=== PATIENT | male | born 1955 | race Caucasian/White ===

== ENCOUNTER 2017-10-09 15:20 | Emergency (ER) | payer BC, SELFPAY ==
[2017-10-09 15:20] VITALS: BP 162/79; PULSE 99; RESP 14; TEMP 37.4; O2SAT 96; BMI 33.0
--- NOTE | 2017-10-09 15:36 | ED.VISSUMM ---
- ER Visit Summary Date of Service: 10/09/17 Chief Complaint: Vomiting/diarrhea History of Present Illness: The patient is a 62 M has had nausea, vomiting, watery diarrhea for the past 7 or 8 hours. He has been having occasional chills and malaise for the past 2 days but the symptoms just started this morning. Denies any abdominal pain, chest pain, shortness of breath, lightheadedness, presyncope. No known sick contacts. He had a history of positive kidney disease and had bilateral nephrectomies along with a kidney transplant, he came in because he is concerned about dehydration as he is at risk for getting dehydrated quite early. He is urinating, he has no pain over his transplanted kidney, which was not recently done. Today he has not been able to keep any of his medications down, hence additional concern. Physical Examination: Intermittently actively vomiting, but otherwise nontoxic and well-appearing. Abdomen soft nontender nondistended with bowel sounds present. His transplanted kidney is in his right lower quadrant, there are well-healed surgical scars, and no tenderness. No signs of cellulitis. Oral mucous membranes are moist. Heart is regular with no significant tachycardia, lungs are clear. No pedal edema. No rashes. Test Results: Mild leukocytosis, BUN and creatinine are similar to prior with creatinine 1.66. Mild hyperglycemia 203. Emergency Department Course and Treatment: He was given a liter of IV fluid as well as Zofran, he felt much better and was tolerating oral fluid with no symptoms. He had no diarrhea here. With his low-grade temp and leukocytosis, my suspicion is that this is viral in etiology, he has had no suspicious foods lately or recent travel, or bloody diarrhea. If he does not have resolution in 3 days or so, I recommend outpatient follow-up or returning, primarily for both reevaluation and for stool studies to be obtained. Zofran does not have any documented interactions with his immunosuppressants or his antianxiety medications, so we will give him a prescription for that. Treatment Plan: Supportive care, hydration, as needed Zofran Disposition: Discharge home Impression: Acute gastroenteritis This note was generated with [employer] dictation software. It may contain incorrect words, spelling, and punctuation that were not noted in review of the chart prior to signing ED Disposition - Plan for ED Patient: Disposition: Home or Assisted Living Chief Complaint: General Illness Instructions: ED Gastroenteritis Viral Prescriptions: Ondansetron [Zofran Odt] 8 mg PO Q8H PRN PRN #21 tab PRN Reason: Nausea/Vomiting Referrals: Arslan Coelho MD [Primary Care Provider] - 3-5 Days if not improving
[2017-10-09] MEDS: Ondansetron 4 MG/2 ML Vial IV (15:51)
[2017-10-09] MEDS: 0.9% Normal Saline 1,000 ML 999 ML IV (15:51)
[2017-10-09 16:03] LABS: Absolute Lymphocyte Count 0.88 X10^3/ul (0.83-4.51); Eosinophil# 0.04 X10^3/uL; Eosinophils% 0.3 % (0-5); Hematocrit 40.6 % (40-54); Hemoglobin 12.8 g/dl (13.0-16.5); Lymphocyte # 0.88 X10^3/ul (4.0); Lymphocyte % 6.7 % (19-41); Mean Corp Hgb Conc 31.5 g/gl (32-36); Mean Corpuscular Hgb 26.3 pg (27.0-32.0); Mean Corpuscular Volume 83.5 fL (80-94); Mean Platelet Vol. 9.5 fl (6.2-12.0); Monocyte# 0.28 X10^3/uL; Monocyte% 2.1 % (0-10); Neutrophil % 90.7 % (47-70); Platelet Count 210 K/mm3 (150-450); RBC Distribution Width CV 13.5 % (11.6-14.6); RBC Distribution Width SD 40.7 fl (35.1-43.9); Red Blood Count 4.86 M/mm3 (4.6-6.2); White Blood Count 13.2 K/mm3 (4.4-11.0)
[2017-10-09 16:04] LABS: POSITIVE COUNT NO; POSITIVE DIFFERENTIAL NO; POSITIVE MORPHOLOGY NO
[2017-10-09 16:18] LABS: ALB/GLOB Ratio 1.1 RATIO (0.9-2.4); AST(SGOT) 14 U/L (15-37); Alanine Aminotransfer ALT/SGPT 26 U/L (16-61); Albumin, Serum 3.8 g/dL (3.2-5.0); Alkaline Phosphatase 74 U/L (45-117); Anion Gap 8 (5-15); BUN 27 mg/dL (7-18); BUN/Creat Ratio 16.3 RATIO (10-20); Calcium,Total 8.7 mg/dL (8.5-10.1); Chloride 108 mmol/L (98-107); Creatinine, Serum 1.66 mg/dL (0.70-1.30); EST Glomerular Filtration Rate 45 mL/min (>60); Est Glom Filt Rate - Afr Amer 54 mL/min (>60); Estimated Creatinine Clearance 50.64 ml/min; Globulin 3.6 g/dL (2.2-4.2); Glucose 203 mg/dL (74-106); Lipase 100 U/L (73-393); Potassium 4.4 mmol/L (3.5-5.1); Protein, Total 7.4 g/dL (6.4-8.2); Sodium Level 138 mmol/L (136-145)
[2017-10-09 17:56] VITALS: BP 169/90; PULSE 95; RESP 16; O2SAT 94
--- NOTE | 2017-10-09 18:00 | ED.RN ---
Verbal and written d/c instructions given. All questions answered.
== END 2017-10-09 18:01 | disposition home or self-care (01) ==
PROVIDERS: Emergency Provider Emergency Medicine; Family Provider Internal Medicine; PCP Internal Medicine
DX: K52.9 Noninfective gastroenteritis and colitis, unspecified (principal); D72.829 Elevated white blood cell count, unspecified; E11.9 Type 2 diabetes mellitus without complications; Z94.0 Kidney transplant status; Z79.4 Long term (current) use of insulin; Z79.899 Other long term (current) drug therapy
CPT/HCPCS: 80053; 83690; 85025; 96374; 99283; J7030; J2405

== ENCOUNTER 2019-01-22 16:39 | Emergency (ER) | payer BC, SELFPAY ==
[2019-01-22 16:40] VITALS: BP 160/94; PULSE 83; RESP 15; TEMP 36.6; O2SAT 97; BMI 32.8
[2019-01-22 17:13] VITALS: BP 188/95; PULSE 74; RESP 17; O2SAT 96
--- NOTE | 2019-01-22 17:29 | EKG12_ITS ---
Test Reason : NEAR SYNCOPE Blood Pressure : / mmHG Vent. Rate : 072 BPM Atrial Rate : 072 BPM P-R Int : 162 ms QRS Dur : 164 ms QT Int : 434 ms P-R-T Axes : 053 087 025 degrees QTc Int : 475 ms Normal sinus rhythm Right bundle branch block Abnormal ECG Confirmed by NETO JJ, ALVARO ([id number]), news videotape editor DANIELE TAVERA ([id number]) on 01/25/2019 1:46:08 PM Referred By: LUZ MARINA
--- NOTE | 2019-01-22 17:29 | ED.VIS.GEN ---
History of Present Illness Chief Complaint: Syncope Detail of Chief Complaint: Near syncope Informant: Patient, Family Onset: Today Current Severity: - - Resolved Maximum Severity: Moderate Narrative: Patient has a history of diabetes and chronic renal failure. He had previously had a right upper extremity fistula for dialysis. He received a kidney transplant several years ago. Fistula had recently been increasing in size and yesterday was ligated. Patient was discharged from the hospital yesterday. Patient states around 130 this afternoon he was sitting at the kitchen table talking with family when he started to feel funny. He got up in walked to his chair in the living room, but states he had a near syncopal episode. He states he felt cold but yet hot and sweaty. states he looked very pale and pasty. She got a cold cloth for his forehead. Symptoms resolved after a short period. Patient talked with staff for his surgeon at [facility] as well as his primary care physician here locally and felt he should be evaluated. Patient does not remember palpitations or chest pain during the episode. He does have a history of mitral valve prolapse. He states there was concern about the shifting of blood from the fistula being ligated to causing some heart problems. - Past Medical History (1) Chronic renal failure Status: Chronic (2) Renal transplant recipient Status: Acute (3) Hypertension Status: Chronic (4) Diabetes Status: Acute Past Medical History - Allergies and Home Meds Allergies/Adverse Reactions: Allergies CALLIE Inhibitors Allergy (Verified 01/22/19 16:47) Other adhesive tape Allergy (Verified 01/22/19 16:47) Rash Penicillins Allergy (Verified 01/22/19 16:43) Unknown cholecalciferol (vitamin D3) Adverse Reaction (Verified 01/22/19 16:47) Other citalopram [From Celexa] Adverse Reaction (Verified 01/22/19 16:47) Other clonidine Adverse Reaction (Verified 01/22/19 16:47) Other ferrous sulfate Adverse Reaction (Verified 01/22/19 16:47) Other isosorbide [From Imdur] Adverse Reaction (Verified 01/22/19 16:47) Other Latex, Natural Rubber Adverse Reaction (Verified 01/22/19 16:47) Other losartan Adverse Reaction (Verified 01/22/19 16:47) Upset Stomach trazodone Adverse Reaction (Verified 01/22/19 16:47) Other Primary Care Physician: Arslan Coelho MD [Primary Care Provider] - 3-5 Days Prior records reviewed: Yes Past Medical History: - - Reviewed Smoking Status: Never smoker Review of Systems General: Denies: Chills, Fever Eyes: Denies: Visual changes - left, Visual changes - right Cardiovascular: Denies: Chest pain, Palpitations Respiratory: Denies: Dyspnea, Cough Gastrointestinal: Denies: Abdominal pain, Nausea, Vomiting Neurological: Denies: Headache Physical Exam Vital Signs/Narrative: Vital Signs Temp Pulse Resp BP Pulse Ox 01/22/19 17:13 74 17 188/95 H 96 01/22/19 16:40 97.8 F 83 15 160/94 H 97 General: Well nourished, Well developed ENT: Moist mucous membranes Cardiovascular: Regular rate, Regular rhythm, No murmurs Respiratory: No distress, CTA bilaterally Abdomen: Soft, Nontender Extremities: - - Prior fistula site to the right upper extremity is examined. Bandages in place. No surrounding tenderness. There is minimal erythema along the volar right forearm with no sign of overt cellulitis. Neurological: Alert, Oriented x3, Normal Strength, Normal Sensation Diagnostic/Tx/Re-eval Impressions Chest X-Ray 01/22/19 17:35 IMPRESSION: ASHD. No acute cardiopulmonary pathology Electronically Signed: Beau Woodson MD at 17:52 EDT , Service support , 01/22/19 17:35 Chest 1 View (Portable) [RAD] Stat Laboratory Results 01/22/19 01/22/19 01/22/19 17:45 17:45 18:21 WBC 11.7 H RBC 5.20 Hgb 14.3 Hct 44.5 MCV 85.6 MCH 27.5 MCHC 32.1 RDW Std Deviation 39.5 RDW Coeff of Leonel 12.8 Plt Count 214 MPV 10.3 Immature Gran % (Auto) 0.400 Neut % (Auto) 82.7 H Lymph % (Auto) 7.1 L [place] % (Auto) 7.9 Eos % (Auto) 1.7 Baso % (Auto) 0.2 Absolute Neuts (auto) 9.7 H Absolute Lymphs (auto) 0.83 Absolute Nucleated RBC 0.00 Nucleated RBC % 0 Sodium Cancelled 138 Potassium Cancelled 4.7 Chloride Cancelled 110 H Carbon Dioxide Cancelled 24.0 Anion Gap Cancelled 4 L BUN Cancelled 20 H Creatinine Cancelled 1.38 H Estim Creat Clear Calc Cancelled 60.14 Est GFR (MDRD) Af Amer Cancelled 67 Est GFR (MDRD) Non-Af Cancelled 55 L BUN/Creatinine Ratio Cancelled 14.5 Glucose Cancelled 209 H Calcium Cancelled 8.7 POC Glucose 01/22/19 19:43 WBC RBC Hgb Hct MCV MCH MCHC RDW Std Deviation RDW Coeff of Leonel Plt Count MPV Immature Gran % (Auto) Neut % (Auto) Lymph % (Auto) [place] % (Auto) Eos % (Auto) Baso % (Auto) Absolute Neuts (auto) Absolute Lymphs (auto) Absolute Nucleated RBC Nucleated RBC % Sodium Potassium Chloride Carbon Dioxide Anion Gap BUN Creatinine Estim Creat Clear Calc Est GFR (MDRD) Af Amer Est GFR (MDRD) Non-Af BUN/Creatinine Ratio Glucose Calcium POC Glucose 214 H - EKG Initial EKG Interpretation: Sinus Rhythm, - - Sinus at 72 with a right bundle branch block. No acute ST change. - Medical Decision Making Test results discussed with patient and at bedside. It sounds like patient likely had a vasovagal episode. I advised him at this time to be safe we should admit him to the hospital overnight for observation. He is planning admission. He was advised that if he has a heart rhythm problem he could pass out or even . He understands. He will return for any worsening symptoms or concerns. ED Disposition - Plan for ED Patient: Disposition: Home or Assisted Living Diagnosis: Near syncope Instructions: NEAR SYNCOPE, Unknown Referrals: Arslan Coelho MD [Primary Care Provider] - 3-5 Days
--- NOTE | 2019-01-22 17:35 | RAD_ITS ---
STUDY: X-RAY CHEST REASON FOR EXAM: Male, 63 years old. Near-syncope TECHNIQUE: AP portable COMPARISON: None. FINDINGS: The lungs are clear and expanded. There is no demonstrated pleural abnormality. Heart is enlarged. Normal mediastinum and milena. Normal visualized pulmonary arteries. Tortuous mildly calcified aortic arch and descending thoracic aorta. Dorsal spine demonstrates spondylosis. Normal visualized ribs, clavicles, and shoulders. There is no demonstrated abnormality of the visualized soft tissue structures of the upper abdomen. RAD/Chest 1 View (Portable) IMPRESSION: ASHD. No acute cardiopulmonary pathology Electronically Signed: Beau Woodson MD at 17:52 EDT , Service support ,
[2019-01-22 18:08] LABS: Absolute Lymphocyte Count 0.83 X10^3/uL (0.83-4.51); Absolute Neutrophil Count 9.7 X10^3/uL (2.0-7.7); Basophil# 0.02 X10^3/uL; Basophil% 0.2 % (0-1); Eosinophils% 1.7 % (0-5); Hematocrit 44.5 % (40-54); Hemoglobin 14.3 g/dL (13.0-16.5); Lymphocyte # 0.83 X10^3/ul (4.0); Lymphocyte % 7.1 % (19-41); Mean Corp Hgb Conc 32.1 g/dL (32-36); Mean Corpuscular Hgb 27.5 pg (27.0-32.0); Mean Corpuscular Volume 85.6 fL (80-94); Mean Platelet Vol. 10.3 fl (6.2-12.0); Monocyte# 0.92 X10^3/uL; Monocyte% 7.9 % (0-10); NRBC Flagged by Analyzer 0 % (0-5); Neutrophil # 9.66 X10^3/uL (2.7-7.7); Neutrophil % 82.7 % (47-70); Platelet Count 214 K/mm3 (150-450); RBC Distribution Width CV 12.8 % (11.6-14.6); RBC Distribution Width SD 39.5 fl (35.1-43.9); White Blood Count 11.7 K/mm3 (4.4-11.0)
[2019-01-22 18:42] LABS: Anion Gap 4 (5-15); BUN 20 mg/dL (7-18); BUN/Creat Ratio 14.5 RATIO (10-20); Calcium,Total 8.7 mg/dL (8.5-10.1); Chloride 110 mmol/L (98-107); Creatinine, Serum 1.38 mg/dL (0.70-1.30); EST Glomerular Filtration Rate 55 mL/min (>60); Est Glom Filt Rate - Afr Amer 67 mL/min (>60); Estimated Creatinine Clearance 60.14 ml/min; Glucose 209 mg/dL (74-106); Potassium 4.7 mmol/L (3.5-5.1); Sodium Level 138 mmol/L (136-145)
[2019-01-22 19:51] LABS: Bedside Glucose 214 mg/dL (70-110)
[2019-01-22 20:11] VITALS: BP 162/94; PULSE 84; RESP 22; O2SAT 97
== END 2019-01-22 20:28 | disposition home or self-care (01) ==
PROVIDERS: Emergency Provider Emergency Medicine; Family Provider Internal Medicine; PCP Internal Medicine
DX: R55 Syncope and collapse (principal); I12.9 Hypertensive chronic kidney disease with stage 1 through stage 4 chronic kidney disease, or unspecified chronic kidney disease; E11.22 Type 2 diabetes mellitus with diabetic chronic kidney disease; N18.9 Chronic kidney disease, unspecified; Z94.0 Kidney transplant status; I34.1 Nonrheumatic mitral (valve) prolapse; Z79.899 Other long term (current) drug therapy
CPT/HCPCS: 71045; 80048; 82962; 85025; 93005; 99284; A4216

== ENCOUNTER 2019-01-26 12:14 | Emergency (ER) | payer BC, SELFPAY ==
[2019-01-26 12:14] VITALS: BP 152/77; PULSE 81; RESP 16; TEMP 36.1; O2SAT 99; BMI 32.9
[2019-01-26 12:17] VITALS: TEMP 36.1
--- NOTE | 2019-01-26 13:14 | ED.DCSUM_ITS ---
History of Present Illness Chief Complaint: Cellulitis Informant: Patient Onset: Days - 3 Context: Gradual Onset Timing: Continuous Current Severity: Moderate Maximum Severity: Moderate Narrative: Patient had recent vascular surgery to reverse a fistula on the right upper arm. He presented with redness, pain and increased swelling in that region. He has no systemic complaints, he denies fever or chills. He has no chest pain or shortness of breath. Pain is mild to moderate achy. This is been ongoing for the past 3 days Past Medical History - Allergies and Home Meds Allergies/Adverse Reactions: Allergies CALLIE Inhibitors Allergy (Verified 01/26/19 12:16) Other adhesive tape Allergy (Verified 01/26/19 12:16) Rash Penicillins Allergy (Verified 01/26/19 12:16) Unknown cholecalciferol (vitamin D3) Adverse Reaction (Verified 01/26/19 12:16) Other citalopram [From Celexa] Adverse Reaction (Verified 01/26/19 12:16) Other clonidine Adverse Reaction (Verified 01/26/19 12:16) Other ferrous sulfate Adverse Reaction (Verified 01/26/19 12:16) Other isosorbide [From Imdur] Adverse Reaction (Verified 01/26/19 12:16) Other Latex, Natural Rubber Adverse Reaction (Verified 01/26/19 12:16) Other losartan Adverse Reaction (Verified 01/26/19 12:16) Upset Stomach trazodone Adverse Reaction (Verified 01/26/19 12:16) Other Primary Care Physician: Arslan Coelho MD [Primary Care Provider] - Past Medical History: - - Chronic renal failure status post renal transplant, on immunosuppressants. Hypertension Surgical History: - - Fistula and recent reversal as in [facility] Lives: Spouse/ Significant Other Smoking Status: Never smoker Review of Systems All systems negative except as indicated General: Denies: Chills, Fever, Sweats Eyes: Denies: Visual changes - bilaterally, Diplopia Cardiovascular: Denies: Chest pain, Palpitations Respiratory: Denies: Dyspnea, Cough, Dyspnea on exertion Gastrointestinal: Denies: Abdominal pain, Nausea, Vomiting, Diarrhea, Melena, Hematochezia Genitourinary: Denies: Dysuria, Hematuria, Frequency Musculoskeletal: Reports: Extremity Pain - As in HPI. Denies: Back pain Skin: Reports: - - Is in HPI Neurological: Denies: Headache, Weakness, Numbness Physical Exam Vital Signs/Narrative: Vital Signs Temp Pulse Resp BP Pulse Ox 01/26/19 12:17 97 F L 01/26/19 12:14 97 F L 81 16 152/77 H 99 Inital Vital Signs reviewed: Yes General: Well nourished, Well developed ENT: Moist mucous membranes Neck: Supple Cardiovascular: Regular rate, Regular rhythm, No murmurs Respiratory: No distress, CTA bilaterally Abdomen: Soft, Nontender Back: Nontender, Normal Inspection Extremities: - - Right upper extremity has erythema with increased calor, the incision is intact but there is some erythema around this as well, there is a 10 x 8 cm indurated lesion. Skin: - - Vitals as above Neurological: Normal Strength, Normal Sensation Diagnostic/Tx/Re-eval - Medical Decision Making Patient has an unremarkable work-up. White count is 13, I had a long discussion with the patient had a long discussion with [facility], , he told me this is somewhat common, that there is supposed to be thrombosis which can cause local inflammation, however I believe there is is also cellulitis, I mentioned this to the physician, he told me is reasonable to start antibiotics and for the patient to be seen early next week outpatient. I discussed with the patient and feels comfortable with this. Otherwise his creatinine is baseline. Patient will be discharged with clindamycin for home. Disposition: Discharge stable condition ED Disposition - Plan for ED Patient: Disposition: Home or Assisted Living Instructions: Cellulitis Prescriptions: Clindamycin [Cleocin] 300 mg PO 4X/DAY #80 cap Prescription Printed Additional Instructions: Follow-up with your [facility] doctor, if you have fever chills or anything worsens return right away.
[2019-01-26 14:16] LABS: Absolute Lymphocyte Count 0.87 X10^3/uL (0.83-4.51); Basophil# 0.02 X10^3/uL; Basophil% 0.2 % (0-1); Eosinophil# 0.14 X10^3/uL; Eosinophils% 1.1 % (0-5); Hematocrit 42.8 % (40-54); Hemoglobin 13.9 g/dL (13.0-16.5); Lymphocyte # 0.87 X10^3/ul (4.0); Lymphocyte % 6.7 % (19-41); Mean Corp Hgb Conc 32.5 g/dL (32-36); Mean Corpuscular Hgb 27.5 pg (27.0-32.0); Mean Corpuscular Volume 84.6 fL (80-94); Mean Platelet Vol. 10.4 fl (6.2-12.0); Monocyte# 1.51 X10^3/uL; Monocyte% 11.6 % (0-10); NRBC Flagged by Analyzer 0 % (0-5); Neutrophil # 10.41 X10^3/uL (2.7-7.7); Neutrophil % 79.9 % (47-70); POSITIVE DIFFERENTIAL YES; Platelet Count 198 K/mm3 (150-450); RBC Distribution Width CV 12.8 % (11.6-14.6); Red Blood Count 5.06 M/mm3 (4.6-6.2)
[2019-01-26 14:33] LABS: ALB/GLOB Ratio 0.9 RATIO (0.9-2.4); AST(SGOT) 18 U/L (15-37); Alanine Aminotransfer ALT/SGPT 38 U/L (16-61); Albumin, Serum 3.5 g/dL (3.2-5.0); Alkaline Phosphatase 96 U/L (45-117); Anion Gap 5 (5-15); BUN 26 mg/dL (7-18); BUN/Creat Ratio 16.6 RATIO (10-20); Calcium,Total 8.9 mg/dL (8.5-10.1); Chloride 106 mmol/L (98-107); Creatinine, Serum 1.57 mg/dL (0.70-1.30); EST Glomerular Filtration Rate 48 mL/min (>60); Est Glom Filt Rate - Afr Amer 58 mL/min (>60); Estimated Creatinine Clearance 52.86 ml/min; Globulin 3.9 g/dL (2.2-4.2); Glucose 163 mg/dL (74-106); Potassium 4.4 mmol/L (3.5-5.1); Protein, Total 7.4 g/dL (6.4-8.2); Sodium Level 136 mmol/L (136-145)
[2019-01-26 14:39] LABS: Differential Indicated SCAN CRITERIA MET
[2019-01-26 15:04] VITALS: BP 154/84; PULSE 73; RESP 14; O2SAT 97
[2019-01-28 12:05] LABS: Pathologist Review Reviewed
== END 2019-01-26 15:05 | disposition home or self-care (01) ==
PROVIDERS: Emergency Provider Emergency Medicine; Family Provider Internal Medicine; PCP Internal Medicine
DX: L03.113 Cellulitis of right upper limb (principal); Z98.890 Other specified postprocedural states; I12.9 Hypertensive chronic kidney disease with stage 1 through stage 4 chronic kidney disease, or unspecified chronic kidney disease; N18.9 Chronic kidney disease, unspecified; Z94.0 Kidney transplant status; Z79.899 Other long term (current) drug therapy
CPT/HCPCS: 80053; 85025; 87040; 96365; 99283; A4216

== ENCOUNTER 2021-04-30 16:44 | Emergency (ER) | payer MEDICARE, BC, SELFPAY ==
[2021-04-30 16:45] VITALS: BP 160/89; PULSE 77; RESP 16; TEMP 36.3; O2SAT 98; BMI 30.5
--- NOTE | 2021-04-30 16:56 | RAD_ITS ---
STUDY: X-RAY - LEFT TIBIA AND FIBULA REASON FOR EXAM: Male, 65 years old. Other, Got out of truck and ankle gave out TECHNIQUE: 3 view(s) of the tibia and fibula were obtained. COMPARISON: Left ankle x-ray on the same day FINDINGS: An acute oblique fractures present through the proximal one third fibular shaft with mild displacement. An acute oblique mildly displaced fracture is also present through the posterior aspect of the distal one third fibula with a small component extending into the periphery of the lateral malleolus. An acute vertical fracture is present through the posterior tibial malleolus is well with mild displacement. Mild to soft tissue swelling is present. At sclerotic calcifications noted. RAD/Tibia & Fibula 2 Views IMPRESSION: 1. Acute fractures of the proximal and distal one third aspects of the fibula 2. Acute posterior tibial malleolar fracture. Electronically Signed: Miguel Angel Simpson MD at 18:08 EDT , Service support ,
--- NOTE | 2021-04-30 16:59 | ED.VIS.LOWEX ---
HPI History of Present Illness Chief Complaint: Lower Extremity Injury Informant: patient Narrative Narrative: Patient drove to [place] and back today. He was sitting in the truck seat that he has not been in. He states his feet just felt a little tingly. He is diabetic on insulin with some neuropathy. He is also a kidney transplant on antirejection meds. This was not unilateral symptoms. There is no weakness. He got up to walk around in the rest area. He ended up rolling his ankle and it gave out from under him. He has pain in that left ankle. He did not hurt anything else. He was able to get back up in the truck and drive all the way back. He also has a history of osteoporosis. Rest makes the symptoms better and weightbearing makes them worse. [facility] Medical History (Updated 04/30/21 @ 20:[address] Trav Garcia MD) Diabetes Hypertension Home Medications bupropion HCl 100 mg PO DAILY 09/16/16 [History Last Taken Unknown] calcitriol 0.5 mcg PO DAILY 09/16/16 [History Last Taken Unknown] hydroxyzine pamoate 50 mg PO QHS PRN PRN 09/16/16 [History Last Taken Unknown] insulin lispro [Humalog KwikPen] 25 unit SQ TID 09/16/16 [History Last Taken Unknown] lansoprazole [Prevacid] 30 mg PO BID 09/16/16 [History Last Taken Unknown] magnesium 400 mg PO DAILY 09/16/16 [History Last Taken Unknown] mycophenolate mofetil 750 mg PO BID 09/16/16 [History Last Taken Unknown] tacrolimus [Astagraf Xl] 1 mg PO QHS 09/16/16 [History Last Taken Unknown] tacrolimus [Astagraf Xl] 2 mg PO DAILY 09/16/16 [History Last Taken Unknown] insulin lispro [Humalog] 45 unit SQ DAILY 10/09/17 [History Last Taken Unknown] amlodipine 10 mg PO DAILY 04/30/21 [History Last Taken Unknown] carvedilol 25 mg PO BID 04/30/21 [History Last Taken Unknown] fluticasone furoate mcg INHALATION 04/30/21 [History Last Taken Unknown] ipratropium bromide 2 spray INTRANASAL BID 04/30/21 [History Last Taken Unknown] oxycodone-acetaminophen [Percocet] 1 tab PO Q6H PRN 3 Days #10 tab 10/22/21 [Rx Last Taken Unknown] prednisone 2.5 mg PO DAILY 04/30/21 [History Last Taken Unknown] sulfamethoxazole-trimethoprim [Bactrim] 1 tab PO DAILY 04/30/21 [History Last Taken Unknown] Allergy/AdvReac Type Severity Reaction Status Date / Time CALLIE Inhibitors Allergy Other Verified 04/30/21 17:25 adhesive tape Allergy Rash Verified 04/30/21 17:25 Penicillins Allergy Unknown Verified 04/30/21 17:25 cholecalciferol (vitamin D3) AdvReac Other Verified 04/30/21 17:25 citalopram [From Celexa] AdvReac Other Verified 04/30/21 17:25 clonidine AdvReac Other Verified 04/30/21 17:25 ferrous sulfate AdvReac Other Verified 04/30/21 17:25 isosorbide [From Imdur] AdvReac Other Verified 04/30/21 17:25 Latex, Natural Rubber AdvReac Other Verified 04/30/21 17:25 losartan AdvReac Upset Verified 04/30/21 17:25 Stomach trazodone AdvReac Other Verified 04/30/21 17:25 Surgical History (Updated 04/30/21 @ 17:15 by Layla Hernandez) History of kidney transplant Social History Smoking Status: Never smoker ROS ROS ED Constitutional Constitutional ED: Denies chills or fever(s) Musculoskeletal Musculoskeletal: Reports other Details: See history of present illness ; Denies back pain or neck pain Integumentary Denies abscess or rash Neurologic Neurologic: Reports paresthesias; Denies headache(s) or weakness Hematologic/Lymphatic Hematologic/Lymphatic: Denies easy bleeding or easy bruising EXAM Physical Exam Const Vital Signs: 04/30/21 16:45 Temperature 97.4 F L Temperature Source Temporal Pulse Rate 77 Respiratory Rate 16 Blood Pressure 160/89 H Blood Pressure Mean 112 Pulse Ox 98 Oxygen Delivery Method Room Air Positive well nourished and well developed General Appearance ED: well developed and NAD HEENT normocephalic and atraumatic Resp normal respiratory effort Cardio regular rate Extremity Extremity Narrative: Patient does have some swelling both medial and lateral malleolar I of his left ankle. No tenderness at the calcaneus or fifth metatarsal. Achilles is intact. He does have some very mild discomfort at the proximal fibula. The ankle is stable to inversion eversion. Neuro oriented x3 Sensorium / Orientation: alert Psych mental status grossly normal Skin Lesions: no lesions Rashes: no rashes MDM MDM MDM Narrative Medical decision making narrative: Patient's x-ray reveal posterior tibial, posterior portion of the fibula distally and proximal fibula fracture. Although this does not meet strict criteria for Maisonneuve fracture it is somewhat concerning. I did discuss the case with orthopedic surgeon, Dr. Tre diaz. Plan will be to splint the patient. He will follow up as an outpatient. We did put him in sugar tong splint. There was concerned about the excess weight so we did not put a posterior component but the patient is not to be bearing weight on this. This went up high to try to get as much of the proximal fibula as possible. He was able to walk with a walker here. There is no sign of neurologic deficit. Radiography Diagnostic Testing: Clinical Impression(s) from Imaging Studies Tibia/Fibula X-Ray 04/30/21 16:56 IMPRESSION: 1. Acute fractures of the proximal and distal one third aspects of the fibula 2. Acute posterior tibial malleolar fracture. Electronically Signed: Miguel Angel Simpson MD at 18:08 EDT , Service support , Ankle X-Ray 04/30/21 17:01 IMPRESSION: 1. Acute fractures of the distal one third fibula and posterior tibial malleolus Electronically Signed: Miguel Angel Simpson MD at 18:13 EDT , Service support , Discharge Plan Triage Chief Complaint: Lower Extremity Injury ED Provider: Trav Garcia Dx/Rx/DC Orders Clinical Impression: Closed Maisonneuve fracture Instructions: ED Ankle Fracture, Distal Fibula Prescriptions: New oxycodone-acetaminophen [Percocet] 5-325 mg tablet 1 tab PO Q6H PRN (Reason: pain) 3 Days Qty: 10 RF: 0 No Action mycophenolate mofetil 250 MG capsule 750 mg PO BID RF: 0 bupropion HCl 100 MG tablet sustained-release 12 hr 100 mg PO DAILY RF: 0 lansoprazole [Prevacid] 30 MG capsule 30 mg PO BID RF: 0 calcitriol 0.25 MCG capsule 0.5 mcg PO DAILY RF: 0 hydroxyzine pamoate 25 MG capsule 50 mg PO QHS PRN PRN (Reason: Sleep) RF: 0 magnesium 200 MG tablet 400 mg PO DAILY RF: 0 insulin lispro [Humalog KwikPen Insulin] 100 UNIT/ML insulin pen 25 unit SQ TID RF: 0 Astagraf XL 1 MG capsule,extended release 24hr 1 mg PO QHS RF: 0 Astagraf XL 1 MG capsule,extended release 24hr 2 mg PO DAILY RF: 0 insulin lispro [Humalog U-100 Insulin] 100 UNIT/ML solution 45 unit SQ DAILY RF: 0 carvedilol 25 mg Tablet 25 mg PO BID RF: 0 sulfamethoxazole-trimethoprim [Bactrim] 400-80 mg Tablet 1 tab PO DAILY RF: 0 amlodipine 10 mg Tablet 10 mg PO DAILY RF: 0 prednisone 2.5 mg Tablet 2.5 mg PO DAILY RF: 0 ipratropium bromide 21 mcg (0.03 %) [place],Non-Aerosol 2 spray INTRANASAL BID RF: 0 fluticasone furoate 50 mcg/actuation Blister With Device INHALATION RF: 0 Primary Care Provider: Arslan Coelho Referrals: Karthik Goldstein DO [STAFF PHYSICIAN] - 3-5 Days Arslan Coelho MD [Primary Care Provider] - Disposition Disposition: Home, Self Care Discharge Date/Time: 04/30/21 21:04
--- NOTE | 2021-04-30 17:01 | RAD_ITS ---
STUDY: X-RAY - LEFT ANKLE REASON FOR EXAM: Male, 65 years old. trauma TECHNIQUE: 3 view(s) of the ankle. COMPARISON: X-ray of the left tibia and fibula on the same day FINDINGS: An acute oblique mildly displaced fracture is present through the posterior aspect of the distal one third fibula with a small component extending into the periphery of the lateral malleolus. An acute vertical fracture is also present through the posterior tibial malleolus is well with mild displacement. Mild to soft tissue swelling is present. Atherosclerotic calcifications noted. Normal tibiotalar articulation and ankle mortise. Normal visualized talus and calcaneus. The visualized subtalar, talonavicular, calcaneocuboid and tarsal articulations are normal. RAD/Ankle min 3 Views IMPRESSION: 1. Acute fractures of the distal one third fibula and posterior tibial malleolus Electronically Signed: Miguel Angel Simpson MD at 18:13 EDT , Service support ,
[2021-04-30] MEDS: traMADol 50 MG Tablet PO (19:57)
== END 2021-04-30 21:04 | disposition home or self-care (01) ==
PROVIDERS: Emergency Provider Emergency Medicine; PCP Internal Medicine
DX: S82.862A Displaced Maisonneuve's fracture of left leg, initial encounter for closed fracture (principal); E11.40 Type 2 diabetes mellitus with diabetic neuropathy, unspecified; I10 Essential (primary) hypertension; Z79.4 Long term (current) use of insulin; Z79.899 Other long term (current) drug therapy; X50.1XXA Overexertion from prolonged static or awkward postures, initial encounter; Y93.01 Activity, walking, marching and hiking; Y92.89 Other specified places as the place of occurrence of the external cause; Y99.8 Other external cause status
CPT/HCPCS: 73590; 73610; 99282

== ENCOUNTER 2023-04-09 14:35 | Emergency (ER) | payer MEDICARE, BC, SELFPAY ==
[2023-04-09 14:36] VITALS: BP 170/103; PULSE 84; RESP 18; TEMP 36.4; O2SAT 98; BMI 29.4
--- NOTE | 2023-04-09 15:17 | EX.ED.DYSGE1 ---
HPI History of Present Illness Chief Complaint: Hypertension Informant: patient and other (Reviewed patient's MyChart labs as well as his ongoing reports of blood pressure on his phone.) Narrative Narrative: Patient presents with elevated blood pressure. Patient has a history of polycystic kidney disease. He had a renal transplant April 18, 2013. He just saw his transplant team on Monday. His blood pressure has been up a bit in the 140s to 150s but they were okay with this as long as it did not go higher. All other work-ups have been negative. His urine output has been normal. He has no pain over his kidney. He states he does not feel well but his blood pressure has been drifting up over the last 3 or 4 days. [facility] Medical History (Updated 04/09/23 @ 17:[address] Trav Garcia MD) Diabetes Diabetic peripheral neuropathy Erectile dysfunction GERD without esophagitis Hypertension Hypomagnesemia Insomnia Memory disturbance Mixed hyperlipidemia Moderate mitral valve regurgitation Obesity MITALI on CPAP Osteoporosis Polycystic kidney disease Spinal stenosis of lumbar region Stress and adjustment reaction Stroke Home Medications bupropion HCl 100 mg tablet,12 hr sustained-release 100 mg PO DAILY 09/16/16 [History Last Taken Unknown] calcitriol 0.25 mcg capsule 0.5 mcg PO DAILY 09/16/16 [History Last Taken Unknown] insulin lispro 100 unit/mL subcutaneous pen (Humalog KwikPen (U-100) Insulin) 25 unit SQ TID 09/16/16 [History Last Taken Unknown] lansoprazole 30 mg capsule,delayed release (Prevacid) 30 mg PO BID 09/16/16 [History Last Taken Unknown] magnesium 200 mg tablet 400 mg PO DAILY 09/16/16 [History Last Taken Unknown] mycophenolate mofetil 250 mg capsule 750 mg PO BID 09/16/16 [History Last Taken Unknown] tacrolimus 1 mg capsule,extended release 24 hr (Astagraf XL) 2 mg PO DAILY 09/16/16 [History Last Taken Unknown] insulin lispro 100 unit/mL subcutaneous solution (Humalog U-100 Insulin) 45 unit SQ DAILY 10/09/17 [History Last Taken Unknown] amlodipine 10 mg tablet 10 mg PO DAILY 04/30/21 [History Last Taken Unknown] fluticasone furoate 50 mcg/actuation blister powder for inhalation mcg inhalation 04/30/21 [History Last Taken Unknown] ipratropium bromide 21 mcg (0.03 %) nasal spray 2 spray intranasal BID 04/30/21 [History Last Taken Unknown] oxycodone-acetaminophen 5 mg-325 mg tablet (Percocet) 1 tab PO Q6H PRN pain 3 days #10 tabs 04/30/21 [Rx Last Taken Unknown] prednisone 2.5 mg tablet 2.5 mg PO DAILY 04/30/21 [History Last Taken Unknown] sulfamethoxazole 400 mg-trimethoprim 80 mg tablet (Bactrim) 1 tab PO DAILY 04/30/21 [History Last Taken Unknown] carvedilol 25 mg tablet (Coreg) 25 mg PO BID 04/04/23 [History Last Taken Unknown] hydroxyzine pamoate 25 mg capsule 25 mg PO QHS PRN Sleep 04/04/23 [History Last Taken Unknown] suvorexant 10 mg tablet (Belsomra) 10 mg PO QHS 04/04/23 [History Last Taken Unknown] terazosin 2 mg capsule 2 mg PO QHS 04/04/23 [History Last Taken Unknown] Allergy/AdvReac Type Severity Reaction Status Date / Time CALLIE Inhibitors Allergy Other Verified 04/09/23 14:40 adhesive tape Allergy Rash Verified 04/09/23 14:40 Penicillins Allergy Unknown Verified 04/09/23 14:40 cholecalciferol (vitamin D3) AdvReac Other Verified 04/09/23 14:40 citalopram [From Celexa] AdvReac Other Verified 04/09/23 14:40 clonidine AdvReac Other Verified 04/09/23 14:40 ferrous sulfate AdvReac Other Verified 04/09/23 14:40 isosorbide [From Imdur] AdvReac Other Verified 04/09/23 14:40 Latex, Natural Rubber AdvReac Other Verified 04/09/23 14:40 losartan AdvReac Upset Verified 04/09/23 14:40 Stomach trazodone AdvReac Other Verified 04/09/23 14:40 Family History (Updated 04/04/23 @ 09:54 by Rosita Shields RN) Mother Breast cancer Osteoporosis Aneurysm Father Diabetes Cancer bone Sister Breast cancer Surgical History (Updated 04/09/23 @ 17:[address] Trav Garcia MD) History of esophagogastroduodenoscopy (EGD) History of kidney transplant Social History (Updated 04/04/23 @ 09:54 by Rosita Shields RN) Smoking Status: Never smoker alcohol intake: never EXAM Physical Exam Const Vital Signs: 04/09/23 14:36 04/09/23 14:49 04/09/23 15:35 Temperature 97.5 F L Temperature Source Temporal Pulse Rate 84 Respiratory Rate 18 Respiratory Effort Normal Respiratory Pattern Normal Blood Pressure 170/103 H 127/49 H Blood Pressure Mean 125 75 Pulse Ox 98 Oxygen Delivery Method Room Air 04/09/23 16:00 Temperature Temperature Source Pulse Rate 64 Respiratory Rate Respiratory Effort Respiratory Pattern Blood Pressure 135/78 H Blood Pressure Mean 97 Pulse Ox Oxygen Delivery Method MDM MDM MDM Narrative Medical decision making narrative: Patient CBC shows no acute process. Patient's electrolytes show creatinine 1.41. However, this is exactly what it was in his follow-up with the transplant team on the of this month blood work. His urine does not show any sign of infection. There is elevated protein. Patient states that his last urine showed very high protein levels. We have done multiple checks of blood pressure here. Patient's been running anywhere 120s to 135. He states he feels perfectly fine. Were now wondering if his new blood pressure machine may be off. He plan is to go home and measure it to see if it is correlating. If he is correlating having consistent blood pressure the plan is to increase his amlodipine from 5 to 10 mg. He states he already has the 10 mg tablets at home that were going to be used if his blood pressure went up. He has follow-up with his endoscopy support specialist on . Lab Data Attestation: I reviewed the patient's lab results. Labs: Laboratory Results - last 24 hr 04/09/23 04/09/23 15:16 15:53 WBC 5.9 RBC 4.97 Hgb 13.8 Hct 42.7 MCV 85.9 MCH 27.8 MCHC 32.3 RDW Std Deviation 39.2 RDW Coeff of Leonel 12.6 Plt Count 240 MPV 10.1 Immature Gran % (Auto) 0.500 Neut % (Auto) 74.1 H Lymph % (Auto) 10.0 L [place] % (Auto) 12.7 H Eos % (Auto) 2.4 Baso % (Auto) 0.3 Absolute Neuts (auto) 4.4 Absolute Lymphs (auto) 0.59 L Nucleated RBC % 0 Differential Comment SCANNED Sodium 139 Potassium 4.3 Chloride 113 H Carbon Dioxide 21.0 Anion Gap 5 BUN 18 Creatinine 1.41 H Estim Creat Clear Calc 55.80 Est GFR (MDRD) Af Amer 64 Est GFR (MDRD) Non-Af 53 L BUN/Creatinine Ratio 12.8 Glucose 168 H Calcium 8.6 Total Bilirubin 0.30 AST 13 L ALT 33 Alkaline Phosphatase 136 H Total Protein 6.7 Albumin 3.5 Globulin 3.2 Albumin/Globulin Ratio 1.1 Urine Color Yellow Urine Clarity Clear Urine pH 6.0 Ur Specific [place] 1.020 Urine Protein 500 H Urine Glucose (UA) 50 H Urine Ketones Negative Urine Occult Blood 10 H Urine Nitrite Negative Urine Bilirubin Negative Urine Urobilinogen Normal Ur Leukocyte Esterase Negative Urine RBC 0 SEEN Urine WBC 0-5 SEEN Ur Squamous Epith Cells 0 SEEN Urine Bacteria 0 SEEN Urine Mucus 0 SEEN Discharge Plan Triage Chief Complaint: Hypertension ED Provider: Trav Garcia Dx/Rx/DC Orders Clinical Impression: Elevated blood pressure reading, Proteinuria, History of kidney transplant Instructions: ED Hypertension, Established Prescriptions: No Action carvedilol [Coreg] 25 mg tablet 25 mg PO BID Rx Instructions: must administer with a meal/food Belsomra 10 mg tablet 10 mg PO QHS terazosin 2 mg capsule 2 mg PO QHS mycophenolate mofetil 250 MG capsule 750 mg PO BID bupropion HCl 100 MG tablet sustained-release 12 hr 100 mg PO DAILY lansoprazole [Prevacid] 30 MG capsule 30 mg PO BID calcitriol 0.25 MCG capsule 0.5 mcg PO DAILY magnesium 200 MG tablet 400 mg PO DAILY insulin lispro [Humalog KwikPen Insulin] 100 UNIT/ML insulin pen 25 unit SQ TID Astagraf XL 1 MG capsule,extended release 24hr 2 mg PO DAILY hydroxyzine pamoate 25 mg capsule 25 mg PO QHS PRN (Reason: Sleep) Rx Instructions: take 1-2 capsules QHS PRN insulin lispro [Humalog U-100 Insulin] 100 UNIT/ML solution 45 unit SQ DAILY sulfamethoxazole-trimethoprim [Bactrim] 400-80 mg Tablet 1 tab PO DAILY amlodipine 10 mg Tablet 10 mg PO DAILY prednisone 2.5 mg Tablet 2.5 mg PO DAILY ipratropium bromide 21 mcg (0.03 %) Proctor,Non-Aerosol 2 spray INTRANASAL BID fluticasone furoate 50 mcg/actuation Blister With Device INHALATION oxycodone-acetaminophen [Percocet] 5-325 mg tablet 1 tab PO Q6H PRN (Reason: pain) 3 Days Qty: 10 0RF Primary Care Provider: Arslan Coelho Referrals: Vinicio Sofia MD [Med Staff - Active Staff] - (Follow-up on as scheduled.) Arslan Coelho MD [Primary Care Provider] - Disposition Disposition: Home, Self Care
[2023-04-09 15:26] LABS: Absolute Lymphocyte Count 0.59 X10^3/uL (0.83-4.51); Absolute Neutrophil Count 4.4 X10^3/uL (2.0-7.7); Basophil# 0.02 X10^3/uL; Basophil% 0.3 % (0-1); Eosinophil# 0.14 X10^3/uL; Eosinophils% 2.4 % (0-5); Hematocrit 42.7 % (40-54); Hemoglobin 13.8 g/dL (13.0-16.5); Lymphocyte # 0.59 X10^3/ul (0.83-4.51); Mean Corp Hgb Conc 32.3 g/dL (32-36); Mean Corpuscular Hgb 27.8 pg (27.0-32.0); Mean Corpuscular Volume 85.9 fL (80-94); Mean Platelet Vol. 10.1 fl (6.2-12.0); Monocyte# 0.75 X10^3/uL; Monocyte% 12.7 % (0-10); NRBC Flagged by Analyzer 0 % (0-5); Neutrophil # 4.38 X10^3/uL (2.7-7.7); Neutrophil % 74.1 % (47-70); POSITIVE DIFFERENTIAL YES; Platelet Count 240 K/mm3 (150-450); RBC Distribution Width CV 12.6 % (11.6-14.6); RBC Distribution Width SD 39.2 fl (35.1-43.9); Red Blood Count 4.97 M/mm3 (4.6-6.2); White Blood Count 5.9 K/mm3 (4.4-11.0)
[2023-04-09 15:30] LABS: Differential Indicated SCAN CRITERIA MET
[2023-04-09 15:35] VITALS: BP 127/49
[2023-04-09 15:51] LABS: Differential Comment SCANNED
[2023-04-09 15:59] LABS: Bacteria 0 SEEN /hpf (None Seen); Mucous, Urine 0 SEEN /hpf (<or=2+); Red Blood Cells-Urine 0 SEEN /hpf (0-5); Squamous Epithelial Cells - UA 0 SEEN /hpf (0-5)
[2023-04-09 16:00] VITALS: BP 135/78; PULSE 64
[2023-04-09 16:04] LABS: ALB/GLOB Ratio 1.1 RATIO (0.9-2.4); AST(SGOT) 13 U/L (15-37); Alanine Aminotransfer ALT/SGPT 33 U/L (16-61); Albumin, Serum 3.5 g/dL (3.2-5.0); Alkaline Phosphatase 136 U/L (45-117); Anion Gap 5 (5-15); BUN 18 mg/dL (7-18); BUN/Creat Ratio 12.8 RATIO (10-20); Calcium,Total 8.6 mg/dL (8.5-10.1); Chloride 113 mmol/L (98-107); Creatinine, Serum 1.41 mg/dL (0.70-1.30); EST Glomerular Filtration Rate 53 mL/min (>60); Est Glom Filt Rate - Afr Amer 64 mL/min (>60); Globulin 3.2 g/dL (2.2-4.2); Glucose 168 mg/dL (74-106); Potassium 4.3 mmol/L (3.5-5.1); Protein, Total 6.7 g/dL (6.4-8.2); Sodium Level 139 mmol/L (136-145)
[2023-04-09 16:11] LABS: Color, Urine Yellow (Yellow); Glucose, Dipstick 50 mg/dl (Normal); Ketone-Dipstick Negative (Negative); Leukocyte Esterase-Dipstick Negative /ul (Negative); Nitrite-Dipstick Negative (Negative); Occult Blood-Urine 10 /ul (Negative); Protein-Dipstick 500 mg/dl (Negative); Urine Bilirubin Dipstick Negative (Negative); Urine Clarity Clear (Clear); Urine Urobilinogen Normal (Normal)
[2023-04-09 16:19] LABS: White Blood Cells 0-5 SEEN /hpf (0-5)
[2023-04-09 17:26] VITALS: BP 126/77; PULSE 62; RESP 15; O2SAT 98
== END 2023-04-09 17:29 | disposition home or self-care (01) ==
PROVIDERS: Emergency Provider Emergency Medicine; PCP Internal Medicine; Visit Provider Emergency Medicine
DX: I10 Essential (primary) hypertension (principal); E11.42 Type 2 diabetes mellitus with diabetic polyneuropathy; R80.9 Proteinuria, unspecified; E78.2 Mixed hyperlipidemia; Z94.0 Kidney transplant status; Z79.899 Other long term (current) drug therapy
CPT/HCPCS: 80053; 81001; 85025; 99283

== ENCOUNTER → 2023-04-26 | Outpatient (CLI) | payer MEDICARE, BC, SELFPAY ==
--- NOTE | 2023-04-26 13:09 | ECHOD_ITS ---
Reason For Study: MITALI Procedure This was a 2D Doppler, Color Flow transthoracic echocardiogram. Exam performed in department. Left Ventricle Normal LV size. Mild concentric left ventricular hypertrophy. Left ventricular systolic function is normal. The estimated ejection fraction is 60 %. Stage 1 diastolic dysfunction. No regional wall motion abnormalities noted. Right Ventricle Normal RV size. Normal systolic function. Atria Normal left atrium. Normal right atrium. Mitral Valve Normal mitral valve. Tricuspid Valve Normal tricuspid valve. Aortic Valve Normal aortic valve. Pulmonic Valve Normal pulmonic valve. Great Vessels Mildly dilated aortic root. The pulmonary artery is normal size. Normal inferior vena cava. Pericardium/Pleural No pericardial effusion. MMode/2D Measurements & Calculations LVIDd: 5.4 cm IVSd: 1.3 cm Ao root diam: 3.8 cm LVIDs: 3.5 cm LVPWd: 1.2 cm RVDd: 3.6 cm FS: 35.3 % LAV(MOD-bp): 42.6 ml LVAd ap4: 26.1 cm2 SV(MOD-sp4): 39.9 ml LAV(MOD-bp) Indexed: 19.4 ml/m2 LVLd ap4: 8.2 cm LAV(MOD-sp2): 43.4 ml EDV(MOD-sp4): 70.3 ml LAV(MOD-sp4): 39.8 ml EDV(sp4-el): 70.7 ml LVAs ap4: 16.1 cm2 LVLs ap4: 7.3 cm ESV(MOD-sp4): 30.4 ml ESV(sp4-el): 30.0 ml EF(MOD-sp4): 56.8 % EF(sp4-el): 57.6 % SV(sp4-el): 40.7 ml LA A4 area: 16.0 cm2 LA dimension(2D): 3.8 cm RA A4 area: 12.5 cm2 TAPSE: 2.1 cm Time Measurements MV dec time: 0.27 sec Doppler Measurements & Calculations MV E max salom[place]: 42.9 cm/sec Lat Peak E' [place]: 7.9 cm/sec Med Peak E' [place]: 8.7 cm/sec MV A max [place]: 100.2 cm/sec E/E' lat: 5.5 E/E' med: 4.9 MV E/A: 0.43 Ao V2 max: 133.5 cm/sec LV V1 max: 102.9 cm/sec MV dec slope: 159.1 cm/sec2 Ao max P.1 mmHg LV V1 max P.2 mmHg Ao V2 mean: 91.8 cm/sec LV V1 mean P.7 mmHg Ao mean P.9 mmHg LV V1 mean: 79.8 cm/sec Ao V2 VTI: 25.3 cm LV V1 VTI: 23.1 cm AV (velocity ratio): 0.91 PA V2 max: 97.5 cm/sec ECHO/Echo Complete Interpretation Summary Normal LV size. Left ventricular systolic function is normal. The estimated ejection fraction is 60 %. Mildly dilated aortic root. Stage 1 diastolic dysfunction. Patient is noted to have multiple cysts in the liver Ordering Physician: Vinicio Sofia Referring Physician: Arslan Coelho Performed By: Pita Miranda, RDCS, RVT
== END | disposition home or self-care (01) ==
LOC: CVS 13:08
PROVIDERS: PCP Internal Medicine; Referring Provider Internal Medicine Cardiovascular Disease; Visit Provider Internal Medicine Cardiovascular Disease
DX: G47.33 Obstructive sleep apnea (adult) (pediatric) (principal); I10 Essential (primary) hypertension
CPT/HCPCS: 93306

== ENCOUNTER 2024-04-30 06:28 | Day surgery (SDC) | payer MEDICARE, BC, SELFPAY ==
[2024-04-30] VITALS (7 sets, daily range): BP systolic 81–132; BP diastolic 60–83; PULSE 71–74; RESP 16; TEMP 36.1–36.6; O2SAT 91–100; BMI 27.8
--- NOTE | 2024-04-30 | GASB_PTH ---
PATHOLOGY RESULTS PATIENT: ESTER FLORES LOC: EN U#:[id number] AGE/SX: 68/M ROOM: RE04/30/[address]: Dr. Braeden Armstrong MD : 1955 BED: DIS: 04/30/2024 SPEC #: [id number] RECD: 04/30/24 13:13 STATUS: JULIA PARR #: [id number] BOBO: 04/30/24 00:[address]: Braeden Armstrong DEPT: SURGICAL PATHOLOGY RECD BY: Anthony Meneses ENTERED: 04/30/24 13:14 SP TYPE: Gastric Bx OTHR DR: Dr. Arslan Coelho MD Tissues: Gastric mucous membrane Gastric mucous membrane Ascending colon Ascending colon Procedures: Special Stain Group I Surgery Specimen Level IV Alcian Blue/PAS (control) HEADER OPERATION: Colonoscopy with biopsy, EGD PRE-OP DIAGNOSIS: Screening for malignant neoplasm of colon, GERD TISSUE SUBMITTED: A- Antrum biopsy, B- Gastroesophageal junction biopsy, C- Ascending colon polyp biopsy, D- Ascending colon polyp biopsy #2 MICROSCOPIC DIAGNOSIS A. Gastric antrum, biopsy: Mild chronic gastritis. See comment. B. Gastroesophageal junction, biopsy: Mild chronic inflammation. No evidence of goblet cell metaplasia. See comment. C. Ascending colon polyp, biopsy: Inflammatory polyp. D. Ascending colon polyp #2, biopsy: Fragments of tubular adenoma. AM. 05/01/2024 COMMENT A. The results of immunohistochemistry for Helicobacter pylori will be reported separately ([id number]). B. Alcian blue/PAS stain with matched control supports the above diagnosis. Case has been reviewed in consultation with Dr. eMyer who concurs with the above diagnosis. IDC:[id number] MICROSCOPIC DESCRIPTION Slides are reviewed. GROSS DESCRIPTION A. Received in fixative is one container labeled with the patient's name and designated Antrum biopsy. The specimen consists of two irregular fragments of light reinoso soft tissue that in aggregate measure 0.6 x 0.3 x 0.1 cm. The specimen is totally submitted in one cassette. B. Received in fixative is one container labeled with the patient's name and designated GE junction biopsy. The specimen consists of two irregular fragments of light reinoso soft tissue that in aggregate measure 0.6 x 0.3 x 0.1 cm. The specimen is totally submitted in one cassette. C. Received in fixative is one container labeled with the patient's name and designated Ascending colon polyp biopsy. The specimen consists of one irregular fragment of light reinoso soft tissue that measures 0.3 x 0.3 x 0.1 cm. The specimen is totally submitted in one cassette. D. Received in fixative is one container labeled with the patient's name and designated Ascending colon polyp biopsy #2. The specimen consists of multiple irregular fragments of light reinoso soft tissue that in aggregate measure 0.9 x 0.2 x 0.1 cm. The specimen is totally submitted in one cassette. SJ.mr 04/30/2024 TC:3 CPT:[id number]
--- OUTSIDE RECORDS SUMMARY | 2024-04-30 06:32 | XMS RPT_ITS | CCD ---
Author Organization [facility] ion [facility] Care Team Providers Care Warp Clamper Name Role Phone Meliton JJ, Arslan Lozoya Primary Care Provider [phone] Meliton JJ, Arslan Lozoya Primary Care Provider [phone] Nancy NAVARRO, Preeti Unavailable Meliton JJ, Arslan Lozoya Primary Care Provider [phone] ARSLAN COELHO Primary Care Unavailable SAMBERG, PREETI Referring Unavailable COELHO, ARSLAN Lozoya Primary Care Unavailable ARSLAN COELHO Attending Unavailable ARSLAN COELHO Primary Care Unavailable SAMBERG, PREETI Referring Unavailable COELHO, ARSLAN Lozoya Primary Care Unavailable SAMBERG, PREETI Referring Unavailable COELHO, ARSLAN Lozoya Primary Care Unavailable POGGIO, ROYCE D Referring Unavailable ROYCE ALMONTE Attending Unavailable ARSLAN COELHO Attending Unavailable ARSLAN COELHO Primary Care Unavailable ARSLAN COELHO Primary Care Unavailable KELLEN RAMIREZ Attending Unavailable KELLEN RAMIREZ Admitting Unavailable COELHO, ARSLAN Lozoya Primary Care Unavailable SAMBERG, PREETI Referring Unavailable COELHO, ARSLAN Lozoya Primary Care Unavailable SAMBERG, PREETI Referring Unavailable COELHO, ARSLAN Lozoya Primary Care Unavailable ARSLAN COELHO Attending Unavailable MELITON, ARSLAN Lozoya Primary Care Unavailable SAMBERG, PREETI Referring Unavailable COLEHO, ARSLAN Lozoya Primary Care Unavailable COELHO, ARSLAN Lozoya Referring Unavailable ARIEL KING Attending Unavailable MELITON, ARSLAN Lozoya Primary Care Unavailable SAMBERG, PREETI Referring Unavailable MELITON, ARSLAN Lozoya Primary Care Unavailable ALYSSA PINK Attending Unavailable COELHO, FARZANEH Primary Care Unavailable SAMBERG, PREETI Referring Unavailable COELHO, FARZANEH Primary Care Unavailable SAMBERG, PREETI Referring Unavailable SAMBERG, PREETI Referring Unavailable COELHO, FARZANEH Primary Care Unavailable SAMBERG, PREETI Referring Unavailable COELHO, FARZANEH Primary Care Unavailable COELHO, FARZANEH Primary Care Unavailable KAUR WILDER Attending Unavailable COELHO, FARZANEH Primary Care Unavailable SAMBERG, PREETI Referring Unavailable Allergies Allergy Classification Reported Allergen(s) Allergy Type Date of Onset Reaction(s) Facility (18 sources) Angiotensin-con verting enzyme inhibitor agent; Translations: [CALLIE INHIBITORS] Drug Intolerance 6 Cough [facility] (20 sources) Cholecalciferol ; Translations: [CHOLECALCIFERO L (VITAMIN D3)] Drug Allergy 6 GI Upset [facility] (20 sources) Citalopram; Translations: [CITALOPRAM HYDROBROMIDE] Drug Allergy 7 Intolerance [facility] (20 sources) cloNIDine; Translations: [CLONIDINE] Drug Allergy 2 Other: See Comments [facility] (20 sources) ferrous sulfate; Translations: [[facility]OUS SULFATE] [facility] Isos[facility]; Translations: [ISOSORBIDE MONONITRATE] Drug Allergy 2 Other: See [facility] Work Phone: (20 sources) Latex; Translations: [LATEX] Drug Allergy 3 Other: See [facility] Work Phone: (20 sources) Losartan; Translations: [LOSARTAN POTASSIUM] Drug Allergy 9 GI Upset [facility] (18 sources) Penicillins; Translations: [PENICILLINS] Drug Allergy 6 Anaphylaxis [facility] (20 sources) traZODone; Translations: [TRAZODONE] Drug Allergy 3 Intolerance [facility] (20 sources) Adhesive Tape-Silicones; Translations: [ADHESIVE TAPE-SILICONES] Drug Allergy 2 Other: See Comments [facility] (20 sources) Angiotensin-con verting enzyme inhibitor agent Drug Intolerance 6 Cough [facility] (20 sources) Penicillins Drug Allergy 6 Anaphylaxis [facility] Medications Current Medications Medication Drug Class(es) Dates Sig (Normalized) Sig (Original) amLODIPine 10 mg oral tablet (20 sources) Dihydropyridine Calcium Channel Toma Start: 07-28-2023 take 1 tablet by mouth once daily amLODIPine (NORVASC) 10 mg tablet Take 1 tablet by mouth once daily. 90 tablet 3 07/28/2023 Active Start: 05-24-2023 take 1 tablet by mouth once am LODIPine (NORVASC) 10 mg tablet Take 1 tablet by mouth once daily. Per [facility] - Nephrology 0 05/24/2023 Active Start: 02-02-2023 End: 05-24-2023 take 1 tablet by mouth once daily amLODIPine (NORVASC) 5 mg tablet Take 1 tablet by mouth once daily. 30 tablet 11 02/02/2023 05/24/2023 Discontinued Start: 10-09-2020 End: 02-02-2023 take 1 tablet by mouth once daily amLODIPine (NORVASC) 10 mg tablet Indications: Essential hypertension Take 1 tablet by mouth once daily. 90 tablet 3 10/09/2020 11/04/2021 Discontinued Comment on above: Take 1 tablet by cassidy th once daily. Take 1 tablet by cassidy th once daily. [facility] Bacillus coagulans-vitamin D3 (PROBIOTIC, WITH VITAMIN D3,) 2 billion cell- 5 mcg chew (9 sources) Start: 02-22-2024 take 1 tablet by mouth once daily in the morning Bacillus coagulans-vitamin D3 (PROBIOTIC, WITH VITAMIN D3,) 2 billion cell- 5 mcg chew Take 1 tablet by mouth every morning. 30 tablet 11 02/22/2024 Active BIPAP (20 sources) BIPAP Active BIPAP 12 hr buPROPion hydrochloride 100 mg extended release oral tablet (20 sources) Aminoketone Start: 04-24-2024 End: 04-24-2024 take 1 tablet by mouth in the morning buPROPion SR (WELLBUTRIN SR) 100 mg 12 hr tablet Indications: Stress and adjustment reaction Take 1 tablet by mouth every 48 hours. Take in the morning. 04/24/2024 Active Start: 10-09-2020 End: 04-24-2024 buPROPion SR (WELLBUTRIN SR) 100 mg 12 hr tablet Indications: Stress and adjustment reaction Take one(1) tablet daily in the morning. 90 tablet 3 10/25/2023 04/24/2024 Discontinued Comment on above: Take one(1) tablet d aily in the morning. carvedilol 25 mg oral tablet (20 sources) alpha-Adrenergic Toma, beta-Adrenergic Toma Start: 0 End: 4 take 1 tablet by mouth twice daily carvedilol (COREG) 25 mg tablet Indications: Essential hypertension Take 1 tablet by mouth two times a day. 180 tablet 3 11/22/2023 Active Comment on above: Take 1 tablet by cassidy twice daily. clobetasol propionate 0.0005 mg/mg topical gel (1 source) Corticosteroid Start: 4 End: 4 take 15 g by mouth twice daily Clobetasol Propionate 0.05 % gel Indications: Oral ulceration Apply to affected area two times a day for 7 days. 15 g 0 11/23/2023 11/30/2023 Active CPAP (20 sources) Start: 2 CPAP Indications: MITALI (obstructive sleep apnea) Pt requesting new DME. Needs supplies. Lifetime supplies. Bipap 16/12 cmH2O. If pt appropriate for new device, then would request the new device be an auto bilevel PAP set at IPAP max 18 cmH2O, EPAP min 8 cmH2O with pressure support of 4 cmH2O. 1 Each 11/19/2021 Active Start: 10-22-2021 CPAP Indicatio ns: MIATLI (obstructive sleep apnea) Pt requesting new DME. Needs supplies. Lifetime supplies. Please provide us PAP data download when available as well. 1 Each 10/22/2021 Active Comment on above: Pt requesting new DM E. Needs supplies. Lifetime supplies. Please provide us PAP data download when available as well. Pt requesting new DM E. Needs supplies. Lifetime supplies. Bipap 16/12 cmH2O. If pt appropriate for new device, then would request the new device be an auto bilevel PAP set at IPAP max 18 cmH2O, EPAP min 8 cmH2O with pressure support of 4 cmH2O. fluticasone propionate 0.05 mg/actuat metered dose nasal spray (20 sources) Corticosteroid Start: 12-24-19 15 End: 11-22-19 24 take 2 spray(s) by mouth once daily fluticasone (FLONASE) 50 mcg/actuation nasal spray Use 2 Sprays in each nostril once daily. RINSE MOUTH AFTER EACH DOSE 3 Each 3 11/22/2023 Active Comment on above: Use 2 Sprays in each nostril once daily. RINSE MOUTH AFTER EACH DOSE 3 ml insulin glargine 100 unt/ml pen injector (20 sources) Insulin Analog Start: 11-18-19 23 insulin glargine (LANTUS SOLOSTAR U-100 INSULIN) 100 unit/mL (3 mL) Indications: 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) Inject 70 Units subcutaneously every evening. 25 Each 11/17/2022 Active Start: 10-09-2020 End: 10-25-2023 insulin glargine (LANTUS SHLOMO OSTAR U-100 INSULIN) 100 unit/mL (3 mL) Indications: 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) Inject 70 Units subcutaneously every evening. 25 Each 3 10/25/2023 Active Comment on above: Inject 70 Units subc utaneously every evening. 3 ml insulin lispro 100 unt/ml pen injector (20 sources) Insulin Analog Start: End: 023 insulin lispro (HUMALOG KWIKPEN INSULIN) 100 unit/mL Indications: 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) Inject 25 Units subcutaneously three times daily before meals. 25 Each 11/17/2022 Active Comment on above: Inject 25 Units subc utaneously three times daily before meals. ipratropium bromide 0.021 mg/actuat metered dose nasal spray (20 sources) Anticholinergic Start: 019 Ipratropium Haynes (ATROVENT) 0.03 % nasal spray Indications: Chronic cough Use 2 Sprays in the nose every 12 hours. 1 Bottle 03/14/2019 Active Comment on above: Use 2 Sprays in the nose every 12 hours. lansoprazole 30 mg delayed release oral capsule (20 sources) Proton Pump Inhibitor Start: End: 024 take 1 capsule by mouth once daily lansoprazole (PREVACID) 30 mg capsule Indications: Gastroesophageal reflux disease without esophagitis Take 1 capsule by mouth once daily. 90 capsule 3 10/30/2023 Active Comment on above: Take 1 capsule by mo uth once daily. magnesium oxide 400 mg oral tablet (6 sources) Start: take 1 tablet by mouth once daily magnesium oxide (MAGOX) 400 mg (241.3 mg magnesium) tablet Take 1 tablet by mouth once daily. 30 tablet 11 03/25/2024 Active molnupiravir 200 mg capsule (1 source) Start: End: take 4 capsules by mouth twice daily molnupiravir 200 mg capsule Indications: COVID Take 4 capsules by mouth twice daily for 5 days. 40 capsule 0 06/30/2022 07/05/2022 Active Comment on above: Take 4 capsules by m outh twice daily for 5 days. mycophenolate mofetil 250 mg oral capsule (20 sources) Start: End: take 3 capsules by mouth twice daily mycophenolate mofetil (CELLCEPT) 250 mg capsule Indications: Kidney transplant status, living unrelated donor TAKE 3 CAPSULES BY MOUTH TWICE DAILY 540 capsule 3 08/11/2023 Active Comment on above: TAKE 3 CAPSULES TWIC E DAILY TAKE 3 CAPSULES BY M OUTH TWICE DAILY predniSONE 2.5 mg oral tablet (20 sources) Start: 023 End: take 1 tablet by mouth once daily predniSONE (DELTASONE) 2.5 mg tablet Indications: Kidney transplant status, living unrelated donor Take 1 tablet by mouth once daily. 90 tablet 3 11/22/2023 Active Start: 10-09-2020 End: 11-05-2022 take 1 tablet by mouth once daily predniSONE (DELTASONE) 2.5 mg tablet Indications: Kidney transplant status, living unrelated donor Take 1 tablet by mouth once daily. 90 tablet 3 10/09/2020 11/04/2021 Discontinued Comment on above: Take 1 tablet by cassidy once daily. sodium bicarbonate 325 mg oral tablet (6 sources) Start: 03-25-20 take 1 tablet by mouth twice daily sodium bicarbonate 325 mg tablet Take 1 tablet by mouth two times a day. Take by mouth as directed. 60 tablet 03/25/2024 Active sulfamethoxazole 400 mg / trimethoprim 80 mg oral tablet (20 sources) Dihydrofolate Reductase Inhibitor Antibacterial, Sulfonamide Antimicrobial Start: 10-10-19 End: 11-22-19 take 1 tablet by mouth once daily sulfamethoxazole-t rimethoprim (BACTRIM) 400-80 mg per tablet Indications: Kidney transplant status, living unrelated donor Take 1 tablet by mouth once daily. 90 tablet 3 11/22/2023 Active Comment on above: Take 1 tablet by cassidy th once daily. suvorexant 10 mg oral tablet (20 sources) Orexin Receptor Antagonist Start: 08-24-19 End: 10-06-19 take 1 tablet by mouth once daily at bedtime suvorexant (BELSOMRA) 10 mg tab Indications: Stress and adjustment reaction , Insomnia, unspecified type Take 1 tablet by mouth daily at bedtime for 180 days. 90 tablet 1 04/08/2024 10/05/2024 Active Start: 09-16-2022 End: 02-15-2023 take 1 tablet by mouth at bedtime as needed suvorexant (BELSOMRA) 10 mg tab Indications: Stress and adjustment reaction , Insomnia, unspecified type Take 1 tablet by mouth at bedtime as needed for up to 90 days. 90 tablet 1 11/17/2022 02/15/2023 Comment on above: Take 1 tablet by cassidy th at bedtime as needed for up to 90 days. Take 1 tablet by cassidy th daily at bedtime for 180 days. tacrolimus 0.5 mg oral capsule (20 sources) Calcineurin Inhibitor Immunosuppressant Start: End: 024 take 1 capsule by mouth once daily tacrolimus IR (PROGRAF) 0.5 mg capsule Indications: Immunosuppressive management encounter following kidney transplant , Kidney transplant status, living unrelated donor Take 2 capsules by mouth once daily. 180 capsule 3 03/25/2024 Active Start: 10-09-2020 End: 11-02-2020 take 1 capsule by mouth twice daily tacrolimus IR (PROGRAF) 0.5 mg capsule Indications: Kidney transplant status, living unrelated donor Take 1 capsule by mouth twice daily. 180 capsule 3 10/09/2020 11/02/2020 Discontinued (Clinical Decision) Comment on above: Take 2 capsules by m outh once daily. TAKE 2 CAPSULES BY M OUTH ONCE DAILY tadalafil 20 mg oral tablet (1 source) Phosphodiesterase 5 Inhibitor Start: 04-24-20 24 take 1 tablet by mouth once daily as needed Tadalafil (CIALIS) 20 mg tablet Indications: Erectile dysfunction, unspecified erectile dysfunction type Take 1 tablet by mouth once daily as needed. 10 tablet 2 04/24/2024 Active terazosin 2 mg oral capsule (20 sources) alpha-Adrenergic Toma Start: 01-18-20 23 take 1 capsule by mouth once daily at bedtime terazosin (HYTRIN) 2 mg capsule Indications: Essential hypertension Take 1 capsule by mouth daily at bedtime. 90 capsule 3 01/17/2023 Active Start: 12-15-2022 End: 01-14-2023 take 1 capsule by mouth once daily at bedtime terazosin (HYTRIN) 2 mg capsule Indications: Essential hypertension Take 1 capsule by mouth daily at bedtime. 0 01/14/2023 Active Start: 11-17-2022 take 1 capsule by mo uth once daily at bedtime terazosin (HYTRIN) 5 mg capsule Indications: Essential hypertension Take 1 capsule by mouth daily at bedtime. 0 11/17/2022 Active Start: 10-09-2020 End: 11-17-2022 take 1 capsule by mouth once daily at bedtime terazosin (HYTRIN) 2 mg capsule Indications: Essential hypertension Take 1 capsule by mouth daily at bedtime. 90 capsule 3 10/09/2020 11/04/2021 Discontinued Comment on above: Take 1 capsule by mo uth daily at bedtime. Take 2 capsules by m outh daily at bedtime. valsartan 40 mg oral tablet (20 sources) Angiotensin 2 Receptor Toma Start: 02-02-2023 End: 05-24-2023 take 1 tablet by mouth once daily valsartan (DIOVAN) 40 mg tablet Take 1 tablet by mouth once daily. 90 tablet 3 05/24/2023 Active Comment on above: Take 1 tablet by cassidy once daily. Completed/Discontinued Medications Medication Drug Class(es) Dates Sig (Normalized) Sig (Original) calcitriol 0.0005 mg oral capsule (20 sources) Vitamin D3 Analog Start: 10-09-2020 End: 04-04-2022 take 1 capsule by mouth once daily calcitriol (ROCALTROL) 0.5 mcg capsule Indications: Stage 3a chronic kidney disease (HCC) Take 1 capsule by mouth once daily. 90 capsule 3 10/09/2020 04/04/2022 Discontinued (Course of therapy completed) Comment on above: Take 1 capsule by mo uth once daily. cholecalciferol 0.05 mg oral capsule (10 sources) Vitamin D Start: 02-22-2024 End: 02-22-2024 take 1 capsule by mouth once daily Cholecalciferol, Vitamin D3, 50 mcg (2,000 unit) cap Take 1 capsule by mouth once daily. 30 capsule 11 02/22/2024 02/22/2024 Discontinued Start: 04-03-2023 End: 08-24-2023 take 1 capsule by mouth every other day Cholecalciferol, Vitamin D3, 50 mcg (2,000 unit) cap Take 1 capsule by mouth every other day. 15 capsule 5 04/03/2023 08/24/2023 Discontinued Comment on above: Take 1 capsule by mo uth every other day. daridorexant (QUVIVIQ) 25 mg tablet (3 sources) Start: End: take 1 tablet by mouth at bedtime as needed daridorexant (QUVIVIQ) 25 mg tablet Indications: Stress and adjustment reaction , Insomnia, unspecified type Take 1 tablet by mouth at bedtime as needed for up to 90 days. 30 tablet 2 09/14/2022 09/16/2022 Discontinued Start: 09-14-2022 End: 12-13-2022 take 1 tablet by mouth at bedtime as needed daridorexant (QUVIVIQ) 25 mg tablet Indications: Stress and adjustment reaction , Insomnia, unspecified type Take 1 tablet by mouth at bedtime as needed for up to 90 days. 30 tablet 2 09/14/2022 12/13/2022 Active Start: 08-19-2022 End: 09-02-2022 take 1 tablet by mouth at bedtime as needed daridorexant (QUVIVIQ) 25 mg tablet Indications: Stress and adjustment reaction , Insomnia, unspecified type Take 1 tablet by mouth at bedtime as needed for up to 14 days. 14 tablet 0 08/19/2022 09/02/2022 Active Comment on above: Take 1 tablet by cassidy th at bedtime as needed for up to 14 days. Take 1 tablet by cassidy th at bedtime as needed for up to 90 days. flash glucose scanning reader (FREESTYLE NICOLE 2 READER) (20 sources) Start: 07-29-2021 End: 08-19-2022 flash glucose scanning reader (FREESTYLE NICOLE 2 READER) Test 8 times per day. On insulins. Dx: E11.42. 0 07/29/2021 08/19/2022 Discontinued (Patient chooses alternative therapy) Start: 07-29-2021 flash glucose scanning reader (FREESTYLE NICOLE 2 READER) Test 8 times per day. On insulins. Dx: E11.42. 0 07/29/2021 Active Comment on above: Test 8 times per day . On insulins. Dx: E11.42. flash glucose sensor (FREESTYLE NICOLE 14 DAY SENSOR) kit (20 sources) Start: 05-10-2021 End: 08-19-2022 flash glucose sensor (FREESTYLE NICOLE 14 DAY SENSOR) kit Indications: 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) Check 8 times per day. On insulins. E11.42. 1 Each 5 05/10/2021 08/19/2022 Discontinued (Patient chooses alternative therapy) Start: 05-10-2021 flash glucose sensor (FREESTYLE NICOLE 14 DAY SENSOR) kit Indications: 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) Check 8 times per day. On insulins. E11.42. 1 Each 5 05/10/2021 Active Comment on above: Check 8 times per da y. On insulins. E11.42. hydrOXYzine pamoate 25 mg oral capsule (20 sources) Antihistamine Start: 10-10-19 End: 08-24-19 24 take 1 capsule by mouth at bedtime as needed hydrOXYzine pamoate (VISTARIL) 25 mg capsule Indications: Stress and adjustment reaction Take 1-2 capsules by mouth at bedtime as needed (for sleep/allergy). 180 capsule 3 10/09/2020 11/04/2021 Discontinued Comment on above: Take 1-2 capsules by mouth at bedtime as needed (for sleep/allergy). Mupirocin (20 sources) RNA Synthetase Inhibitor Antibacterial Start: 03-14-20 End: 04-04-20 22 mupirocin (BACTROBAN) 2% oint 0.5 g twice daily as needed (for 5 days.). For 5 days 3 Tube 1 03/14/2019 04/04/2022 Discontinued (Course of therapy completed) Start: 03-14-2019 mupirocin (COMFORT TROBAN) 2% oint 0.5 g twice daily as needed (for 5 days.). For 5 days 3 Tube 1 03/14/2019 Active Comment on above: 0.5 g twice daily as needed (for 5 days.). For 5 days perflutren lipid microspheres 1.3 mL in NaCl (PF) 0.9% 10 mL injection ([employer]) (20 sources) Start: 07-14-2021 End: 08-19-2022 perflutren lipid microspheres 1.3 mL in NaCl (PF) 0.9% 10 mL injection (DEFINITY) Start: 07-14-2021 End: 10-13-2022 perflutren lipid microsphere s 1.3 mL in NaCl (PF) 0.9% 10 mL injection (DEFINITY) polyethylene glycol 3350 845235 mg / potassium chloride 2970 mg / sodium bicarbonate 6740 mg / sodium chloride 5860 mg / sodium sulfate 30293 mg powder for oral solution (1 source) Osmotic Laxative Start: 10-09-2023 End: 10-09-2023 peg 3350-Electrolytes (GOLYTELY) 236-22.74-6.74 -5.86 gram suspension Indications: Polyp of colon, unspecified part of colon, unspecified type Take 4,000 mL by mouth one time only for 1 dose. Refer to printed prep instructions from your provider. 4000 mL 0 10/09/2023 10/09/2023 Comment on above: Take 4,000 mL by cassidy one time only for 1 dose. Refer to printed prep instructions from your provider. 125 ml sodium chloride 9 mg/ml prefilled syringe (20 sources) Start: 07-14-2021 End: 10-13-2022 sodium chloride 0.9 % (flush) 10 mL (BD POSIFLUSH) zolpidem tartrate 10 mg oral tablet (9 sources) gamma-Aminobutyric Acid-ergic Agonist Start: 07-05-2023 End: 10-03-2023 take 1 tablet by mouth at bedtime as needed zolpidem (AMBIEN) 10 mg Indications: Insomnia, unspecified type Take 1 tablet by mouth at bedtime as needed (insomnia) for up to 90 days. 30 tablet 2 07/05/2023 08/24/2023 Discontinued (Changing Therapy/Dosage Form) Start: 03-31-2023 End: 06-29-2023 take 1 tablet by mouth at bedtime as needed zolpidem (AMBIEN) 10 mg Indications: Insomnia, unspecified type Take 1 tablet by mouth at bedtime as needed (insomnia) for up to 90 days. 30 tablet 2 03/31/2023 06/29/2023 Active Comment on above: Take 1 tablet by cassidy th at bedtime as needed (insomnia) for up to 90 days. Problems Active Problems Problem Classification Problem Date Documented Date Episodic/Chronic Adjustment disorders (20 sources) Stress and adjustment reaction; Translations: [Adjustment disorder with other symptoms] Onset: 4 06-08-2014 Chronic Blindness and vision defects (1 source) Eye / vision finding; Translations: [Unspecified visual disturbance] 01-16-2023 Episodic Chronic kidney disease (20 sources) Chronic kidney disease stage 3; Translations: [CKD (chronic kidney disease) stage 3, GFR 30-59 ml/min] Onset: 1 Resolved: 6 02-01-2016 Chronic Conditions associated with dizziness or vertigo (3 sources) Vertigo; Translations: [Dizziness and giddiness] 01-16-2023 Episodic Diabetes mellitus with complications (20 sources) Peripheral neuropathy due to type 2 diabetes mellitus; Translations: [Type 2 diabetes mellitus with diabetic polyneuropathy] Onset: 5 Resolved: 9 10-13-2016 Chronic Diseases of mouth; excluding dental (2 sources) Ulcer of mouth; Translations: [Other forms of stomatitis] 11-22-2023 Episodic Disorders of lipid metabolism (20 sources) Mixed hyperlipidemia; Translations: [Mixed hyperlipidemia] Onset: 0 05-05-2015 Chronic Esophageal disorders (20 sources) Gastroesophageal reflux disease without esophagitis; Translations: [Gastro-esophageal reflux disease without esophagitis] Onset: 6 03-26-2016 Chronic Essential hypertension (20 sources) Essential hypertension; Translations: [Essential (primary) hypertension] Onset: 6 Resolved: 7 08-12-2020 Chronic Fluid and electrolyte disorders (2 sources) Metabolic acidosis; Translations: [Metabolic acidosis] Onset: 4 03-25-2024 Episodic Genitourinary congenital anomalies (20 sources) Autosomal dominant polycystic kidney disease; Translations: [Polycystic kidney, adult type] Onset: 6 Resolved: 5 08-17-2011 Chronic Heart valve disorders (20 sources) Mitral valve regurgitation; Translations: [Nonrheumatic mitral (valve) insufficiency] Onset: 6 Resolved: 8 11-24-2016 Chronic Nonspecific chest pain (2 sources) Chest pain; Translations: [Chest pain, unspecified] Episodic Nutritional deficiencies (3 sources) Vitamin D deficiency; Translations: [Vitamin D deficiency, unspecified] Onset: 3 06-13-2023 Chronic Osteoarthritis (1 source) Bilateral osteoarthritis of finger of hands; Translations: [Primary osteoarthritis, right hand] 04-24-2024 Chronic Osteoporosis (20 sources) Osteoporosis; Translations: [Age-related osteoporosis without current pathological fracture] Onset: 6 05-05-2015 Chronic Other aftercare (1 source) Encounter for aftercare following kidney transplant; Translations: [Encounter for aftercare following kidney transplant] Onset: 4 Chronic Other aftercare (5 sources) Transplant follow-up; Translations: [Other jail (current) drug therapy] Episodic Other aftercare (1 source) Long-term (current) use of other medications; Translations: [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] 03-25-2024 Episodic Other aftercare (1 source) Long-term current use of systemic steroid; Translations: [skilled nursing (current) use of systemic steroids] 03-25-2024 Episodic Other aftercare (1 source) Antibiotic prophylaxis indicated; Translations: [skilled nursing (current) use of antibiotics] 03-25-2024 Episodic Other aftercare (1 source) Encounter for therapeutic drug level monitoring; Translations: [Therapeutic drug monitoring] Onset: 4 Episodic Other aftercare (1 source) termination clerk (current) use of systemic steroids; Translations: [termination clerk current use of systemic steroids] Onset: 4 Episodic Other aftercare (1 source) termination clerk (current) use of antibiotics; Translations: [Prophylactic antibiotic] Onset: 4 Episodic Other aftercare (1 source) Other jail (current) drug therapy; Translations: [Immunosuppressive management encounter following kidney transplant] Onset: 4 Episodic Other and unspecified benign neoplasm (4 sources) Polyp of colon; Translations: [Polyp of colon] 08-24-2023 Episodic Other circulatory disease (4 sources) History of cerebrovascular accident; Translations: [Personal history of transient ischemic attack (TIA), and cerebral infarction without residual deficits] Episodic Other connective tissue disease (1 source) Recurrent falls ; Translations: [Repeated falls] Episodic Other diseases of kidney and ureters (1 source) Hyperparathyroidism due to renal insufficiency; Translations: [Secondary hyperparathyroidism of renal origin] 03-25-2024 Chronic Other diseases of kidney and ureters (1 source) Secondary hyperparathyroidism of renal origin; Translations: [Secondary renal hyperparathyroidism (HCC)] Onset: 4 Chronic Other ear and sense organ disorders (1 source) Bilateral hearing loss; Translations: [Unspecified hearing loss, bilateral] 01-16-2023 Chronic Other ear and sense organ disorders (1 source) Impacted cerumen of bilateral ears; Translations: [Impacted cerumen, bilateral] Episodic Other ear and sense organ disorders (3 sources) Bilateral tinnitus; Translations: [Tinnitus, bilateral] Episodic Other male genital disorders (20 sources) Male erectile dysfunction, unspecified; Translations: [Impotence of organic origin] Onset: 9 Resolved: 4 03-14-2019 Chronic Other non-traumatic joint disorders (1 source) Pain in wrist; Translations: [Pain in right wrist] 10-22-2020 Episodic Other nutritional; endocrine; and metabolic disorders (20 sources) Obese class I; Translations: [Obesity, unspecified] Onset: 7 10-27-2016 Chronic Other nutritional; endocrine; and metabolic disorders (1 source) Hypomagnesemia; Translations: [Hypomagnesemia] Onset: 4 Chronic Residual codes; unclassified (20 sources) Obstructive sleep apnea syndrome; Translations: [Obstructive sleep apnea (adult) (pediatric)] Onset: 2 07-19-2018 Chronic Residual codes; unclassified (1 source) Obstructive sleep apnea (adult) (pediatric); Translations: [MITALI (obstructive sleep apnea)] Onset: 4 Chronic Syncope (2 sources) Near syncope; Translations: [Syncope and collapse] 01-16-2023 Episodic Transient cerebral ischemia (2 sources) Vertebrobasilar artery syndrome; Translations: [Vertebro-basilar artery syndrome] 01-16-2023 Chronic Unclassified (1 source) skilled nursing (current) use of calcineurin inhibitor; Translations: [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] Onset: 4 Viral infection (1 source) Disease caused by 2019-nCoV; Translations: [COVID-19] Episodic Past or Other Problems Problem Classification Problem Date Documented Date Episodic/Chronic Complication of device; implant or graft (20 sources) Arterial steal syndrome; Translations: [Other specified complication of vascular prosthetic devices, implants and grafts, initial encounter] Onset: 01-21-2019 Resolved: 03-14-2019 03-14-2019 Chronic Deficiency and other anemia (20 sources) Iron deficiency anemia; Translations: [Iron deficiency anemia, unspecified] Onset: 07-30-2012 Resolved: 02-01-2016 02-01-2016 Episodic Esophageal disorders (20 sources) Esophagitis; Translations: [Esophagitis, unspecified] Onset: 05-14-2007 Resolved: 10-13-2016 10-13-2016 Episodic Fracture of upper limb (20 sources) Fracture of distal end of radius; Translations: [Unspecified fracture of the lower end of unspecified radius, initial encounter for closed fracture] Onset: 02-12-2013 Resolved: 10-13-2016 10-13-2016 Episodic Hemorrhoids (20 sources) Internal hemorrhoids; Translations: [Other hemorrhoids] Onset: 05-14-2007 Resolved: 09-17-2017 09-17-2017 Episodic Immunizations and screening for infectious disease (20 sources) Patient encounter status; Translations: [Encounter for immunization] Onset: 05-14-2007 Resolved: 10-13-2016 05-26-2023 Episodic Other acquired deformities (20 sources) Pavillion-neck deformity; Translations: [Pavillion-neck deformity of unspecified finger(s)] Onset: 07-29-2014 Resolved: 10-13-2016 10-13-2016 Episodic Other acquired deformities (20 sources) Mallet finger of left hand; Translations: [Mallet finger of left finger(s)] Onset: 07-29-2014 Resolved: 09-17-2017 09-17-2017 Episodic Other and unspecified benign neoplasm (1 source) Polyp of colon; Translations: [Polyp of colon, unspecified part of colon, unspecified type] Onset: 10-09-2023 Episodic Other connective tissue disease (20 sources) Paraparesis; Translations: [Other symptoms and signs involving the musculoskeletal system] Onset: 10-28-2021 Episodic Other connective tissue disease (20 sources) Other symptoms and signs involving the musculoskeletal system; Translations: [Other musculoskeletal symptoms referable to limbs] Onset: 10-28-2021 Resolved: 08-24-2023 10-28-2021 Episodic Other nervous system disorders (20 sources) Numbness of lower limb ; Translations: [Anesthesia of skin] Onset: 10-28-2021 Episodic Other non-epithelial cancer of skin (20 sources) Squamous cell carcinoma of upper extremity; Translations: [Squamous cell carcinoma of skin of right upper limb, including shoulder] Onset: 02-15-2018 Resolved: 03-14-2019 03-14-2019 Episodic Other nutritional; endocrine; and metabolic disorders (20 sources) Hypomagnesemia; Translations: [Hypomagnesemia] Onset: 01-12-2017 Resolved: 08-26-2023 01-12-2017 Chronic Residual codes; unclassified (20 sources) Memory impairment; Translations: [Other amnesia] Onset: 10-13-2016 10-13-2016 Episodic Residual codes; unclassified (20 sources) Insomnia; Translations: [Insomnia, unspecified] Onset: 09-16-2022 Episodic Spondylosis; intervertebral disc disorders; other back problems (20 sources) Spinal stenosis of lumbar region; Translations: [Spinal stenosis, lumbar region without neurogenic claudication] Onset: 10-28-2021 Episodic Results Test Name Value Interpretation Reference Range Facility CNOVon 04-24-2024 CNOV [facility] CNPTOUTREACHon 03-27-2024 CNPTOUTREACH [facility] ALBUMIN/CREATININE RATIO, UR INEon 03-26-2024 Albumin DL <= 20 mg/L (U) [Mass/Vol] 646.9 mg/L [facility] Albumin/Creatinine (U) [Mass ratio] 509 mg/g High NINF - 30 mg/g [facility] Comment on above: Adult Male and Femal e Nephrotic Criteria: <30 mg/g is considered normal to mildly increased 30-300 mg/g is considered moderately increased >300 mg/g is considered severely increased KDIGO. (2013). KDIGO 2012 Clinical Practice Guideline for the Evaluation and Management of Chronic Kidney Disease. Official Journal of the International Society of Nephrology, 3(1), 1-150. Creatinine (U) [Mass/Vol] 127.1 mg/dL 20.0 - 300.0 mg/dL [facility] Interpretation and review of laboratory results Abnormal [facility] CNPNon 03-26-2024 CNPN [facility] ALBUMIN/CREATININE RATIO, UR INEon 03-25-2024 Albumin DL <= 20 mg/L (U) [Mass/Vol] 646.9 mg/L [facility] Comment on above: Order Comment: Vicki dalton Type: URINE SPECIMENOrdering Facility: [facility] Address: [address] [place] [address] Performed By: #### U ACR ####[facility] LABCLIA [id number] [place] [address] [place] Albumin/Creatinine (U) [Mass ratio] 509 mg/g High <30 [facility] Comment on above: Order Comment: Vicki dalton Type: URINE SPECIMENOrdering Facility: [facility] Address: [address] [place] [address] Result Comment: Adul t Male and Female Nephrotic Criteria:<30 mg/g is considered normal to mildly nkntbslyg90-680 mg/g is considered moderately increased>300 mg/g is considered severely increasedKDIGO. (2013). KDIGO 2012 Clinical Practice Guideline for the Evaluation and Management of Chronic Kidney Disease. Official Journal of the International Society of Nephrology, 3(1), 1-150. Performed By: #### U ACR ####[facility] LABCLIA [id number] [place] [address] [place] Creatinine (U) [Mass/Vol] 127.1 mg/dL Normal 20.0-300.0 [facility] Comment on above: Order Comment: Speci men Type: URINE SPECIMENOrdering Facility: [facility] Address: [address] [place] [address] Performed By: #### U ACR ####[facility] LABCLIA [id number] [place] [address] [place] CNOVon 03-25-2024 CNOV [facility] CNPTOUTREACHon 03-25-2024 CNPTOUTREACH [facility] URINALYSIS, REFLEX MICROSCOP ICon 03-25-2024 Bilirubin Ql (U) Negative Negative [facility] Clarity (Unsp spec) Clear Clear [facility] Color (U) Yellow Yellow [facility] Glucose Test strip (U) [Mass/Vol] 1+ Abnormal Negative [facility] Hemoglobin Ql (U) Negative Negative [facility] Interpretation and review of laboratory results Abnormal [facility] Ketones Ql (U) Negative Negative [facility] Leukocyte esterase Test strip Ql (U) Negative Negative [facility] Nitrite Ql (U) Negative Negative [facility] pH (U) 5.5 [pH] NINF - 8.5 [facility] Protein (U) [Mass/Vol] 2+ Abnormal Negative [facility] Specific gravity (U) [Rel density] 1.019 1.005 - 1.030 [facility] Urobilinogen Ql (U) 0.2 EU/dL 0.2-1.0 EU/dL Cl [facility] Bilirubin Ql (U) Negative Normal Negative [facility] Comment on above: Order Comment: Speci men Type: URINE SPECIMENOrdering Facility: [facility] Address: [address] [place] [address] Performed By: #### L [id number] ####[facility] LABCLIA [id number] [place] [address] [place] Clarity (Unsp spec) Clear Normal Clear [facility] Comment on above: Order Comment: Speci men Type: URINE SPECIMENOrdering Facility: [facility] Address: [address] [place] [address] Performed By: #### L [id number] ####[facility] LABCLIA [id number] [place] [id number] [place] Color (U) Yellow Normal [facility] Comment on above: Order Comment: Speci men Type: URINE SPECIMENOrdering Facility: [facility] Address: [address] [place] [id number] Performed By: #### L [id number] ####[facility] LABCLIA [id number] [place] [address] [place] Glucose Test strip (U) [Mass/Vol] 1+ Abnormal Negative [facility] Comment on above: Order Comment: Speci men Type: URINE SPECIMENOrdering Facility: [facility] Address: [address] [place] [address] Performed By: #### L [id number] ####[facility] LABCLIA [id number] [place] [address] [place] Hemoglobin Ql (U) Negative Normal Negative [facility] Comment on above: Order Comment: Speci men Type: URINE SPECIMENOrdering Facility: [facility] Address: [address] [place] [address] Performed By: #### L [id number] ####[facility] LABCLIA [id number] [place] [address] [place] Ketones Ql (U) Negative Normal Negative [facility] Comment on above: Order Comment: Speci men Type: URINE SPECIMENOrdering Facility: [facility] Address: [address] [place] [address] Performed By: #### L [id number] ####[facility] LABCLIA [id number] [place] [address] [place] Leukocyte esterase Test strip Ql (U) Negative Normal Negative [facility] Comment on above: Order Comment: Speci men Type: URINE SPECIMENOrdering Facility: [facility] Address: [address] [place] [address] Performed By: #### L [id number] ####[facility] LABCLIA [id number] [place] [address] [place] Nitrite Ql (U) Negative Normal Negative [facility] Comment on above: Order Comment: Speci men Type: URINE SPECIMENOrdering Facility: [facility] Address: [address] [place] [address] Performed By: #### L [id number] ####[facility] LABCLIA [id number] [place] [address] [place] pH (U) 5.5 [pH] Normal <8.5 [facility] Comment on above: Order Comment: Speci men Type: URINE SPECIMENOrdering Facility: [facility] Address: [address] [place] [address] Performed By: #### L [id number] ####[facility] LABIA [id number] [place] [address] [place] Protein (U) [Mass/Vol] 2+ Abnormal Negative [facility] Comment on above: Order Comment: Speci men Type: URINE SPECIMENOrdering Facility: [facility] Address: [address] [place] [address] Performed By: #### L [id number] ####[facility] LABCLIA [id number] [place] [address] [place] Specific gravity (U) [Rel density] 1.019 Normal 1.005-1.030 [facility] Comment on above: Order Comment: Speci men Type: URINE SPECIMENOrdering Facility: [facility] Address: [address] [place] [address] Performed By: #### L [id number] ####[facility] LABCLIA [id number] [place] [address] [place] Urobilinogen Ql (U) 0.2 EU/dL Normal 0.2-1.0 EU/dL [facility] Comment on above: Order Comment: Speci men Type: URINE SPECIMENOrdering Facility: [facility] Address: [address] [place] [address] Performed By: #### L [id number] ####[facility] LABIA [id number] [place] [address] [place] BK VIRUS DNA QUANTIFICATION, PLASMAon 03-21-2024 BK virus DNA KURT+probe [#/Vol] Not detected Normal BK Virus DNA Not Detected by PCR. [facility] Comment on above: Order Comment: Speci men Type: BLOOD SPECIMENOrdering Facility: [facility] Address: [address] [place] [address] Performed By: ###Lambert MARKS ####[facility] [id number] [place] [address] [place] CBC W Auto Differential pane l (Bld)on 03-21-2024 Basophils (Bld) [#/Vol] 0.03 10*3/uL Normal <0.11 [facility] Comment on above: Order Comment: Speci men Type: BLOOD SPECIMENOrdering Facility: [facility] Address: [address] [place] [address] Performed By: #### 5 7021-8 ####[facility] LABIA [id number] [place] [address] [place] Basophils/100 WBC (Bld) 0.4 % [facility] Comment on above: Order Comment: Speci men Type: BLOOD SPECIMENOrdering Facility: [facility] Address: [address] [place] [address] Performed By: #### 5 7021-8 ####[facility] LABIA [id number] [place] [address] [place] Differential cell count method Nom (Bld) Auto [facility] Comment on above: Order Comment: Speci men Type: BLOOD SPECIMENOrdering Facility: [facility] Address: [address] [place] [address] Performed By: #### 5 7021-8 ####[facility] LABCLIA [id number] [place] [address] [place] Eosinophils (Bld) [#/Vol] 0.20 10*3/uL Normal <0.46 [facility] Comment on above: Order Comment: Speci men Type: BLOOD SPECIMENOrdering Facility: [facility] Address: [address] [place] [address] Performed By: #### 5 7021-8 ####[facility] LABCLIA [id number] [place] [address] [place] Eosinophils/100 WBC (Bld) 2.6 % [facility] Comment on above: Order Comment: Speci men Type: BLOOD SPECIMENOrdering Facility: [facility] Address: [address] [place] [address] Performed By: #### 5 7021-8 ####[facility] LABCLIA [id number] [place] [address] [place] Erythrocyte distribution width (RBC) [Ratio] 12.6 % Normal 11.5-15.0 [facility] Comment on above: Order Comment: Speci men Type: BLOOD SPECIMENOrdering Facility: [facility] Address: [address] [place] [address] Performed By: #### 5 7021-8 ####[facility] LABCLIA [id number] [place] [address] [place] Hematocrit (Bld) [Volume fraction] 40.6 % Normal 39.0-51.0 [facility] Comment on above: Order Comment: Speci men Type: BLOOD SPECIMENOrdering Facility: [facility] Address: [address] [place] [address] Performed By: #### 5 7021-8 ####[facility] LABCLIA [id number] [place] [address] [place] Hemoglobin (Bld) [Mass/Vol] 13.0 g/dL Normal 13.0-17.0 [facility] Comment on above: Order Comment: Speci men Type: BLOOD SPECIMENOrdering Facility: [facility] Address: [address] [place] [address] Performed By: #### 5 7021-8 ####[facility] LABCLIA [id number] [place] [address] [place] Immature granulocytes (Bld) [#/Vol] 0.03 10*3/uL Normal <0.10 [facility] Comment on above: Order Comment: Speci men Type: BLOOD SPECIMENOrdering Facility: [facility] Address: [address] [place] [address] Performed By: #### 5 7021-8 ####[facility] LABCLIA [id number] [place] [address] [place] Immature granulocytes/100 WBC (Bld) 0.4 % [facility] Comment on above: Order Comment: Speci men Type: BLOOD SPECIMENOrdering Facility: [facility] Address: [address] [place] [address] Performed By: #### 5 7021-8 ####[facility] LABCLIA [id number] [place] [address] [place] Lymphocytes (Bld) [#/Vol] 0.90 10*3/uL Low 1.00-4.00 [facility] Comment on above: Order Comment: Speci men Type: BLOOD SPECIMENOrdering Facility: [facility] Address: [address] [place] [address] Performed By: #### 5 7021-8 ####[facility] LABCLIA [id number] [place] [address] [place] Lymphocytes/100 WBC (Bld) 11.9 % [facility] Comment on above: Order Comment: Speci men Type: BLOOD SPECIMENOrdering Facility: [facility] Address: [address] [place] [address] Performed By: #### 5 7021-8 ####[facility] LABIA [id number] [place] [address] [place] MCH (RBC) [Entitic mass] 28.1 pg Normal 26.0-34.0 [facility] Comment on above: Order Comment: Speci men Type: BLOOD SPECIMENOrdering Facility: [facility] Address: [address] [place] [address] Performed By: #### 5 7021-8 ####[facility] [id number] [place] [address] [place] MCHC (RBC) [Mass/Vol] 32.0 g/dL Normal 30.5-36.0 [facility] Comment on above: Order Comment: Speci men Type: BLOOD SPECIMENOrdering Facility: [facility] Address: [address] [place] [address] Performed By: #### 5 7021-8 ####[facility] [id number] [place] [address] [place] MCV (RBC) [Entitic vol] 87.7 fL Normal 80.0-100.0 [facility] Comment on above: Order Comment: Speci men Type: BLOOD SPECIMENOrdering Facility: [facility] Address: [address] [place] [address] Performed By: #### 5 7021-8 ####[facility] [id number] [place] [address] [place] Monocytes (Bld) [#/Vol] 0.70 10*3/uL Normal <0.87 [facility] Comment on above: Order Comment: Speci men Type: BLOOD SPECIMENOrdering Facility: [facility] Address: [address] [place] [address] Performed By: #### 5 7021-8 ####[facility] [id number] [place] [address] [place] Monocytes/100 WBC (Bld) 9.2 % Normal [facility] Comment on above: Order Comment: Speci men Type: BLOOD SPECIMENOrdering Facility: [facility] Address: [address] [place] [address] Performed By: #### 5 7021-8 ####[facility] LABCLIA [id number] [place] [address] [place] Neutrophils (Bld) [#/Vol] 5.73 10*3/uL Normal 1.45-7.50 [facility] Comment on above: Order Comment: Speci men Type: BLOOD SPECIMENOrdering Facility: [facility] Address: [address] [place] [address] Performed By: #### 5 7021-8 ####[facility] LABCLIA [id number] [place] [address] [place] Neutrophils/100 WBC (Bld) 75.5 % Normal [facility] Comment on above: Order Comment: Speci men Type: BLOOD SPECIMENOrdering Facility: [facility] Address: [address] [place] [address] Performed By: #### 5 7021-8 ####[facility] LABCLIA [id number] [place] [address] [place] Nucleated RBC (Bld) [#/Vol] 10*3/uL Normal <0.01 [facility] Comment on above: Order Comment: Speci men Type: BLOOD SPECIMENOrdering Facility: [facility] Address: [address] [place] [address] Performed By: #### 5 7021-8 ####[facility] LABCLIA [id number] [place] [address] [place] Nucleated RBC/100 WBC (Bld) [Ratio] 0.0 /100 WBC Normal [facility] Comment on above: Order Comment: Speci men Type: BLOOD SPECIMENOrdering Facility: [facility] Address: [address] [place] [address] Performed By: #### 5 7021-8 ####[facility] LABCLIA [id number] [place] [id number] [place] Platelet mean volume (Bld) [Entitic vol] 10.4 fL Normal 9.0-12.7 [facility] Comment on above: Order Comment: Speci men Type: BLOOD SPECIMENOrdering Facility: [facility] Address: [address] [place] [address] Performed By: #### 5 7021-8 ####[facility] LABCLIA [id number] [place] [address] [place] Platelets (Bld) [#/Vol] 265 10*3/uL Normal 150-400 [facility] Comment on above: Order Comment: Speci men Type: BLOOD SPECIMENOrdering Facility: [facility] Address: [address] [place] [address] Performed By: #### 5 7021-8 ####[facility] LABCLIA [id number] [place] [address] [place] RBC (Bld) [#/Vol] 4.63 10*6/uL Normal 4.20-6.00 [facility] Comment on above: Order Comment: Speci men Type: BLOOD SPECIMENOrdering Facility: [facility] Address: [address] [place] [address] Performed By: #### 5 7021-8 ####[facility] LABCLIA [id number] [place] [id number] [place] WBC (Bld) [#/Vol] 7.59 10*3/uL Normal 3.70-11.00 [facility] Comment on above: Order Comment: Speci men Type: BLOOD SPECIMENOrdering Facility: [facility] Address: [address] [place] [address] Performed By: #### 5 7021-8 ####[facility] LABCLIA [id number] [address] [address] [place] Comprehensive metabolic 2000 panelon 03-21-2024 Albumin [Mass/Vol] 4.0 g/dL Normal 3.9-4.9 [facility] Comment on above: Order Comment: Speci men Type: BLOOD SPECIMENOrdering Facility: [facility] Address: [address] [place] [address] Performed By: #### 2 4323-8, 89193-9, 2776- ####[facility] LABCLIA [id number] [place] [id number] [place] ALP [Catalytic activity/Vol] 135 U/L High 38-113 [facility] Comment on above: Order Comment: Speci men Type: BLOOD SPECIMENOrdering Facility: [facility] Address: [address] [place] [address] Performed By: #### 2 4323-8, , 2776-07 ####[facility] LABCLIA [id number] [place] [address] [place] ALT [Catalytic activity/Vol] 17 U/L Normal 10-54 [facility] Comment on above: Order Comment: Speci men Type: BLOOD SPECIMENOrdering Facility: [facility] Address: [address] [place] [address] Performed By: #### 2 4323-8, , 2776-07 ####[facility] LABCLIA [id number] [place] [id number] [place] Anion gap [Moles/Vol] 10 mmol/L Normal 8-15 [facility] Comment on above: Order Comment: Speci men Type: BLOOD SPECIMENOrdering Facility: [facility] Address: [address] [place] [address] Performed By: #### 2 4323-8, 17730-7, 2776- ####[facility] LABCLIA [id number] [place] [id number] [place] AST [Catalytic activity/Vol] 15 U/L Normal 14-40 [facility] Comment on above: Order Comment: Speci men Type: BLOOD SPECIMENOrdering Facility: [facility] Address: [address] [place] [address] Performed By: #### 2 4323-8, 22006-7, 2776-07 ####[facility] LABCLIA [id number] [place] [address] [place] Bilirubin [Mass/Vol] 0.2 mg/dL Normal 0.2-1.3 [facility] Comment on above: Order Comment: Speci men Type: BLOOD SPECIMENOrdering Facility: [facility] Address: [address] [place] [address] Performed By: #### 2 4323-8, , 2776-07 ####[facility] LABCLIA [id number] [place] [address] [place] Calcium [Mass/Vol] 8.7 mg/dL Normal 8.5-10.2 [facility] Comment on above: Order Comment: Speci men Type: BLOOD SPECIMENOrdering Facility: [facility] Address: [address] [place] [address] Performed By: #### 2 4323-8, , 2776-07 ####[facility] LABCLIA [id number] [place] [address] [place] Chloride [Moles/Vol] 109 mmol/L High 98-107 [facility] Comment on above: Order Comment: Speci men Type: BLOOD SPECIMENOrdering Facility: [facility] Address: [address] [place] [address] Performed By: #### 2 4323-8, 86814-6, 2776-07 ####[facility] LABCLIA [id number] [place] [address] [place] CO2 [Moles/Vol] 18 mmol/L Low 22-30 [facility] Comment on above: Order Comment: Speci men Type: BLOOD SPECIMENOrdering Facility: [facility] Address: [address] [place] [address] Performed By: #### 2 4323-8, , 2776-07 ####[facility] LABCLIA [id number] [facility] [place] [id number] [place] Creatinine [Mass/Vol] 1.32 mg/dL High 0.73-1.22 [facility] Comment on above: Order Comment: Speci men Type: BLOOD SPECIMENOrdering Facility: [facility] Address: [address] [place] [address] Performed By: #### 2 4323-8, , 2776-07 ####[facility] LABCLIA [id number] [place] [address] [place] Creatinine and Glomerular filtration rate.predicted panel (S/P/Bld) 59 mL/min/1.73m??? Low >=60 [facility] Comment on above: Order Comment: Speci men Type: BLOOD SPECIMENOrdering Facility: [facility] Address: [address] [place] [address] Result Comment: Sylwia mated Glomerular Filtration Rate (eGFR) is calculated using the 2020 CKD-EPI creatinine equation. This equation utilizes serum creatinine, sex, and age as parameters. The creatinine assay has traceable calibration to isotope dilution-mass spectrometry. Refer to KDIGO guidelines for clinical interpretation. In patients with unstable renal function, e.g. those with acute kidney injury, the eGFR may not accurately reflect actual GFR. Performed By: #### 2 4323-8, , 2776-07 ####[facility] LABCLIA [id number] [place] [id number] [place] Glucose [Mass/Vol] 189 mg/dL High 74-99 [facility] Comment on above: Order Comment: Speci men Type: BLOOD SPECIMENOrdering Facility: [facility] Address: [address] [place] [address] Result Comment: The [place] Diabetes Association (ADA) provides guidance for cutoff values for fasting glucose and random glucose. The ADA defines fasting as no caloric intake for at least 8 hours. Fasting plasma glucose results between 100 to 125 mg/dL indicate increased risk for diabetes (prediabetes).Fasting plasma glucose results greater than or equal to 126 mg/dL meet the criteria for diagnosis of diabetes. In the absence of unequivocal hyperglycemia, results should be confirmed by repeat testing. In a patient with classic symptoms of hyperglycemia or hyperglycemic crisis, random plasma glucose results greater than or equal to 200 mg/dL meet the criteria for diagnosis of diabetes.Reference: Standards of Medical Care in Diabetes 2016, [place] Diabetes Association. Diabetes Care. 2016.39(Suppl 1). Performed By: #### 2 4323-8, , 2776-07 ####[facility] LABCLIA [id number] [place] [address] [place] Potassium [Moles/Vol] 4.3 mmol/L Normal 3.7-5.1 [facility] Comment on above: Order Comment: Speci men Type: BLOOD SPECIMENOrdering Facility: [facility] Address: [address] [place] [address] Performed By: #### 2 4323-8, , 2776-07 ####[facility] LABCLIA [id number] [place] [id number] [place] Protein [Mass/Vol] 6.6 g/dL Normal 6.3-8.0 [facility] Comment on above: Order Comment: Speci men Type: BLOOD SPECIMENOrdering Facility: [facility] Address: [address] [place] [address] Performed By: #### 2 4323-8, , 2776-07 ####[facility] LABCLIA [id number] [address] [address] [place] Sodium [Moles/Vol] 137 mmol/L Normal 136-144 [facility] Comment on above: Order Comment: Speci men Type: BLOOD SPECIMENOrdering Facility: [facility] Address: [address] [place] [address] Performed By: #### 2 4323-8, 66692-1, 2776-07 ####[facility] LABCLIA [id number] [place] [address] [place] Urea nitrogen [Mass/Vol] 17 mg/dL Normal 9-24 [facility] Comment on above: Order Comment: Speci men Type: BLOOD SPECIMENOrdering Facility: [facility] Address: [address] [place] [address] Performed By: #### 2 4323-8, , 2776-07 ####[facility] LABIA [id number] [place] [address] [place] HbA1c (Bld)on 03-21-2024 Average glucose Estimated from glycated hemoglobin (Bld) [Mass/Vol] 169 mg/dL Normal [facility] Comment on above: Order Comment: Vicki dalton Type: BLOOD SPECIMENOrdering Facility: [facility] Address: [address] [place] [address] Result Comment: eAG: (Estimated average glucose) is a calculated value from HgbA1c and is customer support representative of the average blood glucose level in the last 2-3 month period. Performed By: #### 5 5454-3 ####[facility] LABIA [id number] [place] [address] [place] HbA1c (Bld) [Mass fraction] 7.5 % High 4.3-5.6 [facility] Comment on above: Order Comment: Vicki [facility] Type: BLOOD SPECIMENOrdering Facility: [facility] Address: [address] [place] [address] Result Comment: [place] Diabetes Association guidelines indicate that patients with HgbA1c in the range 5.7-6.4% are at increased risk for development of diabetes, and intervention by lifestyle modification may be beneficial. HgbA1c greater or equal to 6.5% is considered diagnostic of diabetes. Performed By: #### 5 5454-3 ####[facility] LABCLIA [id number] [place] [id number] [place] Magnesium SerPl-ncon 03-21 Magnesium [Mass/Vol] 1.6 mg/dL Low 1.7-2.3 [facility] Comment on above: Order Comment: Speci sha Type: BLOOD SPECIMENOrdering Facility: [facility] Address: [address] [place] [address] Performed By: #### 2 4323-8, 72350-2, 2777-1 ####[facility] LABIA [id number] [place] [address] [place] Phosphate SerPl-ncon 03-21 Phosphate [Mass/Vol] 2.9 mg/dL Normal 2.7-4.8 [facility] Comment on above: Order Comment: Vicki dalton Type: BLOOD SPECIMENOrdering Facility: [facility] Address: [address] [place] [address] Performed By: #### 2 4323-8, 18756-2, 2777-1 ####[facility] LAB[facility] [id number] [place] [address] [place] Tacrol[facility] Tacrolimus (Bld) [Mass/Vol] 6.9 ng/mL Normal 5.0-20.0 [facility] Comment on above: Order Comment: Vicki dalton Type: BLOOD SPECIMENOrdering Facility: [facility] Address: [address] [place] [address] Result Comment: Holly vidualized target levels for a given patient will depend on many factors (including the type of organ transplant, time since transplantation, concurrent medications, and other clinical factors), and should be assessed by those health care providers experienced in the management of immunosuppression. Reference ranges and high/low indicator flags are provided as general guidelines only. The treating physician must determine appropriate target levels/dosing based on the specific clinical situation. Test performed by chemiluminescent immunoassay using [employer]. Performed By: #### 1 1253-2 ####[facility] LABIA [id number] [place] [address] [place] CNPNon 02-21-2024 CNPN Normal [facility] CNPNon 02-20-2024 CNPN Normal [facility] 25(OH)D3 SerPl-mCncon 2023 25-hydroxyvitamin D3 [Mass/Vol] 17.2 ng/mL Low 31.0-80.0 [facility] Comment on above: Order Comment: Speci men Type: BLOOD SPECIMENOrdering Facility: [facility] Address: [address] [place] [address] Performed By: #### 1 989-3 ####[facility] [id number] [place] [address] [place] BK VIRUS DNA QUANTIFICATION, PLASMAon 02-15-2024 BK virus DNA KURT+probe [#/Vol] Not detected Normal BK Virus DNA Not Detected by PCR. [facility] Comment on above: Order Comment: Speci men Type: BLOOD SPECIMENOrdering Facility: [facility] Address: [address] [place] [address] Performed By: #### B Ana RosaQUSHERI ####[facility] [id number] [place] [address] [place] CBC W Auto Differential pane l (Bld)on 02-15-2024 Basophils (Bld) [#/Vol] 10*3/uL Normal <0.11 [facility] Comment on above: Order Comment: Speci men Type: BLOOD SPECIMENOrdering Facility: [facility] Address: [address] [place] [address] Performed By: #### 5 7021-8 ####[facility] LABIA [id number] [place] [address] [place] Basophils/100 WBC (Bld) 0.3 % Normal [facility] Comment on above: Order Comment: Speci men Type: BLOOD SPECIMENOrdering Facility: [facility] Address: [address] [place] [address] Performed By: #### 5 7021-8 ####[facility] LABCLIA [id number] [place] [address] [place] Differential cell count method Nom (Bld) Auto Normal [facility] Comment on above: Order Comment: Speci men Type: BLOOD SPECIMENOrdering Facility: [facility] Address: [address] [place] [address] Performed By: #### 5 7021-8 ####[facility] LABCLIA [id number] [place] [address] [place] Eosinophils (Bld) [#/Vol] 0.15 10*3/uL Normal <0.46 [facility] Comment on above: Order Comment: Speci men Type: BLOOD SPECIMENOrdering Facility: [facility] Address: [address] [place] [address] Performed By: #### 5 7021-8 ####[facility] LABCLIA [id number] [place] [address] [place] Eosinophils/100 WBC (Bld) 2.0 % Normal [facility] Comment on above: Order Comment: Speci men Type: BLOOD SPECIMENOrdering Facility: [facility] Address: [address] [place] [address] Performed By: #### 5 7021-8 ####[facility] LABCLIA [id number] [place] [address] [place] Erythrocyte distribution width (RBC) [Ratio] 12.8 % Normal 11.5-15.0 [facility] Comment on above: Order Comment: Speci men Type: BLOOD SPECIMENOrdering Facility: [facility] Address: [address] [place] [address] Performed By: #### 5 7021-8 ####[facility] LABCLIA [id number] [place] [address] [place] Hematocrit (Bld) [Volume fraction] 39.7 % Normal 39.0-51.0 [facility] Comment on above: Order Comment: Speci men Type: BLOOD SPECIMENOrdering Facility: [facility] Address: [address] [place] [address] Performed By: #### 5 7021-8 ####[facility] LABCLIA [id number] [place] [address] [place] Hemoglobin (Bld) [Mass/Vol] 12.6 g/dL Low 13.0-17.0 [facility] Comment on above: Order Comment: Speci men Type: BLOOD SPECIMENOrdering Facility: [facility] Address: [address] [place] [address] Performed By: #### 5 7021-8 ####[facility] LABCLIA [id number] [place] [address] [place] Immature granulocytes (Bld) [#/Vol] 0.04 10*3/uL Normal <0.10 [facility] Comment on above: Order Comment: Speci men Type: BLOOD SPECIMENOrdering Facility: [facility] Address: [address] [place] [address] Performed By: #### 5 7021-8 ####[facility] LABCLIA [id number] [place] [address] [place] Immature granulocytes/100 WBC (Bld) 0.5 % Normal [facility] Comment on above: Order Comment: Speci men Type: BLOOD SPECIMENOrdering Facility: [facility] Address: [address] [place] [address] Performed By: #### 5 7021-8 ####[facility] LABCLIA [id number] [place] [address] [place] Lymphocytes (Bld) [#/Vol] 0.65 10*3/uL Low 1.00-4.00 [facility] Comment on above: Order Comment: Speci men Type: BLOOD SPECIMENOrdering Facility: [facility] Address: [address] [place] [address] Performed By: #### 5 7021-8 ####[facility] LABIA [id number] [place] [address] [place] Lymphocytes/100 WBC (Bld) 8.7 % Normal [facility] Comment on above: Order Comment: Speci men Type: BLOOD SPECIMENOrdering Facility: [facility] Address: [address] [place] [address] Performed By: #### 5 7021-8 ####[facility] LABIA [id number] [place] [address] [place] MCH (RBC) [Entitic mass] 27.8 pg Normal 26.0-34.0 [facility] Comment on above: Order Comment: Speci men Type: BLOOD SPECIMENOrdering Facility: [facility] Address: [address] [place] [address] Performed By: #### 5 7021-8 ####[facility] [id number] [place] [address] [place] MCHC (RBC) [Mass/Vol] 31.7 g/dL Normal 30.5-36.0 [facility] Comment on above: Order Comment: Speci men Type: BLOOD SPECIMENOrdering Facility: [facility] Address: [address] [place] [address] Performed By: #### 5 7021-8 ####[facility] LABIA [id number] [place] [address] [place] MCV (RBC) [Entitic vol] 87.6 fL Normal 80.0-100.0 [facility] Comment on above: Order Comment: Speci men Type: BLOOD SPECIMENOrdering Facility: [facility] Address: [address] [place] [address] Performed By: #### 5 7021-8 ####[facility] LABIA [id number] [place] [address] [place] Monocytes (Bld) [#/Vol] 0.71 10*3/uL Normal <0.87 [facility] Comment on above: Order Comment: Speci men Type: BLOOD SPECIMENOrdering Facility: [facility] Address: [address] [place] [address] Performed By: #### 5 7021-8 ####[facility] LABCLIA [id number] [place] [address] [place] Monocytes/100 WBC (Bld) 9.6 % Normal [facility] Comment on above: Order Comment: Speci men Type: BLOOD SPECIMENOrdering Facility: [facility] Address: [address] [place] [address] Performed By: #### 5 7021-8 ####[facility] LABCLIA [id number] [place] [address] [place] Neutrophils (Bld) [#/Vol] 5.86 10*3/uL Normal 1.45-7.50 [facility] Comment on above: Order Comment: Speci men Type: BLOOD SPECIMENOrdering Facility: [facility] Address: [address] [place] [address] Performed By: #### 5 7021-8 ####[facility] LABCLIA [id number] [place] [address] [place] Neutrophils/100 WBC (Bld) 78.9 % Normal [facility] Comment on above: Order Comment: Speci men Type: BLOOD SPECIMENOrdering Facility: [facility] Address: [address] [place] [address] Performed By: #### 5 7021-8 ####[facility] LABCLIA [id number] [place] [address] [place] Nucleated RBC (Bld) [#/Vol] 10*3/uL Normal <0.01 [facility] Comment on above: Order Comment: Speci men Type: BLOOD SPECIMENOrdering Facility: [facility] Address: [address] [place] [address] Performed By: #### 5 7021-8 ####[facility] LABCLIA [id number] [place] [address] [place] Nucleated RBC/100 WBC (Bld) [Ratio] 0.0 /100 WBC Normal [facility] Comment on above: Order Comment: Speci men Type: BLOOD SPECIMENOrdering Facility: [facility] Address: [address] [place] [address] Performed By: #### 5 7021-8 ####[facility] LABCLIA [id number] [place] [address] [place] Platelet mean volume (Bld) [Entitic vol] 10.7 fL Normal 9.0-12.7 [facility] Comment on above: Order Comment: Speci men Type: BLOOD SPECIMENOrdering Facility: [facility] Address: [address] [place] [address] Performed By: #### 5 7021-8 ####[facility] LABCLIA [id number] [place] [address] [place] Platelets (Bld) [#/Vol] 250 10*3/uL Normal 150-400 [facility] Comment on above: Order Comment: Speci men Type: BLOOD SPECIMENOrdering Facility: [facility] Address: [address] [place] [address] Performed By: #### 5 7021-8 ####[facility] LABCLIA [id number] [place] [address] [place] RBC (Bld) [#/Vol] 4.53 10*6/uL Normal 4.20-6.00 [facility] Comment on above: Order Comment: Speci men Type: BLOOD SPECIMENOrdering Facility: [facility] Address: [address] [place] [address] Performed By: #### 5 7021-8 ####[facility] LABCLIA [id number] [address] [address] [place] WBC (Bld) [#/Vol] 7.43 10*3/uL Normal 3.70-11.00 [facility] Comment on above: Order Comment: Speci men Type: BLOOD SPECIMENOrdering Facility: [facility] Address: [address] [place] [address] Performed By: #### 5 7021-8 ####[facility] LABCLIA [id number] [place] [id number] [place] Comprehensive metabolic 2000 panelon 02-15-2024 Albumin [Mass/Vol] 4.0 g/dL Normal 3.9-4.9 [facility] Comment on above: Order Comment: Speci men Type: BLOOD SPECIMENOrdering Facility: [facility] Address: [address] [place] [address] Performed By: #### 2 4323-8, 06599-6, , 2776- ####[facility] LABCLIA [id number] [place] [address] [place] ALP [Catalytic activity/Vol] 142 U/L High 38-113 [facility] Comment on above: Order Comment: Speci men Type: BLOOD SPECIMENOrdering Facility: [facility] Address: [address] [place] [address] Performed By: #### 2 4323-8, 96870-5, , 2776-07 ####[facility] LABCLIA [id number] [place] [id number] [place] ALT [Catalytic activity/Vol] 18 U/L Normal 10-54 [facility] Comment on above: Order Comment: Speci men Type: BLOOD SPECIMENOrdering Facility: [facility] Address: [address] [place] [address] Performed By: #### 2 4323-8, 92493-1, , 2776- ####[facility] LABCLIA [id number] [address] [address] [place] Anion gap [Moles/Vol] 13 mmol/L Normal 8-15 [facility] Comment on above: Order Comment: Speci men Type: BLOOD SPECIMENOrdering Facility: [facility] Address: [address] [place] [address] Performed By: #### 2 4323-8, 13295-0, 52850-0, 2776-1 ####[facility] LABCLIA [id number] [address] [address] [place] AST [Catalytic activity/Vol] 13 U/L Low 14-40 [facility] Comment on above: Order Comment: Speci men Type: BLOOD SPECIMENOrdering Facility: [facility] Address: [address] [place] [address] Performed By: #### 2 4323-8, 43400-8, , 2776-07 ####[facility] LABCLIA [id number] [place] [id number] [place] Bilirubin [Mass/Vol] 0.3 mg/dL Normal 0.2-1.3 [facility] Comment on above: Order Comment: Speci men Type: BLOOD SPECIMENOrdering Facility: [facility] Address: [address] [place] [address] Performed By: #### 2 4323-8, 39632-6, , 2776-07 ####[facility] LABCLIA [id number] [place] [id number] [place] Calcium [Mass/Vol] 9.1 mg/dL Normal 8.5-10.2 [facility] Comment on above: Order Comment: Speci men Type: BLOOD SPECIMENOrdering Facility: [facility] Address: [address] [place] [address] Performed By: #### 2 4323-8, 77421-6, 84901-6, 2776-1 ####[facility] LABCLIA [id number] [address] [address] [place] Chloride [Moles/Vol] 104 mmol/L Normal 98-107 [facility] Comment on above: Order Comment: Speci men Type: BLOOD SPECIMENOrdering Facility: [facility] Address: [address] [place] [address] Performed By: #### 2 4323-8, 12626-9, 23257-3, 2776- ####[facility] LABCLIA [id number] [place] [address] [place] CO2 [Moles/Vol] 18 mmol/L Low 22-30 [facility] Comment on above: Order Comment: Speci men Type: BLOOD SPECIMENOrdering Facility: [facility] Address: [address] [place] [address] Performed By: #### 2 4323-8, 62116-3, 12203-2, 2776- ####[facility] LABCLIA [id number] [place] [address] [place] Creatinine [Mass/Vol] 1.35 mg/dL High 0.73-1.22 [facility] Comment on above: Order Comment: Speci men Type: BLOOD SPECIMENOrdering Facility: [facility] Address: [address] [place] [address] Performed By: #### 2 4323-8, 62608-0, 29524-3, 2776-07 ####[facility] LABIA [id number] [place] [id number] [place] Creatinine and Glomerular filtration rate.predicted panel (S/P/Bld) 57 mL/min/1.73m??? Low >=60 [facility] Comment on above: Order Comment: Speci men Type: BLOOD SPECIMENOrdering Facility: [facility] Address: [address] [place] [address] Result Comment: Sylwia mated Glomerular Filtration Rate (eGFR) is calculated using the 2020 CKD-EPI creatinine equation. This equation utilizes serum creatinine, sex, and age as parameters. The creatinine assay has traceable calibration to isotope dilution-mass spectrometry. Refer to KDIGO guidelines for clinical interpretation. In patients with unstable renal function, e.g. those with acute kidney injury, the eGFR may not accurately reflect actual GFR. Performed By: #### 2 4323-8, 09838-8, , 2776-07 ####[facility] LABCLIA [id number] [place] [id number] [place] Glucose [Mass/Vol] 236 mg/dL High 74-99 [facility] Comment on above: Order Comment: Speci sha Type: BLOOD SPECIMENOrdering Facility: [facility] Address: [address] [place] [address] Result Comment: The [place] Diabetes Association (ADA) provides guidance for cutoff values for fasting glucose and random glucose. The ADA defines fasting as no caloric intake for at least 8 hours. Fasting plasma glucose results between 100 to 125 mg/dL indicate increased risk for diabetes (prediabetes).Fasting plasma glucose results greater than or equal to 126 mg/dL meet the criteria for diagnosis of diabetes. In the absence of unequivocal hyperglycemia, results should be confirmed by repeat testing. In a patient with classic symptoms of hyperglycemia or hyperglycemic crisis, random plasma glucose results greater than or equal to 200 mg/dL meet the criteria for diagnosis of diabetes.Reference: Standards of Medical Care in Diabetes 2016, [place] Diabetes Association. Diabetes Care. 2016.39(Suppl 1). Performed By: #### 2 4323-8, 19589-8, , 2776-07 ####[facility] LABCLIA [id number] [place] [id number] [place] Potassium [Moles/Vol] 4.9 mmol/L Normal 3.7-5.1 [facility] Comment on above: Order Comment: Vicki dalton Type: BLOOD SPECIMENOrdering Facility: [facility] Address: [address] [place] [address] Performed By: #### 2 4323-8, 11171-4, , 2776-07 ####[facility] LABCLIA [id number] [address] [address] [place] Protein [Mass/Vol] 6.8 g/dL Normal 6.3-8.0 [facility] Comment on above: Order Comment: Speci men Type: BLOOD SPECIMENOrdering Facility: [facility] Address: [address] [place] [address] Performed By: #### 2 4323-8, 14166-7, 07901-0, 2776- ####[facility] LABCLIA [id number] [address] [address] [place] Sodium [Moles/Vol] 135 mmol/L Low 136-144 [facility] Comment on above: Order Comment: Speci men Type: BLOOD SPECIMENOrdering Facility: [facility] Address: [address] [place] [address] Performed By: #### 2 4323-8, 03336-6, , 2776-07 ####[facility] LABIA [id number] [address] [address] [place] Urea nitrogen [Mass/Vol] 23 mg/dL Normal 9-24 [facility] Comment on above: Order Comment: Speci men Type: BLOOD SPECIMENOrdering Facility: [facility] Address: [address] [place] [address] Performed By: #### 2 4323-8, 22386-4, , 2776-07 ####[facility] LABIA [id number] [address] [address] [place] Lipid 1996 panelon 4 Cholesterol [Mass/Vol] 122 mg/dL Normal <200 [facility] Comment on above: Order Comment: Speci men Type: BLOOD SPECIMENOrdering Facility: [facility] Address: [address] [place] [address] Result Comment: <200 mg/dL, Desirable 200-239 mg/dL, Borderline high>239 mg/dL, High Performed By: #### 2 4323-8, 08185-7, , 2776-07 ####[facility] LABCLIA [id number] [address] [address] [place] Cholesterol in HDL [Mass/Vol] 30 mg/dL Low >39 [facility] Comment on above: Order Comment: Speci men Type: BLOOD SPECIMENOrdering Facility: [facility] Address: [address] [place] [address] Result Comment: 40-5 9 mg/dL, Acceptable>59 mg/dL, High: Negative risk factor for coronary heart disease<40 mg/dL, Low: Positive risk factor for coronary heart disease Performed By: #### 2 4323-8, 07079-0, , 2776-07 ####[facility] LABCLIA [id number] [address] [address] [place] Cholesterol in LDL [Mass/Vol] 64 mg/dL Normal <100 [facility] Comment on above: Order Comment: Speci men Type: BLOOD SPECIMENOrdering Facility: [facility] Address: [address] [place] [address] Result Comment: <100 mg/dL, Optimal 100-129 mg/dL, Near optimal/above optimal 130-159 mg/dL, Borderline high 160-189 mg/dL, High>189 mg/dL, Very highSecondary prevention optimal LDL Cholesterol levels are recommended to be < 70 mg/dL Performed By: #### 2 4323-8, 02472-7, , 2776-07 ####[facility] LABCLIA [id number] [address] [address] [place] Cholesterol in LDL/Cholesterol in HDL [Mass ratio] 2.13 {ratio} Normal <2.54 [facility] Comment on above: Order Comment: Speci men Type: BLOOD SPECIMENOrdering Facility: [facility] Address: [address] [place] [address] Result Comment: Hieu barr:1. National Cholesterol Education Program ATP III Guideline At-A-Glance Quick Desk Reference: National Heart, Lung, and Blood [place]. National Institutes of Health. 2001: NIH Publication No. 01-3305.2. An International Atherosclerosis Society position paper: global recommendations for the management of dyslipidemia: executive summary, Atherosclerosis. 2014: 232(2):410-413. Performed By: #### 2 4323-8, 54311-3, 25458-8, 2776- ####[facility] LABCLIA [id number] [place] [address] [place] Cholesterol in VLDL [Mass/Vol] 28 mg/dL Normal <30 [facility] Comment on above: Order Comment: Speci men Type: BLOOD SPECIMENOrdering Facility: [facility] Address: [address] [place] [address] Performed By: #### 2 4323-8, 35497-3, 91649-3, 2776-07 ####[facility] LABCLIA [id number] [place] [address] [place] Cholesterol non HDL [Mass/Vol] 92 mg/dL Normal <130 [facility] Comment on above: Order Comment: Speci men Type: BLOOD SPECIMENOrdering Facility: [facility] Address: [address] [place] [address] Result Comment: <130 mg/dL, Optimal 130-159 mg/dL, Near optimal/above optimal 160-189 mg/dL, Borderline high 190-219 mg/dL, High>219 mg/dL, Very highSecondary prevention optimal non HDL Cholesterol levels are recommended to be <100 mg/dL Performed By: #### 2 4323-8, 29463-8, 50744-9, 2776- ####[facility] LABCLIA [id number] [place] [id number] [place] Cholesterol.total/C holesterol in HDL [Mass ratio] 4.07 {ratio} Normal <5.10 [facility] Comment on above: Order Comment: Speci men Type: BLOOD SPECIMENOrdering Facility: [facility] Address: [address] [place] [address] Performed By: #### 2 4323-8, 56284-6, , 2776-07 ####[facility] LABCLIA [id number] [place] [address] [place] FASTING TIME 6 hrs Normal [facility] Comment on above: Order Comment: Speci men Type: BLOOD SPECIMENOrdering Facility: [facility] Address: [address] [place] [address] Result Comment: Smiley ent stated he was told that he was no longer required to fast. 02/15/24 ES Performed By: #### 2 4323-8, 52191-9, , 2776-07 ####[facility] LABCLIA [id number] [place] [address] [place] Triglyceride [Mass/Vol] 138 mg/dL Normal <150 [facility] Comment on above: Order Comment: Speci men Type: BLOOD SPECIMENOrdering Facility: [facility] Address: [address] [place] [address] Result Comment: <150 mg/dL, Normal 150-199 mg/dL, Borderline high 200-499 mg/dL, High>499 mg/dL, Very high Performed By: #### 2 4323-8, 64244-5, , 2776-07 ####[facility] LABCLIA [id number] [place] [address] [place] Magnesium SerPl-mCncon 02-14 Magnesium [Mass/Vol] 1.6 mg/dL Low 1.7-2.3 [facility] Comment on above: Order Comment: Speci men Type: BLOOD SPECIMENOrdering Facility: [facility] Address: [address] [place] [address] Performed By: #### 2 4323-8, 72037-5, , 2776-07 ####[facility] LABCLIA [id number] [place] [address] [place] PTH-Intact SerPl-mCncon 08-0 Parathyrin.intact [Mass/Vol] 107 pg/mL High 15-65 [facility] Comment on above: Order Comment: Vicki dalton Type: BLOOD SPECIMENOrdering Facility: [facility] Address: [address] [place] [address] Performed By: #### 2 731-8 ####[facility] LABCLIA [id number] [place] [address] [place] Phosphate SerPl-mCncon 02-14 Phosphate [Mass/Vol] 2.9 mg/dL Normal 2.7-4.8 [facility] Comment on above: Order Comment: Vicki dalton Type: BLOOD SPECIMENOrdering Facility: [facility] Address: [address] [place] [address] Performed By: #### 2 4323-8, 15797-3, 15213-3, 2777-1 ####[facility] LABIA [id number] [place] [address] [place] Tacrolimus Bld-mCncon 2023 Tacrolimus (Bld) [Mass/Vol] 12.2 ng/mL Normal 5.0-20.0 [facility] Comment on above: Order Comment: Vicki dalton Type: BLOOD SPECIMENOrdering Facility: [facility] Address: [address] [place] [address] Result Comment: Holly vidualized target levels for a given patient will depend on many factors (including the type of organ transplant, time since transplantation, concurrent medications, and other clinical factors), and should be assessed by those health care providers experienced in the management of immunosuppression. Reference ranges and high/low indicator flags are provided as general guidelines only. The treating physician must determine appropriate target levels/dosing based on the specific clinical situation. Test performed by chemiluminescent immunoassay using [employer] i. Performed By: #### 1 1253-2 ####[facility] LABIA [id number] [place] [address] [place] 25(OH)D3 SerPl-ncon 2023 25-hydroxyvitamin D3 [Mass/Vol] 19.5 ng/mL Low 31.0-80.0 [facility] Comment on above: Order Comment: Speci men Type: BLOOD SPECIMENOrdering Facility: [facility] Address: [address] [place] [address] Result Comment: Clas sification of 25 OH Vitamin D status:Deficiency/Insufficiency: < or = 30 ng/ml.Sufficiency/Optimal Levels: 31-80 ng/mLToxicity: > 100 ng/mL.Test performed by chemiluminescent immunoassay. Performed By: #### 1 989-3 ####[facility] LABIA [id number] [place] [address] [place] BK VIRUS DNA QUANTIFICATION, PLASMAon 01-25-2024 BK virus DNA KURT+probe [#/Vol] Not detected Normal BK Virus DNA Not Detected by PCR. [facility] Comment on above: Order Comment: Speci men Type: BLOOD SPECIMENOrdering Facility: [facility] Address: [address] [place] [address] Performed By: #### B KENDRICK ####[facility] [id number] [place] [address] [place] CBC W Auto Differential pane l (Bld)on 01-25-2024 Basophils (Bld) [#/Vol] 10*3/uL Normal <0.11 [facility] Comment on above: Order Comment: Speci men Type: BLOOD SPECIMENOrdering Facility: [facility] Address: [address] [place] [address] Performed By: #### 5 7021-8 ####[facility] LABIA [id number] [place] [address] [place] Basophils/100 WBC (Bld) 0.3 % Normal [facility] Comment on above: Order Comment: Speci men Type: BLOOD SPECIMENOrdering Facility: [facility] Address: [address] [place] [address] Performed By: #### 5 7021-8 ####[facility] LABCLIA [id number] [place] [address] [place] Differential cell count method Nom (Bld) Auto Normal [facility] Comment on above: Order Comment: Speci men Type: BLOOD SPECIMENOrdering Facility: [facility] Address: [address] [place] [address] Performed By: #### 5 7021-8 ####[facility] LABCLIA [id number] [place] [address] [place] Eosinophils (Bld) [#/Vol] 0.15 10*3/uL Normal <0.46 [facility] Comment on above: Order Comment: Speci men Type: BLOOD SPECIMENOrdering Facility: [facility] Address: [address] [place] [address] Performed By: #### 5 7021-8 ####[facility] LABCLIA [id number] [place] [address] [place] Eosinophils/100 WBC (Bld) 2.1 % Normal [facility] Comment on above: Order Comment: Speci men Type: BLOOD SPECIMENOrdering Facility: [facility] Address: [address] [place] [address] Performed By: #### 5 7021-8 ####[facility] LABCLIA [id number] [place] [address] [place] Erythrocyte distribution width (RBC) [Ratio] 12.8 % Normal 11.5-15.0 [facility] Comment on above: Order Comment: Speci men Type: BLOOD SPECIMENOrdering Facility: [facility] Address: [address] [place] [address] Performed By: #### 5 7021-8 ####[facility] LABCLIA [id number] [place] [address] [place] Hematocrit (Bld) [Volume fraction] 40.5 % Normal 39.0-51.0 [facility] Comment on above: Order Comment: Speci men Type: BLOOD SPECIMENOrdering Facility: [facility] Address: [address] [place] [address] Performed By: #### 5 7021-8 ####[facility] LABCLIA [id number] [place] [address] [place] Hemoglobin (Bld) [Mass/Vol] 13.0 g/dL Normal 13.0-17.0 [facility] Comment on above: Order Comment: Speci men Type: BLOOD SPECIMENOrdering Facility: [facility] Address: [address] [place] [address] Performed By: #### 5 7021-8 ####[facility] LABCLIA [id number] [place] [address] [place] Immature granulocytes (Bld) [#/Vol] 0.03 10*3/uL Normal <0.10 [facility] Comment on above: Order Comment: Speci men Type: BLOOD SPECIMENOrdering Facility: [facility] Address: [address] [place] [address] Performed By: #### 5 7021-8 ####[facility] LABCLIA [id number] [place] [address] [place] Immature granulocytes/100 WBC (Bld) 0.4 % Normal [facility] Comment on above: Order Comment: Speci men Type: BLOOD SPECIMENOrdering Facility: [facility] Address: [address] [place] [address] Performed By: #### 5 7021-8 ####[facility] LABCLIA [id number] [place] [address] [place] Lymphocytes (Bld) [#/Vol] 0.71 10*3/uL Low 1.00-4.00 [facility] Comment on above: Order Comment: Speci men Type: BLOOD SPECIMENOrdering Facility: [facility] Address: [address] [place] [address] Performed By: #### 5 7021-8 ####[facility] LABIA [id number] [place] [address] [place] Lymphocytes/100 WBC (Bld) 9.8 % Normal [facility] Comment on above: Order Comment: Speci men Type: BLOOD SPECIMENOrdering Facility: [facility] Address: [address] [place] [address] Performed By: #### 5 7021-8 ####[facility] LABIA [id number] [place] [address] [place] MCH (RBC) [Entitic mass] 28.0 pg Normal 26.0-34.0 [facility] Comment on above: Order Comment: Speci men Type: BLOOD SPECIMENOrdering Facility: [facility] Address: [address] [place] [address] Performed By: #### 5 7021-8 ####[facility] LABIA [id number] [place] [address] [place] MCHC (RBC) [Mass/Vol] 32.1 g/dL Normal 30.5-36.0 [facility] Comment on above: Order Comment: Speci men Type: BLOOD SPECIMENOrdering Facility: [facility] Address: [address] [place] [address] Performed By: #### 5 7021-8 ####[facility] LABIA [id number] [place] [address] [place] MCV (RBC) [Entitic vol] 87.1 fL Normal 80.0-100.0 [facility] Comment on above: Order Comment: Speci men Type: BLOOD SPECIMENOrdering Facility: [facility] Address: [address] [place] [address] Performed By: #### 5 7021-8 ####[facility] LABIA [id number] [place] [address] [place] Monocytes (Bld) [#/Vol] 0.86 10*3/uL Normal <0.87 [facility] Comment on above: Order Comment: Speci men Type: BLOOD SPECIMENOrdering Facility: [facility] Address: [address] [place] [address] Performed By: #### 5 7021-8 ####[facility] LABCLIA [id number] [place] [address] [place] Monocytes/100 WBC (Bld) 11.8 % Normal [facility] Comment on above: Order Comment: Speci men Type: BLOOD SPECIMENOrdering Facility: [facility] Address: [address] [place] [address] Performed By: #### 5 7021-8 ####[facility] LABCLIA [id number] [place] [address] [place] Neutrophils (Bld) [#/Vol] 5.50 10*3/uL Normal 1.45-7.50 [facility] Comment on above: Order Comment: Speci men Type: BLOOD SPECIMENOrdering Facility: [facility] Address: [address] [place] [address] Performed By: #### 5 7021-8 ####[facility] LABCLIA [id number] [place] [address] [place] Neutrophils/100 WBC (Bld) 75.6 % Normal [facility] Comment on above: Order Comment: Speci men Type: BLOOD SPECIMENOrdering Facility: [facility] Address: [address] [place] [address] Performed By: #### 5 7021-8 ####[facility] LABCLIA [id number] [place] [address] [place] Nucleated RBC (Bld) [#/Vol] 10*3/uL Normal <0.01 [facility] Comment on above: Order Comment: Speci men Type: BLOOD SPECIMENOrdering Facility: [facility] Address: [address] [place] [address] Performed By: #### 5 7021-8 ####[facility] LABCLIA [id number] [place] [address] [place] Nucleated RBC/100 WBC (Bld) [Ratio] 0.0 /100 WBC Normal [facility] Comment on above: Order Comment: Speci men Type: BLOOD SPECIMENOrdering Facility: [facility] Address: [address] [place] [address] Performed By: #### 5 7021-8 ####[facility] LABCLIA [id number] [place] [address] [place] Platelet mean volume (Bld) [Entitic vol] 10.7 fL Normal 9.0-12.7 [facility] Comment on above: Order Comment: Speci men Type: BLOOD SPECIMENOrdering Facility: [facility] Address: [address] [place] [address] Performed By: #### 5 7021-8 ####[facility] LABIA [id number] [place] [address] [place] Platelets (Bld) [#/Vol] 250 10*3/uL Normal 150-400 [facility] Comment on above: Order Comment: Speci men Type: BLOOD SPECIMENOrdering Facility: [facility] Address: [address] [place] [address] Performed By: #### 5 7021-8 ####[facility] LABCLIA [id number] [place] [address] [place] RBC (Bld) [#/Vol] 4.65 10*6/uL Normal 4.20-6.00 [facility] Comment on above: Order Comment: Speci men Type: BLOOD SPECIMENOrdering Facility: [facility] Address: [address] [place] [address] Performed By: #### 5 7021-8 ####[facility] LABCLIA [id number] [place] [address] [place] WBC (Bld) [#/Vol] 7.27 10*3/uL Normal 3.70-11.00 [facility] Comment on above: Order Comment: Speci men Type: BLOOD SPECIMENOrdering Facility: [facility] Address: [address] [place] [address] Performed By: #### 5 7021-8 ####[facility] LABCLIA [id number] [place] [address] [place] Comprehensive metabolic 2000 panelon 01-25-2024 Albumin [Mass/Vol] 4.0 g/dL Normal 3.9-4.9 [facility] Comment on above: Order Comment: Speci men Type: BLOOD SPECIMENOrdering Facility: [facility] Address: [address] [place] [address] Performed By: #### 2 4331-1, 09511-9, 21031-2, 7- ####[facility] LABCLIA [id number] [place] [address] [place] ALP [Catalytic activity/Vol] 143 U/L High 38-113 [facility] Comment on above: Order Comment: Speci men Type: BLOOD SPECIMENOrdering Facility: [facility] Address: [address] [place] [address] Performed By: #### 2 4331-1, 00485-3, 12519-2, 7-1 ####[facility] LABCLIA [id number] [place] [address] [place] ALT [Catalytic activity/Vol] 15 U/L Normal 10-54 [facility] Comment on above: Order Comment: Speci men Type: BLOOD SPECIMENOrdering Facility: [facility] Address: [address] [place] [address] Performed By: #### 2 4331-1, 11559-0, 62090-4, 2777-1 ####[facility] LABCLIA [id number] [place] [address] [place] Anion gap [Moles/Vol] 11 mmol/L Normal 8-15 [facility] Comment on above: Order Comment: Speci men Type: BLOOD SPECIMENOrdering Facility: [facility] Address: [address] [place] [address] Performed By: #### 2 4331-1, 60504-2, 62638-3, 2777-1 ####[facility] LABCLIA [id number] [place] [address] [place] AST [Catalytic activity/Vol] 14 U/L Normal 14-40 [facility] Comment on above: Order Comment: Speci men Type: BLOOD SPECIMENOrdering Facility: [facility] Address: [address] [place] [address] Performed By: #### 2 4331-1, 17835-0, 28070-2, 277-1 ####[facility] LABCLIA [id number] [place] [address] [place] Bilirubin [Mass/Vol] 0.3 mg/dL Normal 0.2-1.3 [facility] Comment on above: Order Comment: Speci men Type: BLOOD SPECIMENOrdering Facility: [facility] Address: [address] [place] [address] Performed By: #### 2 4331-1, 32594-5, 82506-3, 2777-1 ####[facility] LABCLIA [id number] [place] [address] [place] Calcium [Mass/Vol] 9.2 mg/dL Normal 8.5-10.2 [facility] Comment on above: Order Comment: Speci men Type: BLOOD SPECIMENOrdering Facility: [facility] Address: [address] [place] [address] Performed By: #### 2 4331-1, 13875-5, 55064-6, 2777-1 ####[facility] LABCLIA [id number] [place] [address] [place] Chloride [Moles/Vol] 106 mmol/L Normal 98-107 [facility] Comment on above: Order Comment: Speci men Type: BLOOD SPECIMENOrdering Facility: [facility] Address: [address] [place] [address] Performed By: #### 2 4331-1, 80070-1, 04535-8, 2777-1 ####[facility] LABCLIA [id number] [place] [address] [place] CO2 [Moles/Vol] 19 mmol/L Low 22-30 [facility] Comment on above: Order Comment: Speci men Type: BLOOD SPECIMENOrdering Facility: [facility] Address: [address] [place] [address] Performed By: #### 2 4331-1, 94798-8, 31235-4, 2777-1 ####[facility] LABCLIA [id number] [place] [address] [place] Creatinine [Mass/Vol] 1.25 mg/dL High 0.73-1.22 [facility] Comment on above: Order Comment: Speci men Type: BLOOD SPECIMENOrdering Facility: [facility] Address: [address] [place] [address] Performed By: #### 2 4331-1, 57380-2, 79850-2, 2777-1 ####[facility] LABCLIA [id number] [place] [address] [place] Creatinine and Glomerular filtration rate.predicted panel (S/P/Bld) 63 mL/min/1.73m??? Normal >=60 [facility] Comment on above: Order Comment: Speci men Type: BLOOD SPECIMENOrdering Facility: [facility] Address: [address] [place] [address] Result Comment: Sylwia mated Glomerular Filtration Rate (eGFR) is calculated using the 2020 CKD-EPI creatinine equation. This equation utilizes serum creatinine, sex, and age as parameters. The creatinine assay has traceable calibration to isotope dilution-mass spectrometry. Refer to KDIGO guidelines for clinical interpretation. In patients with unstable renal function, e.g. those with acute kidney injury, the eGFR may not accurately reflect actual GFR. Performed By: #### 2 4331-1, 58569-0, , 2776-07 ####[facility] LABCLIA [id number] [address] [address] [place] Glucose [Mass/Vol] 138 mg/dL High 74-99 [facility] Comment on above: Order Comment: Vicki dalton Type: BLOOD SPECIMENOrdering Facility: [facility] Address: [address] [place] [address] Result Comment: The [place] Diabetes Association (ADA) provides guidance for cutoff values for fasting glucose and random glucose. The ADA defines fasting as no caloric intake for at least 8 hours. Fasting plasma glucose results between 100 to 125 mg/dL indicate increased risk for diabetes (prediabetes).Fasting plasma glucose results greater than or equal to 126 mg/dL meet the criteria for diagnosis of diabetes. In the absence of unequivocal hyperglycemia, results should be confirmed by repeat testing. In a patient with classic symptoms of hyperglycemia or hyperglycemic crisis, random plasma glucose results greater than or equal to 200 mg/dL meet the criteria for diagnosis of diabetes.Reference: Standards of Medical Care in Diabetes 2016, [place] [employer]. Diabetes Care. 2016.39(Suppl 1). Performed By: #### 2 4331-1, 68307-7, , 2776-07 ####[facility] LABCLIA [id number] [place] [id number] [place] Potassium [Moles/Vol] 4.7 mmol/L Normal 3.7-5.1 [facility] Comment on above: Order Comment: Vicki dalton Type: BLOOD SPECIMENOrdering Facility: [facility] Address: [address] [id number] Performed By: #### 2 4331-1, 30627-8, , 2776-07 ####[facility] LABCLIA [id number] [facility] [place] [address] [place] Protein [Mass/Vol] 6.5 g/dL Normal 6.3-8.0 [facility] Comment on above: Order Comment: Speci men Type: BLOOD SPECIMENOrdering Facility: [facility] Address: [address] [place] [address] Performed By: #### 2 4331-1, 46307-9, 98166-3, 2776- ####[facility] LABCLIA [id number] [place] [address] [place] Sodium [Moles/Vol] 136 mmol/L Normal 136-144 [facility] Comment on above: Order Comment: Speci men Type: BLOOD SPECIMENOrdering Facility: [facility] Address: [address] [place] [address] Performed By: #### 2 4331-1, 67512-7, , 2776- ####[facility] LABCLIA [id number] [place] [address] [place] Urea nitrogen [Mass/Vol] 19 mg/dL Normal 9-24 [facility] Comment on above: Order Comment: Speci men Type: BLOOD SPECIMENOrdering Facility: [facility] Address: [address] [place] [address] Performed By: #### 2 4331-1, 36058-6, 91020-4, 2776-07 ####[facility] LABCLIA [id number] [place] [address] [place] Lipid 1996 panelon 4 Cholesterol [Mass/Vol] 117 mg/dL Normal <200 [facility] Comment on above: Order Comment: Speci men Type: BLOOD SPECIMENOrdering Facility: [facility] Address: [address] [place] [address] Result Comment: <200 mg/dL, Desirable 200-239 mg/dL, Borderline high>239 mg/dL, High Performed By: #### 2 4331-1, 99738-7, 58900-4, 2776-07 ####[facility] LABCLIA [id number] [place] [address] [place] Cholesterol in HDL [Mass/Vol] 32 mg/dL Low >39 [facility] Comment on above: Order Comment: Speci men Type: BLOOD SPECIMENOrdering Facility: [facility] Address: [address] [place] [address] Result Comment: 40-5 9 mg/dL, Acceptable>59 mg/dL, High: Negative risk factor for coronary heart disease<40 mg/dL, Low: Positive risk factor for coronary heart disease Performed By: #### 2 4331-1, 38328-3, 89725-0, 2776-07 ####[facility] LABCLIA [id number] [place] [address] [place] Cholesterol in LDL [Mass/Vol] 54 mg/dL Normal <100 [facility] Comment on above: Order Comment: Speci men Type: BLOOD SPECIMENOrdering Facility: [facility] Address: [address] [place] [address] Result Comment: <100 mg/dL, Optimal 100-129 mg/dL, Near optimal/above optimal 130-159 mg/dL, Borderline high 160-189 mg/dL, High>189 mg/dL, Very highSecondary prevention optimal LDL Cholesterol levels are recommended to be < 70 mg/dL Performed By: #### 2 4331-1, 27316-8, , 2776-07 ####[facility] LABCLIA [id number] [place] [address] [place] Cholesterol in LDL/Cholesterol in HDL [Mass ratio] 1.69 {ratio} Normal <2.54 [facility] Comment on above: Order Comment: Speci men Type: BLOOD SPECIMENOrdering Facility: [facility] Address: [address] [place] [address] Result Comment: Refe momo:1. National Cholesterol Education Program ATP III Guideline At-A-Glance Quick Desk Reference: National Heart, Lung, and Blood [place]. National Institutes of Health. 2001: NIH Publication No. 01-3305.2. An International Atherosclerosis Society position paper: global recommendations for the management of dyslipidemia: executive summary, Atherosclerosis. 2014: 232(2):410-413. Performed By: #### 2 4331-1, 67069-5, 99106-1, 2776-07 ####[facility] LABCLIA [id number] [address] [address] [place] Cholesterol in VLDL [Mass/Vol] 31 mg/dL High <30 [facility] Comment on above: Order Comment: Speci men Type: BLOOD SPECIMENOrdering Facility: [facility] Address: [address] [place] [address] Performed By: #### 2 4331-1, 92774-2, , 2776-07 ####[facility] LABCLIA [id number] [address] [address] [place] Cholesterol non HDL [Mass/Vol] 85 mg/dL Normal <130 [facility] Comment on above: Order Comment: Speci men Type: BLOOD SPECIMENOrdering Facility: [facility] Address: [address] [place] [address] Result Comment: <130 mg/dL, Optimal 130-159 mg/dL, Near optimal/above optimal 160-189 mg/dL, Borderline high 190-219 mg/dL, High>219 mg/dL, Very highSecondary prevention optimal non HDL Cholesterol levels are recommended to be <100 mg/dL Performed By: #### 2 4331-1, 98022-8, , 2776-07 ####[facility] LABCLIA [id number] [address] [address] [place] Cholesterol.total/C holesterol in HDL [Mass ratio] 3.66 {ratio} Normal <5.10 [facility] Comment on above: Order Comment: Speci men Type: BLOOD SPECIMENOrdering Facility: [facility] Address: [address] [place] [address] Performed By: #### 2 4331-1, 17211-8, , 2776-07 ####[facility] LABCLIA [id number] [place] [address] [place] FASTING TIME 4 hrs Normal [facility] Comment on above: Order Comment: Speci men Type: BLOOD SPECIMENOrdering Facility: [facility] Address: [address] [place] [address] Performed By: #### 2 4331-1, 29022-7, , 2776-07 ####[facility] LABCLIA [id number] [place] [address] [place] Triglyceride [Mass/Vol] 154 mg/dL High <150 [facility] Comment on above: Order Comment: Speci men Type: BLOOD SPECIMENOrdering Facility: [facility] Address: [address] [place] [address] Result Comment: <150 mg/dL, Normal 150-199 mg/dL, Borderline high 200-499 mg/dL, High>499 mg/dL, Very high Performed By: #### 2 4331-1, 98506-6, , 2776-07 ####[facility] LABIA [id number] [place] [address] [place] Magnesium SerPl-mCncon 01-24 Magnesium [Mass/Vol] 1.5 mg/dL Low 1.7-2.3 [facility] Comment on above: Order Comment: Speci men Type: BLOOD SPECIMENOrdering Facility: [facility] Address: [address] [place] [address] Performed By: #### 2 4331-1, 50272-5, , 2776-07 ####[facility] LABCLIA [id number] [place] [address] [place] PTH-Intact SerPl-mCncon 07-1 Parathyrin.intact [Mass/Vol] 76 pg/mL High 15-65 [facility] Comment on above: Order Comment: Speci men Type: BLOOD SPECIMENOrdering Facility: [facility] Address: [address] [place] [address] Performed By: #### 2 731-8 ####[facility] LABCLIA [id number] [place] [id number] [place] Phosphate SerPl-mCncon 01-24 Phosphate [Mass/Vol] 2.5 mg/dL Low 2.7-4.8 [facility] Comment on above: Order Comment: Speci men Type: BLOOD SPECIMENOrdering Facility: [facility] Address: [address] [place] [address] Performed By: #### 2 4331-1, 95079-1, 42002-5, 2777-1 ####[facility] LABIA [id number] [place] [address] [place] Prot/Creat Uron 01-25-2024 Protein/Creatinine (U) [Mass ratio] 0.88 mg/mg High <0.15 [facility] Comment on above: Order Comment: Speci men Type: URINE SPECIMENOrdering Facility: [facility] Address: [address] [place] [address] Result Comment: Adul t Proteinuria Categories:<0.15 mg/mg is considered normal to mildly increased0.15 - 0.50 mg/mg is considered moderately increased>0.50 mg/mg is considered severely increasedKDIGO. (2013). KDIGO 2012 Clinical Practice Guideline for the Evaluation and Management of Chronic Kidney Disease. Official Journal of the International Society of Nephrology, 3(1), 1-150. Performed By: #### 2 890-2 ####[facility] LABIA [id number] [place] [address] [place] Protein/Creatinine (U) [Mass ratio]on 01-25-2024 Creatinine (U) [Mass/Vol] 82.1 mg/dL Normal 20.0-300.0 [facility] Comment on above: Order Comment: Speci men Type: URINE SPECIMENOrdering Facility: [facility] Address: [address] [place], [place] [address] Performed By: #### 2 890-2 ####[facility] [id number] [place] [address] [place] Protein (U) [Mass/Vol] 72 mg/dL High 0-20 [facility] Comment on above: Order Comment: Speci men Type: URINE SPECIMENOrdering Facility: [facility] Address: [address] [place] [address] Performed By: #### 2 890-2 ####[facility] [id number] [address] [place] Tacrolimus Bld-ncon 2023 Tacrolimus (Bld) [Mass/Vol] 17.7 ng/mL Normal 5.0-20.0 [facility] Comment on above: Order Comment: Speci men Type: BLOOD SPECIMENOrdering Facility: [facility] Address: [address] [place] [address] Result Comment: Holly vidualized target levels for a given patient will depend on many factors (including the type of organ transplant, time since transplantation, concurrent medications, and other clinical factors), and should be assessed by those health care providers experienced in the management of immunosuppression. Reference ranges and high/low indicator flags are provided as general guidelines only. The treating physician must determine appropriate target levels/dosing based on the specific clinical situation. Test performed by chemiluminescent immunoassay using [employer] i. Performed By: #### 1 1253-2 ####[facility] [id number] [place] [id number] [place] ALBUMIN/CREATININE RATIO, UR INEon 12-15-2023 Albumin DL <= 20 mg/L (U) [Mass/Vol] 375.7 mg/L Normal [facility] Comment on above: Order Comment: Speci men Type: URINE SPECIMENOrdering Facility: [facility] Address: [address] [place] [address] Performed By: #### 2 890-2, UACR ####[facility] LABCLIA [id number] [place] [address] [place] Albumin/Creatinine (U) [Mass ratio] 309 mg/g High <30 [facility] Comment on above: Order Comment: Speci men Type: URINE SPECIMENOrdering Facility: [facility] Address: [address] [place] [address] Result Comment: Adul t Male and Female Nephrotic Criteria:<30 mg/g is considered normal to mildly padledaor97-052 mg/g is considered moderately increased>300 mg/g is considered severely increasedKDIGO. (2013). KDIGO 2012 Clinical Practice Guideline for the Evaluation and Management of Chronic Kidney Disease. Official Journal of the International Society of Nephrology, 3(1), 1-150. Performed By: #### 2 890-2, UACR ####[facility] LABCLIA [id number] [place] [address] [place] CBC W Auto Differential pane l (Bld)on 12-15-2023 Basophils (Bld) [#/Vol] 10*3/uL Normal <0.11 [facility] Comment on above: Order Comment: Speci men Type: BLOOD SPECIMENOrdering Facility: [facility] Address: [address] [place] [address] Performed By: #### 5 7021-8 ####[facility] LABIA [id number] [place] [address] [place] Basophils/100 WBC (Bld) 0.3 % Normal [facility] Comment on above: Order Comment: Speci men Type: BLOOD SPECIMENOrdering Facility: [facility] Address: [address] [place] [address] Performed By: #### 5 7021-8 ####[facility] LABIA [id number] [place] [address] [place] Differential cell count method Nom (Bld) Auto Normal [facility] Comment on above: Order Comment: Speci men Type: BLOOD SPECIMENOrdering Facility: [facility] Address: [address] [place] [address] Performed By: #### 5 7021-8 ####[facility] LABCLIA [id number] [place] [address] [place] Eosinophils (Bld) [#/Vol] 0.18 10*3/uL Normal <0.46 [facility] Comment on above: Order Comment: Speci men Type: BLOOD SPECIMENOrdering Facility: [facility] Address: [address] [place] [address] Performed By: #### 5 7021-8 ####[facility] LABCLIA [id number] [place] [address] [place] Eosinophils/100 WBC (Bld) 2.3 % Normal [facility] Comment on above: Order Comment: Speci men Type: BLOOD SPECIMENOrdering Facility: [facility] Address: [address] [place] [address] Performed By: #### 5 7021-8 ####[facility] LABCLIA [id number] [place] [address] [place] Erythrocyte distribution width (RBC) [Ratio] 12.4 % Normal 11.5-15.0 [facility] Comment on above: Order Comment: Speci men Type: BLOOD SPECIMENOrdering Facility: [facility] Address: [address] [place] [address] Performed By: #### 5 7021-8 ####[facility] LABCLIA [id number] [place] [address] [place] Hematocrit (Bld) [Volume fraction] 41.7 % Normal 39.0-51.0 [facility] Comment on above: Order Comment: Speci men Type: BLOOD SPECIMENOrdering Facility: [facility] Address: [address] [place] [address] Performed By: #### 5 7021-8 ####[facility] LABCLIA [id number] [place] [address] [place] Hemoglobin (Bld) [Mass/Vol] 13.2 g/dL Normal 13.0-17.0 [facility] Comment on above: Order Comment: Speci men Type: BLOOD SPECIMENOrdering Facility: [facility] Address: [address] [place] [address] Performed By: #### 5 7021-8 ####[facility] LABCLIA [id number] [place] [address] [place] Immature granulocytes (Bld) [#/Vol] 0.04 10*3/uL Normal <0.10 [facility] Comment on above: Order Comment: Speci men Type: BLOOD SPECIMENOrdering Facility: [facility] Address: [address] [place] [address] Performed By: #### 5 7021-8 ####[facility] LABCLIA [id number] [place] [address] [place] Immature granulocytes/100 WBC (Bld) 0.5 % Normal [facility] Comment on above: Order Comment: Speci men Type: BLOOD SPECIMENOrdering Facility: [facility] Address: [address] [place] [address] Performed By: #### 5 7021-8 ####[facility] LABCLIA [id number] [place] [address] [place] Lymphocytes (Bld) [#/Vol] 0.76 10*3/uL Low 1.00-4.00 [facility] Comment on above: Order Comment: Speci men Type: BLOOD SPECIMENOrdering Facility: [facility] Address: [address] [place] [address] Performed By: #### 5 7021-8 ####[facility] LABCLIA [id number] [place] [address] [place] Lymphocytes/100 WBC (Bld) 9.9 % Normal [facility] Comment on above: Order Comment: Speci men Type: BLOOD SPECIMENOrdering Facility: [facility] Address: [address] [place] [address] Performed By: #### 5 7021-8 ####[facility] LABCLIA [id number] [place] [address] [place] MCH (RBC) [Entitic mass] 27.7 pg Normal 26.0-34.0 [facility] Comment on above: Order Comment: Speci men Type: BLOOD SPECIMENOrdering Facility: [facility] Address: [address] [place] [address] Performed By: #### 5 7021-8 ####[facility] LABCLIA [id number] [place] [address] [place] MCHC (RBC) [Mass/Vol] 31.7 g/dL Normal 30.5-36.0 [facility] Comment on above: Order Comment: Speci men Type: BLOOD SPECIMENOrdering Facility: [facility] Address: [address] [place] [address] Performed By: #### 5 7021-8 ####[facility] LABCLIA [id number] [place] [address] [place] MCV (RBC) [Entitic vol] 87.6 fL Normal 80.0-100.0 [facility] Comment on above: Order Comment: Speci men Type: BLOOD SPECIMENOrdering Facility: [facility] Address: [address] [place] [address] Performed By: #### 5 7021-8 ####[facility] LABCLIA [id number] [place] [address] [place] Monocytes (Bld) [#/Vol] 0.81 10*3/uL Normal <0.87 [facility] Comment on above: Order Comment: Speci men Type: BLOOD SPECIMENOrdering Facility: [facility] Address: [address] [place] [address] Performed By: #### 5 7021-8 ####[facility] LABCLIA [id number] [place] [address] [place] Monocytes/100 WBC (Bld) 10.6 % Normal [facility] Comment on above: Order Comment: Speci men Type: BLOOD SPECIMENOrdering Facility: [facility] Address: [address] [place] [address] Performed By: #### 5 7021-8 ####[facility] LABCLIA [id number] [place] [address] [place] Neutrophils (Bld) [#/Vol] 5.85 10*3/uL Normal 1.45-7.50 [facility] Comment on above: Order Comment: Speci men Type: BLOOD SPECIMENOrdering Facility: [facility] Address: [address] [place] [address] Performed By: #### 5 7021-8 ####[facility] LABCLIA [id number] [place] [address] [place] Neutrophils/100 WBC (Bld) 76.4 % Normal [facility] Comment on above: Order Comment: Speci men Type: BLOOD SPECIMENOrdering Facility: [facility] Address: [address] [place] [address] Performed By: #### 5 7021-8 ####[facility] LABCLIA [id number] [place] [address] [place] Nucleated RBC (Bld) [#/Vol] 10*3/uL Normal <0.01 [facility] Comment on above: Order Comment: Speci men Type: BLOOD SPECIMENOrdering Facility: [facility] Address: [address] [place] [address] Performed By: #### 5 7021-8 ####[facility] LABCLIA [id number] [place] [address] [place] Nucleated RBC/100 WBC (Bld) [Ratio] 0.0 /100 WBC Normal [facility] Comment on above: Order Comment: Speci men Type: BLOOD SPECIMENOrdering Facility: [facility] Address: [address] [place] [address] Performed By: #### 5 7021-8 ####[facility] LABIA [id number] [place] [address] [place] Platelet mean volume (Bld) [Entitic vol] 10.8 fL Normal 9.0-12.7 [facility] Comment on above: Order Comment: Speci men Type: BLOOD SPECIMENOrdering Facility: [facility] Address: [address] [place] [address] Performed By: #### 5 7021-8 ####[facility] LABIA [id number] [place] [address] [place] Platelets (Bld) [#/Vol] 220 10*3/uL Normal 150-400 [facility] Comment on above: Order Comment: Speci men Type: BLOOD SPECIMENOrdering Facility: [facility] Address: [address] [place] [address] Performed By: #### 5 7021-8 ####[facility] LABIA [id number] [place] [address] [place] RBC (Bld) [#/Vol] 4.76 10*6/uL Normal 4.20-6.00 [facility] Comment on above: Order Comment: Speci men Type: BLOOD SPECIMENOrdering Facility: [facility] Address: [address] [place] [address] Performed By: #### 5 7021-8 ####[facility] LABIA [id number] [place] [address] [place] WBC (Bld) [#/Vol] 7.66 10*3/uL Normal 3.70-11.00 [facility] Comment on above: Order Comment: Speci men Type: BLOOD SPECIMENOrdering Facility: [facility] Address: [address] [place] [address] Performed By: #### 5 7021-8 ####[facility] LABIA [id number] [address] [address] [place] Comprehensive metabolic 2000 panelon 12-15-2023 Albumin [Mass/Vol] 4.2 g/dL Normal 3.9-4.9 [facility] Comment on above: Order Comment: Speci men Type: BLOOD SPECIMENOrdering Facility: [facility] Address: [address] [place] [address] Performed By: #### 2 777-1, 13885-0, ####[facility] LABIA [id number] [place] [address] [place] ALP [Catalytic activity/Vol] 158 U/L High 38-113 [facility] Comment on above: Order Comment: Speci men Type: BLOOD SPECIMENOrdering Facility: [facility] Address: [address] [place] [address] Performed By: #### 2 777-1, , ####[facility] LABIA [id number] [place] [address] [place] ALT [Catalytic activity/Vol] 17 U/L Normal 10-54 [facility] Comment on above: Order Comment: Speci men Type: BLOOD SPECIMENOrdering Facility: [facility] Address: [address] [place] [address] Performed By: #### 2 777-1, , ####[facility] LABIA [id number] [place] [id number] [place] Anion gap [Moles/Vol] 11 mmol/L Normal 8-15 [facility] Comment on above: Order Comment: Speci men Type: BLOOD SPECIMENOrdering Facility: [facility] Address: [address] [place] [address] Performed By: #### 2 777-1, , ####[facility] LABCLIA [id number] [address] [address] [place] AST [Catalytic activity/Vol] 12 U/L Low 14-40 [facility] Comment on above: Order Comment: Speci men Type: BLOOD SPECIMENOrdering Facility: [facility] Address: [address] [place] [address] Performed By: #### 2 777-1, , ####[facility] LABCLIA [id number] [address] [address] [place] Bilirubin [Mass/Vol] 0.3 mg/dL Normal 0.2-1.3 [facility] Comment on above: Order Comment: Speci men Type: BLOOD SPECIMENOrdering Facility: [facility] Address: [address] [place] [address] Performed By: #### 2 777-1, , ####[facility] LABIA [id number] [place] [address] [place] Calcium [Mass/Vol] 9.0 mg/dL Normal 8.5-10.2 [facility] Comment on above: Order Comment: Speci men Type: BLOOD SPECIMENOrdering Facility: [facility] Address: [address] [place] [address] Performed By: #### 2 777-1, , ####[facility] LABIA [id number] [address] [address] [place] Chloride [Moles/Vol] 109 mmol/L High 98-107 [facility] Comment on above: Order Comment: Speci men Type: BLOOD SPECIMENOrdering Facility: [facility] Address: [address] [place] [address] Performed By: #### 2 777-1, , ####[facility] LABCLIA [id number] [place] [address] [place] CO2 [Moles/Vol] 18 mmol/L Low 22-30 [facility] Comment on above: Order Comment: Speci men Type: BLOOD SPECIMENOrdering Facility: [facility] Address: [address] [place] [address] Performed By: #### 2 777-1, 00433-7, ####[facility] LABCLIA [id number] [place] [address] [place] Creatinine [Mass/Vol] 1.41 mg/dL High 0.73-1.22 [facility] Comment on above: Order Comment: Speci men Type: BLOOD SPECIMENOrdering Facility: [facility] Address: [address] [place] [address] Performed By: #### 2 777-1, 77275-0, ####[facility] LABIA [id number] [place] [address] [place] Creatinine and Glomerular filtration rate.predicted panel (S/P/Bld) 54 mL/min/1.73m??? Low >=60 [facility] Comment on above: Order Comment: Speci men Type: BLOOD SPECIMENOrdering Facility: [facility] Address: [address] [place] [address] Result Comment: Sylwia mated Glomerular Filtration Rate (eGFR) is calculated using the 2020 CKD-EPI creatinine equation. This equation utilizes serum creatinine, sex, and age as parameters. The creatinine assay has traceable calibration to isotope dilution-mass spectrometry. Refer to KDIGO guidelines for clinical interpretation. In patients with unstable renal function, e.g. those with acute kidney injury, the eGFR may not accurately reflect actual GFR. Performed By: #### 2 777-1, , ####[facility] LABCLIA [id number] [place] [address] [place] Glucose [Mass/Vol] 167 mg/dL High 74-99 [facility] Comment on above: Order Comment: Speci men Type: BLOOD SPECIMENOrdering Facility: [facility] Address: [address] [place] [address] Result Comment: The [place] Diabetes Association (ADA) provides guidance for cutoff values for fasting glucose and random glucose. The ADA defines fasting as no caloric intake for at least 8 hours. Fasting plasma glucose results between 100 to 125 mg/dL indicate increased risk for diabetes (prediabetes).Fasting plasma glucose results greater than or equal to 126 mg/dL meet the criteria for diagnosis of diabetes. In the absence of unequivocal hyperglycemia, results should be confirmed by repeat testing. In a patient with classic symptoms of hyperglycemia or hyperglycemic crisis, random plasma glucose results greater than or equal to 200 mg/dL meet the criteria for diagnosis of diabetes.Reference: Standards of Medical Care in Diabetes 2016, [place] Diabetes Association. Diabetes Care. 2016.39(Suppl 1). Performed By: #### 2 777-1, 43087-6, ####[facility] LABCLIA [id number] [place] [address] [place] Potassium [Moles/Vol] 4.4 mmol/L Normal 3.7-5.1 [facility] Comment on above: Order Comment: Jovanii men Type: BLOOD SPECIMENOrdering Facility: [facility] Address: [address] [place] [address] Performed By: #### 2 777-1, , ####[facility] LABCLIA [id number] [place] [id number] [place] Protein [Mass/Vol] 6.9 g/dL Normal 6.3-8.0 [facility] Comment on above: Order Comment: Speci men Type: BLOOD SPECIMENOrdering Facility: [facility] Address: [address] [place], [place] [address] Performed By: #### 2 777-1, 47419-0, ####[facility] LABCLIA [id number] [place] [id number] [place] Sodium [Moles/Vol] 138 mmol/L Normal 136-144 [facility] Comment on above: Order Comment: Speci men Type: BLOOD SPECIMENOrdering Facility: [facility] Address: [address] [place] [address] Performed By: #### 2 777-1, , ####[facility] LABCLIA [id number] [place] [address] [place] Urea nitrogen [Mass/Vol] 21 mg/dL Normal 9-24 [facility] Comment on above: Order Comment: Speci men Type: BLOOD SPECIMENOrdering Facility: [facility] Address: [address] [place] [address] Performed By: #### 2 777-1, , ####[facility] LABCLIA [id number] [place] [address] [place] Magnesium SerPl-mCncon 12-14 Magnesium [Mass/Vol] 1.7 mg/dL Normal 1.7-2.3 [facility] Comment on above: Order Comment: Speci men Type: BLOOD SPECIMENOrdering Facility: [facility] Address: [address] [place] [address] Performed By: #### 2 777-1, , ####[facility] LABIA [id number] [place] [id number] [place] Phosphate SerPl-mCncon 12-14 Phosphate [Mass/Vol] 2.8 mg/dL Normal 2.7-4.8 [facility] Comment on above: Order Comment: Speci men Type: BLOOD SPECIMENOrdering Facility: [facility] Address: [address] [place] [address] Performed By: #### 2 777-1, , ####[facility] LABCLIA [id number] [place] [address] [place] Prot/Creat Uron 12-15-2023 Creatinine (U) [Mass/Vol] 121.5 mg/dL Normal 20.0-300.0 [facility] Comment on above: Order Comment: Speci men Type: URINE SPECIMENOrdering Facility: [facility] Address: [address] [place] [address] Performed By: #### 2 890-2, UACR ####[facility] LABCLIA [id number] [place] [id number] [place] Protein/Creatinine (U) [Mass ratio] 0.58 mg/mg High <0.15 [facility] Comment on above: Order Comment: Speci men Type: URINE SPECIMENOrdering Facility: [facility] Address: [address] [place] [address] Result Comment: Adul t Proteinuria Categories:<0.15 mg/mg is considered normal to mildly increased0.15 - 0.50 mg/mg is considered moderately increased>0.50 mg/mg is considered severely increasedKDIGO. (2013). KDIGO 2012 Clinical Practice Guideline for the Evaluation and Management of Chronic Kidney Disease. Official Journal of the International Society of Nephrology, 3(1), 1-150. Performed By: #### 2 890-2, UACR ####[facility] LABCLIA [id number] [place] [id number] [place] Protein/Creatinine (U) [Mass ratio]on 12-15-2023 Protein (U) [Mass/Vol] 71 mg/dL High 0-20 [facility] Comment on above: Order Comment: Speci men Type: URINE SPECIMENOrdering Facility: [facility] Address: [address] [place] [address] Performed By: #### 2 890-2, UACR ####[facility] LABCLIA [id number] [place] [id number] [place] Tacrolimus Bld-mCncon 2023 Tacrolimus (Bld) [Mass/Vol] 8.8 ng/mL Normal 5.0-20.0 [facility] Comment on above: Order Comment: Speci men Type: BLOOD SPECIMENOrdering Facility: [facility] Address: [address] [place] [address] Result Comment: Holly vidualized target levels for a given patient will depend on many factors (including the type of organ transplant, time since transplantation, concurrent medications, and other clinical factors), and should be assessed by those health care providers experienced in the management of immunosuppression. Reference ranges and high/low indicator flags are provided as general guidelines only. The treating physician must determine appropriate target levels/dosing based on the specific clinical situation. Test performed by chemiluminescent immunoassay using [employer] i. Performed By: #### 1 1253-2 ####[facility] LABCLIA [id number] [place] [address] [place] CNPNon 11-23-2023 CNPN Normal [facility] CNOVon 11-22-2023 CNOV Normal [facility] CBC W Auto Differential pane l (Bld)on 11-13-2023 Basophils (Bld) [#/Vol] 10*3/uL Normal <0.11 [facility] Comment on above: Order Comment: Speci men Type: BLOOD SPECIMENOrdering Facility: [facility] Address: [address] [place] [address] Performed By: #### 5 7021-8 ####[facility] LABCLIA [id number] [place] [address] [place] Basophils/100 WBC (Bld) 0.2 % Normal [facility] Comment on above: Order Comment: Speci men Type: BLOOD SPECIMENOrdering Facility: [facility] Address: [address] [place] [address] Performed By: #### 5 7021-8 ####[facility] LABCLIA [id number] [place] [address] [place] Differential cell count method Nom (Bld) Auto Normal [facility] Comment on above: Order Comment: Speci men Type: BLOOD SPECIMENOrdering Facility: [facility] Address: [address] [place] [address] Performed By: #### 5 7021-8 ####[facility] LABCLIA [id number] [place] [address] [place] Eosinophils (Bld) [#/Vol] 0.07 10*3/uL Normal <0.46 [facility] Comment on above: Order Comment: Speci men Type: BLOOD SPECIMENOrdering Facility: [facility] Address: [address] [place] [address] Performed By: #### 5 7021-8 ####[facility] LABCLIA [id number] [place] [address] [place] Eosinophils/100 WBC (Bld) 1.5 % Normal [facility] Comment on above: Order Comment: Speci men Type: BLOOD SPECIMENOrdering Facility: [facility] Address: [address] [place] [address] Performed By: #### 5 7021-8 ####[facility] LABCLIA [id number] [place] [address] [place] Erythrocyte distribution width (RBC) [Ratio] 12.3 % Normal 11.5-15.0 [facility] Comment on above: Order Comment: Speci men Type: BLOOD SPECIMENOrdering Facility: [facility] Address: [address] [place] [address] Performed By: #### 5 7021-8 ####[facility] LABCLIA [id number] [place] [address] [place] Hematocrit (Bld) [Volume fraction] 41.4 % Normal 39.0-51.0 [facility] Comment on above: Order Comment: Speci men Type: BLOOD SPECIMENOrdering Facility: [facility] Address: [address] [place] [address] Performed By: #### 5 7021-8 ####[facility] LABCLIA [id number] [place] [address] [place] Hemoglobin (Bld) [Mass/Vol] 13.0 g/dL Normal 13.0-17.0 [facility] Comment on above: Order Comment: Speci men Type: BLOOD SPECIMENOrdering Facility: [facility] Address: [address] [place] [address] Performed By: #### 5 7021-8 ####[facility] LABCLIA [id number] [place] [address] [place] Immature granulocytes (Bld) [#/Vol] 0.03 10*3/uL Normal <0.10 [facility] Comment on above: Order Comment: Speci men Type: BLOOD SPECIMENOrdering Facility: [facility] Address: [address] [place] [address] Performed By: #### 5 7021-8 ####[facility] LABCLIA [id number] [place] [address] [place] Immature granulocytes/100 WBC (Bld) 0.7 % Normal [facility] Comment on above: Order Comment: Speci men Type: BLOOD SPECIMENOrdering Facility: [facility] Address: [address] [place] [address] Performed By: #### 5 7021-8 ####[facility] LABCLIA [id number] [place] [address] [place] Lymphocytes (Bld) [#/Vol] 0.61 10*3/uL Low 1.00-4.00 [facility] Comment on above: Order Comment: Speci men Type: BLOOD SPECIMENOrdering Facility: [facility] Address: [address] [place] [address] Performed By: #### 5 7021-8 ####[facility] LABCLIA [id number] [place] [address] [place] Lymphocytes/100 WBC (Bld) 13.5 % Normal [facility] Comment on above: Order Comment: Speci men Type: BLOOD SPECIMENOrdering Facility: [facility] Address: [address] [place] [address] Performed By: #### 5 7021-8 ####[facility] LABIA [id number] [place] [address] [place] MCH (RBC) [Entitic mass] 27.7 pg Normal 26.0-34.0 [facility] Comment on above: Order Comment: Speci men Type: BLOOD SPECIMENOrdering Facility: [facility] Address: [address] [place] [address] Performed By: #### 5 7021-8 ####[facility] LABIA [id number] [place] [address] [place] MCHC (RBC) [Mass/Vol] 31.4 g/dL Normal 30.5-36.0 [facility] Comment on above: Order Comment: Speci men Type: BLOOD SPECIMENOrdering Facility: [facility] Address: [address] [place] [address] Performed By: #### 5 7021-8 ####[facility] LABIA [id number] [place] [address] [place] MCV (RBC) [Entitic vol] 88.3 fL Normal 80.0-100.0 [facility] Comment on above: Order Comment: Speci men Type: BLOOD SPECIMENOrdering Facility: [facility] Address: [address] [place] [address] Performed By: #### 5 7021-8 ####[facility] LABIA [id number] [place] [address] [place] Monocytes (Bld) [#/Vol] 0.66 10*3/uL Normal <0.87 [facility] Comment on above: Order Comment: Speci men Type: BLOOD SPECIMENOrdering Facility: [facility] Address: [address] [place] [address] Performed By: #### 5 7021-8 ####[facility] LABCLIA [id number] [place] [address] [place] Monocytes/100 WBC (Bld) 14.6 % Normal [facility] Comment on above: Order Comment: Speci men Type: BLOOD SPECIMENOrdering Facility: [facility] Address: [address] [place] [address] Performed By: #### 5 7021-8 ####[facility] LABCLIA [id number] [place] [address] [place] Neutrophils (Bld) [#/Vol] 3.15 10*3/uL Normal 1.45-7.50 [facility] Comment on above: Order Comment: Speci men Type: BLOOD SPECIMENOrdering Facility: [facility] Address: [address] [place] [address] Performed By: #### 5 7021-8 ####[facility] LABCLIA [id number] [place] [address] [place] Neutrophils/100 WBC (Bld) 69.5 % Normal [facility] Comment on above: Order Comment: Speci men Type: BLOOD SPECIMENOrdering Facility: [facility] Address: [address] [place] [address] Performed By: #### 5 7021-8 ####[facility] LABCLIA [id number] [place] [address] [place] Nucleated RBC (Bld) [#/Vol] 10*3/uL Normal <0.01 [facility] Comment on above: Order Comment: Speci men Type: BLOOD SPECIMENOrdering Facility: [facility] Address: [address] [place] [address] Performed By: #### 5 7021-8 ####[facility] LABCLIA [id number] [place] [address] [place] Nucleated RBC/100 WBC (Bld) [Ratio] 0.0 /100 WBC Normal [facility] Comment on above: Order Comment: Speci men Type: BLOOD SPECIMENOrdering Facility: [facility] Address: [address] [place] [address] Performed By: #### 5 7021-8 ####[facility] LABIA [id number] [place] [address] [place] Platelet mean volume (Bld) [Entitic vol] 10.4 fL Normal 9.0-12.7 [facility] Comment on above: Order Comment: Speci men Type: BLOOD SPECIMENOrdering Facility: [facility] Address: [address] [place] [address] Performed By: #### 5 7021-8 ####[facility] LABIA [id number] [place] [address] [place] Platelets (Bld) [#/Vol] 226 10*3/uL Normal 150-400 [facility] Comment on above: Order Comment: Speci men Type: BLOOD SPECIMENOrdering Facility: [facility] Address: [address] [place] [address] Performed By: #### 5 7021-8 ####[facility] LABIA [id number] [place] [address] [place] RBC (Bld) [#/Vol] 4.69 10*6/uL Normal 4.20-6.00 [facility] Comment on above: Order Comment: Speci men Type: BLOOD SPECIMENOrdering Facility: [facility] Address: [address] [place] [address] Performed By: #### 5 7021-8 ####[facility] LABIA [id number] [place] [address] [place] WBC (Bld) [#/Vol] 4.53 10*3/uL Normal 3.70-11.00 [facility] Comment on above: Order Comment: Speci men Type: BLOOD SPECIMENOrdering Facility: [facility] Address: [address] [place] [address] Performed By: #### 5 7021-8 ####[facility] LABCLIA [id number] [address] [address] [place] Comprehensive metabolic 2000 panelon 11-13-2023 Albumin [Mass/Vol] 4.0 g/dL Normal 3.9-4.9 [facility] Comment on above: Order Comment: Speci men Type: BLOOD SPECIMENOrdering Facility: [facility] Address: [address] [place] [address] Performed By: #### 2 4323-8, 27701-07, ####[facility] LABCLIA [id number] [place] [address] [place] ALP [Catalytic activity/Vol] 152 U/L High 38-113 [facility] Comment on above: Order Comment: Speci men Type: BLOOD SPECIMENOrdering Facility: [facility] Address: [address] [place] [address] Performed By: #### 2 4323-8, 2776-07, ####[facility] LABCLIA [id number] [place] [address] [place] ALT [Catalytic activity/Vol] 15 U/L Normal 10-54 [facility] Comment on above: Order Comment: Speci men Type: BLOOD SPECIMENOrdering Facility: [facility] Address: [address] [place] [address] Performed By: #### 2 4323-8, 2776-07, ####[facility] LABCLIA [id number] [address] [address] [place] Anion gap [Moles/Vol] 10 mmol/L Normal 9-18 [facility] Comment on above: Order Comment: Speci men Type: BLOOD SPECIMENOrdering Facility: [facility] Address: [address] [place] [address] Performed By: #### 2 4323-8, 2776-07, ####[facility] LABCLIA [id number] [place] [phone] [place] AST [Catalytic activity/Vol] 14 U/L Normal 14-40 [facility] Comment on above: Order Comment: Speci men Type: BLOOD SPECIMENOrdering Facility: [facility] Address: [address] [place] [address] Performed By: #### 2 4323-8, 27701-07, ####[facility] LABCLIA [id number] [place] [address] [place] Bilirubin [Mass/Vol] 0.2 mg/dL Normal 0.2-1.3 [facility] Comment on above: Order Comment: Speci men Type: BLOOD SPECIMENOrdering Facility: [facility] Address: [address] [place] [address] Performed By: #### 2 4323-8, 2776-07, ####[facility] LABIA [id number] [place] [address] [place] Calcium [Mass/Vol] 8.7 mg/dL Normal 8.5-10.2 [facility] Comment on above: Order Comment: Speci men Type: BLOOD SPECIMENOrdering Facility: [facility] Address: [address] [place] [address] Performed By: #### 2 4323-8, 2776-07, ####[facility] LABCLIA [id number] [place] [phone] [place] Chloride [Moles/Vol] 107 mmol/L High 97-105 [facility] Comment on above: Order Comment: Speci men Type: BLOOD SPECIMENOrdering Facility: [facility] Address: [address] [place] [address] Performed By: #### 2 4323-8, 2776-07, ####[facility] LABCLIA [id number] [place] [phone] [place] CO2 [Moles/Vol] 18 mmol/L Low 22-30 [facility] Comment on above: Order Comment: Speci men Type: BLOOD SPECIMENOrdering Facility: [facility] Address: [address] [place] [address] Performed By: #### 2 4323-8, 2777-, ####[facility] LABCLIA [id number] [place] [address] [place] Creatinine [Mass/Vol] 1.43 mg/dL High 0.73-1.22 [facility] Comment on above: Order Comment: Speci men Type: BLOOD SPECIMENOrdering Facility: [facility] Address: [address] [place] [address] Performed By: #### 2 4323-8, 2776-07, ####[facility] LABIA [id number] [place] [address] [place] Creatinine and Glomerular filtration rate.predicted panel (S/P/Bld) 53 mL/min/1.73m??? Low >=60 [facility] Comment on above: Order Comment: Speci men Type: BLOOD SPECIMENOrdering Facility: [facility] Address: [address] [place] [address] Result Comment: Sylwia mated Glomerular Filtration Rate (eGFR) is calculated using the 2020 CKD-EPI creatinine equation. This equation utilizes serum creatinine, sex, and age as parameters. The creatinine assay has traceable calibration to isotope dilution-mass spectrometry. Refer to KDIGO guidelines for clinical interpretation. In patients with unstable renal function, e.g. those with acute kidney injury, the eGFR may not accurately reflect actual GFR. Performed By: #### 2 4323-8, 2776-07, ####[facility] LABCLIA [id number] [place] [phone] [place] Glucose [Mass/Vol] 196 mg/dL High 74-99 [facility] Comment on above: Order Comment: Speci men Type: BLOOD SPECIMENOrdering Facility: [facility] Address: [address] [place], [place] [address] Result Comment: The [place] Diabetes Association (ADA) provides guidance for cutoff values for fasting glucose and random glucose. The ADA defines fasting as no caloric intake for at least 8 hours. Fasting plasma glucose results between 100 to 125 mg/dL indicate increased risk for diabetes (prediabetes).Fasting plasma glucose results greater than or equal to 126 mg/dL meet the criteria for diagnosis of diabetes. In the absence of unequivocal hyperglycemia, results should be confirmed by repeat testing. In a patient with classic symptoms of hyperglycemia or hyperglycemic crisis, random plasma glucose results greater than or equal to 200 mg/dL meet the criteria for diagnosis of diabetes.Reference: Standards of Medical Care in Diabetes 2016, [place] Diabetes Association. Diabetes Care. 2016.39(Suppl 1). Performed By: #### 2 4323-8, 2776-07, ####[facility] LABCLIA [id number] [place] [address] [place] Potassium [Moles/Vol] 4.7 mmol/L Normal 3.7-5.1 [facility] Comment on above: Order Comment: Speci men Type: BLOOD SPECIMENOrdering Facility: [facility] Address: [address] [place], [place] [address] Performed By: #### 2 4323-8, 2776-07, ####[facility] LABCLIA [id number] [place] [address] [place] Protein [Mass/Vol] 6.5 g/dL Normal 6.3-8.0 [facility] Comment on above: Order Comment: Speci men Type: BLOOD SPECIMENOrdering Facility: [facility] Address: [address] [place], [place] [address] Performed By: #### 2 4323-8, 2776-07, ####[facility] LABCLIA [id number] [address] [address] [place] Sodium [Moles/Vol] 135 mmol/L Low 136-144 [facility] Comment on above: Order Comment: Speci men Type: BLOOD SPECIMENOrdering Facility: [facility] Address: [address] [place] [address] Performed By: #### 2 4323-8, 27701-07, ####[facility] LABCLIA [id number] [place] [phone] [place] Urea nitrogen [Mass/Vol] 22 mg/dL Normal 9-24 [facility] Comment on above: Order Comment: Speci men Type: BLOOD SPECIMENOrdering Facility: [facility] Address: [address] [place] [address] Performed By: #### 2 4323-8, 2776-07, ####[facility] LABIA [id number] [place] [phone] [place] Magnesium SerPl-mCncon 11-12 Magnesium [Mass/Vol] 1.6 mg/dL Low 1.7-2.3 [facility] Comment on above: Order Comment: Speci men Type: BLOOD SPECIMENOrdering Facility: [facility] Address: [address] [place] [address] Performed By: #### 2 4323-8, 2776-07, ####[facility] [id number] [place] [phone] [place] Phosphate SerPl-mCncon 11-12 Phosphate [Mass/Vol] 2.9 mg/dL Normal 2.7-4.8 [facility] Comment on above: Order Comment: Speci men Type: BLOOD SPECIMENOrdering Facility: [facility] Address: [address] [place] [address] Performed By: #### 2 4323-8, 2776-07, ####[facility] LABIA [id number] [place] [phone] [place] Prot/Creat Uron 11-13-2023 Protein/Creatinine (U) [Mass ratio] 0.56 mg/mg High <0.15 [facility] Comment on above: Order Comment: Speci men Type: URINE SPECIMENOrdering Facility: [facility] Address: [address] [place] [address] Result Comment: Adul t Proteinuria Categories:<0.15 mg/mg is considered normal to mildly increased0.15 - 0.50 mg/mg is considered moderately increased>0.50 mg/mg is considered severely increasedKDIGO. (2013). KDIGO 2012 Clinical Practice Guideline for the Evaluation and Management of Chronic Kidney Disease. Official Journal of the International Society of Nephrology, 3(1), 1-150. Performed By: #### 2 890-2 ####[facility] [id number] [place] [address] [place] Protein/Creatinine (U) [Mass ratio]on 11-13-2023 Creatinine (U) [Mass/Vol] 154.4 mg/dL Normal 20.0-300.0 [facility] Comment on above: Order Comment: Speci men Type: URINE SPECIMENOrdering Facility: [facility] Address: [address] [place] [address] Performed By: #### 2 890-2 ####[facility] [id number] [place] [address] [place] Protein (U) [Mass/Vol] 86 mg/dL High 0-20 [facility] Comment on above: Order Comment: Speci men Type: URINE SPECIMENOrdering Facility: [facility] Address: [address] [place] [address] Performed By: #### 2 890-2 ####[facility] [id number] [place] [address] [place] Tacrolimus Bld-mCncon 2023 Tacrolimus (Bld) [Mass/Vol] 7.4 ng/mL Normal 5.0-20.0 [facility] Comment on above: Order Comment: Speci men Type: BLOOD SPECIMENOrdering Facility: [facility] Address: [address] [place] [address] Result Comment: Holly vidualized target levels for a given patient will depend on many factors (including the type of organ transplant, time since transplantation, concurrent medications, and other clinical factors), and should be assessed by those health care providers experienced in the management of immunosuppression. Reference ranges and high/low indicator flags are provided as general guidelines only. The treating physician must determine appropriate target levels/dosing based on the specific clinical situation. Test performed by chemiluminescent immunoassay using [employer] Alinity i. Performed By: #### 1 1253-2 ####[facility] LABCLIA [id number] [place] [address] [place] CNPNon 11-07-2023 CNPN [facility] CNOVon 11-06-2023 CNOV [facility] CNPNon 10-26-2023 CNPN [facility] CBC W Auto Differential pane l (Bld)on 10-16-2023 Basophils (Bld) [#/Vol] 10*3/uL Normal <0.11 [facility] Comment on above: Order Comment: Speci men Type: BLOOD SPECIMENOrdering Facility: [facility] Address: [address] [place] [address] Performed By: #### 5 7021-8 ####[facility] LABCLIA [id number] [place] [address] [place] Basophils/100 WBC (Bld) 0.3 % [facility] Comment on above: Order Comment: Speci men Type: BLOOD SPECIMENOrdering Facility: [facility] Address: [address] [place] [address] Performed By: #### 5 7021-8 ####[facility] LABCLIA [id number] [place] [address] [place] Differential cell count method Nom (Bld) Auto [facility] Comment on above: Order Comment: Speci men Type: BLOOD SPECIMENOrdering Facility: [facility] Address: [address] [place] [address] Performed By: #### 5 7021-8 ####[facility] LABCLIA [id number] [place] [address] [place] Eosinophils (Bld) [#/Vol] 0.18 10*3/uL Normal <0.46 [facility] Comment on above: Order Comment: Speci men Type: BLOOD SPECIMENOrdering Facility: [facility] Address: [address] [place] [address] Performed By: #### 5 7021-8 ####[facility] LABCLIA [id number] [place] [address] [place] Eosinophils/100 WBC (Bld) 3.1 % [facility] Comment on above: Order Comment: Speci men Type: BLOOD SPECIMENOrdering Facility: [facility] Address: [address] [place] [address] Performed By: #### 5 7021-8 ####[facility] LABCLIA [id number] [place] [address] [place] Erythrocyte distribution width (RBC) [Ratio] 12.5 % Normal 11.5-15.0 [facility] Comment on above: Order Comment: Speci men Type: BLOOD SPECIMENOrdering Facility: [facility] Address: [address] [place] [address] Performed By: #### 5 7021-8 ####[facility] LABCLIA [id number] [place] [address] [place] Hematocrit (Bld) [Volume fraction] 41.6 % Normal 39.0-51.0 [facility] Comment on above: Order Comment: Speci men Type: BLOOD SPECIMENOrdering Facility: [facility] Address: [address] [place] [address] Performed By: #### 5 7021-8 ####[facility] LABCLIA [id number] [place] [address] [place] Hemoglobin (Bld) [Mass/Vol] 13.3 g/dL Normal 13.0-17.0 [facility] Comment on above: Order Comment: Speci men Type: BLOOD SPECIMENOrdering Facility: [facility] Address: [address] [place] [address] Performed By: #### 5 7021-8 ####[facility] LABCLIA [id number] [place] [address] [place] Immature granulocytes (Bld) [#/Vol] 10*3/uL Normal <0.10 [facility] Comment on above: Order Comment: Speci men Type: BLOOD SPECIMENOrdering Facility: [facility] Address: [address] [place] [address] Performed By: #### 5 7021-8 ####[facility] LABCLIA [id number] [place] [address] [place] Immature granulocytes/100 WBC (Bld) 0.3 % [facility] Comment on above: Order Comment: Speci men Type: BLOOD SPECIMENOrdering Facility: [facility] Address: [address] [place] [address] Performed By: #### 5 7021-8 ####[facility] LABCLIA [id number] [place] [address] [place] Lymphocytes (Bld) [#/Vol] 0.71 10*3/uL Low 1.00-4.00 [facility] Comment on above: Order Comment: Speci men Type: BLOOD SPECIMENOrdering Facility: [facility] Address: [address] [place] [address] Performed By: #### 5 7021-8 ####[facility] LABCLIA [id number] [place] [address] [place] Lymphocytes/100 WBC (Bld) 12.1 % [facility] Comment on above: Order Comment: Speci men Type: BLOOD SPECIMENOrdering Facility: [facility] Address: [address] [place] [address] Performed By: #### 5 7021-8 ####[facility] LABIA [id number] [place] [address] [place] MCH (RBC) [Entitic mass] 28.1 pg Normal 26.0-34.0 [facility] Comment on above: Order Comment: Speci men Type: BLOOD SPECIMENOrdering Facility: [facility] Address: [address] [place] [address] Performed By: #### 5 7021-8 ####[facility] LABIA [id number] [place] [address] [place] MCHC (RBC) [Mass/Vol] 32.0 g/dL Normal 30.5-36.0 [facility] Comment on above: Order Comment: Speci men Type: BLOOD SPECIMENOrdering Facility: [facility] Address: [address] [place] [address] Performed By: #### 5 7021-8 ####[facility] LABIA [id number] [place] [address] [place] MCV (RBC) [Entitic vol] 87.8 fL Normal 80.0-100.0 [facility] Comment on above: Order Comment: Speci men Type: BLOOD SPECIMENOrdering Facility: [facility] Address: [address] [place] [address] Performed By: #### 5 7021-8 ####[facility] LABIA [id number] [place] [address] [place] Monocytes (Bld) [#/Vol] 0.80 10*3/uL Normal <0.87 [facility] Comment on above: Order Comment: Speci men Type: BLOOD SPECIMENOrdering Facility: [facility] Address: [address] [place] [address] Performed By: #### 5 7021-8 ####[facility] LABIA [id number] [place] [address] [place] Monocytes/100 WBC (Bld) 13.6 % [facility] Comment on above: Order Comment: Speci men Type: BLOOD SPECIMENOrdering Facility: [facility] Address: [address] [place] [address] Performed By: #### 5 7021-8 ####[facility] LABCLIA [id number] [place] [address] [place] Neutrophils (Bld) [#/Vol] 4.15 10*3/uL Normal 1.45-7.50 [facility] Comment on above: Order Comment: Speci men Type: BLOOD SPECIMENOrdering Facility: [facility] Address: [address] [place] [address] Performed By: #### 5 7021-8 ####[facility] LABCLIA [id number] [place] [address] [place] Neutrophils/100 WBC (Bld) 70.6 % [facility] Comment on above: Order Comment: Speci men Type: BLOOD SPECIMENOrdering Facility: [facility] Address: [address] [place] [address] Performed By: #### 5 7021-8 ####[facility] LABCLIA [id number] [place] [address] [place] Nucleated RBC (Bld) [#/Vol] 10*3/uL Normal <0.01 [facility] Comment on above: Order Comment: Speci men Type: BLOOD SPECIMENOrdering Facility: [facility] Address: [address] [place] [address] Performed By: #### 5 7021-8 ####[facility] LABCLIA [id number] [place] [address] [place] Nucleated RBC/100 WBC (Bld) [Ratio] 0.0 /100 WBC [facility] Comment on above: Order Comment: Speci men Type: BLOOD SPECIMENOrdering Facility: [facility] Address: [address] [place] [address] Performed By: #### 5 7021-8 ####[facility] LABCLIA [id number] [place] [address] [place] Platelet mean volume (Bld) [Entitic vol] 10.6 fL Normal 9.0-12.7 [facility] Comment on above: Order Comment: Speci men Type: BLOOD SPECIMENOrdering Facility: [facility] Address: [address] [place] [address] Performed By: #### 5 7021-8 ####[facility] LABCLIA [id number] [place] [address] [place] Platelets (Bld) [#/Vol] 241 10*3/uL Normal 150-400 [facility] Comment on above: Order Comment: Speci men Type: BLOOD SPECIMENOrdering Facility: [facility] Address: [address] [place] [address] Performed By: #### 5 7021-8 ####[facility] LABCLIA [id number] [place] [address] [place] RBC (Bld) [#/Vol] 4.74 10*6/uL Normal 4.20-6.00 [facility] Comment on above: Order Comment: Speci men Type: BLOOD SPECIMENOrdering Facility: [facility] Address: [address] [place] [address] Performed By: #### 5 7021-8 ####[facility] LABCLIA [id number] [place] [address] [place] WBC (Bld) [#/Vol] 5.88 10*3/uL Normal 3.70-11.00 [facility] Comment on above: Order Comment: Speci men Type: BLOOD SPECIMENOrdering Facility: [facility] Address: [address] [place] [address] Performed By: #### 5 7021-8 ####[facility] LABCLIA [id number] [address] [address] [place] CNPNon 10-16-2023 CNPN [facility] CNPTOUTREACHon 10-16-2023 CNPTOUTREACH [facility] Comprehensive metabolic 2000 panelon 10-16-2023 Albumin [Mass/Vol] 3.9 g/dL Normal 3.9-4.9 [facility] Comment on above: Order Comment: Speci men Type: BLOOD SPECIMENOrdering Facility: [facility] Address: [address] [place] [address] Performed By: #### 2 4323-8, , 2776-07 ####[facility] LABCLIA [id number] [place] [address] [place] ALP [Catalytic activity/Vol] 135 U/L High 38-113 [facility] Comment on above: Order Comment: Speci men Type: BLOOD SPECIMENOrdering Facility: [facility] Address: [address] [place] [address] Performed By: #### 2 4323-8, , 2776-07 ####[facility] LABIA [id number] [place] [address] [place] ALT [Catalytic activity/Vol] 19 U/L Normal 10-54 [facility] Comment on above: Order Comment: Speci men Type: BLOOD SPECIMENOrdering Facility: [facility] Address: [address] [place] [address] Performed By: #### 2 4323-8, , 2776-07 ####[facility] LABIA [id number] [place] [id number] [place] Anion gap [Moles/Vol] 10 mmol/L Normal 9-18 [facility] Comment on above: Order Comment: Speci men Type: BLOOD SPECIMENOrdering Facility: [facility] Address: [address] [place] [address] Performed By: #### 2 4323-8, 51578-0, 2776-07 ####[facility] LABCLIA [id number] [address] [address] [place] AST [Catalytic activity/Vol] 14 U/L Normal 14-40 [facility] Comment on above: Order Comment: Speci men Type: BLOOD SPECIMENOrdering Facility: [facility] Address: [address] [place], [place] [address] Performed By: #### 2 4323-8, , 2776-07 ####[facility] LABIA [id number] [place] [address] [place] Bilirubin [Mass/Vol] 0.3 mg/dL Normal 0.2-1.3 [facility] Comment on above: Order Comment: Speci men Type: BLOOD SPECIMENOrdering Facility: [facility] Address: [address] [place] [address] Performed By: #### 2 4323-8, , 2776-07 ####[facility] LABIA [id number] [place] [address] [place] Calcium [Mass/Vol] 8.9 mg/dL Normal 8.5-10.2 [facility] Comment on above: Order Comment: Speci men Type: BLOOD SPECIMENOrdering Facility: [facility] Address: [address] [place], [place] [address] Performed By: #### 2 4323-8, , 2776-07 ####[facility] LABIA [id number] [place] [id number] [place] Chloride [Moles/Vol] 112 mmol/L High 97-105 [facility] Comment on above: Order Comment: Speci men Type: BLOOD SPECIMENOrdering Facility: [facility] Address: [address] [place], [place] [address] Performed By: #### 2 4323-8, , 2776-07 ####[facility] LABCLIA [id number] [address] [address] [place] CO2 [Moles/Vol] 20 mmol/L Low 22-30 [facility] Comment on above: Order Comment: Speci men Type: BLOOD SPECIMENOrdering Facility: [facility] Address: [address] [place] [address] Performed By: #### 2 4323-8, , 2776-07 ####[facility] LABIA [id number] [address] [address] [place] Creatinine [Mass/Vol] 1.39 mg/dL High 0.73-1.22 [facility] Comment on above: Order Comment: Speci men Type: BLOOD SPECIMENOrdering Facility: [facility] Address: [address] [place] [address] Performed By: #### 2 4323-8, , 2776-07 ####[facility] LABIA [id number] [place] [address] [place] Creatinine and Glomerular filtration rate.predicted panel (S/P/Bld) 55 mL/min/1.73m??? Low >=60 [facility] Comment on above: Order Comment: Speci men Type: BLOOD SPECIMENOrdering Facility: [facility] Address: [address] [place] [address] Result Comment: Sylwia mated Glomerular Filtration Rate (eGFR) is calculated using the 2020 CKD-EPI creatinine equation. This equation utilizes serum creatinine, sex, and age as parameters. The creatinine assay has traceable calibration to isotope dilution-mass spectrometry. Refer to KDIGO guidelines for clinical interpretation. In patients with unstable renal function, e.g. those with acute kidney injury, the eGFR may not accurately reflect actual GFR. Performed By: #### 2 4323-8, , 2776-07 ####[facility] LABIA [id number] [address] [address] [place] Glucose [Mass/Vol] 129 mg/dL High 74-99 [facility] Comment on above: Order Comment: Speci men Type: BLOOD SPECIMENOrdering Facility: [facility] Address: [address] [place] [address] Result Comment: The [place] Diabetes Association (ADA) provides guidance for cutoff values for fasting glucose and random glucose. The ADA defines fasting as no caloric intake for at least 8 hours. Fasting plasma glucose results between 100 to 125 mg/dL indicate increased risk for diabetes (prediabetes).Fasting plasma glucose results greater than or equal to 126 mg/dL meet the criteria for diagnosis of diabetes. In the absence of unequivocal hyperglycemia, results should be confirmed by repeat testing. In a patient with classic symptoms of hyperglycemia or hyperglycemic crisis, random plasma glucose results greater than or equal to 200 mg/dL meet the criteria for diagnosis of diabetes.Reference: Standards of Medical Care in Diabetes 2016, [place] Diabetes Association. Diabetes Care. 2016.39(Suppl 1). Performed By: #### 2 4323-8, , 2776- ####[facility] LABCLIA [id number] [place] [address] [place] Potassium [Moles/Vol] 4.4 mmol/L Normal 3.7-5.1 [facility] Comment on above: Order Comment: Jovanii men Type: BLOOD SPECIMENOrdering Facility: [facility] Address: [address] [place], [place] [address] Performed By: #### 2 4323-8, , 2776-07 ####[facility] LABCLIA [id number] [place] [id number] [place] Protein [Mass/Vol] 6.4 g/dL Normal 6.3-8.0 [facility] Comment on above: Order Comment: Speci men Type: BLOOD SPECIMENOrdering Facility: [facility] Address: [address] [place] [address] Performed By: #### 2 4323-8, 37816-9, 7- ####[facility] LABCLIA [id number] [place] [id number] [place] Sodium [Moles/Vol] 142 mmol/L Normal 136-144 [facility] Comment on above: Order Comment: Speci men Type: BLOOD SPECIMENOrdering Facility: [facility] Address: [address] [place], [place] [address] Performed By: #### 2 4323-8, 55018-0, 2777-1 ####[facility] LABCLIA [id number] [place] [address] [place] Urea nitrogen [Mass/Vol] 18 mg/dL Normal 9-24 [facility] Comment on above: Order Comment: Speci men Type: BLOOD SPECIMENOrdering Facility: [facility] Address: [address] [place] [address] Performed By: #### 2 4323-8, 33149-8, 277-1 ####[facility] LABCLIA [id number] [place] [address] [place] Magnesium SerPl-mCncon 10-15 Magnesium [Mass/Vol] 1.7 mg/dL Normal 1.7-2.3 [facility] Comment on above: Order Comment: Speci men Type: BLOOD SPECIMENOrdering Facility: [facility] Address: [address] [place] [address] Performed By: #### 2 4323-8, 99957-9, 2777-1 ####[facility] LABCLIA [id number] [place] [id number] [place] Phosphate SerPl-mCncon 10-15 Phosphate [Mass/Vol] 3.0 mg/dL Normal 2.7-4.8 [facility] Comment on above: Order Comment: Speci men Type: BLOOD SPECIMENOrdering Facility: [facility] Address: [address] [place] [address] Performed By: #### 2 4323-8, 83276-8, 2777-1 ####[facility] LABCLIA [id number] [place] [address] [place] Prot/Creat Uron 10-16-2023 Protein/Creatinine (U) [Mass ratio] 0.81 mg/mg High <0.15 [facility] Comment on above: Order Comment: Speci men Type: URINE SPECIMENOrdering Facility: [facility] Address: [address] [place] [address] Result Comment: Adul t Proteinuria Categories:<0.15 mg/mg is considered normal to mildly increased0.15 - 0.50 mg/mg is considered moderately increased>0.50 mg/mg is considered severely increasedKDIGO. (2013). KDIGO 2012 Clinical Practice Guideline for the Evaluation and Management of Chronic Kidney Disease. Official Journal of the International Society of Nephrology, 3(1), 1-150. Performed By: #### 2 890-2 ####[facility] LABCLIA [id number] [place] [address] [place] Protein/Creatinine (U) [Mass ratio]on 10-16-2023 Creatinine (U) [Mass/Vol] 109.4 mg/dL Normal 20.0-300.0 [facility] Comment on above: Order Comment: Speci men Type: URINE SPECIMENOrdering Facility: [facility] Address: [address] [place] [address] Performed By: #### 2 890-2 ####[facility] LABCLIA [id number] [place] [address] [place] Protein (U) [Mass/Vol] 89 mg/dL High 0-20 [facility] Comment on above: Order Comment: Speci men Type: URINE SPECIMENOrdering Facility: [facility] Address: [address] [place] [address] Performed By: #### 2 890-2 ####[facility] LABCLIA [id number] [place] [address] [place] Tacrolimus Bld-mCncon 2023 Tacrolimus (Bld) [Mass/Vol] 7.9 ng/mL Normal 5.0-20.0 [facility] Comment on above: Order Comment: Speci men Type: BLOOD SPECIMENOrdering Facility: [facility] Address: [address] [place] [address] Result Comment: Holly vidualized target levels for a given patient will depend on many factors (including the type of organ transplant, time since transplantation, concurrent medications, and other clinical factors), and should be assessed by those health care providers experienced in the management of immunosuppression. Reference ranges and high/low indicator flags are provided as general guidelines only. The treating physician must determine appropriate target levels/dosing based on the specific clinical situation. Test performed by chemiluminescent immunoassay using [employer] Alinity i. Performed By: #### 1 1253-2 ####[facility] LABCLIA [id number] [place] [address] [place] CNOVon 10-09-2023 CNOV [facility] BK VIRUS PCR,QUANT,Gee 09-14 BK virus DNA KURT+probe [#/Vol] Not detected Normal BK Virus DNA Not Detected by PCR. [facility] Comment on above: Order Comment: Speci men Type: BLOOD SPECIMENOrdering Facility: [facility] Address: [address] [place] [address] Performed By: #### B KQUSHERI ####[facility] LABIA [id number] [place] [address] [place] CBC W Auto Differential pane l (Bld)on 09-15-2023 Basophils (Bld) [#/Vol] 10*3/uL Normal <0.11 [facility] Comment on above: Order Comment: Speci men Type: BLOOD SPECIMENOrdering Facility: [facility] Address: [address] [place] [address] Performed By: #### 5 7021-8 ####[facility] LABCLIA [id number] [place] [address] [place] Basophils/100 WBC (Bld) 0.3 % Normal [facility] Comment on above: Order Comment: Speci men Type: BLOOD SPECIMENOrdering Facility: [facility] Address: [address] [place] [address] Performed By: #### 5 7021-8 ####[facility] LABCLIA [id number] [place] [address] [place] Differential cell count method Nom (Bld) Auto Normal [facility] Comment on above: Order Comment: Speci men Type: BLOOD SPECIMENOrdering Facility: [facility] Address: [address] [place] [address] Performed By: #### 5 7021-8 ####[facility] LABCLIA [id number] [place] [address] [place] Eosinophils (Bld) [#/Vol] 0.16 10*3/uL Normal <0.46 [facility] Comment on above: Order Comment: Speci men Type: BLOOD SPECIMENOrdering Facility: [facility] Address: [address] [place] [address] Performed By: #### 5 7021-8 ####[facility] LABCLIA [id number] [place] [address] [place] Eosinophils/100 WBC (Bld) 2.6 % Normal [facility] Comment on above: Order Comment: Speci men Type: BLOOD SPECIMENOrdering Facility: [facility] Address: [address] [place] [address] Performed By: #### 5 7021-8 ####[facility] LABCLIA [id number] [place] [address] [place] Erythrocyte distribution width (RBC) [Ratio] 12.8 % Normal 11.5-15.0 [facility] Comment on above: Order Comment: Speci men Type: BLOOD SPECIMENOrdering Facility: [facility] Address: [address] [place] [address] Performed By: #### 5 7021-8 ####[facility] LABCLIA [id number] [place] [address] [place] Hematocrit (Bld) [Volume fraction] 40.7 % Normal 39.0-51.0 [facility] Comment on above: Order Comment: Speci men Type: BLOOD SPECIMENOrdering Facility: [facility] Address: [address] [place] [address] Performed By: #### 5 7021-8 ####[facility] LABCLIA [id number] [place] [address] [place] Hemoglobin (Bld) [Mass/Vol] 12.9 g/dL Low 13.0-17.0 [facility] Comment on above: Order Comment: Speci men Type: BLOOD SPECIMENOrdering Facility: [facility] Address: [address] [place] [address] Performed By: #### 5 7021-8 ####[facility] LABCLIA [id number] [place] [address] [place] Immature granulocytes (Bld) [#/Vol] 10*3/uL Normal <0.10 [facility] Comment on above: Order Comment: Speci men Type: BLOOD SPECIMENOrdering Facility: [facility] Address: [address] [place] [address] Performed By: #### 5 7021-8 ####[facility] LABCLIA [id number] [place] [address] [place] Immature granulocytes/100 WBC (Bld) 0.2 % Normal [facility] Comment on above: Order Comment: Speci men Type: BLOOD SPECIMENOrdering Facility: [facility] Address: [address] [place] [address] Performed By: #### 5 7021-8 ####[facility] LABCLIA [id number] [place] [address] [place] Lymphocytes (Bld) [#/Vol] 0.74 10*3/uL Low 1.00-4.00 [facility] Comment on above: Order Comment: Speci men Type: BLOOD SPECIMENOrdering Facility: [facility] Address: [address] [place] [address] Performed By: #### 5 7021-8 ####[facility] LABIA [id number] [place] [address] [place] Lymphocytes/100 WBC (Bld) 12.0 % [facility] Comment on above: Order Comment: Speci men Type: BLOOD SPECIMENOrdering Facility: [facility] Address: [address] [place] [address] Performed By: #### 5 7021-8 ####[facility] LABIA [id number] [place] [address] [place] MCH (RBC) [Entitic mass] 27.9 pg Normal 26.0-34.0 [facility] Comment on above: Order Comment: Speci men Type: BLOOD SPECIMENOrdering Facility: [facility] Address: [address] [place] [address] Performed By: #### 5 7021-8 ####[facility] LABIA [id number] [place] [address] [place] MCHC (RBC) [Mass/Vol] 31.7 g/dL Normal 30.5-36.0 [facility] Comment on above: Order Comment: Speci men Type: BLOOD SPECIMENOrdering Facility: [facility] Address: [address] [place] [address] Performed By: #### 5 7021-8 ####[facility] LABIA [id number] [place] [address] [place] MCV (RBC) [Entitic vol] 87.9 fL Normal 80.0-100.0 [facility] Comment on above: Order Comment: Speci men Type: BLOOD SPECIMENOrdering Facility: [facility] Address: [address] [place] [address] Performed By: #### 5 7021-8 ####[facility] LABCLIA [id number] [place] [address] [place] Monocytes (Bld) [#/Vol] 0.66 10*3/uL Normal <0.87 [facility] Comment on above: Order Comment: Speci men Type: BLOOD SPECIMENOrdering Facility: [facility] Address: [address] [place] [address] Performed By: #### 5 7021-8 ####[facility] LABCLIA [id number] [place] [address] [place] Monocytes/100 WBC (Bld) 10.7 % Normal [facility] Comment on above: Order Comment: Speci men Type: BLOOD SPECIMENOrdering Facility: [facility] Address: [address] [place] [address] Performed By: #### 5 7021-8 ####[facility] LABCLIA [id number] [place] [address] [place] Neutrophils (Bld) [#/Vol] 4.60 10*3/uL Normal 1.45-7.50 [facility] Comment on above: Order Comment: Speci men Type: BLOOD SPECIMENOrdering Facility: [facility] Address: [address] [place] [address] Performed By: #### 5 7021-8 ####[facility] LABCLIA [id number] [place] [address] [place] Neutrophils/100 WBC (Bld) 74.2 % Normal [facility] Comment on above: Order Comment: Speci men Type: BLOOD SPECIMENOrdering Facility: [facility] Address: [address] [place] [address] Performed By: #### 5 7021-8 ####[facility] LABCLIA [id number] [place] [address] [place] Nucleated RBC (Bld) [#/Vol] 10*3/uL Normal <0.01 [facility] Comment on above: Order Comment: Speci men Type: BLOOD SPECIMENOrdering Facility: [facility] Address: [address] [place] [address] Performed By: #### 5 7021-8 ####[facility] LABIA [id number] [place] [address] [place] Nucleated RBC/100 WBC (Bld) [Ratio] 0.0 /100 WBC Normal [facility] Comment on above: Order Comment: Speci men Type: BLOOD SPECIMENOrdering Facility: [facility] Address: [address] [place] [address] Performed By: #### 5 7021-8 ####[facility] LABIA [id number] [place] [address] [place] Platelet mean volume (Bld) [Entitic vol] 10.9 fL Normal 9.0-12.7 [facility] Comment on above: Order Comment: Speci men Type: BLOOD SPECIMENOrdering Facility: [facility] Address: [address] [place] [address] Performed By: #### 5 7021-8 ####[facility] LABIA [id number] [place] [address] [place] Platelets (Bld) [#/Vol] 243 10*3/uL Normal 150-400 [facility] Comment on above: Order Comment: Speci men Type: BLOOD SPECIMENOrdering Facility: [facility] Address: [address] [place] [address] Performed By: #### 5 7021-8 ####[facility] LABIA [id number] [place] [address] [place] RBC (Bld) [#/Vol] 4.63 10*6/uL Normal 4.20-6.00 [facility] Comment on above: Order Comment: Speci men Type: BLOOD SPECIMENOrdering Facility: [facility] Address: [address] [place] [address] Performed By: #### 5 7021-8 ####[facility] LABCLIA [id number] [address] [address] [place] WBC (Bld) [#/Vol] 6.19 10*3/uL Normal 3.70-11.00 [facility] Comment on above: Order Comment: Speci men Type: BLOOD SPECIMENOrdering Facility: [facility] Address: [address] [place] [address] Performed By: #### 5 7021-8 ####[facility] LABCLIA [id number] [place] [id number] [place] Comprehensive metabolic 2000 panelon 09-15-2023 Albumin [Mass/Vol] 4.1 g/dL Normal 3.9-4.9 [facility] Comment on above: Order Comment: Speci men Type: BLOOD SPECIMENOrdering Facility: [facility] Address: [address] [place] [address] Performed By: #### 2 4323-8, 27701-07, ####[facility] LABIA [id number] [place] [address] [place] ALP [Catalytic activity/Vol] 134 U/L High 38-113 [facility] Comment on above: Order Comment: Speci men Type: BLOOD SPECIMENOrdering Facility: [facility] Address: [address] [place], [place] [address] Performed By: #### 2 4323-8, 27701-07, ####[facility] LABIA [id number] [place] [phone] [place] ALT [Catalytic activity/Vol] 18 U/L Normal 10-54 [facility] Comment on above: Order Comment: Speci men Type: BLOOD SPECIMENOrdering Facility: [facility] Address: [address] [place] [address] Performed By: #### 2 4323-8, 2776-07, ####[facility] LABCLIA [id number] [address] [address] [place] Anion gap [Moles/Vol] 11 mmol/L Normal 9-18 [facility] Comment on above: Order Comment: Speci men Type: BLOOD SPECIMENOrdering Facility: [facility] Address: [address] [place] [address] Performed By: #### 2 4323-8, 27701-07, ####[facility] LABCLIA [id number] [place] [address] [place] AST [Catalytic activity/Vol] 14 U/L Normal 14-40 [facility] Comment on above: Order Comment: Speci men Type: BLOOD SPECIMENOrdering Facility: [facility] Address: [address] [place] [address] Performed By: #### 2 4323-8, 27701-07, ####[facility] LABIA [id number] [place] [address] [place] Bilirubin [Mass/Vol] 0.2 mg/dL Normal 0.2-1.3 [facility] Comment on above: Order Comment: Speci men Type: BLOOD SPECIMENOrdering Facility: [facility] Address: [address] [place] [address] Performed By: #### 2 4323-8, 27701-07, ####[facility] LABCLIA [id number] [place] [id number] [place] Calcium [Mass/Vol] 8.7 mg/dL Normal 8.5-10.2 [facility] Comment on above: Order Comment: Speci men Type: BLOOD SPECIMENOrdering Facility: [facility] Address: [address] [place] [address] Performed By: #### 2 4323-8, 2777-1, ####[facility] LABCLIA [id number] [place] [address] [place] Chloride [Moles/Vol] 109 mmol/L High 97-105 [facility] Comment on above: Order Comment: Speci men Type: BLOOD SPECIMENOrdering Facility: [facility] Address: [address] [place] [address] Performed By: #### 2 4323-8, 2777-1, 71698-7 ####[facility] LABCLIA [id number] [place] [phone] [place] CO2 [Moles/Vol] 19 mmol/L Low 22-30 [facility] Comment on above: Order Comment: Speci men Type: BLOOD SPECIMENOrdering Facility: [facility] Address: [address] [place] [address] Performed By: #### 2 4323-8, 2777-1, 16793-3 ####[facility] LABCLIA [id number] [place] [address] [place] Creatinine [Mass/Vol] 1.34 mg/dL High 0.73-1.22 [facility] Comment on above: Order Comment: Speci men Type: BLOOD SPECIMENOrdering Facility: [facility] Address: [address] [place] [address] Performed By: #### 2 4323-8, 2777-1, 62738-6 ####[facility] LABIA [id number] [place] [phone] [place] Creatinine and Glomerular filtration rate.predicted panel (S/P/Bld) 58 mL/min/1.73m??? Low >=60 [facility] Comment on above: Order Comment: Speci men Type: BLOOD SPECIMENOrdering Facility: [facility] Address: [address] [place] [address] Result Comment: Sylwia mated Glomerular Filtration Rate (eGFR) is calculated using the 2020 CKD-EPI creatinine equation. This equation utilizes serum creatinine, sex, and age as parameters. The creatinine assay has traceable calibration to isotope dilution-mass spectrometry. Refer to KDIGO guidelines for clinical interpretation. In patients with unstable renal function, e.g. those with acute kidney injury, the eGFR may not accurately reflect actual GFR. Performed By: #### 2 4323-8, 2776-07, ####[facility] LABCLIA [id number] [facility] [address] [address] [place] Glucose [Mass/Vol] 202 mg/dL High 74-99 [facility] Comment on above: Order Comment: Vicki dalton Type: BLOOD SPECIMENOrdering Facility: [facility] Address: [address] [place] [address] Result Comment: The [place] Diabetes Association (ADA) provides guidance for cutoff values for fasting glucose and random glucose. The ADA defines fasting as no caloric intake for at least 8 hours. Fasting plasma glucose results between 100 to 125 mg/dL indicate increased risk for diabetes (prediabetes).Fasting plasma glucose results greater than or equal to 126 mg/dL meet the criteria for diagnosis of diabetes. In the absence of unequivocal hyperglycemia, results should be confirmed by repeat testing. In a patient with classic symptoms of hyperglycemia or hyperglycemic crisis, random plasma glucose results greater than or equal to 200 mg/dL meet the criteria for diagnosis of diabetes.Reference: Standards of Medical Care in Diabetes 2016, [place] Diabetes Association. Diabetes Care. 2016.39(Suppl 1). Performed By: #### 2 4323-8, 2776-07, ####[facility] LABCLIA [id number] [facility] [address] [address] [place] Potassium [Moles/Vol] 4.6 mmol/L Normal 3.7-5.1 [facility] Comment on above: Order Comment: Vicki dalton Type: BLOOD SPECIMENOrdering Facility: [facility] Address: [address] [place] [address] Performed By: #### 2 4323-8, 2776-07, ####[facility] LABCLIA [id number] [address] [address] [place] Protein [Mass/Vol] 6.5 g/dL Normal 6.3-8.0 [facility] Comment on above: Order Comment: Speci men Type: BLOOD SPECIMENOrdering Facility: [facility] Address: [address] [place] [address] Performed By: #### 2 4323-8, 2776-07, ####[facility] LABCLIA [id number] [place] [phone] [place] Sodium [Moles/Vol] 139 mmol/L Normal 136-144 [facility] Comment on above: Order Comment: Speci men Type: BLOOD SPECIMENOrdering Facility: [facility] Address: [address] [place] [address] Performed By: #### 2 4323-8, 2776-07, ####[facility] LABCLIA [id number] [place] [address] [place] Urea nitrogen [Mass/Vol] 22 mg/dL Normal 9-24 [facility] Comment on above: Order Comment: Speci men Type: BLOOD SPECIMENOrdering Facility: [facility] Address: [address] [place] [address] Performed By: #### 2 4323-8, 2776-07, ####[facility] LABIA [id number] [place] [phone] [place] Magnesium SerPl-mCncon 09-14 Magnesium [Mass/Vol] 1.7 mg/dL Normal 1.7-2.3 [facility] Comment on above: Order Comment: Speci men Type: BLOOD SPECIMENOrdering Facility: [facility] Address: [address] [place] [address] Performed By: #### 2 4323-8, 2776-07, ####[facility] LABCLIA [id number] [place] [phone] [place] Phosphate SerPl-mCncon 09-14 Phosphate [Mass/Vol] 3.0 mg/dL Normal 2.7-4.8 [facility] Comment on above: Order Comment: Speci men Type: BLOOD SPECIMENOrdering Facility: [facility] Address: [address] [place] [address] Performed By: #### 2 4323-8, 2777-1, 28652-2 ####[facility] LABCLIA [id number] [place] [address] [place] Prot/Creat Uron 09-15-2023 Protein/Creatinine (U) [Mass ratio] 1.05 mg/mg High <0.15 [facility] Comment on above: Order Comment: Speci men Type: URINE SPECIMENOrdering Facility: [facility] Address: [address] [place] [address] Result Comment: Adul t Proteinuria Categories:<0.15 mg/mg is considered normal to mildly increased0.15 - 0.50 mg/mg is considered moderately increased>0.50 mg/mg is considered severely increasedKDIGO. (2013). KDIGO 2012 Clinical Practice Guideline for the Evaluation and Management of Chronic Kidney Disease. Official Journal of the International Society of Nephrology, 3(1), 1-150. Performed By: #### 2 890-2 ####[facility] LABIA [id number] [place] [address] [place] Protein/Creatinine (U) [Mass ratio]on 09-15-2023 Creatinine (U) [Mass/Vol] 131.7 mg/dL Normal 20.0-300.0 [facility] Comment on above: Order Comment: Speci men Type: URINE SPECIMENOrdering Facility: [facility] Address: [address] [place] [address] Performed By: #### 2 890-2 ####[facility] LABIA [id number] [place] [phone] [place] Protein (U) [Mass/Vol] 138 mg/dL High 0-20 [facility] Comment on above: Order Comment: Speci men Type: URINE SPECIMENOrdering Facility: [facility] Address: [address] [place] [address] Performed By: #### 2 890-2 ####[facility] [id number] [place] [address] [place] Tacrolimus Bld-mCncon 2023 Tacrolimus (Bld) [Mass/Vol] 7.0 ng/mL Normal 5.0-20.0 [facility] Comment on above: Order Comment: Speci men Type: BLOOD SPECIMENOrdering Facility: [facility] Address: [address] [place] [address] Result Comment: Holly vidualized target levels for a given patient will depend on many factors (including the type of organ transplant, time since transplantation, concurrent medications, and other clinical factors), and should be assessed by those health care providers experienced in the management of immunosuppression. Reference ranges and high/low indicator flags are provided as general guidelines only. The treating physician must determine appropriate target levels/dosing based on the specific clinical situation. Test performed by chemiluminescent immunoassay using [employer] i. Performed By: #### 1 1253-2 ####[facility] [id number] [place] [address] [place] CNOVon 08-24-2023 CNOV Normal [facility] CBC W Auto Differential pane l (Bld)on 08-07-2023 Basophils (Bld) [#/Vol] 10*3/uL Normal <0.11 [facility] Comment on above: Order Comment: Speci men Type: BLOOD SPECIMENOrdering Facility: [facility] Address: [address] [place] [address] Performed By: #### 5 7021-8 ####[facility] LABIA [id number] [place] [address] [place] Basophils/100 WBC (Bld) 0.1 % Normal [facility] Comment on above: Order Comment: Speci men Type: BLOOD SPECIMENOrdering Facility: [facility] Address: [address] [place] [address] Performed By: #### 5 7021-8 ####[facility] LABCLIA [id number] [place] [address] [place] Differential cell count method Nom (Bld) Auto Normal [facility] Comment on above: Order Comment: Speci men Type: BLOOD SPECIMENOrdering Facility: [facility] Address: [address] [place] [address] Performed By: #### 5 7021-8 ####[facility] LABCLIA [id number] [place] [address] [place] Eosinophils (Bld) [#/Vol] 0.15 10*3/uL Normal <0.46 [facility] Comment on above: Order Comment: Speci men Type: BLOOD SPECIMENOrdering Facility: [facility] Address: [address] [place] [address] Performed By: #### 5 7021-8 ####[facility] LABCLIA [id number] [place] [address] [place] Eosinophils/100 WBC (Bld) 2.0 % Normal [facility] Comment on above: Order Comment: Speci men Type: BLOOD SPECIMENOrdering Facility: [facility] Address: [address] [place] [address] Performed By: #### 5 7021-8 ####[facility] LABIA [id number] [place] [address] [place] Erythrocyte distribution width (RBC) [Ratio] 12.5 % Normal 11.5-15.0 [facility] Comment on above: Order Comment: Speci men Type: BLOOD SPECIMENOrdering Facility: [facility] Address: [address] [place] [address] Performed By: #### 5 7021-8 ####[facility] LABCLIA [id number] [place] [address] [place] Hematocrit (Bld) [Volume fraction] 42.0 % Normal 39.0-51.0 [facility] Comment on above: Order Comment: Speci men Type: BLOOD SPECIMENOrdering Facility: [facility] Address: [address] [place] [address] Performed By: #### 5 7021-8 ####[facility] LABCLIA [id number] [place] [address] [place] Hemoglobin (Bld) [Mass/Vol] 13.1 g/dL Normal 13.0-17.0 [facility] Comment on above: Order Comment: Speci men Type: BLOOD SPECIMENOrdering Facility: [facility] Address: [address] [place] [address] Performed By: #### 5 7021-8 ####[facility] LABCLIA [id number] [place] [address] [place] Immature granulocytes (Bld) [#/Vol] 0.03 10*3/uL Normal <0.10 [facility] Comment on above: Order Comment: Speci men Type: BLOOD SPECIMENOrdering Facility: [facility] Address: [address] [place] [address] Performed By: #### 5 7021-8 ####[facility] LABCLIA [id number] [place] [address] [place] Immature granulocytes/100 WBC (Bld) 0.4 % Normal [facility] Comment on above: Order Comment: Speci men Type: BLOOD SPECIMENOrdering Facility: [facility] Address: [address] [place] [address] Performed By: #### 5 7021-8 ####[facility] LABCLIA [id number] [place] [address] [place] Lymphocytes (Bld) [#/Vol] 0.65 10*3/uL Low 1.00-4.00 [facility] Comment on above: Order Comment: Speci men Type: BLOOD SPECIMENOrdering Facility: [facility] Address: [address] [place] [address] Performed By: #### 5 7021-8 ####[facility] LABCLIA [id number] [place] [address] [place] Lymphocytes/100 WBC (Bld) 8.9 % Normal [facility] Comment on above: Order Comment: Speci men Type: BLOOD SPECIMENOrdering Facility: [facility] Address: [address] [place] [address] Performed By: #### 5 7021-8 ####[facility] LABIA [id number] [place] [address] [place] MCH (RBC) [Entitic mass] 27.6 pg Normal 26.0-34.0 [facility] Comment on above: Order Comment: Speci men Type: BLOOD SPECIMENOrdering Facility: [facility] Address: [address] [place] [address] Performed By: #### 5 7021-8 ####[facility] LABIA [id number] [place] [address] [place] MCHC (RBC) [Mass/Vol] 31.2 g/dL Normal 30.5-36.0 [facility] Comment on above: Order Comment: Speci men Type: BLOOD SPECIMENOrdering Facility: [facility] Address: [address] [place] [address] Performed By: #### 5 7021-8 ####[facility] LABIA [id number] [place] [address] [place] MCV (RBC) [Entitic vol] 88.4 fL Normal 80.0-100.0 [facility] Comment on above: Order Comment: Speci men Type: BLOOD SPECIMENOrdering Facility: [facility] Address: [address] [place] [address] Performed By: #### 5 7021-8 ####[facility] LABIA [id number] [id number] [address] [place] Monocytes (Bld) [#/Vol] 0.73 10*3/uL Normal <0.87 [facility] Comment on above: Order Comment: Speci men Type: BLOOD SPECIMENOrdering Facility: [facility] Address: [address] [place] [address] Performed By: #### 5 7021-8 ####[facility] LABCLIA [id number] [place] [address] [place] Monocytes/100 WBC (Bld) 10.0 % Normal [facility] Comment on above: Order Comment: Speci men Type: BLOOD SPECIMENOrdering Facility: [facility] Address: [address] [place] [address] Performed By: #### 5 7021-8 ####[facility] LABCLIA [id number] [place] [address] [place] Neutrophils (Bld) [#/Vol] 5.76 10*3/uL Normal 1.45-7.50 [facility] Comment on above: Order Comment: Speci men Type: BLOOD SPECIMENOrdering Facility: [facility] Address: [address] [place] [address] Performed By: #### 5 7021-8 ####[facility] LABCLIA [id number] [place] [address] [place] Neutrophils/100 WBC (Bld) 78.6 % Normal [facility] Comment on above: Order Comment: Speci men Type: BLOOD SPECIMENOrdering Facility: [facility] Address: [address] [place] [address] Performed By: #### 5 7021-8 ####[facility] LABCLIA [id number] [place] [address] [place] Nucleated RBC (Bld) [#/Vol] 10*3/uL Normal <0.01 [facility] Comment on above: Order Comment: Speci men Type: BLOOD SPECIMENOrdering Facility: [facility] Address: [address] [place] [address] Performed By: #### 5 7021-8 ####[facility] LABCLIA [id number] [place] [address] [place] Nucleated RBC/100 WBC (Bld) [Ratio] 0.0 /100 WBC Normal [facility] Comment on above: Order Comment: Speci men Type: BLOOD SPECIMENOrdering Facility: [facility] Address: [address] [place] [address] Performed By: #### 5 7021-8 ####[facility] LABCLIA [id number] [place] [address] [place] Platelet mean volume (Bld) [Entitic vol] 10.7 fL Normal 9.0-12.7 [facility] Comment on above: Order Comment: Speci men Type: BLOOD SPECIMENOrdering Facility: [facility] Address: [address] [place] [address] Performed By: #### 5 7021-8 ####[facility] LABCLIA [id number] [place] [address] [place] Platelets (Bld) [#/Vol] 269 10*3/uL Normal 150-400 [facility] Comment on above: Order Comment: Speci men Type: BLOOD SPECIMENOrdering Facility: [facility] Address: [address] [place] [address] Performed By: #### 5 7021-8 ####[facility] LABCLIA [id number] [place] [address] [place] RBC (Bld) [#/Vol] 4.75 10*6/uL Normal 4.20-6.00 [facility] Comment on above: Order Comment: Speci men Type: BLOOD SPECIMENOrdering Facility: [facility] Address: [address] [place] [address] Performed By: #### 5 7021-8 ####[facility] LABCLIA [id number] [place] [address] [place] WBC (Bld) [#/Vol] 7.33 10*3/uL Normal 3.70-11.00 [facility] Comment on above: Order Comment: Speci men Type: BLOOD SPECIMENOrdering Facility: [facility] Address: [address] [place] [address] Performed By: #### 5 7021-8 ####[facility] LABCLIA [id number] [place] [address] [place] Comprehensive metabolic 2000 panelon 08-07-2023 Albumin [Mass/Vol] 4.2 g/dL Normal 3.9-4.9 [facility] Comment on above: Order Comment: Speci men Type: BLOOD SPECIMENOrdering Facility: [facility] Address: [address] [place] [address] Performed By: #### 2 4323-8, 63822-2, 2776-07 ####[facility] LABCLIA [id number] [place] [address] [place] ALP [Catalytic activity/Vol] 128 U/L High 38-113 [facility] Comment on above: Order Comment: Speci men Type: BLOOD SPECIMENOrdering Facility: [facility] Address: [address] [place] [address] Performed By: #### 2 4323-8, 89472-1, 2776-07 ####[facility] LABCLIA [id number] [place] [address] [place] ALT [Catalytic activity/Vol] 16 U/L Normal 10-54 [facility] Comment on above: Order Comment: Speci men Type: BLOOD SPECIMENOrdering Facility: [facility] Address: [address] [place] [address] Performed By: #### 2 4323-8, 80473-3, 2776- ####[facility] LABCLIA [id number] [place] [address] [place] Anion gap [Moles/Vol] 10 mmol/L Normal 9-18 [facility] Comment on above: Order Comment: Speci men Type: BLOOD SPECIMENOrdering Facility: [facility] Address: [address] [place] [address] Performed By: #### 2 4323-8, , 2776-07 ####[facility] LABCLIA [id number] [place] [address] [place] AST [Catalytic activity/Vol] 14 U/L Normal 14-40 [facility] Comment on above: Order Comment: Speci men Type: BLOOD SPECIMENOrdering Facility: [facility] Address: [address] [place] [address] Performed By: #### 2 4323-8, , 2776-07 ####[facility] LABCLIA [id number] [place] [address] [place] Bilirubin [Mass/Vol] 0.3 mg/dL Normal 0.2-1.3 [facility] Comment on above: Order Comment: Speci men Type: BLOOD SPECIMENOrdering Facility: [facility] Address: [address] [place] [address] Performed By: #### 2 4323-8, , 2776-07 ####[facility] LABCLIA [id number] [place] [address] [place] Calcium [Mass/Vol] 9.0 mg/dL Normal 8.5-10.2 [facility] Comment on above: Order Comment: Speci men Type: BLOOD SPECIMENOrdering Facility: [facility] Address: [address] [place] [address] Performed By: #### 2 4323-8, , 2776-07 ####[facility] LABCLIA [id number] [place] [id number] [place] Chloride [Moles/Vol] 107 mmol/L High 97-105 [facility] Comment on above: Order Comment: Speci men Type: BLOOD SPECIMENOrdering Facility: [facility] Address: [address] [place] [address] Performed By: #### 2 4323-8, , 2776-07 ####[facility] LABCLIA [id number] [address] [address] [place] CO2 [Moles/Vol] 21 mmol/L Low 22-30 [facility] Comment on above: Order Comment: Speci men Type: BLOOD SPECIMENOrdering Facility: [facility] Address: [address] [place] [address] Performed By: #### 2 4323-8, , 2776-07 ####[facility] LABCLIA [id number] [place] [address] [place] Creatinine [Mass/Vol] 1.45 mg/dL High 0.73-1.22 [facility] Comment on above: Order Comment: Speci men Type: BLOOD SPECIMENOrdering Facility: [facility] Address: [address] [place] [address] Performed By: #### 2 4323-8, , 2776-07 ####[facility] LABCLIA [id number] [place] [address] [place] Creatinine and Glomerular filtration rate.predicted panel (S/P/Bld) 52 mL/min/1.73m??? Low >=60 [facility] Comment on above: Order Comment: Speci men Type: BLOOD SPECIMENOrdering Facility: [facility] Address: [address] [place] [address] Result Comment: Sylwia mated Glomerular Filtration Rate (eGFR) is calculated using the 2020 CKD-EPI creatinine equation. This equation utilizes serum creatinine, sex, and age as parameters. The creatinine assay has traceable calibration to isotope dilution-mass spectrometry. Refer to KDIGO guidelines for clinical interpretation. In patients with unstable renal function, e.g. those with acute kidney injury, the eGFR may not accurately reflect actual GFR. Performed By: #### 2 4323-8, , 2776-07 ####[facility] LABCLIA [id number] [address] [address] [place] Glucose [Mass/Vol] 206 mg/dL High 74-99 [facility] Comment on above: Order Comment: Speci men Type: BLOOD SPECIMENOrdering Facility: [facility] Address: [address] [place] [address] Result Comment: The [place] Diabetes Association (ADA) provides guidance for cutoff values for fasting glucose and random glucose. The ADA defines fasting as no caloric intake for at least 8 hours. Fasting plasma glucose results between 100 to 125 mg/dL indicate increased risk for diabetes (prediabetes).Fasting plasma glucose results greater than or equal to 126 mg/dL meet the criteria for diagnosis of diabetes. In the absence of unequivocal hyperglycemia, results should be confirmed by repeat testing. In a patient with classic symptoms of hyperglycemia or hyperglycemic crisis, random plasma glucose results greater than or equal to 200 mg/dL meet the criteria for diagnosis of diabetes.Reference: Standards of Medical Care in Diabetes 2016, [place] Diabetes Association. Diabetes Care. 2016.39(Suppl 1). Performed By: #### 2 4323-8, , 2776-07 ####[facility] LABCLIA [id number] [place] [id number] [place] Potassium [Moles/Vol] 4.6 mmol/L Normal 3.7-5.1 [facility] Comment on above: Order Comment: Speci men Type: BLOOD SPECIMENOrdering Facility: [facility] Address: [address] [place] [address] Performed By: #### 2 4323-8, , 2776-07 ####[facility] LABCLIA [id number] [place] [id number] [place] Protein [Mass/Vol] 6.8 g/dL Normal 6.3-8.0 [facility] Comment on above: Order Comment: Speci men Type: BLOOD SPECIMENOrdering Facility: [facility] Address: [address] [place], [place] [address] Performed By: #### 2 4323-8, 06352-5, 27771 ####[facility] [id number] [place] [id number] [place] Sodium [Moles/Vol] 138 mmol/L Normal 136-144 [facility] Comment on above: Order Comment: Speci men Type: BLOOD SPECIMENOrdering Facility: [facility] Address: [address] [place] [address] Performed By: #### 2 4323-8, 37288-2, 2771 ####[facility] [id number] [place] [address] [place] Urea nitrogen [Mass/Vol] 18 mg/dL Normal 9-24 [facility] Comment on above: Order Comment: Speci men Type: BLOOD SPECIMENOrdering Facility: [facility] Address: [address] [place] [address] Performed By: #### 2 4323-8, 25014-5, 2771 ####[facility] [id number] [place] [address] [place] Magnesium SerPl-mCncon 08-07 Magnesium [Mass/Vol] 1.7 mg/dL Normal 1.7-2.3 [facility] Comment on above: Order Comment: Speci men Type: BLOOD SPECIMENOrdering Facility: [facility] Address: [address] [place] [address] Performed By: #### 2 4323-8, 94052-8, 27771 ####[facility] LABIA [id number] [place] [address] [place] Phosphate SerPl-mCncon 08-07 Phosphate [Mass/Vol] 2.8 mg/dL Normal 2.7-4.8 [facility] Comment on above: Order Comment: Speci men Type: BLOOD SPECIMENOrdering Facility: [facility] Address: [address] [place] [address] Performed By: #### 2 4323-8, 23781-9, 2777-1 ####[facility] LABCLIA [id number] [place] [address] [place] Prot/Creat Uron 08-07-2023 Protein/Creatinine (U) [Mass ratio] 1.16 mg/mg High <0.15 [facility] Comment on above: Order Comment: Speci men Type: URINE SPECIMENOrdering Facility: [facility] Address: [address] [place] [address] Result Comment: Adul t Proteinuria Categories:<0.15 mg/mg is considered normal to mildly increased0.15 - 0.50 mg/mg is considered moderately increased>0.50 mg/mg is considered severely increasedKDIGO. (2013). KDIGO 2012 Clinical Practice Guideline for the Evaluation and Management of Chronic Kidney Disease. Official Journal of the International Society of Nephrology, 3(1), 1-150. Performed By: #### 2 890-2 ####[facility] LABCLIA [id number] [place] [address] [place] Protein/Creatinine (U) [Mass ratio]on 08-07-2023 Creatinine (U) [Mass/Vol] 154.6 mg/dL Normal 20.0-300.0 [facility] Comment on above: Order Comment: Speci men Type: URINE SPECIMENOrdering Facility: [facility] Address: [address] [place] [address] Performed By: #### 2 890-2 ####[facility] LABCLIA [id number] [place] [address] [place] Protein (U) [Mass/Vol] 179 mg/dL High 0-20 [facility] Comment on above: Order Comment: Speci men Type: URINE SPECIMENOrdering Facility: [facility] Address: [address] [place] [address] Performed By: #### 2 890-2 ####[facility] [id number] [place] [id number] [place] Tacrolimus Bld-mCncon 2023 Tacrolimus (Bld) [Mass/Vol] 7.8 ng/mL Normal 5.0-20.0 [facility] Comment on above: Order Comment: Speci sha Type: BLOOD SPECIMENOrdering Facility: [facility] Address: [address] [place] [address] Result Comment: Holly vidualized target levels for a given patient will depend on many factors (including the type of organ transplant, time since transplantation, concurrent medications, and other clinical factors), and should be assessed by those health care providers experienced in the management of immunosuppression. Reference ranges and high/low indicator flags are provided as general guidelines only. The treating physician must determine appropriate target levels/dosing based on the specific clinical situation. Test performed by chemiluminescent immunoassay using [employer] i. Performed By: #### 1 1253-2 ####[facility] LABIA [id number] [place] [id number] [place] BRIEF OP NOTon 07-21-2023 BRIEF OP NOT [facility] HISTORY PHYSICALon HISTORY PHYSICAL Normal [facility] NURSING PROGon 07-21-2023 NURSING PROG Normal [facility] PT EDon 07-21-2023 PT ED Normal [facility] SURGICAL PATHOLOGYon 024 ADDENDUM 1: Normal [facility] Comment on above: Order Comment: Speci men Type: TISSUE SPECIMENOrdering Facility: [facility] Address: [address] [place] [address] Result Comment: Tiss ue for electron microscopy samples 1 partial glomerulus at the edge of the biopsy core. No transplant glomerulopathy is seen. No immune type electron dense deposits are identified. Are well-preserved enough to evaluate podocyte foot process effacement appears to be mild. There is no increase in peritubular capillary basement membrane multilayering. The ultrastructural findings support the original diagnosis.Addendum electronically signed by Rod Keys MD on 07/25/2023 at 12:53 PM Performed By: #### S ####[facility] LABCLIA [id number] [place] [address] [place] CASE REPORT Normal [facility] Comment on above: Order Comment: Speci men Type: TISSUE SPECIMENOrdering Facility: [facility] Address: [address] [place] [address] Result Comment: Surg ical Pathology Report Case: [id number] Provider: Kellen Ramirez MD Collected: 07/21/2023 03:00 PMOrdering Location: [place] [address] Received: 07/21/2023 03:13 PMPathologist: Rod Keys MDSpecimen: KIDNEY TRANSPLANT BIOPSY RIGHT, Right Performed By: #### S ####[facility] LABCLIA [id number] [place] [address] [place] CLINICAL HISTORY Normal [facility] Comment on above: Order Comment: Speci men Type: TISSUE SPECIMENOrdering Facility: [facility] Address: [address] [place] [address] Performed By: #### S ####[facility] LABIA [id number] [place] [address] [place] DIAGNOSIS COMMENT Normal [facility] Comment on above: Order Comment: Speci men Type: TISSUE SPECIMENOrdering Facility: [facility] Address: [address] [place] [address] Result Comment: The negative C4d staining in the absence of significant inflammation provide evidence against acute rejection. Between light microscopy and immunofluorescence, 21 glomeruli are sampled, 10 of which are globally sclerotic and 1 of which shows an FSGS lesion. 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 Electron microscopy is pending and may be contributory.Laboratory Developed Test (LDT) Disclaimer:Performance characteristics of immunohistochemical, immunofluorescent and chromogenic in-situ hybridization tests have been determined by the performing laboratory within [facility]???s [facility] [place] ([facility], [facility], [facility], [facility], [facility], [facility], or [facility]) in a manner consistent with CLIA requirements. One or more of these tests have not been cleared or approved by the FDA. [facility] is regulated under CLIA as qualified to perform high-complexity testing. These tests are used for clinical purposes. They should not be regarded as investigational or for research. Positive and negative controls stain appropriately. Performed By: #### S ####[facility] LABIA [id number] [address] FINAL DIAGNOSIS A. 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 See comment.- Negative for acute rejection.- Tubular atrophy and interstitial fibrosis, moderate.- Arteriosclerosis and arteriolar hyalinosis, moderate. Performed By: #### S ####[facility] [id number] [address] STATES OF [facility] FINAL PERFORMING LAB Normal [facility] Comment on above: Order Comment: Speci sha Type: TISSUE SPECIMENOrdering Facility: [facility] Address: [address] [place] [address] Result Comment: Diag nostic interpretation performed at [facility], [address] [place] [address] CLIA# [id number] Director: Alonso Dan M.D. Performed By: #### S ####[facility] [id number] [address] [place] GROSS DESCRIPTION Normal [facility] Comment on above: Order Comment: Speci sha Type: TISSUE SPECIMENOrdering Facility: [facility] Address: [address] [place] [address] Result Comment: Louisa [place] TRANSPLANT BIOPSY RIGHTReceived fresh on saline moistened Telfa gauze are multiple segments of cylindrical reinoso, soft tissue aggregating to 2.7 x 0.1 x 0.1 cm. A portion is frozen and kept frozen for direct immunofluorescence. A portion is submitted for electron microscopy. A portion is submitted in formalin for light microscopy in cassette [email or web address].GMR July 21, 2023 3:33 PMGross examination performed at [facility], [address] [place] [address] Performed By: #### S ####[facility] LABIA [id number] [address] [place] MICROSCOPIC DESCRIPTION Normal [facility] Comment on above: Order Comment: Speci men Type: TISSUE SPECIMENOrdering Facility: [facility] Address: [address] [place] [address] Result Comment: Sect ions are stained with H&E, PAS, trichrome and Shields. Sections reveal multiple cores of renal cortex. Up to 17 glomeruli are sampled, 9 of which are globally sclerotic. 1 glomerulus displays a lesion of FSGS characterized by hyalinosis and adhesion to Carias's capsule. The FSGS lesion is at the NOS subtype. The remaining glomeruli appear normocellular with patent capillary lumina. PAS and Shields stains show no evidence of transplant glomerulopathy or glomerulitis. Trichrome staining shows moderate fibrosis involving approximately 30 to 40% of the cortex sampled. There is mild nonspecific chronic inflammation within areas of scarring but no active tubulointerstitial infiltrate is identified. Vessels show moderate arteriosclerosis and moderate arteriolar hyalinosis. No endovasculitis is seen. No significant peritubular capillaritis is identified.Immunofluorescence staining is performed for IgG, IgA, IgM, C3, C4d, albumin, kappa and lambda. Up to 4 glomeruli are sampled, 1 of which is globally sclerotic. There is nonspecific trace mesangial staining for IgM and C3 and nonspecific 1+ mesangial C4d. The remaining tested reactants are negative within glomeruli. C4d staining is negative in peritubular capillaries. Albumin highlights background tissue architecture. Performed By: #### S ####[facility] LABIA [id number] [place] [address] [place] US BIOPSY RENALon 07-21-2023 US BIOPSY RENAL [facility] NURSING PROGon 07-18-2023 NURSING PROG [facility] 25(OH)D3 SerPl-mCncon 2023 25-hydroxyvitamin D3 [Mass/Vol] 13.2 ng/mL Low 31.0-80.0 [facility] Comment on above: Order Comment: Speci men Type: BLOOD SPECIMENOrdering Facility: [facility] Address: [address] [place] [address] Result Comment: Clas sification of 25 [place] Vitamin D status:Deficiency/Insufficiency: < or = 30 ng/ml.Sufficiency/Optimal Levels: 31-80 ng/mLToxicity: > 100 ng/mL.Test performed by chemiluminescent immunoassay. Performed By: #### 1 989-3 ####[facility] LABCLIA [id number] [place] [address] [place] BK VIRUS PCR,QUANT,Gee 07-12 BK virus DNA KURT+probe [#/Vol] Not detected Normal BK Virus DNA Not Detected by PCR. [facility] Comment on above: Order Comment: Speci men Type: BLOOD SPECIMENOrdering Facility: [facility] Address: [address] [place] [address] Performed By: #### B KQUAN ####[facility] LABCLIA [id number] [place] [address] [place] CBC W Auto Differential pane l (Bld)on 07-12-2023 Basophils (Bld) [#/Vol] 10*3/uL Normal <0.11 [facility] Comment on above: Order Comment: Speci men Type: BLOOD SPECIMENOrdering Facility: [facility] Address: [address] [place] [address] Performed By: #### 5 7021-8 ####[facility] LABCLIA [id number] [place] [address] [place] Basophils/100 WBC (Bld) 0.3 % Normal [facility] Comment on above: Order Comment: Speci men Type: BLOOD SPECIMENOrdering Facility: [facility] Address: [address] [place] [address] Performed By: #### 5 7021-8 ####[facility] LABCLIA [id number] [place] [address] [place] Differential cell count method Nom (Bld) Auto Normal [facility] Comment on above: Order Comment: Speci men Type: BLOOD SPECIMENOrdering Facility: [facility] Address: [address] [place] [address] Performed By: #### 5 7021-8 ####[facility] LABCLIA [id number] [place] [address] [place] Eosinophils (Bld) [#/Vol] 0.20 10*3/uL Normal <0.46 [facility] Comment on above: Order Comment: Speci men Type: BLOOD SPECIMENOrdering Facility: [facility] Address: [address] [place] [address] Performed By: #### 5 7021-8 ####[facility] LABCLIA [id number] [place] [address] [place] Eosinophils/100 WBC (Bld) 3.0 % Normal [facility] Comment on above: Order Comment: Speci men Type: BLOOD SPECIMENOrdering Facility: [facility] Address: [address] [place] [address] Performed By: #### 5 7021-8 ####[facility] LABCLIA [id number] [place] [address] [place] Erythrocyte distribution width (RBC) [Ratio] 12.9 % Normal 11.5-15.0 [facility] Comment on above: Order Comment: Speci men Type: BLOOD SPECIMENOrdering Facility: [facility] Address: [address] [place] [address] Performed By: #### 5 7021-8 ####[facility] LABCLIA [id number] [place] [address] [place] Hematocrit (Bld) [Volume fraction] 40.5 % Normal 39.0-51.0 [facility] Comment on above: Order Comment: Speci men Type: BLOOD SPECIMENOrdering Facility: [facility] Address: [address] [place] [address] Performed By: #### 5 7021-8 ####[facility] LABCLIA [id number] [place] [address] [place] Hemoglobin (Bld) [Mass/Vol] 12.6 g/dL Low 13.0-17.0 [facility] Comment on above: Order Comment: Speci men Type: BLOOD SPECIMENOrdering Facility: [facility] Address: [address] [place] [address] Performed By: #### 5 7021-8 ####[facility] LABCLIA [id number] [place] [address] [place] Immature granulocytes (Bld) [#/Vol] 10*3/uL Normal <0.10 [facility] Comment on above: Order Comment: Speci men Type: BLOOD SPECIMENOrdering Facility: [facility] Address: [address] [place] [address] Performed By: #### 5 7021-8 ####[facility] LABIA [id number] [place] [address] [place] Immature granulocytes/100 WBC (Bld) 0.3 % Normal [facility] Comment on above: Order Comment: Speci men Type: BLOOD SPECIMENOrdering Facility: [facility] Address: [address] [place] [address] Performed By: #### 5 7021-8 ####[facility] LABCLIA [id number] [place] [address] [place] Lymphocytes (Bld) [#/Vol] 0.80 10*3/uL Low 1.00-4.00 [facility] Comment on above: Order Comment: Speci men Type: BLOOD SPECIMENOrdering Facility: [facility] Address: [address] [place] [address] Performed By: #### 5 7021-8 ####[facility] LABCLIA [id number] [place] [address] [place] Lymphocytes/100 WBC (Bld) 11.9 % Normal [facility] Comment on above: Order Comment: Speci men Type: BLOOD SPECIMENOrdering Facility: [facility] Address: [address] [place] [address] Performed By: #### 5 7021-8 ####[facility] LABCLIA [id number] [place] [address] [place] MCH (RBC) [Entitic mass] 27.3 pg Normal 26.0-34.0 [facility] Comment on above: Order Comment: Speci men Type: BLOOD SPECIMENOrdering Facility: [facility] Address: [address] [place] [address] Performed By: #### 5 7021-8 ####[facility] LABIA [id number] [place] [address] [place] MCHC (RBC) [Mass/Vol] 31.1 g/dL Normal 30.5-36.0 [facility] Comment on above: Order Comment: Speci men Type: BLOOD SPECIMENOrdering Facility: [facility] Address: [address] [place] [address] Performed By: #### 5 7021-8 ####[facility] LABCLIA [id number] [place] [address] [place] MCV (RBC) [Entitic vol] 87.7 fL Normal 80.0-100.0 [facility] Comment on above: Order Comment: Speci men Type: BLOOD SPECIMENOrdering Facility: [facility] Address: [address] [place] [address] Performed By: #### 5 7021-8 ####[facility] LABCLIA [id number] [place] [address] [place] Monocytes (Bld) [#/Vol] 0.74 10*3/uL Normal <0.87 [facility] Comment on above: Order Comment: Speci men Type: BLOOD SPECIMENOrdering Facility: [facility] Address: [address] [place] [address] Performed By: #### 5 7021-8 ####[facility] LABCLIA [id number] [place] [address] [place] Monocytes/100 WBC (Bld) 11.0 % Normal [facility] Comment on above: Order Comment: Speci men Type: BLOOD SPECIMENOrdering Facility: [facility] Address: [address] [place] [address] Performed By: #### 5 7021-8 ####[facility] LABCLIA [id number] [place] [address] [place] [place] Neutrophils (Bld) [#/Vol] 4.95 10*3/uL Normal 1.45-7.50 [facility] Comment on above: Order Comment: Speci men Type: BLOOD SPECIMENOrdering Facility: [facility] Address: [address] [place] [address] Performed By: #### 5 7021-8 ####[facility] LABCLIA [id number] [place] [address] [place] Neutrophils/100 WBC (Bld) 73.5 % Normal [facility] Comment on above: Order Comment: Speci men Type: BLOOD SPECIMENOrdering Facility: [facility] Address: [address] [place] [address] Performed By: #### 5 7021-8 ####[facility] LABCLIA [id number] [place] [address] [place] Nucleated RBC (Bld) [#/Vol] 10*3/uL Normal <0.01 [facility] Comment on above: Order Comment: Speci men Type: BLOOD SPECIMENOrdering Facility: [facility] Address: [address] [place] [address] Performed By: #### 5 7021-8 ####[facility] LABCLIA [id number] [place] [address] [place] Nucleated RBC/100 WBC (Bld) [Ratio] 0.0 /100 WBC Normal [facility] Comment on above: Order Comment: Speci men Type: BLOOD SPECIMENOrdering Facility: [facility] Address: [address] [place] [address] Performed By: #### 5 7021-8 ####[facility] LABCLIA [id number] [place] [address] [place] Platelet mean volume (Bld) [Entitic vol] 10.3 fL Normal 9.0-12.7 [facility] Comment on above: Order Comment: Speci men Type: BLOOD SPECIMENOrdering Facility: [facility] Address: [address] [place] [address] Performed By: #### 5 7021-8 ####[facility] LABCLIA [id number] [place] [address] [place] Platelets (Bld) [#/Vol] 231 10*3/uL Normal 150-400 [facility] Comment on above: Order Comment: Speci men Type: BLOOD SPECIMENOrdering Facility: [facility] Address: [address] [place] [address] Performed By: #### 5 7021-8 ####[facility] LABCLIA [id number] [place] [address] [place] RBC (Bld) [#/Vol] 4.62 10*6/uL Normal 4.20-6.00 [facility] Comment on above: Order Comment: Speci men Type: BLOOD SPECIMENOrdering Facility: [facility] Address: [address] [place] [address] Performed By: #### 5 7021-8 ####[facility] LABCLIA [id number] [address] [address] [place] WBC (Bld) [#/Vol] 6.73 10*3/uL Normal 3.70-11.00 [facility] Comment on above: Order Comment: Speci men Type: BLOOD SPECIMENOrdering Facility: [facility] Address: [address] [place] [address] Performed By: #### 5 7021-8 ####[facility] LABCLIA [id number] [place] [id number] [place] Comprehensive metabolic 2000 panelon 07-12-2023 Albumin [Mass/Vol] 3.9 g/dL Normal 3.9-4.9 [facility] Comment on above: Order Comment: Speci men Type: BLOOD SPECIMENOrdering Facility: [facility] Address: [address] [place] [address] Performed By: #### 2 4323-8, 75846-7, 27701-07, ####[facility] LABCLIA [id number] [place] [address] [place] ALP [Catalytic activity/Vol] 132 U/L High 38-113 [facility] Comment on above: Order Comment: Speci men Type: BLOOD SPECIMENOrdering Facility: [facility] Address: [address] [place] [address] Performed By: #### 2 4323-8, 99063-8, 2777, ####[facility] LABCLIA [id number] [place] [id number] [place] ALT [Catalytic activity/Vol] 18 U/L Normal 10-54 [facility] Comment on above: Order Comment: Speci men Type: BLOOD SPECIMENOrdering Facility: [facility] Address: [address] [place] [address] Performed By: #### 2 4323-8, 24620-1, 277-, 21207-6 ####[facility] LABCLIA [id number] [place] [id number] [place] Anion gap [Moles/Vol] 11 mmol/L Normal 9-18 [facility] Comment on above: Order Comment: Speci men Type: BLOOD SPECIMENOrdering Facility: [facility] Address: [address] [place] [address] Performed By: #### 2 4323-8, 18028-5, 277-, 65070-8 ####[facility] LABCLIA [id number] [place] [id number] [place] AST [Catalytic activity/Vol] 14 U/L Normal 14-40 [facility] Comment on above: Order Comment: Speci men Type: BLOOD SPECIMENOrdering Facility: [facility] Address: [address] [place] [address] Performed By: #### 2 4323-8, 78009-5, 277-, ####[facility] LABCLIA [id number] [place] [address] [place] Bilirubin [Mass/Vol] 0.3 mg/dL Normal 0.2-1.3 [facility] Comment on above: Order Comment: Speci men Type: BLOOD SPECIMENOrdering Facility: [facility] Address: [address] [place] [address] Performed By: #### 2 4323-8, 96387-3, 27701-07, ####[facility] LABCLIA [id number] [place] [id number] [place] Calcium [Mass/Vol] 8.9 mg/dL Normal 8.5-10.2 [facility] Comment on above: Order Comment: Speci men Type: BLOOD SPECIMENOrdering Facility: [facility] Address: [address] [place] [address] Performed By: #### 2 4323-8, 92615-9, 277-, 37882-0 ####[facility] LABCLIA [id number] [place] [address] [place] Chloride [Moles/Vol] 109 mmol/L High 97-105 [facility] Comment on above: Order Comment: Speci men Type: BLOOD SPECIMENOrdering Facility: [facility] Address: [address] [place] [address] Performed By: #### 2 4323-8, 94503-9, 2777-1, 11688-2 ####[facility] LABCLIA [id number] [place] [address] [place] CO2 [Moles/Vol] 18 mmol/L Low 22-30 [facility] Comment on above: Order Comment: Speci men Type: BLOOD SPECIMENOrdering Facility: [facility] Address: [address] [place] [address] Performed By: #### 2 4323-8, 07580-5, 277-1, ####[facility] LABCLIA [id number] [place] [address] [place] Creatinine [Mass/Vol] 1.39 mg/dL High 0.73-1.22 [facility] Comment on above: Order Comment: Speci men Type: BLOOD SPECIMENOrdering Facility: [facility] Address: [address] [place] [address] Performed By: #### 2 4323-8, 77921-9, 277-1, ####[facility] LABCLIA [id number] [place] [address] [place] Creatinine and Glomerular filtration rate.predicted panel (S/P/Bld) 55 mL/min/1.73m??? Low >=60 [facility] Comment on above: Order Comment: Speci men Type: BLOOD SPECIMENOrdering Facility: [facility] Address: [address] [place] [address] Result Comment: Sylwia mated Glomerular Filtration Rate (eGFR) is calculated using the 2020 CKD-EPI creatinine equation. This equation utilizes serum creatinine, sex, and age as parameters. The creatinine assay has traceable calibration to isotope dilution-mass spectrometry. Refer to KDIGO guidelines for clinical interpretation. In patients with unstable renal function, e.g. those with acute kidney injury, the eGFR may not accurately reflect actual GFR. Performed By: #### 2 4323-8, 24347-4, 2776-, ####[facility] LABCLIA [id number] [address] [address] [place] Glucose [Mass/Vol] 171 mg/dL High 74-99 [facility] Comment on above: Order Comment: Vicki dalton Type: BLOOD SPECIMENOrdering Facility: [facility] Address: [address] [place] [address] Result Comment: The [place] Diabetes Association (ADA) provides guidance for cutoff values for fasting glucose and random glucose. The ADA defines fasting as no caloric intake for at least 8 hours. Fasting plasma glucose results between 100 to 125 mg/dL indicate increased risk for diabetes (prediabetes).Fasting plasma glucose results greater than or equal to 126 mg/dL meet the criteria for diagnosis of diabetes. In the absence of unequivocal hyperglycemia, results should be confirmed by repeat testing. In a patient with classic symptoms of hyperglycemia or hyperglycemic crisis, random plasma glucose results greater than or equal to 200 mg/dL meet the criteria for diagnosis of diabetes.Reference: Standards of Medical Care in Diabetes 2016, [place] Diabetes Association. Diabetes Care. 2016.39(Suppl 1). Performed By: #### 2 4323-8, 37188-9, 2776-07, ####[facility] LABCLIA [id number] [address] [address] [place] Potassium [Moles/Vol] 4.4 mmol/L Normal 3.7-5.1 [facility] Comment on above: Order Comment: Vicki dalton Type: BLOOD SPECIMENOrdering Facility: [facility] Address: [address] [place] [id number] Performed By: #### 2 4323-8, 34533-2, 2776-, ####[facility] LABCLIA [id number] [place] [address] [place] Protein [Mass/Vol] 6.5 g/dL Normal 6.3-8.0 [facility] Comment on above: Order Comment: Speci men Type: BLOOD SPECIMENOrdering Facility: [facility] Address: [address] [place] [address] Performed By: #### 2 4323-8, 18789-0, 2776-1, ####[facility] LABCLIA [id number] [place] [address] [place] Sodium [Moles/Vol] 138 mmol/L Normal 136-144 [facility] Comment on above: Order Comment: Speci men Type: BLOOD SPECIMENOrdering Facility: [facility] Address: [address] [place] [address] Performed By: #### 2 4323-8, 04598-1, 2776-07, ####[facility] LABCLIA [id number] [place] [address] [place] Urea nitrogen [Mass/Vol] 20 mg/dL Normal 9-24 [facility] Comment on above: Order Comment: Speci men Type: BLOOD SPECIMENOrdering Facility: [facility] Address: [address] [place] [address] Performed By: #### 2 4323-8, 41979-4, 2776-07, ####[facility] LABCLIA [id number] [place] [id number] [place] Lipid 1996 panelon 4 Cholesterol [Mass/Vol] 113 mg/dL Normal <200 [facility] Comment on above: Order Comment: Speci men Type: BLOOD SPECIMENOrdering Facility: [facility] Address: [address] [place] [address] Result Comment: <200 mg/dL, Desirable 200-239 mg/dL, Borderline high>239 mg/dL, High Performed By: #### 2 4323-8, 85078-4, 2776-, ####[facility] LABCLIA [id number] [place] [address] [place] Cholesterol in HDL [Mass/Vol] 31 mg/dL Low >39 [facility] Comment on above: Order Comment: Speci men Type: BLOOD SPECIMENOrdering Facility: [facility] Address: [address] [place] [address] Result Comment: 40-5 9 mg/dL, Acceptable>59 mg/dL, High: Negative risk factor for coronary heart disease<40 mg/dL, Low: Positive risk factor for coronary heart disease Performed By: #### 2 4323-8, 59108-7, 2776-07, ####[facility] LABCLIA [id number] [place] [address] [place] Cholesterol in LDL [Mass/Vol] 56 mg/dL Normal <100 [facility] Comment on above: Order Comment: Speci men Type: BLOOD SPECIMENOrdering Facility: [facility] Address: [address] [place] [address] Result Comment: <100 mg/dL, Optimal 100-129 mg/dL, Near optimal/above optimal 130-159 mg/dL, Borderline high 160-189 mg/dL, High>189 mg/dL, Very highSecondary prevention optimal LDL Cholesterol levels are recommended to be < 70 mg/dL Performed By: #### 2 4323-8, 79431-8, 2776-07, ####[facility] LABCLIA [id number] [place] [address] [place] Cholesterol in LDL/Cholesterol in HDL [Mass ratio] 1.81 {ratio} Normal <2.54 [facility] Comment on above: Order Comment: Speci men Type: BLOOD SPECIMENOrdering Facility: [facility] Address: [address] [place] [address] Result Comment: Refe rence:1. National Cholesterol Education Program ATP III Guideline At-A-Glance Quick Desk Reference: National Heart, Lung, and Blood [place]. National Institutes of Health. 2001: NIH Publication No. 01-3305.2. An International Atherosclerosis Society position paper: global recommendations for the management of dyslipidemia: executive summary, Atherosclerosis. 2014: 232(2):410-413. Performed By: #### 2 4323-8, 20318-2, 2776-07, ####[facility] LABCLIA [id number] [address] [address] [place] Cholesterol in VLDL [Mass/Vol] 26 mg/dL Normal <30 [facility] Comment on above: Order Comment: Speci men Type: BLOOD SPECIMENOrdering Facility: [facility] Address: [address] [place] [address] Performed By: #### 2 4323-8, 77802-5, 2776-07, ####[facility] LABCLIA [id number] [address] [address] [place] Cholesterol non HDL [Mass/Vol] 82 mg/dL Normal <130 [facility] Comment on above: Order Comment: Speci men Type: BLOOD SPECIMENOrdering Facility: [facility] Address: [address] [place] [address] Result Comment: <130 mg/dL, Optimal 130-159 mg/dL, Near optimal/above optimal 160-189 mg/dL, Borderline high 190-219 mg/dL, High>219 mg/dL, Very highSecondary prevention optimal non HDL Cholesterol levels are recommended to be <100 mg/dL Performed By: #### 2 4323-8, 03108-6, 2776-07, ####[facility] LABCLIA [id number] [address] [address] [place] Cholesterol.total/C holesterol in HDL [Mass ratio] 3.65 {ratio} Normal <5.10 [facility] Comment on above: Order Comment: Speci men Type: BLOOD SPECIMENOrdering Facility: [facility] Address: [address] [place] [id number] Performed By: #### 2 4323-8, 38512-4, 2776-07, ####[facility] LABCLIA [id number] [place] [address] [place] FASTING TIME 12 hrs Normal [facility] Comment on above: Order Comment: Speci men Type: BLOOD SPECIMENOrdering Facility: [facility] Address: [address] [place] [address] Performed By: #### 2 4323-8, 07145-8, 2776-07, ####[facility] LABCLIA [id number] [place] [address] [place] Triglyceride [Mass/Vol] 128 mg/dL Normal <150 [facility] Comment on above: Order Comment: Speci men Type: BLOOD SPECIMENOrdering Facility: [facility] Address: [address] [place] [address] Result Comment: <150 mg/dL, Normal 150-199 mg/dL, Borderline high 200-499 mg/dL, High>499 mg/dL, Very high Performed By: #### 2 4323-8, 69921-6, 2776-07, ####[facility] LABIA [id number] [place] [address] [place] Magnesium SerPl-mCncon 07-12 Magnesium [Mass/Vol] 1.6 mg/dL Low 1.7-2.3 [facility] Comment on above: Order Comment: Speci men Type: BLOOD SPECIMENOrdering Facility: [facility] Address: [address] [place] [address] Performed By: #### 2 4323-8, 45912-9, 27701-07, ####[facility] LABIA [id number] [place] [id number] [place] PT panel Coag (PPP)on 2023 INR Coag (PPP) [Relative time] 1.0 {INR} Normal 0.9-1.3 [facility] Comment on above: Order Comment: Speci men Type: BLOOD SPECIMENOrdering Facility: [facility] Address: [address] [place] [address] Result Comment: Lily min K Antagonist (VKA) Therapeutic Range: INR 2 to 3 (Target INR of 2.5)Note: For patients treated with VKA drugs, such as warfarin, the [place] [employer] 2012 Guideline recommends a therapeutic INR range of 2 to 3 (target INR of 2.5). This recommendation includes high-risk patients with antiphospholipid syndrome with previous arterial or venous thromboembolism, current-generation mechanical or bioprosthetic aortic heart valve replacement.Note: Patients with mechanical aortic valve replacement and additional risk factors for thromboembolic events (atrial fibrillation, previous thromboembolism, LV dysfunction, hypercoagulable conditions) or an older generation mechanical AVR (i.e., ball in-Cage) or any mechanical MVR should have a INR therapeutic range of 2.5 to 3.5 (target INR of 3).Padilla GH, et al. Chest 2012, 141:7S-47SNishimmamie RA, et al. [facility] 2017, 70: 252-289 Performed By: #### 3 4528-0 ####[facility] [id number] [place] [address] [place] PT Coag (PPP) [Time] 10.1 s Normal <13.1 [facility] Comment on above: Order Comment: Speci men Type: BLOOD SPECIMENOrdering Facility: [facility] Address: [address] [place] [address] Performed By: #### 3 4528-0 ####[facility] [id number] [place] [address] [place] PTH-Intact SerPl-ncon -0 Parathyrin.intact [Mass/Vol] 121 pg/mL High 15-65 [facility] Comment on above: Order Comment: Speci men Type: BLOOD SPECIMENOrdering Facility: [facility] Address: [address] [place] [address] Performed By: #### 2 731-8 ####[facility] LABCLIA [id number] [place] [phone] [place] Phosphate SerPl-mCncon 07-12 Phosphate [Mass/Vol] 2.9 mg/dL Normal 2.7-4.8 [facility] Comment on above: Order Comment: Speci men Type: BLOOD SPECIMENOrdering Facility: [facility] Address: [address] [place] [address] Performed By: #### 2 4323-8, 01667-1, 2777-1, 18758-0 ####[facility] LABCLIA [id number] [place] [phone] [place] Prot/Creat Uron 07-12-2023 Protein/Creatinine (U) [Mass ratio] 1.14 mg/mg High <0.15 [facility] Comment on above: Order Comment: Speci men Type: URINE SPECIMENOrdering Facility: [facility] Address: [address] [place] [address] Result Comment: Adul t Proteinuria Categories:<0.15 mg/mg is considered normal to mildly increased0.15 - 0.50 mg/mg is considered moderately increased>0.50 mg/mg is considered severely increasedKDIGO. (2013). KDIGO 2012 Clinical Practice Guideline for the Evaluation and Management of Chronic Kidney Disease. Official Journal of the International Society of Nephrology, 3(1), 1-150. Performed By: #### 2 890-2 ####[facility] LABIA [id number] [place] [phone] [place] Protein/Creatinine (U) [Mass ratio]on 07-12-2023 Creatinine (U) [Mass/Vol] 134.1 mg/dL Normal 20.0-300.0 [facility] Comment on above: Order Comment: Speci men Type: URINE SPECIMENOrdering Facility: [facility] Address: [address] [place] [address] Performed By: #### 2 890-2 ####[facility] LABIA [id number] [place] [phone] [place] Protein (U) [Mass/Vol] 153 mg/dL High 0-20 [facility] Comment on above: Order Comment: Speci men Type: URINE SPECIMENOrdering Facility: [facility] Address: [address] [place] [address] Performed By: #### 2 890-2 ####[facility] LABIA [id number] [address] [place] Tacrolimus Bld-ncon 2023 Tacrolimus (Bld) [Mass/Vol] 8.4 ng/mL Normal 5.0-20.0 [facility] Comment on above: Order Comment: Speci men Type: BLOOD SPECIMENOrdering Facility: [facility] Address: [address] [place] [address] Result Comment: Holly vidualized target levels for a given patient will depend on many factors (including the type of organ transplant, time since transplantation, concurrent medications, and other clinical factors), and should be assessed by those health care providers experienced in the management of immunosuppression. Reference ranges and high/low indicator flags are provided as general guidelines only. The treating physician must determine appropriate target levels/dosing based on the specific clinical situation. Test performed by chemiluminescent immunoassay using [employer] i. Performed By: #### 1 1253-2 ####[facility] LABIA [id number] [place] [address] [place] CNPNon 06-26-2023 CNPN Normal [facility] 25(OH)D3 SerPl-ncon 2022 25-hydroxyvitamin D3 [Mass/Vol] 13.8 ng/mL Low 31.0-80.0 [facility] Comment on above: Order Comment: Speci men Type: BLOOD SPECIMENOrdering Facility: [facility] Address: [address] [place] [address] Result Comment: Clas sification of 25 [place] Vitamin D status:Deficiency/Insufficiency: < or = 30 ng/ml.Sufficiency/Optimal Levels: 31-80 ng/mLToxicity: > 100 ng/mL.Test performed by chemiluminescent immunoassay. Performed By: #### 1 989-3 ####[facility] LABCLIA [id number] [place] [address] [place] CBC W Auto Differential pane l (Bld)on 06-20-2023 Basophils (Bld) [#/Vol] 0.03 10*3/uL Normal <0.11 [facility] Comment on above: Order Comment: Speci men Type: BLOOD SPECIMENOrdering Facility: [facility] Address: [address] [place] [address] Performed By: #### 5 7021-8 ####[facility] LABCLIA [id number] [place] [address] [place] Basophils/100 WBC (Bld) 0.4 % Normal [facility] Comment on above: Order Comment: Speci men Type: BLOOD SPECIMENOrdering Facility: [facility] Address: [address] [place] [address] Performed By: #### 5 7021-8 ####[facility] LABCLIA [id number] [place] [address] [place] Differential cell count method Nom (Bld) Auto Normal [facility] Comment on above: Order Comment: Speci men Type: BLOOD SPECIMENOrdering Facility: [facility] Address: [address] [place] [address] Performed By: #### 5 7021-8 ####[facility] LABCLIA [id number] [place] [address] [place] Eosinophils (Bld) [#/Vol] 0.19 10*3/uL Normal <0.46 [facility] Comment on above: Order Comment: Speci men Type: BLOOD SPECIMENOrdering Facility: [facility] Address: [address] [place] [address] Performed By: #### 5 7021-8 ####[facility] LABCLIA [id number] [place] [address] [place] Eosinophils/100 WBC (Bld) 2.6 % Normal [facility] Comment on above: Order Comment: Speci men Type: BLOOD SPECIMENOrdering Facility: [facility] Address: [address] [place] [address] Performed By: #### 5 7021-8 ####[facility] LABCLIA [id number] [place] [address] [place] Erythrocyte distribution width (RBC) [Ratio] 12.5 % Normal 11.5-15.0 [facility] Comment on above: Order Comment: Speci men Type: BLOOD SPECIMENOrdering Facility: [facility] Address: [address] [place] [address] Performed By: #### 5 7021-8 ####[facility] LABIA [id number] [place] [address] [place] Hematocrit (Bld) [Volume fraction] 42.6 % Normal 39.0-51.0 [facility] Comment on above: Order Comment: Speci men Type: BLOOD SPECIMENOrdering Facility: [facility] Address: [address] [place] [address] Performed By: #### 5 7021-8 ####[facility] LABIA [id number] [place] [address] [place] Hemoglobin (Bld) [Mass/Vol] 13.4 g/dL Normal 13.0-17.0 [facility] Comment on above: Order Comment: Speci men Type: BLOOD SPECIMENOrdering Facility: [facility] Address: [address] [place] [address] Performed By: #### 5 7021-8 ####[facility] LABIA [id number] [place] [address] [place] Immature granulocytes (Bld) [#/Vol] 0.03 10*3/uL Normal <0.10 [facility] Comment on above: Order Comment: Speci men Type: BLOOD SPECIMENOrdering Facility: [facility] Address: [address] [place] [address] Performed By: #### 5 7021-8 ####[facility] LABCLIA [id number] [place] [address] [place] Immature granulocytes/100 WBC (Bld) 0.4 % Normal [facility] Comment on above: Order Comment: Speci men Type: BLOOD SPECIMENOrdering Facility: [facility] Address: [address] [place] [address] Performed By: #### 5 7021-8 ####[facility] LABCLIA [id number] [place] [address] [place] Lymphocytes (Bld) [#/Vol] 0.88 10*3/uL Low 1.00-4.00 [facility] Comment on above: Order Comment: Speci men Type: BLOOD SPECIMENOrdering Facility: [facility] Address: [address] [place] [address] Performed By: #### 5 7021-8 ####[facility] LABIA [id number] [place] [address] [place] Lymphocytes/100 WBC (Bld) 12.1 % Normal [facility] Comment on above: Order Comment: Speci men Type: BLOOD SPECIMENOrdering Facility: [facility] Address: [address] [place] [address] Performed By: #### 5 7021-8 ####[facility] LABIA [id number] [place] [address] [place] MCH (RBC) [Entitic mass] 27.7 pg Normal 26.0-34.0 [facility] Comment on above: Order Comment: Speci men Type: BLOOD SPECIMENOrdering Facility: [facility] Address: [address] [place] [address] Performed By: #### 5 7021-8 ####[facility] LABIA [id number] [place] [address] [place] MCHC (RBC) [Mass/Vol] 31.5 g/dL Normal 30.5-36.0 [facility] Comment on above: Order Comment: Speci men Type: BLOOD SPECIMENOrdering Facility: [facility] Address: [address] [place] [address] Performed By: #### 5 7021-8 ####[facility] LABCLIA [id number] [place] [address] [place] MCV (RBC) [Entitic vol] 88.2 fL Normal 80.0-100.0 [facility] Comment on above: Order Comment: Speci men Type: BLOOD SPECIMENOrdering Facility: [facility] Address: [address] [place] [address] Performed By: #### 5 7021-8 ####[facility] LABCLIA [id number] [place] [address] [place] Monocytes (Bld) [#/Vol] 0.77 10*3/uL Normal <0.87 [facility] Comment on above: Order Comment: Speci men Type: BLOOD SPECIMENOrdering Facility: [facility] Address: [address] [place] [address] Performed By: #### 5 7021-8 ####[facility] LABCLIA [id number] [place] [address] [place] Monocytes/100 WBC (Bld) 10.6 % Normal [facility] Comment on above: Order Comment: Speci men Type: BLOOD SPECIMENOrdering Facility: [facility] Address: [address] [place] [address] Performed By: #### 5 7021-8 ####[facility] LABCLIA [id number] [place] [address] [place] Neutrophils (Bld) [#/Vol] 5.39 10*3/uL Normal 1.45-7.50 [facility] Comment on above: Order Comment: Speci men Type: BLOOD SPECIMENOrdering Facility: [facility] Address: [address] [place] [address] Performed By: #### 5 7021-8 ####[facility] LABCLIA [id number] [place] [address] [place] Neutrophils/100 WBC (Bld) 73.9 % Normal [facility] Comment on above: Order Comment: Speci men Type: BLOOD SPECIMENOrdering Facility: [facility] Address: [address] [place] [address] Performed By: #### 5 7021-8 ####[facility] LABCLIA [id number] [place] [address] [place] Nucleated RBC (Bld) [#/Vol] 10*3/uL Normal <0.01 [facility] Comment on above: Order Comment: Speci men Type: BLOOD SPECIMENOrdering Facility: [facility] Address: [address] [place] [address] Performed By: #### 5 7021-8 ####[facility] LABIA [id number] [place] [address] [place] Nucleated RBC/100 WBC (Bld) [Ratio] 0.0 /100 WBC Normal [facility] Comment on above: Order Comment: Speci men Type: BLOOD SPECIMENOrdering Facility: [facility] Address: [address] [place] [address] Performed By: #### 5 7021-8 ####[facility] LABIA [id number] [place] [address] [place] Platelet mean volume (Bld) [Entitic vol] 10.4 fL Normal 9.0-12.7 [facility] Comment on above: Order Comment: Speci men Type: BLOOD SPECIMENOrdering Facility: [facility] Address: [address] [place] [address] Performed By: #### 5 7021-8 ####[facility] LABIA [id number] [place] [address] [place] Platelets (Bld) [#/Vol] 259 10*3/uL Normal 150-400 [facility] Comment on above: Order Comment: Speci men Type: BLOOD SPECIMENOrdering Facility: [facility] Address: [address] [place] [address] Performed By: #### 5 7021-8 ####[facility] LABCLIA [id number] [address] [address] [place] RBC (Bld) [#/Vol] 4.83 10*6/uL Normal 4.20-6.00 [facility] Comment on above: Order Comment: Speci men Type: BLOOD SPECIMENOrdering Facility: [facility] Address: [address] [place] [address] Performed By: #### 5 7021-8 ####[facility] LABCLIA [id number] [place] [address] [place] WBC (Bld) [#/Vol] 7.29 10*3/uL Normal 3.70-11.00 [facility] Comment on above: Order Comment: Speci men Type: BLOOD SPECIMENOrdering Facility: [facility] Address: [address] [place] [address] Performed By: #### 5 7021-8 ####[facility] LABCLIA [id number] [place] [id number] [place] Comprehensive metabolic 2000 panelon 06-20-2023 Albumin [Mass/Vol] 4.0 g/dL Normal 3.9-4.9 [facility] Comment on above: Order Comment: Speci men Type: BLOOD SPECIMENOrdering Facility: [facility] Address: [address] [place] [address] Performed By: #### 2 4331-1, 04595-0, 18185-9, 2777-1 ####[facility] LABCLIA [id number] [place] [id number] [place] ALP [Catalytic activity/Vol] 128 U/L High 38-113 [facility] Comment on above: Order Comment: Speci men Type: BLOOD SPECIMENOrdering Facility: [facility] Address: [address] [place] [address] Performed By: #### 2 4331-1, , 29447-5, 2776- ####[facility] LABCLIA [id number] [place] [address] [place] ALT [Catalytic activity/Vol] 18 U/L Normal 10-54 [facility] Comment on above: Order Comment: Speci men Type: BLOOD SPECIMENOrdering Facility: [facility] Address: [address] [place] [address] Performed By: #### 2 4331-1, , 51898-6, 2776-07 ####[facility] LABCLIA [id number] [place] [address] [place] Anion gap [Moles/Vol] 13 mmol/L Normal 9-18 [facility] Comment on above: Order Comment: Speci men Type: BLOOD SPECIMENOrdering Facility: [facility] Address: [address] [place] [address] Performed By: #### 2 4331-1, , 16256-8, 2776-07 ####[facility] LABCLIA [id number] [place] [address] [place] AST [Catalytic activity/Vol] 14 U/L Normal 14-40 [facility] Comment on above: Order Comment: Speci men Type: BLOOD SPECIMENOrdering Facility: [facility] Address: [address] [place] [address] Performed By: #### 2 4331-1, 50072-0, , 2776-07 ####[facility] LABCLIA [id number] [address] [address] [place] Bilirubin [Mass/Vol] 0.2 mg/dL Normal 0.2-1.3 [facility] Comment on above: Order Comment: Speci men Type: BLOOD SPECIMENOrdering Facility: [facility] Address: [address] [place] [address] Performed By: #### 2 4331-1, 78648-3, 62724-8, 2776-07 ####[facility] LABCLIA [id number] [place] [address] [place] Calcium [Mass/Vol] 9.0 mg/dL Normal 8.5-10.2 [facility] Comment on above: Order Comment: Speci men Type: BLOOD SPECIMENOrdering Facility: [facility] Address: [address] [place] [address] Performed By: #### 2 4331-1, , , 2776-07 ####[facility] LABCLIA [id number] [place] [address] [place] Chloride [Moles/Vol] 108 mmol/L High 97-105 [facility] Comment on above: Order Comment: Speci men Type: BLOOD SPECIMENOrdering Facility: [facility] Address: [address] [place] [address] Performed By: #### 2 4331-1, , , 2776-07 ####[facility] LABCLIA [id number] [place] [address] [place] CO2 [Moles/Vol] 16 mmol/L Low 22-30 [facility] Comment on above: Order Comment: Speci men Type: BLOOD SPECIMENOrdering Facility: [facility] Address: [address] [place] [address] Performed By: #### 2 4331-1, 28647-3, , 27701-07 ####[facility] LABCLIA [id number] [place] [address] [place] Creatinine [Mass/Vol] 1.46 mg/dL High 0.73-1.22 [facility] Comment on above: Order Comment: Speci men Type: BLOOD SPECIMENOrdering Facility: [facility] Address: [address] [place] [address] Performed By: #### 2 4331-1, 89254-7, 19501-1, 2777-1 ####[facility] LABCLIA [id number] [place] [address] [place] Creatinine and Glomerular filtration rate.predicted panel (S/P/Bld) 52 mL/min/1.73m??? Low >=60 [facility] Comment on above: Order Comment: Vicki dalton Type: BLOOD SPECIMENOrdering Facility: [facility] Address: [address] [place] [address] Result Comment: Sylwia mated Glomerular Filtration Rate (eGFR) is calculated using the 2020 CKD-EPI creatinine equation. This equation utilizes serum creatinine, sex, and age as parameters. The creatinine assay has traceable calibration to isotope dilution-mass spectrometry. Refer to KDIGO guidelines for clinical interpretation. In patients with unstable renal function, e.g. those with acute kidney injury, the eGFR may not accurately reflect actual GFR. Performed By: #### 2 4331-1, 99138-8, 58164-0, 2777-1 ####[facility] LABCLIA [id number] [place] [address] [place] Glucose [Mass/Vol] 103 mg/dL High 74-99 [facility] Comment on above: Order Comment: Vicki dalton Type: BLOOD SPECIMENOrdering Facility: [facility] Address: [address] [place] [address] Result Comment: The [place] Diabetes Association (ADA) provides guidance for cutoff values for fasting glucose and random glucose. The ADA defines fasting as no caloric intake for at least 8 hours. Fasting plasma glucose results between 100 to 125 mg/dL indicate increased risk for diabetes (prediabetes).Fasting plasma glucose results greater than or equal to 126 mg/dL meet the criteria for diagnosis of diabetes. In the absence of unequivocal hyperglycemia, results should be confirmed by repeat testing. In a patient with classic symptoms of hyperglycemia or hyperglycemic crisis, random plasma glucose results greater than or equal to 200 mg/dL meet the criteria for diagnosis of diabetes.Reference: Standards of Medical Care in Diabetes 2016, [place] Diabetes Association. Diabetes Care. 2016.39(Suppl 1). Performed By: #### 2 4331-1, 37850-8, 10083-1, 2776- ####[facility] LABCLIA [id number] [address] [address] [place] Potassium [Moles/Vol] 4.3 mmol/L Normal 3.7-5.1 [facility] Comment on above: Order Comment: Speci men Type: BLOOD SPECIMENOrdering Facility: [facility] Address: [address] [place] [address] Performed By: #### 2 4331-1, , 81869-4, 2776-07 ####[facility] LABCLIA [id number] [place] [address] [place] Protein [Mass/Vol] 6.7 g/dL Normal 6.3-8.0 [facility] Comment on above: Order Comment: Speci men Type: BLOOD SPECIMENOrdering Facility: [facility] Address: [address] [place] [address] Performed By: #### 2 4331-1, , , 2776-07 ####[facility] LABIA [id number] [place] [address] [place] Sodium [Moles/Vol] 137 mmol/L Normal 136-144 [facility] Comment on above: Order Comment: Speci men Type: BLOOD SPECIMENOrdering Facility: [facility] Address: [address] [place] [address] Performed By: #### 2 4331-1, , 88366-1, 2776- ####[facility] LABCLIA [id number] [place] [id number] [place] Urea nitrogen [Mass/Vol] 26 mg/dL High 9-24 [facility] Comment on above: Order Comment: Speci men Type: BLOOD SPECIMENOrdering Facility: [facility] Address: [address] [place] [address] Performed By: #### 2 4331-1, , 46743-1, 2776- ####[facility] LABCLIA [id number] [place] [address] [place] Lipid 1996 panelon 3 Cholesterol [Mass/Vol] 115 mg/dL Normal <200 [facility] Comment on above: Order Comment: Speci men Type: BLOOD SPECIMENOrdering Facility: [facility] Address: [address] [place] [address] Result Comment: <200 mg/dL, Desirable 200-239 mg/dL, Borderline high>239 mg/dL, High Performed By: #### 2 4331-1, , , 2776-07 ####[facility] LABCLIA [id number] [place] [address] [place] Cholesterol in HDL [Mass/Vol] 31 mg/dL Low >39 [facility] Comment on above: Order Comment: Speci men Type: BLOOD SPECIMENOrdering Facility: [facility] Address: [address] [place] [address] Result Comment: 40-5 9 mg/dL, Acceptable>59 mg/dL, High: Negative risk factor for coronary heart disease<40 mg/dL, Low: Positive risk factor for coronary heart disease Performed By: #### 2 4331-1, , , 2776- ####[facility] LABCLIA [id number] [place] [address] [place] Cholesterol in LDL [Mass/Vol] 55 mg/dL Normal <100 [facility] Comment on above: Order Comment: Speci men Type: BLOOD SPECIMENOrdering Facility: [facility] Address: [address] [place] [address] Result Comment: <100 mg/dL, Optimal 100-129 mg/dL, Near optimal/above optimal 130-159 mg/dL, Borderline high 160-189 mg/dL, High>189 mg/dL, Very highSecondary prevention optimal LDL Cholesterol levels are recommended to be < 70 mg/dL Performed By: #### 2 4331-1, 01848-8, 77645-8, 2776- ####[facility] LABCLIA [id number] [address] [address] [place] Cholesterol in LDL/Cholesterol in HDL [Mass ratio] 1.77 {ratio} Normal <2.54 [facility] Comment on above: Order Comment: Speci men Type: BLOOD SPECIMENOrdering Facility: [facility] Address: [address] [place] [address] Result Comment: Refe rence:1. National Cholesterol Education Program ATP III Guideline At-A-Glance Quick Desk Reference: National Heart, Lung, and Blood [place]. National Institutes of Health. 2001: NIH Publication No. 01-3305.2. An International Atherosclerosis Society position paper: global recommendations for the management of dyslipidemia: executive summary, Atherosclerosis. 2014: 232(2):410-413. Performed By: #### 2 4331-1, 72920-8, 82360-9, 2776- ####[facility] LABCLIA [id number] [place] [address] [place] Cholesterol in VLDL [Mass/Vol] 29 mg/dL Normal <30 [facility] Comment on above: Order Comment: Speci men Type: BLOOD SPECIMENOrdering Facility: [facility] Address: [address] [place] [address] Performed By: #### 2 4331-1, 33716-0, 28842-3, 2776- ####[facility] LABCLIA [id number] [place] [address] [place] Cholesterol non HDL [Mass/Vol] 84 mg/dL Normal <130 [facility] Comment on above: Order Comment: Speci men Type: BLOOD SPECIMENOrdering Facility: [facility] Address: [address] [place] [address] Result Comment: <130 mg/dL, Optimal 130-159 mg/dL, Near optimal/above optimal 160-189 mg/dL, Borderline high 190-219 mg/dL, High>219 mg/dL, Very highSecondary prevention optimal non HDL Cholesterol levels are recommended to be <100 mg/dL Performed By: #### 2 4331-1, , , 2776-07 ####[facility] LABCLIA [id number] [address] [address] [place] Cholesterol.total/C holesterol in HDL [Mass ratio] 3.71 {ratio} Normal <5.10 [facility] Comment on above: Order Comment: Speci men Type: BLOOD SPECIMENOrdering Facility: [facility] Address: [address] [place] [address] Performed By: #### 2 4331-1, , , 2776-07 ####[facility] LABCLIA [id number] [place] [address] [place] FASTING TIME 13 hrs Normal [facility] Comment on above: Order Comment: Speci men Type: BLOOD SPECIMENOrdering Facility: [facility] Address: [address] [place] [address] Performed By: #### 2 4331-1, , , 2776-07 ####[facility] LABCLIA [id number] [place] [address] [place] Triglyceride [Mass/Vol] 144 mg/dL Normal <150 [facility] Comment on above: Order Comment: Speci men Type: BLOOD SPECIMENOrdering Facility: [facility] Address: [address] [place] [address] Result Comment: <150 mg/dL, Normal 150-199 mg/dL, Borderline high 200-499 mg/dL, High>499 mg/dL, Very high Performed By: #### 2 4331-1, , , 2776-07 ####[facility] LABCLIA [id number] [address] [address] [place] Magnesium SerPl-mCncon 06-20 Magnesium [Mass/Vol] 1.6 mg/dL Low 1.7-2.3 [facility] Comment on above: Order Comment: Speci men Type: BLOOD SPECIMENOrdering Facility: [facility] Address: [address] [place], [place] [address] Performed By: #### 2 4331-1, 54168-4, 49236-9, 2776- ####[facility] LABIA [id number] [place] [address] [place] PTH-Intact SerPl-mCncon 06-09 Parathyrin.intact [Mass/Vol] 105 pg/mL High 15-65 [facility] Comment on above: Order Comment: Speci men Type: BLOOD SPECIMENOrdering Facility: [facility] Address: [address] [place] [address] Performed By: #### 2 731-8 ####[facility] LABIA [id number] [place] [id number] [place] Phosphate SerPl-mCncon 06-20 Phosphate [Mass/Vol] 3.4 mg/dL Normal 2.7-4.8 [facility] Comment on above: Order Comment: Speci men Type: BLOOD SPECIMENOrdering Facility: [facility] Address: [address] [place] [address] Performed By: #### 2 4331-1, 93477-3, 54887-2, 2776-07 ####[facility] LABIA [id number] [place] [id number] [place] Prot/Creat Uron 06-20-2023 Protein/Creatinine (U) [Mass ratio] 1.35 mg/mg High <0.15 [facility] Comment on above: Order Comment: Speci men Type: URINE SPECIMENOrdering Facility: [facility] Address: [address] [place] [address] Result Comment: Adul t Proteinuria Categories:<0.15 mg/mg is considered normal to mildly increased0.15 - 0.50 mg/mg is considered moderately increased>0.50 mg/mg is considered severely increasedKDIGO. (2013). KDIGO 2012 Clinical Practice Guideline for the Evaluation and Management of Chronic Kidney Disease. Official Journal of the International Society of Nephrology, 3(1), 1150. Performed By: #### 2 890-2 ####[facility] LABCLIA [id number] [place] [address] [place] Protein/Creatinine (U) [Mass ratio]on 06-20-2023 Creatinine (U) [Mass/Vol] 112.9 mg/dL Normal 20.0-300.0 [facility] Comment on above: Order Comment: Speci men Type: URINE SPECIMENOrdering Facility: [facility] Address: [address] [place] [address] Performed By: #### 2 890-2 ####[facility] LABIA [id number] [address] [place] [facility] Protein (U) [Mass/Vol] 152 mg/dL High 0-20 [facility] Comment on above: Order Comment: Speci men Type: URINE SPECIMENOrdering Facility: [facility] Address: [address] [place] [address] Performed By: #### 2 890-2 ####[facility] [id number] [address] [place] Tacrolimus Bld-mCncon 2022 Tacrolimus (Bld) [Mass/Vol] 8.0 ng/mL Normal 5.0-20.0 [facility] Comment on above: Order Comment: Speci men Type: BLOOD SPECIMENOrdering Facility: [facility] Address: [address] [place] [address] Result Comment: Holly vidualized target levels for a given patient will depend on many factors (including the type of organ transplant, time since transplantation, concurrent medications, and other clinical factors), and should be assessed by those health care providers experienced in the management of immunosuppression. Reference ranges and high/low indicator flags are provided as general guidelines only. The treating physician must determine appropriate target levels/dosing based on the specific clinical situation. Test performed by chemiluminescent immunoassay using [employer] i. Performed By: #### 1 1253-2 ####[facility] LABCLIA [id number] [place] [address] [place] BK VIRUS PCR,QUANT,Gee 05-29 BK virus DNA KURT+probe [#/Vol] Not detected Normal BK Virus DNA Not Detected by PCR. [facility] Comment on above: Order Comment: Speci men Type: BLOOD SPECIMENOrdering Facility: [facility] Address: [address] [place] [address] Performed By: #### B KENDRICK ####[facility] LABCLIA [id number] [place] [address] [place] CBC W Auto Differential pane l (Bld)on 05-29-2023 Basophils (Bld) [#/Vol] 10*3/uL Normal <0.11 [facility] Comment on above: Order Comment: Speci men Type: BLOOD SPECIMENOrdering Facility: [facility] Address: [address] [place] [address] Performed By: #### 5 7021-8 ####[facility] LABCLIA [id number] [place] [address] [place] Basophils/100 WBC (Bld) 0.3 % Normal [facility] Comment on above: Order Comment: Speci men Type: BLOOD SPECIMENOrdering Facility: [facility] Address: [address] [place] [address] Performed By: #### 5 7021-8 ####[facility] LABIA [id number] [place] [address] [place] Differential cell count method Nom (Bld) Auto Normal [facility] Comment on above: Order Comment: Speci men Type: BLOOD SPECIMENOrdering Facility: [facility] Address: [address] [place] [address] Performed By: #### 5 7021-8 ####[facility] LABCLIA [id number] [place] [address] [place] Eosinophils (Bld) [#/Vol] 0.18 10*3/uL Normal <0.46 [facility] Comment on above: Order Comment: Speci men Type: BLOOD SPECIMENOrdering Facility: [facility] Address: [address] [place] [address] Performed By: #### 5 7021-8 ####[facility] LABCLIA [id number] [place] [address] [place] Eosinophils/100 WBC (Bld) 2.6 % Normal [facility] Comment on above: Order Comment: Speci men Type: BLOOD SPECIMENOrdering Facility: [facility] Address: [address] [place] [address] Performed By: #### 5 7021-8 ####[facility] LABCLIA [id number] [place] [address] [place] Erythrocyte distribution width (RBC) [Ratio] 12.5 % Normal 11.5-15.0 [facility] Comment on above: Order Comment: Speci men Type: BLOOD SPECIMENOrdering Facility: [facility] Address: [address] [place] [address] Performed By: #### 5 7021-8 ####[facility] LABIA [id number] [place] [address] [place] Hematocrit (Bld) [Volume fraction] 43.7 % Normal 39.0-51.0 [facility] Comment on above: Order Comment: Speci men Type: BLOOD SPECIMENOrdering Facility: [facility] Address: [address] [place] [address] Performed By: #### 5 7021-8 ####[facility] LABCLIA [id number] [place] [address] [place] Hemoglobin (Bld) [Mass/Vol] 13.7 g/dL Normal 13.0-17.0 [facility] Comment on above: Order Comment: Speci men Type: BLOOD SPECIMENOrdering Facility: [facility] Address: [address] [place] [address] Performed By: #### 5 7021-8 ####[facility] LABCLIA [id number] [place] [address] [place] Immature granulocytes (Bld) [#/Vol] 0.03 10*3/uL Normal <0.10 [facility] Comment on above: Order Comment: Speci men Type: BLOOD SPECIMENOrdering Facility: [facility] Address: [address] [place] [address] Performed By: #### 5 7021-8 ####[facility] LABCLIA [id number] [place] [address] [place] Immature granulocytes/100 WBC (Bld) 0.4 % Normal [facility] Comment on above: Order Comment: Speci men Type: BLOOD SPECIMENOrdering Facility: [facility] Address: [address] [place] [address] Performed By: #### 5 7021-8 ####[facility] LABCLIA [id number] [place] [address] [place] Lymphocytes (Bld) [#/Vol] 0.83 10*3/uL Low 1.00-4.00 [facility] Comment on above: Order Comment: Speci men Type: BLOOD SPECIMENOrdering Facility: [facility] Address: [address] [place] [address] Performed By: #### 5 7021-8 ####[facility] LABCLIA [id number] [place] [address] [place] Lymphocytes/100 WBC (Bld) 11.8 % Normal [facility] Comment on above: Order Comment: Speci men Type: BLOOD SPECIMENOrdering Facility: [facility] Address: [address] [place] [address] Performed By: #### 5 7021-8 ####[facility] LABIA [id number] [place] [address] [place] MCH (RBC) [Entitic mass] 27.7 pg Normal 26.0-34.0 [facility] Comment on above: Order Comment: Speci men Type: BLOOD SPECIMENOrdering Facility: [facility] Address: [address] [place] [address] Performed By: #### 5 7021-8 ####[facility] LABIA [id number] [place] [address] [place] MCHC (RBC) [Mass/Vol] 31.4 g/dL Normal 30.5-36.0 [facility] Comment on above: Order Comment: Speci men Type: BLOOD SPECIMENOrdering Facility: [facility] Address: [address] [place] [address] Performed By: #### 5 7021-8 ####[facility] LABIA [id number] [place] [address] [place] MCV (RBC) [Entitic vol] 88.3 fL Normal 80.0-100.0 [facility] Comment on above: Order Comment: Speci men Type: BLOOD SPECIMENOrdering Facility: [facility] Address: [address] [place] [address] Performed By: #### 5 7021-8 ####[facility] LABIA [id number] [place] [address] [place] Monocytes (Bld) [#/Vol] 0.82 10*3/uL Normal <0.87 [facility] Comment on above: Order Comment: Speci men Type: BLOOD SPECIMENOrdering Facility: [facility] Address: [address] [place] [address] Performed By: #### 5 7021-8 ####[facility] LABIA [id number] [place] [address] [place] Monocytes/100 WBC (Bld) 11.7 % Normal [facility] Comment on above: Order Comment: Speci men Type: BLOOD SPECIMENOrdering Facility: [facility] Address: [address] [place] [address] Performed By: #### 5 7021-8 ####[facility] LABCLIA [id number] [place] [address] [place] Neutrophils (Bld) [#/Vol] 5.14 10*3/uL Normal 1.45-7.50 [facility] Comment on above: Order Comment: Speci men Type: BLOOD SPECIMENOrdering Facility: [facility] Address: [address] [place] [address] Performed By: #### 5 7021-8 ####[facility] LABCLIA [id number] [place] [address] [place] Neutrophils/100 WBC (Bld) 73.2 % Normal [facility] Comment on above: Order Comment: Speci men Type: BLOOD SPECIMENOrdering Facility: [facility] Address: [address] [place] [address] Performed By: #### 5 7021-8 ####[facility] LABCLIA [id number] [place] [address] [place] Nucleated RBC (Bld) [#/Vol] 10*3/uL Normal <0.01 [facility] Comment on above: Order Comment: Speci men Type: BLOOD SPECIMENOrdering Facility: [facility] Address: [address] [place] [address] Performed By: #### 5 7021-8 ####[facility] LABCLIA [id number] [place] [address] [place] Nucleated RBC/100 WBC (Bld) [Ratio] 0.0 /100 WBC Normal [facility] Comment on above: Order Comment: Speci men Type: BLOOD SPECIMENOrdering Facility: [facility] Address: [address] [place] [address] Performed By: #### 5 7021-8 ####[facility] LABCLIA [id number] [place] [address] [place] Platelet mean volume (Bld) [Entitic vol] 10.5 fL Normal 9.0-12.7 [facility] Comment on above: Order Comment: Speci men Type: BLOOD SPECIMENOrdering Facility: [facility] Address: [address] [place] [address] Performed By: #### 5 7021-8 ####[facility] LABIA [id number] [place] [address] [place] Platelets (Bld) [#/Vol] 250 10*3/uL Normal 150-400 [facility] Comment on above: Order Comment: Speci men Type: BLOOD SPECIMENOrdering Facility: [facility] Address: [address] [place] [address] Performed By: #### 5 7021-8 ####[facility] LABIA [id number] [place] [address] [place] RBC (Bld) [#/Vol] 4.95 10*6/uL Normal 4.20-6.00 [facility] Comment on above: Order Comment: Speci men Type: BLOOD SPECIMENOrdering Facility: [facility] Address: [address] [place] [address] Performed By: #### 5 7021-8 ####[facility] LABIA [id number] [place] [address] [place] WBC (Bld) [#/Vol] 7.02 10*3/uL Normal 3.70-11.00 [facility] Comment on above: Order Comment: Speci men Type: BLOOD SPECIMENOrdering Facility: [facility] Address: [address] [place] [address] Performed By: #### 5 7021-8 ####[facility] LABIA [id number] [place] [address] [place] Comprehensive metabolic 2000 panelon 05-29-2023 Albumin [Mass/Vol] 3.9 g/dL Normal 3.9-4.9 [facility] Comment on above: Order Comment: Speci men Type: BLOOD SPECIMENOrdering Facility: [facility] Address: [address] [place] [address] Performed By: #### 1 9123-9, 2777-1, 92103-6 ####[facility] LABCLIA [id number] [place] [address] [place] ALP [Catalytic activity/Vol] 127 U/L High 38-113 [facility] Comment on above: Order Comment: Speci men Type: BLOOD SPECIMENOrdering Facility: [facility] Address: [address] [place] [address] Performed By: #### 1 9123-9, 2777-, 46868-0 ####[facility] LABCLIA [id number] [place] [address] [place] ALT [Catalytic activity/Vol] 18 U/L Normal 10-54 [facility] Comment on above: Order Comment: Speci men Type: BLOOD SPECIMENOrdering Facility: [facility] Address: [address] [place] [address] Performed By: #### 1 9123-9, 2777, 38272-9 ####[facility] LABCLIA [id number] [place] [address] [place] Anion gap [Moles/Vol] 9 mmol/L Normal 9-18 [facility] Comment on above: Order Comment: Speci men Type: BLOOD SPECIMENOrdering Facility: [facility] Address: [address] [place] [address] Performed By: #### 1 9123-9, 2777-, 53201-8 ####[facility] LABCLIA [id number] [place] [id number] [place] AST [Catalytic activity/Vol] 11 U/L Low 14-40 [facility] Comment on above: Order Comment: Speci men Type: BLOOD SPECIMENOrdering Facility: [facility] Address: [address] [place] [address] Performed By: #### 1 9123-9, 2776-07, ####[facility] LABCLIA [id number] [place] [address] [place] Bilirubin [Mass/Vol] 0.3 mg/dL Normal 0.2-1.3 [facility] Comment on above: Order Comment: Speci men Type: BLOOD SPECIMENOrdering Facility: [facility] Address: [address] [place] [address] Performed By: #### 1 9123-9, 2776-07, ####[facility] LABCLIA [id number] [place] [address] [place] Calcium [Mass/Vol] 8.9 mg/dL Normal 8.5-10.2 [facility] Comment on above: Order Comment: Speci men Type: BLOOD SPECIMENOrdering Facility: [facility] Address: [address] [place] [address] Performed By: #### 1 9123-9, 2776-07, ####[facility] LABCLIA [id number] [place] [address] [place] Chloride [Moles/Vol] 106 mmol/L High 97-105 [facility] Comment on above: Order Comment: Speci men Type: BLOOD SPECIMENOrdering Facility: [facility] Address: [address] [place] [address] Performed By: #### 1 9123-9, 2776-07, ####[facility] LABCLIA [id number] [address] [address] [place] CO2 [Moles/Vol] 21 mmol/L Low 22-30 [facility] Comment on above: Order Comment: Speci men Type: BLOOD SPECIMENOrdering Facility: [facility] Address: [address] [place] [address] Performed By: #### 1 9123-9, 2777-, 39860-5 ####[facility] LABIA [id number] [place] [address] [place] Creatinine [Mass/Vol] 1.45 mg/dL High 0.73-1.22 [facility] Comment on above: Order Comment: Speci men Type: BLOOD SPECIMENOrdering Facility: [facility] Address: [address] [place] [address] Performed By: #### 1 9123-9, 2777, ####[facility] [id number] [place] [address] [place] Creatinine and Glomerular filtration rate.predicted panel (S/P/Bld) 53 mL/min/1.73m??? Low >=60 [facility] Comment on above: Order Comment: Speci men Type: BLOOD SPECIMENOrdering Facility: [facility] Address: [address] [place] [address] Result Comment: Sylwia mated Glomerular Filtration Rate (eGFR) is calculated using the 2020 CKD-EPI creatinine equation. This equation utilizes serum creatinine, sex, and age as parameters. The creatinine assay has traceable calibration to isotope dilution-mass spectrometry. Refer to KDIGO guidelines for clinical interpretation. In patients with unstable renal function, e.g. those with acute kidney injury, the eGFR may not accurately reflect actual GFR. Performed By: #### 1 9123-9, 2777, 10179-8 ####[facility] LABIA [id number] [place] [id number] [place] Glucose [Mass/Vol] 171 mg/dL High 74-99 [facility] Comment on above: Order Comment: Speci men Type: BLOOD SPECIMENOrdering Facility: [facility] Address: [address] [place] [address] Result Comment: The [place] Diabetes Association (ADA) provides guidance for cutoff values for fasting glucose and random glucose. The ADA defines fasting as no caloric intake for at least 8 hours. Fasting plasma glucose results between 100 to 125 mg/dL indicate increased risk for diabetes (prediabetes).Fasting plasma glucose results greater than or equal to 126 mg/dL meet the criteria for diagnosis of diabetes. In the absence of unequivocal hyperglycemia, results should be confirmed by repeat testing. In a patient with classic symptoms of hyperglycemia or hyperglycemic crisis, random plasma glucose results greater than or equal to 200 mg/dL meet the criteria for diagnosis of diabetes.Reference: Standards of Medical Care in Diabetes 2016, [place] Diabetes Association. Diabetes Care. 2016.39(Suppl 1). Performed By: #### 1 9123-9, 27701-07, 16208-9 ####[facility] LABIA [id number] [place] [address] [place] Potassium [Moles/Vol] 4.3 mmol/L Normal 3.7-5.1 [facility] Comment on above: Order Comment: Speci men Type: BLOOD SPECIMENOrdering Facility: [facility] Address: [address] [place] [address] Performed By: #### 1 9123-9, 2776-07, ####[facility] LABIA [id number] [place] [address] [place] Protein [Mass/Vol] 6.7 g/dL Normal 6.3-8.0 [facility] Comment on above: Order Comment: Speci men Type: BLOOD SPECIMENOrdering Facility: [facility] Address: [address] [place] [address] Performed By: #### 1 9123-9, 27701-07, 53499-8 ####[facility] LABIA [id number] [place] [address] [place] Sodium [Moles/Vol] 136 mmol/L Normal 136-144 [facility] Comment on above: Order Comment: Speci men Type: BLOOD SPECIMENOrdering Facility: [facility] Address: [address] [place] [address] Performed By: #### 1 9123-9, 2771, 15218-4 ####[facility] LABCLIA [id number] [place] [address] [place] Urea nitrogen [Mass/Vol] 20 mg/dL Normal 9-24 [facility] Comment on above: Order Comment: Speci men Type: BLOOD SPECIMENOrdering Facility: [facility] Address: [address] [place] [address] Performed By: #### 1 9123-9, 2777-1, 69292-2 ####[facility] LABCLIA [id number] [place] [address] [place] HbA1c (Bld)on 05-29-2023 Average glucose Estimated from glycated hemoglobin (Bld) [Mass/Vol] 166 mg/dL Normal [facility] Comment on above: Order Comment: Speci men Type: BLOOD SPECIMENOrdering Facility: [facility] Address: [address] [place] [address] Result Comment: eAG: (Estimated average glucose) is a calculated value from HgbA1c and is customer support representative of the average blood glucose level in the last 2-3 month period. Performed By: #### 5 5454-3 ####[facility] LABCLIA [id number] [place] [address] [place] HbA1c (Bld) [Mass fraction] 7.4 % High 4.3-5.6 [facility] Comment on above: Order Comment: Speci men Type: BLOOD SPECIMENOrdering Facility: [facility] Address: [address] [place] [address] Result Comment: [place] Diabetes Association guidelines indicate that patients with HgbA1c in the range 5.7-6.4% are at increased risk for development of diabetes, and intervention by lifestyle modification may be beneficial. HgbA1c greater or equal to 6.5% is considered diagnostic of diabetes. Performed By: #### 5 5454-3 ####[facility] LABCLIA [id number] [place] [id number] [place] KID/PEDROZA REC POST TX DSAon ALLOGEN RESULTS TO FOLLOW See Allogen report to follow Normal [facility] Comment on above: Order Comment: Speci men Type: BLOOD SPECIMENOrdering Facility: [facility] Address: [address] [place] [address] Performed By: #### K PPFCX ####[facility] [id number] [place] [address] [place] Magnesium SerPl-mCncon 05-29 Magnesium [Mass/Vol] 1.6 mg/dL Low 1.7-2.3 [facility] Comment on above: Order Comment: Speci men Type: BLOOD SPECIMENOrdering Facility: [facility] Address: [address] [place] [address] Performed By: #### 1 9123-9, 2777-1, 62539-2 ####[facility] LABIA [id number] [address] [place] Phosphate SerPl-mCncon 05-29 Phosphate [Mass/Vol] 3.1 mg/dL Normal 2.7-4.8 [facility] Comment on above: Order Comment: Speci men Type: BLOOD SPECIMENOrdering Facility: [facility] Address: [address] [place] [address] Performed By: #### 1 9123-9, 2777-1, 21823-6 ####[facility] LABIA [id number] [place] [address] [place] Prot/Creat Uron 05-29-2023 Protein/Creatinine (U) [Mass ratio] 1.71 mg/mg High <0.15 [facility] Comment on above: Order Comment: Speci men Type: URINE SPECIMENOrdering Facility: [facility] Address: [address] [place] [address] Result Comment: Adul t Proteinuria Categories:<0.15 mg/mg is considered normal to mildly increased0.15 - 0.50 mg/mg is considered moderately increased>0.50 mg/mg is considered severely increasedKDIGO. (2013). KDIGO 2012 Clinical Practice Guideline for the Evaluation and Management of Chronic Kidney Disease. Official Journal of the International Society of Nephrology, 3(1), 1-150. Performed By: #### 2 890-2 ####[facility] LABCLIA [id number] [place] [id number] [place] Protein/Creatinine (U) [Mass ratio]on 05-29-2023 Creatinine (U) [Mass/Vol] 207.2 mg/dL Normal 20.0-300.0 [facility] Comment on above: Order Comment: Speci men Type: URINE SPECIMENOrdering Facility: [facility] Address: [address] [place] [address] Performed By: #### 2 890-2 ####[facility] [id number] [place] [address] [place] Protein (U) [Mass/Vol] 354 mg/dL High 0- [facility] Comment on above: Order Comment: Speci men Type: URINE SPECIMENOrdering Facility: [facility] Address: [address] [place] [address] Performed By: #### 2 890-2 ####[facility] [id number] [place] [address] [place] Tacrolimus Bld-mCncon 2022 Tacrolimus (Bld) [Mass/Vol] 7.4 ng/mL Normal 5.0-20.0 [facility] Comment on above: Order Comment: Speci men Type: BLOOD SPECIMENOrdering Facility: [facility] Address: [address] [place] [address] Result Comment: Holly vidualized target levels for a given patient will depend on many factors (including the type of organ transplant, time since transplantation, concurrent medications, and other clinical factors), and should be assessed by those health care providers experienced in the management of immunosuppression. Reference ranges and high/low indicator flags are provided as general guidelines only. The treating physician must determine appropriate target levels/dosing based on the specific clinical situation. Test performed by chemiluminescent immunoassay using Death by [employer] i. Performed By: #### 1 1253-2 ####[facility] LABCLIA [id number] [place] [address] [place] CNOVon 05-24-2023 CNOV Normal [facility] CNPNon 05-05-2023 CNPN Normal [facility] CNPNon 04-28-2023 CNPN Normal [facility] BK VIRUS PCR,QUANT,Gee 04-27 BK virus DNA KURT+probe [#/Vol] Not detected Normal BK Virus DNA Not Detected by PCR. [facility] Comment on above: Order Comment: Speci men Type: BLOOD SPECIMENOrdering Facility: [facility] Address: [address] [place] [address] Performed By: #### B KQUSHERI ####[facility] LABIA [id number] [place] [address] [place] CBC W Auto Differential pane l (Bld)on 04-27-2023 Basophils (Bld) [#/Vol] 10*3/uL Normal <0.11 [facility] Comment on above: Order Comment: Speci men Type: BLOOD SPECIMENOrdering Facility: [facility] Address: [address] [place] [address] Performed By: #### 5 7021-8 ####[facility] LABIA [id number] [place] [address] [place] Basophils/100 WBC (Bld) 0.1 % Normal [facility] Comment on above: Order Comment: Speci men Type: BLOOD SPECIMENOrdering Facility: [facility] Address: [address] [place] [address] Performed By: #### 5 7021-8 ####[facility] LABCLIA [id number] [place] [address] [place] Differential cell count method Nom (Bld) Auto Normal [facility] Comment on above: Order Comment: Speci men Type: BLOOD SPECIMENOrdering Facility: [facility] Address: [address] [place] [address] Performed By: #### 5 7021-8 ####[facility] LABCLIA [id number] [place] [address] [place] Eosinophils (Bld) [#/Vol] 0.20 10*3/uL Normal <0.46 [facility] Comment on above: Order Comment: Speci men Type: BLOOD SPECIMENOrdering Facility: [facility] Address: [address] [place] [address] Performed By: #### 5 7021-8 ####[facility] LABCLIA [id number] [place] [address] [place] Eosinophils/100 WBC (Bld) 2.8 % Normal [facility] Comment on above: Order Comment: Speci men Type: BLOOD SPECIMENOrdering Facility: [facility] Address: [address] [place] [address] Performed By: #### 5 7021-8 ####[facility] LABIA [id number] [place] [address] [place] Erythrocyte distribution width (RBC) [Ratio] 12.2 % Normal 11.5-15.0 [facility] Comment on above: Order Comment: Speci men Type: BLOOD SPECIMENOrdering Facility: [facility] Address: [address] [place] [address] Performed By: #### 5 7021-8 ####[facility] LABCLIA [id number] [place] [address] [place] Hematocrit (Bld) [Volume fraction] 43.1 % Normal 39.0-51.0 [facility] Comment on above: Order Comment: Speci men Type: BLOOD SPECIMENOrdering Facility: [facility] Address: [address] [place] [address] Performed By: #### 5 7021-8 ####[facility] LABCLIA [id number] [place] [address] [place] Hemoglobin (Bld) [Mass/Vol] 13.9 g/dL Normal 13.0-17.0 [facility] Comment on above: Order Comment: Speci men Type: BLOOD SPECIMENOrdering Facility: [facility] Address: [address] [place] [address] Performed By: #### 5 7021-8 ####[facility] LABCLIA [id number] [place] [address] [place] Immature granulocytes (Bld) [#/Vol] 0.04 10*3/uL Normal <0.10 [facility] Comment on above: Order Comment: Speci men Type: BLOOD SPECIMENOrdering Facility: [facility] Address: [address] [place] [address] Performed By: #### 5 7021-8 ####[facility] LABCLIA [id number] [place] [address] [place] Immature granulocytes/100 WBC (Bld) 0.6 % Normal [facility] Comment on above: Order Comment: Speci men Type: BLOOD SPECIMENOrdering Facility: [facility] Address: [address] [place] [address] Performed By: #### 5 7021-8 ####[facility] LABCLIA [id number] [place] [address] [place] Lymphocytes (Bld) [#/Vol] 0.92 10*3/uL Low 1.00-4.00 [facility] Comment on above: Order Comment: Speci men Type: BLOOD SPECIMENOrdering Facility: [facility] Address: [address] [place] [address] Performed By: #### 5 7021-8 ####[facility] LABCLIA [id number] [place] [address] [place] Lymphocytes/100 WBC (Bld) 12.9 % Normal [facility] Comment on above: Order Comment: Speci men Type: BLOOD SPECIMENOrdering Facility: [facility] Address: [address] [place] [address] Performed By: #### 5 7021-8 ####[facility] LABIA [id number] [place] [address] [place] MCH (RBC) [Entitic mass] 28.0 pg Normal 26.0-34.0 [facility] Comment on above: Order Comment: Speci men Type: BLOOD SPECIMENOrdering Facility: [facility] Address: [address] [place] [address] Performed By: #### 5 7021-8 ####[facility] [id number] [place] [address] [place] MCHC (RBC) [Mass/Vol] 32.3 g/dL Normal 30.5-36.0 [facility] Comment on above: Order Comment: Speci men Type: BLOOD SPECIMENOrdering Facility: [facility] Address: [address] [place] [address] Performed By: #### 5 7021-8 ####[facility] [id number] [place] [address] [place] MCV (RBC) [Entitic vol] 86.9 fL Normal 80.0-100.0 [facility] Comment on above: Order Comment: Speci men Type: BLOOD SPECIMENOrdering Facility: [facility] Address: [address] [place] [address] Performed By: #### 5 7021-8 ####[facility] LABIA [id number] [place] [address] [place] Monocytes (Bld) [#/Vol] 0.74 10*3/uL Normal <0.87 [facility] Comment on above: Order Comment: Speci men Type: BLOOD SPECIMENOrdering Facility: [facility] Address: [address] [place] [address] Performed By: #### 5 7021-8 ####[facility] LABIA [id number] [place] [address] [place] Monocytes/100 WBC (Bld) 10.4 % Normal [facility] Comment on above: Order Comment: Speci men Type: BLOOD SPECIMENOrdering Facility: [facility] Address: [address] [place] [address] Performed By: #### 5 7021-8 ####[facility] LABCLIA [id number] [place] [address] [place] Neutrophils (Bld) [#/Vol] 5.23 10*3/uL Normal 1.45-7.50 [facility] Comment on above: Order Comment: Speci men Type: BLOOD SPECIMENOrdering Facility: [facility] Address: [address] [place] [address] Performed By: #### 5 7021-8 ####[facility] LABCLIA [id number] [place] [address] [place] Neutrophils/100 WBC (Bld) 73.2 % Normal [facility] Comment on above: Order Comment: Speci men Type: BLOOD SPECIMENOrdering Facility: [facility] Address: [address] [place] [address] Performed By: #### 5 7021-8 ####[facility] [facility] LABCLIA [id number] [place] [address] [place] Nucleated RBC (Bld) [#/Vol] 10*3/uL Normal <0.01 [facility] Comment on above: Order Comment: Speci men Type: BLOOD SPECIMENOrdering Facility: [facility] Address: [address] [place] [address] Performed By: #### 5 7021-8 ####[facility] LABCLIA [id number] [place] [address] [place] Nucleated RBC/100 WBC (Bld) [Ratio] 0.0 /100 WBC Normal [facility] Comment on above: Order Comment: Speci men Type: BLOOD SPECIMENOrdering Facility: [facility] Address: [address] [place] [address] Performed By: #### 5 7021-8 ####[facility] LABCLIA [id number] [place] [address] [place] Platelet mean volume (Bld) [Entitic vol] 10.4 fL Normal 9.0-12.7 [facility] Comment on above: Order Comment: Speci men Type: BLOOD SPECIMENOrdering Facility: [facility] Address: [address] [place] [address] Performed By: #### 5 7021-8 ####[facility] LABCLIA [id number] [place] [address] [place] Platelets (Bld) [#/Vol] 257 10*3/uL Normal 150-400 [facility] Comment on above: Order Comment: Speci men Type: BLOOD SPECIMENOrdering Facility: [facility] Address: [address] [place] [address] Performed By: #### 5 7021-8 ####[facility] LABCLIA [id number] [place] [address] [place] RBC (Bld) [#/Vol] 4.96 10*6/uL Normal 4.20-6.00 [facility] Comment on above: Order Comment: Speci men Type: BLOOD SPECIMENOrdering Facility: [facility] Address: [address] [place] [address] Performed By: #### 5 7021-8 ####[facility] LABCLIA [id number] [place] [address] [place] WBC (Bld) [#/Vol] 7.14 10*3/uL Normal 3.70-11.00 [facility] Comment on above: Order Comment: Speci men Type: BLOOD SPECIMENOrdering Facility: [facility] Address: [address] [place] [address] Performed By: #### 5 7021-8 ####[facility] LABCLIA [id number] [address] [address] [place] Comprehensive metabolic 2000 panelon 04-27-2023 Albumin [Mass/Vol] 4.0 g/dL Normal 3.9-4.9 [facility] Comment on above: Order Comment: Speci men Type: BLOOD SPECIMENOrdering Facility: [facility] Address: [address] [place] [address] Performed By: #### 2 4323-8, 27701-07, ####[facility] LABCLIA [id number] [place] [id number] [place] ALP [Catalytic activity/Vol] 128 U/L High 38-113 [facility] Comment on above: Order Comment: Speci men Type: BLOOD SPECIMENOrdering Facility: [facility] Address: [address] [place] [address] Performed By: #### 2 4323-8, 27701-07, ####[facility] LABIA [id number] [place] [id number] [place] ALT [Catalytic activity/Vol] 21 U/L Normal 10-54 [facility] Comment on above: Order Comment: Speci men Type: BLOOD SPECIMENOrdering Facility: [facility] Address: [address] [place] [address] Performed By: #### 2 4323-8, 2776-07, ####[facility] LABIA [id number] [address] [address] [place] Anion gap [Moles/Vol] 11 mmol/L Normal 9-18 [facility] Comment on above: Order Comment: Speci men Type: BLOOD SPECIMENOrdering Facility: [facility] Address: [address] [place] [address] Performed By: #### 2 4323-8, 2777, ####[facility] LABIA [id number] [place] [id number] [place] AST [Catalytic activity/Vol] 17 U/L Normal 14-40 [facility] Comment on above: Order Comment: Speci men Type: BLOOD SPECIMENOrdering Facility: [facility] Address: [address] [place] [address] Performed By: #### 2 4323-8, 2776-07, ####[facility] LABCLIA [id number] [place] [address] [place] Bilirubin [Mass/Vol] 0.3 mg/dL Normal 0.2-1.3 [facility] Comment on above: Order Comment: Speci men Type: BLOOD SPECIMENOrdering Facility: [facility] Address: [address] [place] [address] Performed By: #### 2 4323-8, 2776-07, ####[facility] LABCLIA [id number] [place] [address] [place] Calcium [Mass/Vol] 8.8 mg/dL Normal 8.5-10.2 [facility] Comment on above: Order Comment: Speci men Type: BLOOD SPECIMENOrdering Facility: [facility] Address: [address] [place] [address] Performed By: #### 2 4323-8, 2776-07, ####[facility] LABCLIA [id number] [place] [address] [place] Chloride [Moles/Vol] 108 mmol/L High 97-105 [facility] Comment on above: Order Comment: Speci men Type: BLOOD SPECIMENOrdering Facility: [facility] Address: [address] [place] [address] Performed By: #### 2 4323-8, 2776-07, ####[facility] LABCLIA [id number] [place] [id number] [place] CO2 [Moles/Vol] 20 mmol/L Low 22-30 [facility] Comment on above: Order Comment: Speci men Type: BLOOD SPECIMENOrdering Facility: [facility] Address: [address] [place] [address] Performed By: #### 2 4323-8, 2776-07, ####[facility] LABCLIA [id number] [address] [address] [place] Creatinine [Mass/Vol] 1.38 mg/dL High 0.73-1.22 [facility] Comment on above: Order Comment: Speci men Type: BLOOD SPECIMENOrdering Facility: [facility] Address: [address] [place] [address] Performed By: #### 2 4323-8, 2776-07, ####[facility] LABCLIA [id number] [place] [address] [place] Creatinine and Glomerular filtration rate.predicted panel (S/P/Bld) 56 mL/min/1.73m??? Low >=60 [facility] Comment on above: Order Comment: Speci men Type: BLOOD SPECIMENOrdering Facility: [facility] Address: [address] [place] [address] Result Comment: Sylwia mated Glomerular Filtration Rate (eGFR) is calculated using the 2020 CKD-EPI creatinine equation. This equation utilizes serum creatinine, sex, and age as parameters. The creatinine assay has traceable calibration to isotope dilution-mass spectrometry. Refer to KDIGO guidelines for clinical interpretation. In patients with unstable renal function, e.g. those with acute kidney injury, the eGFR may not accurately reflect actual GFR. Performed By: #### 2 4323-8, 2776-07, ####[facility] LABIA [id number] [place] [id number] [place] Glucose [Mass/Vol] 156 mg/dL High 74-99 [facility] Comment on above: Order Comment: Speci men Type: BLOOD SPECIMENOrdering Facility: [facility] Address: [address] [place] [address] Result Comment: The [place] Diabetes Association (ADA) provides guidance for cutoff values for fasting glucose and random glucose. The ADA defines fasting as no caloric intake for at least 8 hours. Fasting plasma glucose results between 100 to 125 mg/dL indicate increased risk for diabetes (prediabetes).Fasting plasma glucose results greater than or equal to 126 mg/dL meet the criteria for diagnosis of diabetes. In the absence of unequivocal hyperglycemia, results should be confirmed by repeat testing. In a patient with classic symptoms of hyperglycemia or hyperglycemic crisis, random plasma glucose results greater than or equal to 200 mg/dL meet the criteria for diagnosis of diabetes.Reference: Standards of Medical Care in Diabetes 2016, [place] Diabetes Association. Diabetes Care. 2016.39(Suppl 1). Performed By: #### 2 4323-8, 2776-07, ####[facility] LABCLIA [id number] [place] [address] [place] Potassium [Moles/Vol] 4.3 mmol/L Normal 3.7-5.1 [facility] Comment on above: Order Comment: Speci men Type: BLOOD SPECIMENOrdering Facility: [facility] Address: [address] [place] [address] Performed By: #### 2 4323-8, 2776-07, ####[facility] LABIA [id number] [place] [address] [place] Protein [Mass/Vol] 6.5 g/dL Normal 6.3-8.0 [facility] Comment on above: Order Comment: Speci men Type: BLOOD SPECIMENOrdering Facility: [facility] Address: [address] [place] [address] Performed By: #### 2 4323-8, 2776-07, ####[facility] LABCLIA [id number] [place] [id number] [place] Sodium [Moles/Vol] 139 mmol/L Normal 136-144 [facility] Comment on above: Order Comment: Speci men Type: BLOOD SPECIMENOrdering Facility: [facility] Address: [address] [place], [place] [address] Performed By: #### 2 4323-8, 27771, ####[facility] LABIA [id number] [place] [address] [place] Urea nitrogen [Mass/Vol] 23 mg/dL Normal 9-24 [facility] Comment on above: Order Comment: Speci men Type: BLOOD SPECIMENOrdering Facility: [facility] Address: [address] [place] [address] Performed By: #### 2 4323-8, 27701-07, ####[facility] LABIA [id number] [place] [address] [place] Magnesium SerPl-mCncon 04-27 Magnesium [Mass/Vol] 1.6 mg/dL Low 1.7-2.3 [facility] Comment on above: Order Comment: Speci men Type: BLOOD SPECIMENOrdering Facility: [facility] Address: [address] [place] [address] Performed By: #### 2 4323-8, 27701-07, ####[facility] [id number] [place] [address] [place] Phosphate SerPl-mCncon 04-27 Phosphate [Mass/Vol] 3.0 mg/dL Normal 2.7-4.8 [facility] Comment on above: Order Comment: Speci men Type: BLOOD SPECIMENOrdering Facility: [facility] Address: [address] [place], [place] [address] Performed By: #### 2 4323-8, 2777, ####[facility] LABIA [id number] [place] [id number] [place] Prot/Creat Uron 04-27-2023 Protein/Creatinine (U) [Mass ratio] 1.39 mg/mg High <0.15 [facility] Comment on above: Order Comment: Speci men Type: URINE SPECIMENOrdering Facility: [facility] Address: [address] [place] [address] Result Comment: Adul t Proteinuria Categories:<0.15 mg/mg is considered normal to mildly increased0.15 - 0.50 mg/mg is considered moderately increased>0.50 mg/mg is considered severely increasedKDIGO. (2013). KDIGO 2012 Clinical Practice Guideline for the Evaluation and Management of Chronic Kidney Disease. Official Journal of the International Society of Nephrology, 3(1), 1-150. Performed By: #### 2 890-2 ####[facility] [id number] [place] [address] [place] Protein/Creatinine (U) [Mass ratio]on 04-27-2023 Creatinine (U) [Mass/Vol] 104.4 mg/dL Normal 20.0-300.0 [facility] Comment on above: Order Comment: Speci men Type: URINE SPECIMENOrdering Facility: [facility] Address: [address] [place] [address] Performed By: #### 2 890-2 ####[facility] [id number] [place] [address] [place] Protein (U) [Mass/Vol] 145 mg/dL High 0-20 [facility] Comment on above: Order Comment: Speci men Type: URINE SPECIMENOrdering Facility: [facility] Address: [address] [place] [address] Performed By: #### 2 890-2 ####[facility] [id number] [place] [id number] [place] Tacrolimus Bld-mCncon 2022 Tacrolimus (Bld) [Mass/Vol] 8.7 ng/mL Normal 5.0-20.0 [facility] Comment on above: Order Comment: Speci men Type: BLOOD SPECIMENOrdering Facility: [facility] Address: [address] [place] [address] Result Comment: Holly vidualized target levels for a given patient will depend on many factors (including the type of organ transplant, time since transplantation, concurrent medications, and other clinical factors), and should be assessed by those health care providers experienced in the management of immunosuppression. Reference ranges and high/low indicator flags are provided as general guidelines only. The treating physician must determine appropriate target levels/dosing based on the specific clinical situation. Test performed by chemiluminescent immunoassay using [employer]. Performed By: #### 1 1253-2 ####[facility] LABCLIA [id number] [place] [id number] [place] HEMOGLOBIN A1C (POC)on 02-17 HbA1c (Bld) [Mass fraction] 7.7 % Abnormal 4.2 - 5.6 % [facility] HEMOGLOBIN A1C (POC)on 11-17 HbA1c (Bld) [Mass fraction] 8.1 % Abnormal 4.2 - 5.6 % [facility] HEMOGLOBIN A1C (POC)on 08-19 HbA1c (Bld) [Mass fraction] 8.9 % Abnormal 4.2 - 5.6 % [facility] XR Chest PA and Lateralon IMPRESSION: No acute radiographic abnormality. Mobility Developer: PSCB Transcribe Date/Time: Jan 10 2022 9:46A Dictated by : IRASEMA MCMANUS MD This examination was interpreted and the report reviewed and electronically signed by: IRASEMA MCMANUS MD on Jan 10 2022 9:46AM EST ZZZ_DO_NOT_USE _DIVISION OF RADIOLOGY * * *Final Report* * * DATE OF EXAM: Jan 08 2022 12:11PM WOX 5291 - XR CHEST 2V FRONTAL/LAT / PROCEDURE REASON: Chest pain, unspecified type * * * * Physician Interpretation * * * * EXAMINATION: CHEST RADIOGRAPH (2 VIEW FRONTAL & LATERAL) CLINICAL HISTORY: Chest pain, unspecified type MQ: XC2_6 EXAM DATE/TIME: 01/08/2022 12:11 PM COMPARISON: 05/16/2016 RESULT: Lines, tubes, and devices: None. Lungs and pleura: No consolidation. No lung mass. No pleural effusion. No pneumothorax. Cardiomediastinal silhouette: Normal cardiomediastinal silhouette. Bones and soft tissues: Unremarkable. ZZZ_DO_NOT_USE _DIVISION OF RADIOLOGY Provider, [facility] Consuelo gibson [place] - 01/10/2022 * * *Final Report* * * DATE OF EXAM: Jan 08 2022 12:11PM WOX 5291 - XR CHEST 2V FRONTAL/LAT / PROCEDURE REASON: Chest pain, unspecified type * * * * Physician Interpretation * * * * EXAMINATION: CHEST RADIOGRAPH (2 VIEW FRONTAL & LATERAL) CLINICAL HISTORY: Chest pain, unspecified type MQ: XC2_6 EXAM DATE/TIME: 01/08/2022 12:11 PM COMPARISON: 05/16/2016 RESULT: Lines, tubes, and devices: None. Lungs and pleura: No consolidation. No lung mass. No pleural effusion. No pneumothorax. Cardiomediastinal silhouette: Normal cardiomediastinal silhouette. Bones and soft tissues: Unremarkable. IMPRESSION IMPRESSION: No acute radiographic abnormality. Mobility Developer: PSCB Transcribe Date/Time: Jan 10 2022 9:46A Dictated by : IRASEMA MCMANUS MD This examination was interpreted and the report reviewed and electronically signed by: IRASEMA MCMANUS MD on Jan 10 2022 9:46AM EST [facility] XR Chest PA and LateralOrder ed By: [facility] Provider on 01-10-2022 [facility] XR Chest PA and Lateralon Radiology Study observation (narrative) [facility] MRI BRAIN WO IVCONon 022 MRI BRAIN WO IVCON * * *Final Report* * * DATE OF EXAM: Oct 05 2021 11:00AM [facility] 0294 - MRI BRAIN WO IVCON / PROCEDURE REASON: multiple diagnoses * * * * Physician Interpretation * * * * EXAMINATION: MRI BRAIN WO IVCON, MRI LUMBAR SPINE WO IVCON CLINICAL HISTORY: Weakness of both legs. Recurrent falls. TECHNIQUE: Routine noncontrast MRI protocol including diffusion images. Routine lumbar spine examination without contrast. MQ: MRBWO_2 COMPARISON: None. RESULT: Acute Change: There is no evidence of restricted diffusion to suggest an acute infarct. Hemorrhage: Petechial hemorrhage left posterior parietal lobe associated with small focus of encephalomalacia. Mass Lesion/ Mass Effect: No evidence of an intracranial mass or extra-axial fluid collection. No significant mass effect. Chronic Change: Small focus of left parietal encephalomalacia most likely remote ischemia. Minimal chronic microvascular ischemic change. Parenchyma: There is mild generalized parenchymal volume loss. The brain parenchyma is otherwise within normal limits of signal intensity and morphology. Ventricles: Normal caliber and morphology. Skull Base: Hypothalamic and pituitary region are grossly normal. Craniocervical junction is normal. No significant marrow replacement process. Vasculature: Major intracranial arterial structures, and dural venous sinuses show typical flow void, suggesting patency by spin echo criteria. Other: The visualized paranasal sinuses and mastoid air cells are clear. The orbits and extracranial soft tissues are unremarkable. Lumbar spine MRI: [employer] images demonstrate innumerable hepatic cysts or hemangiomas and single right-sided kidney. Second kidney is not identified. Lumbar vertebral bodies maintain normal height. Normal bone marrow signal intensity. Conus medullaris is normally positioned with normal morphology and signal intensity. There is slight anterolisthesis of L5 on S1 with chronic appearing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 oneill MD Work Phone: Neurology Comment on above: MRI s -3 different o nereida in open style MRI Start: 02-02-2023 Telephone encounter Preeti rivera PA-C Work Phone: [facility] Comment on above: Abnormal Lab Start: 02-01-2023 ambulatory Arslan resendiz MD Work Phone: [facility] [place] Comment on above: Preeti gaytany Drpt [facility] Start: 01-19-2023 End: 01-19-2023 Nursing evaluation of patient and report Mi Nurse Work Phone: [facility] [place] Comment on above: Vertigo (Primary Dx) ; History of stroke; Tinnitus, bilateral; Hypertension, unspecified type; Syncope, near Start: 01-18-2023 ambulatory Bill oneill MD Work Phone: Neurology Comment on above: MRI scan Start: 01-18-2023 End: 01-18-2023 Subsequent hospital visit by physician [facility] (I-Stat/1.5t) Work Phone: Radiology Comment on above: Left without seen Start: 01-16-2023 End: 01-16-2023 Patient encounter procedure Bill Mckay MD Work Phone: Neurology Comment on above: Vertigo (Primary Dx) ; Vertebrobasilar artery syndrome; History of stroke; Tinnitus, bilateral; Bilateral hearing loss, unspecified hearing loss type; Visual changes; Hypertension, unspecified type; Syncope, near Start: 01-13-2023 Telephone encounter Bill Mckay MD Work Phone: Neurology Comment on above: Appointment Start: 01-12-2023 ambulatory Arslan resendiz MD Work Phone: [facility] [place] Comment on above: Continuing descendin g whirlpgilda s nsationa Start: 12-14-2022 End: 12-14-2022 Patient encounter procedure 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 Work Phone: [facility] [place] Comment on above: Essential hypertensi on (Primary Dx) Start: 12-10-2022 Refill Arslan resendiz MD Work Phone: [facility] [place] Comment on above: Refill Request Start: 11-17-2022 End: 11-17-2022 Patient encounter procedure Arslan Coelho MD Work Phone: [facility] [place] Comment on above: Stress and adjustmen t reaction; Insomnia, unspecified type; Essential hypertension; Kidney transplant status, living unrelated donor; Gastroesophageal reflux disease without esophagitis; 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); Stage 3a chronic kidney disease (HCC) Start: 11-05-2022 Refill Kaur Older HOUSEKEEPING SUPERVISOR HOTEL .GRAIN CLEANER AND TRANSFER OPERATOR Work Phone: [facility] [place] Comment on above: Refill Request Start: 10-31-2022 Refill Ion Daigle MD Work Phone: [facility] Comment on above: Refill Request Start: 09-16-2022 E-mail encounter fro m caregiver Bill Mckay Jr., MD Work Phone: [facility] Start: 09-16-2022 Patient encounter procedure Tanner Mckay MD Work Phone: Neurology Comment on above: Appointment Start: 09-16-2022 Telephone encounter Arslan reeder MD Work Phone: [facility] [place] Comment on above: Insurance Authorizat ion Start: 09-13-2022 Refill Arslan resendiz MD Work Phone: [facility] [place] Comment on above: Refill Request Start: 09-08-2022 Refill Ion Daigle MD Work Phone: [facility] Comment on above: Refill Request Start: 08-19-2022 End: 08-19-2022 Patient encounter procedure Arslan Coelho MD Work Phone: [facility] [place] Comment on above: Medicare annual well ness visit, subsequent (Primary Dx); Stress and adjustment reaction; Essential hypertension; Mixed hyperlipidemia; MITALI on CPAP; Polycystic kidney disease, autosomal dominant; 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); Insomnia, unspecified type; Impacted cerumen of both ears; Tinnitus of both ears Start: 07-22-2022 ambulatory Arslan resendiz MD Work Phone: [facility] [place] Comment on above: Remaining Covid symp toms Start: 07-12-2022 Telephone encounter Preeti rivera PA-C Work Phone: [facility] Comment on above: Results Follow Up Start: 07-06-2022 Telephone encounter Neris Rankin ([facility]) [facility] Comment on above: Medication Question Start: 06-30-2022 ambulatory Arslan resendiz MD Work Phone: [facility] [place] Comment on above: Cough; Chest Congest ion Start: 06-30-2022 Telephone encounter Preeti rivera PA-C Work Phone: [facility] Comment on above: Covid Positive Start: 03-01-2022 ambulatory Arslan resendiz MD Work Phone: [facility] [place] Start: 02-28-2022 ambulatory Kaur Older HOUSEKEEPING SUPERVISOR HOTEL .GRAIN CLEANER AND TRANSFER OPERATOR Work Phone: [facility] [place] Comment on above: [place] needle replacem ent RX Start: 01-25-2022 ambulatory Arslan resendiz MD Work Phone: Internal Medicine [facility] Start: 01-08-2022 End: 01-08-2022 Subsequent [facility] [facility] Work Phone: Radiology Comment on above: Chest pain, unspecif ied type [R07.9] Start: 01-08-2022 End: 01-08-2022 Patient encounter procedure Arslan Coelho MD Work Phone: [facility] Comment on above: Chest pain, unspecif ied type (Primary Dx); 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); Essential hypertension; Kidney transplant status, living unrelated donor Start: 01-04-2022 Orders Only Dylon Mancini HOUSEKEEPING SUPERVISOR HOTEL.GRAIN CLEANER AND TRANSFER OPERATOR Work Phone: Transplant Center Comment on above: Kidney replaced by t ransplant (Primary Dx) Chest tightness- int ermittent Start: 12-10-2021 Refill Kaur Russell HOUSEKEEPING SUPERVISOR HOTEL .GRAIN CLEANER AND TRANSFER OPERATOR Work Phone: [facility] Comment on above: Refill Request Start: 12-08-2021 Refill Ion Daigle MD Work Phone: Transplant Center Comment on above: Refill Request Start: 12-01-2021 End: 12-01-2021 Patient encounter procedure Jhonny Borges MD Work Phone: Pain Management Comment on above: Weakness of both leg s; Numbness of legs; Spinal stenosis of lumbar region, unspecified whether neurogenic claudication present Start: 11-17-2021 Refill [facility] Comment on above: Rx Refills Start: 11-05-2021 ambulatory Bill oneill MD Work Phone: Neurology Comment on above: Legs gone numb Start: 11-05-2021 Telephone encounter Bill Mckay MD Work Phone: Neurology Comment on above: PAP order Start: 11-04-2021 Refill Bill Kwong [facility] [place] Comment on above: Refill Request Start: 10-25-2021 Orders Only Bill oneill MD Work Phone: Neurology Comment on above: History of stroke (P rimary Dx) Start: 10-22-2021 Telephone encounter Bill Mckay MD Work Phone: Radiology Comment on above: Orders Start: 10-22-2021 End: 10-22-2021 Patient encounter procedure Bill Mckay MD Work Phone: Neurology Comment on above: Spinal stenosis of l umbar region, unspecified whether neurogenic claudication present (Primary Dx); Weakness of both legs; Numbness of legs; History of stroke; MITALI (obstructive sleep apnea) Start: 10-05-2021 End: 10-05-2021 Subsequent hospital visit by physician [facility] (1.5t) Radiology Comment on above: Weakness of both leg s [R29.898] Spinal stenosis of l umbar region without neurogenic claudication [M48.061] Start: 10-22-2020 End: 10-22-2020 Subsequent hospital visit by physician Lucia [facility] Work Phone: Radiology Comment on above: Wrist pain, acute, r ight [M25.531] Start: 08-17-2011 End: 03-14-2019 Patient encounter status Arslan Coelho MD Work Phone: [facility] Procedures Date Procedure Procedure Detail Performing Clinician Start: 04-24-2024 Adult depression screening assessment Arslan Coelho MD Work Phone: Start: 03-25-2024 Urine albumin quantitative Royce Almonte MD Work Phone: Start: 03-25-2024 Urnls dip stick/tabl et rgnt auto w/o microscopy Bulk Order Provider Start: 05-24-2023 INFLUENZA VACCINE, P RSV FREE, AGE 65+ YR, HIGH DOSE, QUADRIVALENT (FLUZONE HIGH-DOSE) 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 Work Phone: Start: 02-17-2023 Hemoglobin A1c/Hemoglobin.total in Blood Arslan Coelho MD Work Phone: Start: 11-17-2022 Hemoglobin A1c/Hemoglobin.total in Blood Arslan Coelho MD Work Phone: Start: 08-19-2022 Hemoglobin A1c/Hemoglobin.total in Blood Arslan Coelho MD Work Phone: Start: 01-08-2022 Radiologic exam ches t 2 views Arslan Coelho MD Work Phone: Start: 10-05-2021 Mri 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 Bill Mckay MD Work Phone: Start: 04-20-2021 Adult depression screening assessment Mri (1.5t) Start: 10-22-2020 Radex wrist complete minimum 3 views Osmin Sampson HOUSEKEEPING SUPERVISOR HOTEL.GRAIN CLEANER AND TRANSFER OPERATOR Work Phone: Start: 04-16-2018 Colonoscopy Mri (1.5t) Start: 12-29-2013 History of renal transplant Kidney transplant status, living unrelated donor Mri (1.5t) History of renal transplant History of renal transplant Mri (1.5t) History of renal transplant Kidney transplant status, living unrelated donor 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 Work Phone: History of renal transplant Kidney transplant status, living unrelated donor Nichelle Velasquez Kori History of renal transplant Kidney transplant status, living unrelated donor Ion Daigle MD Work Phone: History of renal transplant Kidney transplant status, living unrelated donor Ion Daigle MD Work Phone: History of renal transplant Kidney replaced by transplant Dylon Mancini HOUSEKEEPING SUPERVISOR HOTEL.GRAIN CLEANER AND TRANSFER OPERATOR Work Phone: History of renal transplant Kidney transplant status, living unrelated donor Arslan Coelho MD Work Phone: History of renal transplant Kidney transplant status, living unrelated donor Ion Daigle MD Work Phone: History of renal transplant Kidney transplant status, living unrelated donor Ion Daigle MD Work Phone: History of renal transplant Kidney transplant status, living unrelated donor 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 Work Phone: History of renal transplant Kidney transplant status, living unrelated donor Arslan Coelho MD Work Phone: History of renal transplant Kidney replaced by transplant Preeti Samberg PA-C Work Phone: History of renal transplant Kidney replaced by transplant Preeti Samberg PA-C Work Phone: History of renal transplant Kidney replaced by transplant Preeti Samberg PA-C Work Phone: History of renal transplant Kidney transplant status, living unrelated donor Royce Almonte MD Work Phone: History of renal transplant Kidney transplant status, living unrelated donor Preeti Cruz PA-C Work Phone: History of renal transplant Kidney transplant status, living unrelated donor Arslan Coelho MD Work Phone: History of renal transplant Kidney transplant status, living unrelated donor Arslan Coelho MD Work Phone: History of renal transplant Kidney replaced by transplant Preeti Cruz PA-C Work Phone: History of renal transplant Kidney transplant status, living unrelated donor Royce Almonte MD Work Phone: History of renal transplant Kidney transplant status, living unrelated donor Arslan Coelho MD Work Phone: Plan of Treatment Date Care Activity Detail Author Start: 02-16-2028 Urine microalbumin profile [facility] Start: 04-24-2025 Annual PCP Team Quality Review Specialist jed Disease Visit Annual PCP Team Chronic Disease Visit [facility] Start: 04-24-2025 Anxiety Screening Anxiety Screening [facility] Start: 04-24-2025 BP Controlled (<130/80) BP Controlle d (<130/80) [facility] Start: 04-24-2025 Covid-19 Vaccine () Covid-19 Vaccine () [facility] Comment on above: Postponed from 03/10 (Declined at this time) Start: 04-24-2025 Depression Screening Depression Scre ening [facility] Start: 03-25-2025 BP Controlled (<130/80) BP Controlle d (<130/80) [facility] Start: 03-25-2025 Hepatitis B screening Urine Al bumin:Creatinine Ratio [facility] Start: 03-21-2025 Complete blood count Hemoglobin/Alan [facility] Start: 03-21-2025 Creatinine measurement Serum Creatin ine [facility] Start: 02-14-2025 Complete blood count Hemoglobin/Alan toccot [facility] Start: 02-14-2025 Creatinine measurement Serum Creatin ine [facility] Start: 02-14-2025 Hepatitis B surface antibody level LDL Cholesterol [facility] Start: 12-14-2024 Complete blood count Hemoglobin/Alan tocrit [facility] Start: 12-14-2024 Creatinine measurement Serum Creatin ine [facility] Start: 12-14-2024 Hepatitis B screening Urine Al bumin:Creatinine Ratio [facility] Start: 11-21-2024 Annual PCP Team Quality Review Specialist jed Disease Visit Annual PCP Team Chronic Disease Visit [facility] Start: 11-21-2024 BP Controlled (<130/80) BP Controlle d (<130/80) [facility] Start: 11-12-2024 [facility] Start: 11-12-2024 Creatinine measurement Serum Creatin ine [facility] Start: 11-05-2024 BP Controlled (<130/80) BP Controlle d (<130/80) [facility] Start: 10-15-2024 Complete blood count Hemoglobin/[facility] Start: 10-15-2024 Creatinine measurement Serum Creatin ine [facility] Start: 09-27-2024 Glaucoma screening Dilated Retinal E xam [facility] Start: 09-18-2024 Hemoglobin A1c measurement HbA1C [facility] Start: 09-14-2024 Complete blood count Hemoglobin/[facility] Start: 09-14-2024 Creatinine measurement Serum Creatin ine [facility] Start: 08-29-2024 End: 08-29-2024 Patient encounter procedure 08/29/2024 4:00 PM EST Office Visit [facility] [address] [place] [address] Arslan Coelho MD [address] [place] [address] Medicare Wellness w/4 month follow-up [facility] Comment on above: Medicare Wellness w/ 4 month follow-up Start: 08-24-2024 Annual PCP Team Stacey jed Disease Visit Annual PCP Team Chronic Disease Visit [facility] Start: 08-24-2024 Diabetic foot examination Diabetic Foot Exam [facility] Start: 08-07-2024 Complete blood count Hemoglobin/Alan tocrit [facility] Start: 08-07-2024 Creatinine measurement Serum Creatin ine [facility] Start: 07-12-2024 Hepatitis B surface antibody level LDL Cholesterol [facility] Start: 05-29-2024 Hemoglobin/Hematocrit Hemoglobin/Hem atocrit [facility] Start: 05-29-2024 Serum Creatinine Serum Creatinine [facility] Start: 05-24-2024 Annual PCP Team Quality Review Specialist jed Disease Visit Annual PCP Team Chronic Disease Visit [facility] Start: 05-24-2024 Covid-19 Vaccine () Covid-19 Vaccine () [facility] Comment on above: Postponed from 03/10 (Declined at this time) Start: 05-10-2024 End: 05-10-2024 ambulatory 05/10/2024 10:00 AM EDT Results Only [facility] Station [address] [place] [address] [facility] Start: 05-08-2024 End: 08-07-2024 PSA/PROSTATE SPECIFIC ANTIGEN SCREENING PSA/PROSTATE SPECIFIC ANTIGEN SCREENING Lab Routine Prostate cancer screening Expected: 05/08/2024, Expires: 08/07/2024 [facility] Work Phone: Comment on above: Expected: 05/08/2024 , Expires: 08/07/2024 Start: 04-27-2024 Hemoglobin/Hematocrit Hemoglobin/Hem atocrit [facility] Start: 04-27-2024 Serum Creatinine Serum Creatinine [facility] Start: 04-24-2024 End: 04-24-2024 Patient encounter procedure 04/24/2024 3:20 PM EDT Office Visit [facility] [address] [place] [address] Arslan Coelho MD [address] [place] [address] 5 month follow-up [facility] Comment on above: 5 month follow-up Start: 04-22-2024 End: 04-22-2024 Patient encounter procedure 04/22/2024 3:40 PM EDT Office Visit [facility] [address] [place] [address] Arslan Coelho MD [address] [place] [address] 5 month follow-up [facility] Comment on above: 5 month follow-up Start: 04-03-2024 PROSTATE CANCER SCREENING DISCUSSION PROSTATE CANCER SCREENING DISCUSSION [facility] Start: 04-03-2024 Prostate specific antigen measurement Prostate Cancer Screening Discussion [facility] Start: 04-03-2024 End: 04-03-2024 Patient encounter procedure 04/03/2024 1:20 PM EDT Office Visit Transplant Center [address] [place] [address] Providers, [facility] [address] [address] KID TXP F/U PER WORKQ Transplant Center Comment on above: KID TXP F/U PER WORK Q Start: 03-25-2024 End: 03-25-2024 Patient encounter procedure 03/25/2024 11:00 AM EDT Office Visit Kidney [facility] [address] [place] [address] Royce Almonte MD [address] [place] [address] transplant follow up with Dr Gage Jameson Kidney Medicine [facility] Comment on above: transplant follow up with Dr Gage Jameson Start: 03-20-2024 Hepatitis B surface antibody level LDL Cholesterol [facility] Start: 03-12-2024 End: 06-11-2024 Hemoglobin A1c in Blood HEMOGLOBIN A1C Lab Routine 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) Expected: 03/12/2024, Expires: 06/11/2024 [facility] Work Phone: Comment on above: Expected: 03/12/2024 , Expires: 06/11/2024 Start: 03-10-2024 Covid-19 Vaccine () Covid-19 Vaccine () [facility] Start: 03-10-2024 Covid-19 Vaccine ( season) Covid-19 Vaccine ( season) [facility] Start: 03-10-2024 Influenza vaccination Influenza Vacc ine (#1) [facility] Start: 02-18-2024 ANNUAL PCP TEAM EARLY CHILDHOOD ASSISTANT JED DISEASE VISIT ANNUAL PCP TEAM CHRONIC DISEASE VISIT [facility] Start: 02-18-2024 BP CONTROLLED (<130/80) BP CONTROLLE D (<130/80) [facility] Start: 02-11-2024 HEMOGLOBIN/HEMATOCRIT HEMOGLOBIN/HEM ATOCRIT [facility] Start: 02-11-2024 SERUM CREATININE SERUM CREATININE [facility] Start: 01-21-2024 Hepatitis B surface antibody level LDL CHOLESTEROL [facility] Start: 01-21-2024 SERUM CREATININE SERUM CREATININE [facility] Start: 12-15-2023 ANNUAL PCP TEAM EARLY CHILDHOOD ASSISTANT JED DISEASE VISIT ANNUAL PCP TEAM CHRONIC DISEASE VISIT [facility] Start: 12-09-2023 Glaucoma screening Dilated Retinal E xam [facility] Start: 12-09-2023 Hepatitis C antibody , confirmatory test DILATED RETINAL EXAM [facility] Start: 11-27-2023 Hemoglobin A1c measurement HbA1C [facility] Start: 11-27-2023 Hemoglobin A1c/Hemoglobin.total in Blood HbA1C [facility] Start: 11-22-2023 End: 11-22-2023 Patient encounter procedure 11/22/2023 3:00 PM EDT Office Visit [facility] [address] [place], [place] [id number] Arslan Coelho MD [address] [place], [place] [id number] 3 month follow up [facility] Comment on above: 3 month follow up Start: 11-22-2023 End: 02-21-2024 Microalbumin/Creatinine [Mass Ratio] in Urine ALBUMIN/CREATININE RATIO, URINE Lab Routine 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) Expected: 11/22/2023, Expires: 02/21/2024 [facility] Work Phone: Comment on above: Expected: 11/22/2023 , Expires: 02/21/2024 Start: 11-18-2023 ANNUAL PCP TEAM EARLY CHILDHOOD ASSISTANT JED DISEASE VISIT ANNUAL PCP TEAM CHRONIC DISEASE VISIT [facility] Start: 11-06-2023 End: 11-06-2023 Patient encounter procedure 11/06/2023 1:00 PM EDT Office Visit Neurology [address] [place] [address] Alyssa Pink APRN.GRAIN CLEANER AND TRANSFER OPERATOR [address] [place] [address] [facility] Comment on above: [facility] Start: 10-18-2023 [facility] Start: 10-18-2023 Hepatitis B screening URINE AL BUMIN:CREATININE RATIO [facility] Start: 10-18-2023 Hepatitis B surface antibody level LDL CHOLESTEROL [facility] Start: 10-18-2023 SERUM CREATININE SERUM CREATININE [facility] Start: 08-20-2023 Hemoglobin A1c/Hemoglobin.total in Blood HBA1C [facility] Start: 08-19-2023 3 comp foot exam completed DIABETIC FOOT EXAM [facility] Start: 08-19-2023 ANNUAL PCP TEAM EARLY CHILDHOOD ASSISTANT JED DISEASE VISIT ANNUAL PCP TEAM CHRONIC DISEASE VISIT [facility] Start: 08-19-2023 COVID-19 VACCINE (4 - Booster for Pfizer series) COVID-19 VACCINE (4 - Booster for Pfizer series) [facility] Comment on above: Postponed from 05/13 (Declined at this time) Start: 08-19-2023 COVID-19 VACCINE (4 - Pfizer risk series) COVID-19 VACCINE (4 - Pfizer risk series) [facility] Comment on above: Postponed from 05/13 (Declined at this time) Start: 08-19-2023 Diabetic foot examination Diabetic Foot Exam [facility] Start: 08-10-2023 SERUM CREATININE SERUM CREATININE [facility] Start: 07-10-2023 Advance Directive Discussion Advance Directive Discussion [facility] Start: 07-10-2023 Behavioral Health Screening Behavioral Health Screening [facility] Start: 07-10-2023 Depression Assessment Depression Ass essment [facility] Start: 06-17-2023 HEMOGLOB[facility]OCR[facility] Start: 06-17-2023 SERUM CREATININE SERUM CREATININE [facility] Start: 05-29-2023 End: 08-28-2023 Comprehensive metabolic 2000 panel - Serum or Plasma COMP METABOLIC PANEL Lab Routine Kidney replaced by transplant Expected: 05/29/2023, Expires: 08/28/2023 [facility] Work Phone: Comment on above: Expected: 05/29/2023 , Expires: 08/28/2023 Start: 05-29-2023 End: 08-28-2023 Protein/Creatinine [Mass Ratio] in Urine PROTEIN CREATININE RATIO Lab Routine Kidney replaced by transplant Expected: 05/29/2023, Expires: 08/28/2023 [facility] Work Phone: Comment on above: Expected: 05/29/2023 , Expires: 08/28/2023 Start: 05-24-2023 End: 08-23-2023 Hemoglobin A1c in Blood HGB A1C Lab Routine 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) Expected: 05/24/2023, Expires: 08/23/2023 [facility] Work Phone: Comment on above: Expected: 05/24/2023 , Expires: 08/23/2023 Start: 04-16-2023 Colonoscopy COLONOSCOPY [facility] Start: 04-16-2023 COLORECTAL CANCER SCREENING COLORECTAL CANCER SCREENING [facility] Start: 04-16-2023 Screening for malign ant neoplasm of colon [facility] Start: 03-10-2023 Covid-19 Vaccine ( season) Covid-19 Vaccine ( season) [facility] Start: 03-10-2023 Influenza vaccination C [facility] Start: 02-25-2023 HEMOGLOBIN/HEMATOCRIT HEMOGLOBIN/HEM ATOCRIT [facility] Start: 02-25-2023 SERUM CREATININE SERUM CREATININE [facility] Start: 02-17-2023 Hemoglobin A1c/Hemoglobin.total in Blood HBA1C [facility] Start: 01-08-2023 ANNUAL PCP TEAM EARLY CHILDHOOD ASSISTANT JED DISEASE VISIT ANNUAL PCP TEAM CHRONIC DISEASE VISIT [facility] Start: 01-08-2023 BP CONTROLLED (<130/80) BP CONTROLLE D (<130/80) [facility] Start: 01-06-2023 Influenza vaccination INFLUENZA (#1) [facility] Comment on above: Postponed from 03/10 (Declined at this time) Start: 01-04-2023 SERUM CREATININE SERUM CREATININE [facility] Start: 11-16-2022 Hemoglobin A1c/Hemoglobin.total in Blood HBA1C [facility] Start: 10-28-2022 BP CONTROLLED (<130/80) BP CONTROLLE D (<130/80) [facility] Start: 10-25-2022 SERUM CREATININE SERUM CREATININE Cl [facility] Start: 10-22-2022 BP CONTROLLED (<130/80) BP CONTROLLE D (<130/80) [facility] Start: 09-14-2022 SERUM CREATININE SERUM CREATININE [facility] Start: 08-27-2022 BP CONTROLLED (<130/80) BP CONTROLLE D (<130/80) [facility] Start: 08-26-2022 End: 10-26-2022 Lipid 1996 panel - Serum or Plasma LIPID PANEL BASIC Lab Routine Mixed hyperlipidemia Expected: 08/26/2022, Expires: 10/26/2022 [facility] Work Phone: Comment on above: Expected: 08/26/2022 , Expires: 10/26/2022 Start: 08-19-2022 End: 10-19-2022 ALBUMIN/CREAT RATIO RND UR ALBUMIN/CREAT RATIO RND UR Lab Routine 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) Expected: 08/19/2022, Expires: 10/19/2022 [facility] Work Phone: Comment on above: Expected: 08/19/2022 , Expires: 10/19/2022 Start: 07-14-2022 3 comp foot exam completed DIABETIC FOOT EXAM [facility] Start: 07-14-2022 ANNUAL PCP TEAM EARLY CHILDHOOD ASSISTANT JED DISEASE VISIT ANNUAL PCP TEAM CHRONIC DISEASE VISIT [facility] Start: 07-10-2022 ADVANCE DIRECTIVE DISCUSSION ADVANCE DIRECTIVE DISCUSSION [facility] Start: 07-10-2022 DEPRESSION ASSESSMENT DEPRESSION ASS ESSMENT [facility] Start: 05-28-2022 Hemoglobin A1c/Hemoglobin.total in Blood HBA1C [facility] Start: 04-20-2022 Adult depression screening assessment DEPRESSION SCREENING [facility] Start: 03-10-2022 Influenza vaccination INFLUENZA (#1) [facility] Start: 03-01-2022 End: 05-01-2022 SCHEDULE LAB TESTING SCHEDULE LAB TESTING Lab Routine Expected: 03/01/2022, Expires: 05/01/2022 [facility] Work Phone: Comment on above: Expected: 03/01/2022 , Expires: 05/01/2022 Start: 01-25-2022 End: 03-27-2022 Hemoglobin A1c in Blood HGB A1C Lab Routine 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) Expected: 01/25/2022, Expires: 03/27/2022 [facility] Work Phone: Comment on above: Expected: 01/25/2022 , Expires: 03/27/2022 Start: 01-25-2022 End: 03-27-2022 SCHEDULE LAB TESTING SCHEDULE LAB TESTING Lab Routine Expected: 01/25/2022, Expires: 03/27/2022 [facility] Work Phone: Comment on above: Expected: 01/25/2022 , Expires: 03/27/2022 Start: 01-16-2022 Hemoglobin A1c/Hemoglobin.total in Blood HBA1C [facility] Start: 01-05-2022 Hepatitis B screening URINE AL BUMIN:CREATININE RATIO [facility] Start: 10-06-2021 Hepatitis B surface antibody level LDL CHOLESTEROL [facility] Start: 07-10-2021 ADVANCE DIRECTIVE DISCUSSION ADVANCE DIRECTIVE DISCUSSION [facility] Start: 07-10-2021 DEPRESSION ASSESSMENT DEPRESSION ASS ESSMENT [facility] Start: 06-17-2021 COVID-19 VACCINE (4 - Booster for Pfizer series) COVID-19 VACCINE (4 - Booster for Pfizer series) [facility] Start: 06-10-2021 COVID-19 VACCINE (4 - Booster for Pfizer series) COVID-19 VACCINE (4 - Booster for Pfizer series) [facility] Start: 05-13-2021 COVID-19 VACCINE (4 - Booster for Pfizer series) COVID-19 VACCINE (4 - Booster for Pfizer series) [facility] Start: 12-09-2020 Hepatitis C antibody , confirmatory test DILATED RETINAL EXAM [facility] Start: 04-16-2019 BP CONTROLLED (<130/80) BP CONTROLLE D (<130/80) [facility] Start: 2015 RSV Vaccine (1 - 1-d ose 60+ series) RSV Vaccine (1 - 1-dose 60+ series) [facility] Start: 2005 SHINGRIX VACCINE (1 of 2) SHINGRIX VACCINE (1 of 2) [facility] Start: 2000 COLOGUARD (FIT-DNA) COLOGUARD (FIT-D NA) [facility] Start: [address] COLONOGRAPHY [facility] Start: 2000 FECAL OCCULT BLOOD FECAL OCCULT BLOO D [facility] Start: 2000 Screening for malign ant neoplasm of colon [facility] Start: 2000 SIGMOIDOSCOPY SIGMOIDOSCOPY [facility] Start: 1974 HEPATITIS A (1 of 2 - Risk 2-dose series) HEPATITIS A (1 of 2 - Risk 2-dose series) [facility] Start: 1974 Hepatitis A Vaccine (1 of 2 - Risk 2-dose series) Hepatitis A Vaccine (1 of 2 - Risk 2-dose series) [facility] Start: 1974 SHINGRIX VACCINE (1 of 2) SHINGRIX VACCINE (1 of 2) [facility] Start: 1973 Anxiety Screening Anxiety Screening [facility] Start: 1973 [facility] Start: [facility] HEPATITIS A (1 of 2 - Risk 2-dose series) HEPATITIS A (1 of 2 - Risk 2-dose series) [facility] End: 06-13-2024 25-hydroxyvitamin D3 [Mass/volume] in Serum or Plasma VITAMIN D 25 HYDROXY Lab Routine Kidney replaced by transplant Vitamin D deficiency Every 6 months for 2 Occurrences starting 06/13/2023 until 06/13/2024 [facility] Work Phone: Comment on above: Every 6 months for 2 Occurrences starting 06/13/2023 until 06/13/2024 End: 01-22-2025 25-hydroxyvitamin D3 [Mass/volume] in Serum or Plasma VITAMIN D 25 HYDROXY Lab Routine Kidney replaced by transplant Vitamin D deficiency Every 6 months for 2 Occurrences starting 01/23/2024 until 01/22/2025 [facility] Comment on above: Every 6 months for 2 Occurrences starting 01/23/2024 until 01/22/2025 End: 01-22-2025 BK VIRUS DNA QUANTIFICATION, PLASMA BK VIRUS DNA QUANTIFICATION, PLASMA Lab Routine Kidney replaced by transplant Every 3 months for 6 Occurrences starting 01/23/2024 until 01/22/2025 [facility] Comment on above: Every 3 months for 6 Occurrences starting 01/23/2024 until 01/22/2025 End: 01-04-2023 BK VIRUS PCR,QUANT,P BK VIRUS PCR,QUANT,P Lab Routine Kidney replaced by transplant Every 3 months for 4 Occurrences starting 01/04/2022 until 01/04/2023 [facility] Work Phone: Comment on above: Every 3 months for 4 Occurrences starting 01/04/2022 until 01/04/2023 BK VIRUS PCR,QUANT,P BK VIRUS PC R,QUANT,P Lab Routine Kidney replaced by transplant 01/04/2022 12:32 PM EDT [facility] Work Phone: End: 01-04-2023 CBC panel - Blood by Automated count CBC Lab Routine Kidney replaced by transplant Every 2 months for 6 Occurrences starting 01/04/2022 until 01/04/2023 [facility] Work Phone: Comment on above: Every 2 months for 6 Occurrences starting 01/04/2022 until 01/04/2023 CBC panel - Blood by Automated count CBC Lab Routine Kidney replaced by transplant 01/04/2022 12:33 PM EDT [facility] Work Phone: End: 01-22-2025 CBC W Auto Differential panel - Blood COMPLETE BLOOD COUNT AND DIFFERENTIAL Lab Routine Kidney replaced by transplant Once per month for 12 Occurrences starting 01/23/2024 until 01/22/2025 [facility] Comment on above: Once per month for 1 2 Occurrences starting 01/23/2024 until 01/22/2025 End: 01-04-2023 Comprehensive metabolic 2000 panel - Serum or Plasma COMP METABOLIC PANEL Lab Routine Kidney replaced by transplant Every 2 months for 6 Occurrences starting 01/04/2022 until 01/04/2023 [facility] Work Phone: Comment on above: Every 2 months for 6 Occurrences starting 01/04/2022 until 01/04/2023 Comprehensive metabo lic 2000 panel - Serum or Plasma COMP METABOLIC PANEL Lab Routine Kidney replaced by transplant 01/04/2022 12:32 PM EDT [facility] Work Phone: End: 01-22-2025 Comprehensive metabolic 2000 panel - Serum or Plasma COMPREHENSIVE METABOLIC PANEL Lab Routine Kidney replaced by transplant Once per month for 12 Occurrences starting 01/23/2024 until 01/22/2025 [facility] Work Phone: Comment on above: Once per month for 1 2 Occurrences starting 01/23/2024 until 01/22/2025 End: 11-21-2022 Duplex scan extracranial art compl bi study US CAROTID BILAT Radiology Routine History of stroke 1 Occurrences starting 10/22/2021 until 11/21/2022 [facility] Work Phone: Comment on above: 1 Occurrences starti ng 10/22/2021 until 11/21/2022 End: 01-08-2023 ECG COMPLETE ECG COMPLETE ECG Routine Chest pain, unspecified type 1 Occurrences starting 01/08/2022 until 01/08/2023 [facility] Work Phone: Comment on above: 1 Occurrences starti ng 01/08/2022 until 01/08/2023 End: 10-08-2024 EGD DIAGNOSTIC EGD DIAGNOSTIC Endoscopy Routine Gastroesophageal reflux disease, unspecified whether esophagitis present 1 Occurrences starting 10/09/2023 until 10/08/2024 [facility] Work Phone: Comment on above: 1 Occurrences starti ng 10/09/2023 until 10/08/2024 End: 10-08-2024 Flexible sigmoidoscopy study COLONOSCOPY DIAGNOSTIC Endoscopy Routine Polyp of colon, unspecified part of colon, unspecified type 1 Occurrences starting 10/09/2023 until 10/08/2024 [facility] Work Phone: Comment on above: 1 Occurrences starti ng 10/09/2023 until 10/08/2024 End: 02-02-2024 KID/PEDROZA REC POST TX DSA KID/PEDROZA REC POST TX DSA ALLOGEN Routine Kidney replaced by transplant 1 Occurrences starting 02/02/2023 until 02/02/2024 [facility] Work Phone: Comment on above: 1 Occurrences starti ng 02/02/2023 until 02/02/2024 End: 06-13-2024 Lipid 1996 panel - Serum or Plasma LIPID PANEL BASIC Lab Routine Kidney replaced by transplant Every 6 months for 2 Occurrences starting 06/13/2023 until 06/13/2024 [facility] Work Phone: Comment on above: Every 6 months for 2 Occurrences starting 06/13/2023 until 06/13/2024 End: 01-22-2025 Lipid 1996 panel - Serum or Plasma LIPID PANEL BASIC Lab Routine Kidney replaced by transplant Every 6 months for 2 Occurrences starting 01/23/2024 until 01/22/2025 [facility] Comment on above: Every 6 months for 2 Occurrences starting 01/23/2024 until 01/22/2025 End: 01-04-2023 Magnesium [Mass/volume] in Serum or Plasma MAGNESIUM BLD Lab Routine Kidney replaced by transplant Every 2 months for 6 Occurrences starting 01/04/2022 until 01/04/2023 [facility] Work Phone: Comment on above: Every 2 months for 6 Occurrences starting 01/04/2022 until 01/04/2023 Magnesium [Mass/volu me] in Serum or Plasma MAGNESIUM BLD Lab Routine Kidney replaced by transplant 01/04/2022 12:32 PM EDT [facility] Work Phone: End: 01-22-2025 Magnesium [Mass/volume] in Serum or Plasma MAGNESIUM Lab Routine Kidney replaced by transplant Once per month for 12 Occurrences starting 01/23/2024 until 01/22/2025 [facility] Comment on above: Once per month for 1 2 Occurrences starting 01/23/2024 until 01/22/2025 End: 02-15-2024 Mra head w/o contrst material MRA BRAIN WO IVCON Radiology [place]INA Vertebrobasilar artery syndrome 1 Occurrences starting 01/16/2023 until 02/15/2024 [facility] Work Phone: Comment on above: 1 Occurrences starti ng 01/16/2023 until 02/15/2024 End: 02-15-2024 Mra neck w/o contrst material MRA CAROTID WO IVCON Radiology ALBINA Vertebrobasilar artery syndrome 1 Occurrences starting 01/16/2023 until 02/15/2024 [facility] Work Phone: Comment on above: 1 Occurrences starti ng 01/16/2023 until 02/15/2024 End: 02-15-2024 Mri 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 MRI BRAIN WO IVCON Radiology [place]INA Vertebrobasilar artery syndrome 1 Occurrences starting 01/16/2023 until 02/15/2024 [facility] Work Phone: Comment on above: 1 Occurrences starti ng 01/16/2023 until 02/15/2024 End: 02-07-2023 NM CARDIAC PERF STRESS/EXERCISE NM CARDIAC PERF STRESS/EXERCISE Radiology Routine Chest pain, unspecified type 1 Occurrences starting 01/08/2022 until 02/07/2023 [facility] Work Phone: Comment on above: 1 Occurrences starti ng 01/08/2022 until 02/07/2023 OUTSIDE VENDOR CARDI AC OUTPATIENT EXTENDED RHYTHM RECORDING (WITHOUT TELEMETRY) OUTSIDE VENDOR CARDIAC OUTPATIENT EXTENDED RHYTHM RECORDING (WITHOUT TELEMETRY) Holter ALBINA Vertigo History of stroke Tinnitus, bilateral Hypertension, unspecified type Syncope, near Ordered: 01/16/2023 [facility] Work Phone: Comment on above: Ordered: 01/16/2023 End: 06-13-2024 Parathyrin.intact [Mass/volume] in Serum or Plasma PTH INTACT BLD Lab Routine Kidney replaced by transplant Every 6 months for 2 Occurrences starting 06/13/2023 until 06/13/2024 [facility] Work Phone: Comment on above: Every 6 months for 2 Occurrences starting 06/13/2023 until 06/13/2024 End: 01-22-2025 Parathyrin.intact [Mass/volume] in Serum or Plasma PTH INTACT Lab Routine Kidney replaced by transplant Every 6 months for 2 Occurrences starting 01/23/2024 until 01/22/2025 [facility] Comment on above: Every 6 months for 2 Occurrences starting 01/23/2024 until 01/22/2025 End: 01-04-2023 Phosphate [Mass/volume] in Serum or Plasma PHOSPHORUS INORGANIC Lab Routine Kidney replaced by transplant Every 2 months for 6 Occurrences starting 01/04/2022 until 01/04/2023 [facility] Work Phone: Comment on above: Every 2 months for 6 Occurrences starting 01/04/2022 until 01/04/2023 Phosphate [Mass/volu me] in Serum or Plasma PHOSPHORUS INORGANIC Lab Routine Kidney replaced by transplant 01/04/2022 12:32 PM EDT [facility] Work Phone: End: 01-22-2025 Phosphate [Mass/volume] in Serum or Plasma PHOSPHORUS INORGANIC Lab Routine Kidney replaced by transplant Once per month for 12 Occurrences starting 01/23/2024 until 01/22/2025 [facility] Comment on above: Once per month for 1 2 Occurrences starting 01/23/2024 until 01/22/2025 Radiologic exam ches t 2 views XR CHEST 2V FRONTAL/LAT Radiology Routine Chest pain, unspecified type 01/08/2022 12:12 PM EDT [facility] Work Phone: Removal impacted cerumen irrigation/lvg unilat AMBULATORY EAR LAVAGE/IRRIGATION Procedures Routine Impacted cerumen of both ears Ordered: 08/19/2022 [facility] Work Phone: Comment on above: Ordered: 08/19/2022 End: 01-04-2023 Tacrolimus [Mass/volume] in Blood TACROLIMUS/FK-506 BL Lab Routine Kidney replaced by transplant Every 2 months for 6 Occurrences starting 01/04/2022 until 01/04/2023 [facility] Work Phone: Comment on above: Every 2 months for 6 Occurrences starting 01/04/2022 until 01/04/2023 Tacrolimus [Mass/volume] in Blood TACROLIMUS/FK-506 BL Lab Routine Kidney replaced by transplant 01/04/2022 12:33 PM EDT [facility] Work Phone: End: 01-22-2025 Tacrolimus [Mass/volume] in Blood TACROLIMUS/FK-506 BL Lab Routine Kidney replaced by transplant Once per month for 12 Occurrences starting 01/23/2024 until 01/22/2025 [facility] Comment on above: Once per month for 1 2 Occurrences starting 01/23/2024 until 01/22/2025 End: 10-25-2022 US CAROTID ARTERIES [facility] US CAROTID ARTERIES [facility] Vascular Lab Routine History of stroke 1 Occurrences starting 10/25/2021 until 10/25/2022 [facility] Work Phone: Comment on above: 1 Occurrences starti ng 10/25/2021 until 10/25/2022 VESTIBULAR TEST BATTERY VESTIBUL AR TEST BATTERY Audiology Routine Vertigo Tinnitus, bilateral Bilateral hearing loss, unspecified hearing loss type Ordered: 01/16/2023 [facility] Work Phone: Comment on above: Ordered: 01/16/2023 [facility] Immunizations Immunization Date Immunization Notes Care Provider Terrance [facility] 04-24-2024 influenza, high dose seasonal, preservative-free Arslan Coelho MD Work Phone: [facility] 05-24-2023 influenza (HD-IIV4) vaccine, age 65+ yr, high dose, quadrivalent, PF (FLUZONE HIGH-DOSE) 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 Work Phone: [facility] 05-24-2023 influenza virus vacc ine, unspecified formulation Preeti Cruz PA-C Work Phone: [facility] 07-14-2021 pneumococcal polysaccharide vaccine, 23 valent Mri (1.5t) [facility] Work Phone: 04-21-2021 influenza, high-dose , quadrivalent vaccine (FLUZONE HIGH DOSE QUADRIVALENT) Mri (1.5t) [facility] Work Phone: 04-21-2021 influenza virus vacc ine, unspecified formulation Preeti Cruz PA-C Work Phone: [facility] 09-30-2020 COVID-19 vaccine, ag e 12+ yr (PFIZER-[employer]ION[employer]oomly - [facility]) Mri (1.5t) [facility] Work Phone: 03-03-2021 COVID-19 vaccine, ag e 12+ yr ([employer] - PURPLE TOP) Mri (1.5t) [facility] Work Phone: 05-07-2020 influenza, injectabl e, quadrivalent, contains preservative Mri (1.5t) [facility] Work Phone: 07-08-2019 influenza, injectabl e, quadrivalent, contains preservative Mri (1.5t) [facility] 07-18-2018 influenza, injectabl e, quadrivalent, contains preservative Mri (1.5t) [facility] 05-14-2018 influenza, injectabl e, quadrivalent, contains preservative Mri (1.5t) [facility] 02-15-2018 tetanus and diphther ia toxoids, adsorbed, preservative free, for adult use (5 Lf of tetanus toxoid and 2 Lf of diphtheria toxoid) Mri (1.5t) [facility] Work Phone: 06-06-2016 influenza, injectabl e, quadrivalent, contains preservative Mri (1.5t) [facility] 04-26-2016 pneumococcal conjuga te vaccine, 13 valent Mri (1.5t) [facility] 04-03-2015 influenza, injectabl e, quadrivalent, preservative free Mri (1.5t) [facility] 05-22-2014 influenza, seasonal, injectable Mri (1.5t) [facility] 05-22-2014 pneumococcal polysaccharide vaccine, 23 valent Mri (1.5t) [facility] 07-29-2013 influenza virus vacc ine, unspecified formulation Mri (1.5t) [facility] 06-07-2012 influenza virus vacc ine, unspecified formulation Mri (1.5t) [facility] Work Phone: 03-14-2012 hepatitis B vaccine, adult dosage Mri (1.5t) [facility] Work Phone: 10-17-2011 hepatitis B vaccine, adult dosage Mri (1.5t) [facility] 09-15-2011 hepatitis B vaccine, adult dosage Mri (1.5t) [facility] 05-30-2011 influenza virus vacc ine, unspecified formulation Mri (1.5t) [facility] 06-22-2009 novel influenza-H1N1 -09, all formulations Mri (1.5t) [facility] 03-31-2009 influenza virus vacc ine, unspecified formulation Mri (1.5t) [facility] Work Phone: 04-16-2008 influenza virus vacc ine, unspecified formulation Mri (1.5t) [facility] Work Phone: 04-14-2008 pneumococcal polysaccharide vaccine, 23 valent Mri (1.5t) [facility] Work Phone: 07-24-2007 tetanus toxoid, redu girish diphtheria toxoid, and acellular pertussis vaccine, adsorbed Mri (1.5t) [facility] Work Phone: 06-06-2006 influenza virus vacc ine, unspecified formulation Mri (1.5t) [facility] Work Phone: Payers Date Payer Category Payer Unknown YULISA MÁRQUEZ AR DICARE SUPPLEMENT [id number] 2020-Present [phone] [address] [place] [address] Indemnity [id number] 2020 Medicare [id number] 2020 Medicare MEDICARE MEDICAR E A AND B [id number] 2020-Present [phone] [address] [address] [place] [address] Medicare [id number] 2020 Medicare [id number] 2020 Medicare [id number] 2009 Unknown [id number] Social History Date Type Detail Facility Start: 05-11-2011 End: 08-19-2022 Tobacco smoking status NHIS Never smoked tobacco [facility] Work Phone: Start: 10-22-2020 End: 08-27-2021 Alcohol intake Current drinker of alcohol (finding) [facility] Start: 05-05-2020 End: 08-16-2022 History SDOH Alcohol Frequency 3 [facility] Start: 01-31-2020 End: 08-16-2022 History SDOH Alcohol Std Drinks 1 [facility] Start: 04-16-2018 History SDOH Alcohol Comment rarely [facility] Start: 01-31-2020 End: 08-16-2022 History SDOH Social Connections Membership 2 [facility] Start: 05-05-2020 End: 08-16-2022 History SDOH Physical Activity DPW 0 [facility] Start: 01-31-2020 End: 08-16-2022 History SDOH Financial 5 [facility] Start: 01-31-2020 Education 12 [facility] Start: 1955 Sex Assigned At Male [facility] Start: 09-22-2020 End: 01-08-2022 Exposure to SARS-CoV-2 (event) Not sure [facility] Start: 05-11-2011 End: 08-19-2022 Tobacco use and exposure Smokeless tobacco non-user [facility] Start: 08-16-2022 History SDOH Alcohol Frequency 4 [facility] Start: 08-15-2022 End: 11-17-2022 History of Social function [facility] Start: 08-15-2022 End: 11-17-2022 Social connection and isolation panel [facility] Do you belong to any clubs or organizations such as catholic groups, unions, fraternal or athletic groups, or school groups? No [facility] Are you now , , , , never or living with a partner? [facility] How often to you hav e a drink containing alcohol? 2-3 time sa week [facility] How many standard dr inks containing alcohol do you have on a typical day? 1 or 2 [facility] How often do you hav e 6 or more drinks on 1 occasion? Never [facility] How hard is it for y ou to pay for the very basics like food, housing, medical care, and heating Not hard at all [facility] Do you feel stress - tense, restless, nervous, or anxious, or unable to sleep at night because your mind is troubled all the time - these days [OSQ] Only a little [facility] (I/We) worried stephenie er (my/our) food would run out before (I/we) got money to buy more. Never true [facility] Start: 01-31-2020 Gender identity Identifies as male gender (finding) [facility] Start: 01-31-2020 Sexual orientation Heterosexual (finding) [facility] How often to you hav e a drink containing alcohol? Monthly or less [facility] Start: 03-25-2024 End: 04-24-2024 Alcoholic beverage intake [facility] How often to you hav e a drink containing alcohol? 2-4 times a month [facility] Medical Equipment Procedure Code Equipment Code Equipment Origin al Text Equipment Identifier Dates Mesh [facility] o 5x3in [place] - [id number] Start: 09-23-2013 [id number], [id number], [id number], [id number], [id number], [id number] Start: 09-16-2013 End: 04-24-2024 Comment on above: TEST TWICE DAILY. E1 1.65. On insulin. Test blood sugar(s) 2 daily. Dx: 250.02. Insulin: No Test 4 times a day. E11.42. Insulin: Yes. USE 1 NEEDLE FOR EAC H DOSE FOUR TIMES DAILY Clinical Notes 01-21-2019 to 04-24-2024 Arslan Coelho MD - 04/24/2024 4:09 PM EDTTelephone Encounter - Malcolm Ríos MA - 04/08/2024 11:51 AM EDTTelephone Encounter - Malcolm Ríos MA - 04/08/2024 11:51 AM EDTPatient Instructions Note Date & Type Note Facility 04-24-[facility]24 [facility]-24-[facility]24 History of Present illness Narrative This note was created using NoteWriter. Subjective Fadi Davila is a 68 year old male. He was doing well and had no new concerns at this time. He got a good report from nephrology. His hypertension was controlled with no lightheadedness. His ongoing concern was insomnia despite regular Belsomra use. 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 He denied depression or anxiety, which was controlled on bupropion SR. 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 He was also interested in trying a medication for erectile dysfunction again. He still had sildenafil but this was old and probably . He did not use this much due to headache. 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 These have been evaluated in the past and have otherwise been stable on a chronic basis with no history of redness and swelling. ACTIVE PROBLEM LIST Osteoporosis Mixed Hyperlipidemia Polycystic Kidney Disease, Autosomal Dominant Essential Hypertension Kidney Transplant Status, Living Unrelated Donor Stress and Adjustment Reaction Ckd (Chronic Kidney Disease) Stage 3, Gfr 30-59 Ml/Min ([facility]) Gastroesophageal Reflux Disease Without Esophagitis MITALI on BiPAP Memory Disturbance Diabetic Peripheral Neuropathy Associated With Type 2 Diabetes Mellitus ([facility]) Obesity (Bmi 30.0-34.9) Moderate Mitral Regurgitation Numbness of Legs Spinal Stenosis of Lumbar Region Insomnia Social History Tobacco Use Smoking status: Never Smokeless tobacco: Never Vaping Use Vaping status: Never Used Substance Use Topics Alcohol use: Not Currently Comment: rarely Drug use: No Current Outpatient Medications Medication Sig suvorexant (BELSOMRA) 10 mg tab Take 1 tablet by mouth daily at bedtime for 180 days. tacrolimus IR (PROGRAF) 0.5 mg capsule Take 2 capsules by mouth once daily. sodium bicarbonate 325 mg tablet Take 1 tablet by mouth two times a day. Take by mouth as directed. magnesium oxide (MAGOX) 400 mg (241.3 mg magnesium) tablet Take 1 tablet by mouth once daily. Bacillus coagulans-vitamin D3 (PROBIOTIC, WITH VITAMIN D3,) 2 billion cell- 5 mcg chew Take 1 tablet by mouth every morning. blood sugar diagnostic (ONETOUCH ULTRA TEST) test strip Test 4 times a day. E11.42. Insulin: Yes. carvedilol (COREG) 25 mg tablet Take 1 tablet by mouth two times a day. fluticasone (FLONASE) 50 mcg/actuation nasal spray Use 2 Sprays in each nostril once daily. RINSE MOUTH AFTER EACH DOSE predniSONE (DELTASONE) 2.5 mg tablet Take 1 tablet by mouth once daily. sulfamethoxazole-trimethoprim (BACTRIM) 400-80 mg per tablet Take 1 tablet by mouth once daily. lansoprazole (PREVACID) 30 mg capsule Take 1 capsule by mouth once daily. Insulin [place], Disposable, (BD ULTRA-FINE PAYTON PEN NEEDLE) 32 gauge x 5/32 USE 1 NEEDLE FOR EACH DOSE FOUR TIMES DAILY buPROPion SR (WELLBUTRIN SR) 100 mg 12 hr tablet Take one(1) tablet daily in the morning. insulin glargine (LANTUS SOLOSTAR U-100 INSULIN) 100 unit/mL (3 mL) Inject 70 Units subcutaneously every evening. mycophenolate mofetil (CELLCEPT) 250 mg capsule TAKE 3 CAPSULES BY MOUTH TWICE DAILY amLODIPine (NORVASC) 10 mg tablet Take 1 tablet by mouth once daily. valsartan (DIOVAN) 40 mg tablet Take 1 tablet by mouth once daily. terazosin (HYTRIN) 2 mg capsule Take 1 capsule by mouth daily at bedtime. insulin lispro (HUMALOG KWIKPEN INSULIN) 100 unit/mL Inject 25 Units subcutaneously three times daily before meals. Lancets lancets Test blood sugar(s) 2 daily. Dx: 250.02. Insulin: No CPAP Pt requesting new DME. Needs supplies. Lifetime supplies. Bipap 16/12 cmH2O. If pt appropriate for new device, then would request the new device be an auto bilevel PAP set at IPAP max 18 cmH2O, EPAP min 8 cmH2O with pressure support of 4 cmH2O. Ipratropium [place] (ATROVENT) 0.03 % nasal spray Use 2 Sprays in the nose every 12 hours. BIPAP No current facility-administered medications for this visit. Objective BP 126/76 (BP Site: Left Arm, BP Position: Sitting, BP Cuff Size: Large Adult) Pulse 68 Temp 36.6 C (97.9 F) (Temporal) Resp 16 Wt 93.1 kg (205 lb 4 oz) BMI 27.84 kg/m Physical Exam Constitutional: General: He is not in acute distress. Appearance: He is not ill-appearing. Musculoskeletal: Comments: Angulated deformities at DIP joints and swelling of PIP joints of some fingers. Neurological: Mental Status: He is alert. Psychiatric: Mood and Affect: Mood normal. Behavior: Behavior normal. Assessment and Plan 1. Need for influenza vaccination - ICD9: V04.81, ICD10: Z23 (primary diagnosis) - INFLUENZA VACCINE, PRSV FREE, AGE 65+ YR, HIGH DOSE, TRIVALENT (FLUZONE HIGH-DOSE) 2. 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) - ICD9: 250.60, 357.2, ICD10: E11.42 - Improving control - Continue current medications - BLOOD SUGAR DIAGNOSTIC STRIPS 3. Essential hypertension - ICD9: 401.9, ICD10: I10 - Controlled - Continue current medications 4. Kidney transplant status, living unrelated donor - ICD9: V42.0, ICD10: Z94.0 - Stable. 5. Screening for depression - ICD9: V79.0, ICD10: Z13.31 - DEPRESSION SCREENING 6. Encounter for screening examination for other mental health and behavioral disorders - ICD9: V79.8, ICD10: Z13.39 - ANXIETY SCREENING 7. Stress and adjustment reaction - ICD9: 309.89, ICD10: F43.29 Shared medical decision making was done. This may contribute to insomnia. After reviewing options, including a regular 75 mg tablet, we agreed he will take his current medication every other day (which he has done in the past). - BUPROPION HCL SR 100 MG TABLET,12 HR SUSTAINED-RELEASE. Take one(1) tablet every other day in the morning. 8. Erectile dysfunction, unspecified erectile dysfunction type - ICD9: 607.84, ICD10: N52.9 Shared medical decision making was done. We agreed to try tadalafil and see if this is better tolerated. Discussed medication dosage, usage, goals of therapy, and side effects. - TADALAFIL 20 MG TABLET 9. Prostate cancer screening - ICD9: V76.44, ICD10: Z12.5 - Risks/benefits of prostate cancer screening discussed. - PSA/PROSTATE SPECIFIC ANTIGEN SCREENING 10. Osteoarthritis of fingers of both hands - ICD9: 715.94, ICD10: M19.041, M19.042 - We discussed repeating xray but deferred since no new treatments are anticipated. Time spent was 25 minutes, all for discussion. Arslan Coelho MD documented in this encounter [facility] 04-08-2024 Telephone encounter Note Prescription Refill Information The patient has been identified by name and date of : Yes Caregiver verified no other encounters exist for this prescription request: Yes Caregiver confirmed with patient/requestor that no other refills are due, in the near future, with this provider at this time: Yes The last office visit in the department: 11/22/2023 Does the patient have a future office visit with this provider/department: Yes Requested Prescriptions Pending Prescriptions Disp Refills suvorexant (BELSOMRA) 10 mg tab 30 tablet 0 Sig: Take 1 tablet by mouth daily at bedtime for 180 days. Malcolm Ríos MA April 08, 2024 11:51 AM [facility] 04-08-2024 Miscellaneous Notes Prescription Refill Information The patient has been identified by name and date of : Yes Caregiver verified no other encounters exist for this prescription request: Yes Caregiver confirmed with patient/requestor that no other refills are due, in the near future, with this provider at this time: Yes The last office visit in the department: 11/22/2023 Does the patient have a future office visit with this provider/department: Yes Requested Prescriptions Pending Prescriptions Disp Refills suvorexant (BELSOMRA) 10 mg tab 30 tablet 0 Sig: Take 1 tablet by mouth daily at bedtime for 180 days. Malcolm Ríos MA April 08, 2024 11:51 AM documented in this encounter [facility] 03-27-2024 Note [facility] 03-27-2024 History of Present illness Narrative Asked to call patient by Dr. Almonte to instruct him to begin Vitamin D3 [phone] international unit(s) daily. Spoke with patient. He states he is doing well. He states he will get the medication today. He also commented that his blood pressure is doing much better since a recent change by Preeti SYED. Patient requests [employer] message for dosage of Vitamin D3, so will send him a message. Chavez Ferreira RN documented in this encounter [facility] 03-26-2024 Telephone encounter Note Shruthi with [facility] called and asked to have last OV faxed over. They need something reporting Pt has GERD or swallowing issues to warrant the need to have an EGD done. Faxed to fax # [phone]. [facility] 03-26-2024 Miscellaneous Notes Shruthi with [facility] called and asked to have last OV faxed over. They need something reporting Pt has GERD or swallowing issues to warrant the need to have an EGD done. Faxed to fax # [phone]. documented in this encounter [facility] 03-26-2024 Telephone encounter Note 04/16/2018 EGD, colonoscopy, and pathology report faxed to [facility] at [phone]. Fax confirmation sheet received. Amelia Price RN [facility] 03-26-2024 Miscellaneous Notes 04/16/2018 EGD, colonoscopy, and pathology report faxed to [facility] at [phone]. Fax confirmation sheet received. Amelia Price RN I put in a referral will consult to general surgery you guys can find the best place for him documented in this encounter [facility] 03-25-2024 Note [facility] 03-25-2024 History of Present illness Narrative [facility] [facility] Follow up Portions of this note were copied from the last encounter. Changes were made to appropriately reflect updated history and interval events, physical exam, data review, and medical decision making. Mr. Fadi Davila is a 68 year old male who presents for follow up of a LD Kidney transplant. HPI: Transplant date: 04/18/13 (pre-emptive) Original Disease: PKD Bilateral barrow nx at time of transplant. CMV status: -/- EBV status: +/+ Induction therapy: Simulect Major events since transplantation: No Stent NODAT Hernia repair 08/23 -Uses CPAP for MITALI 06/24/13:Renal US: PATENT RENAL TRANSPLANT VASCULATURE. FOCAL NARROWING AT RENAL TRANSPLANT ARTERIAL ANASTOMOSIS WITH SIGNIFICANT VELOCITY GRADIENT CONCERNING FOR STENOSIS. 08/30/13: Renal US NORMAL RENAL TRANSPLANT ULTRASOUND. PATENT TRANSPLANT VASCULATURE. INCREASED VELOCITY IN THE RENAL ARTERY AT THE ANASTOMOSIS WHICH IS LESS COMPARED TO PRIOR ULTRASOUND There is increased velocity in the renal artery at the anastomosis measuring 330 cm/s (previously measured 580 cm/s). Protocol Bx results: 3-6 mos: sched 03/11/14 1 yr: Kidney, transplant biopsy (one year protocol) 03/25/14: - Tubular atrophy and interstitial fibrosis, minimal (5%). - Arteriosclerosis, mild. 2yr:03/03/15 Kidney allograft biopsy: - Patchy C4d positivity with mild to moderate glomerulitis, suspicious for antibody mediated rejection (see comment). - Tubular atrophy and interstitial fibrosis, mild. 11/12/15 DSA neg Lab Frequency: monthly New Complaints: Feeling fatigued- melatonin recommended. Current Outpatient Medications Medication Sig suvorexant (BELSOMRA) 10 mg tab Take 1 tablet by mouth daily at bedtime for 180 days. Bacillus coagulans-vitamin D3 (PROBIOTIC, WITH VITAMIN D3,) 2 billion cell- 5 mcg chew Take 1 tablet by mouth every morning. blood sugar diagnostic (OleryTOUCH ULTRA TEST) test strip Test 4 times a day. E11.42. Insulin: Yes. carvedilol (COREG) 25 mg tablet Take 1 tablet by mouth two times a day. fluticasone (FLONASE) 50 mcg/actuation nasal spray Use 2 Sprays in each nostril once daily. RINSE MOUTH AFTER EACH DOSE predniSONE (DELTASONE) 2.5 mg tablet Take 1 tablet by mouth once daily. sulfamethoxazole-trimethoprim (BACTRIM) 400-80 mg per tablet Take 1 tablet by mouth once daily. lansoprazole (PREVACID) 30 mg capsule Take 1 capsule by mouth once daily. Insulin [place], Disposable, (BD ULTRA-FINE PAYTON PEN NEEDLE) 32 gauge x 5/32 USE 1 NEEDLE FOR EACH DOSE FOUR TIMES DAILY buPROPion SR (WELLBUTRIN SR) 100 mg 12 hr tablet Take one(1) tablet daily in the morning. insulin glargine (LANTUS SOLOSTAR U-100 INSULIN) 100 unit/mL (3 mL) Inject 70 Units subcutaneously every evening. mycophenolate mofetil (CELLCEPT) 250 mg capsule TAKE 3 CAPSULES BY MOUTH TWICE DAILY amLODIPine (NORVASC) 10 mg tablet Take 1 tablet by mouth once daily. valsartan (DIOVAN) 40 mg tablet Take 1 tablet by mouth once daily. terazosin (HYTRIN) 2 mg capsule Take 1 capsule by mouth daily at bedtime. insulin lispro (HUMALOG KWIKPEN INSULIN) 100 unit/mL Inject 25 Units subcutaneously three times daily before meals. Lancets lancets Test blood sugar(s) 2 daily. Dx: 250.02. Insulin: No CPAP Pt requesting new DME. Needs supplies. Lifetime supplies. Bipap 16/12 cmH2O. If pt appropriate for new device, then would request the new device be an auto bilevel PAP set at IPAP max 18 cmH2O, EPAP min 8 cmH2O with pressure support of 4 cmH2O. Ipratropium Haynes (ATROVENT) 0.03 % nasal spray Use 2 Sprays in the nose every 12 hours. BIPAP tacrolimus IR (PROGRAF) 0.5 mg capsule Take 2 capsules by mouth once daily. No current facility-administered medications for this visit. Medications reviewed and updated with patient. ROS: No Fevers, Chills, No Nausea, vomiting, diarrhea No SOB, chest pain, pressure No edema, skin rash No dysuria, or frequency Weight steady No change appetite All other system reviews negative. PE: Blood pressure 127/78, pulse 72, height 182.9 cm (6'), weight 92.1 kg (203 lb 0.7 oz). Last 3 Encounter BP Readings: Date: BP: 03/25/2024 127/78 11/22/2023 120/68 11/06/2023 124/72 BP - standardized method Pulse 1 BP #1: 127/78 Pulse #1: 73 beats/min 2 BP #2 : 125/77 Pulse #2 : 71 beats/min 3 BP #3 : 130/78 Pulse #3 : 73 beats/min Average Average BP: 127/78 Average Pulse: 72 beats/min Orthostatic vitals Supine Sitting Standing Standing BP : 102/67 Standing pulse : 79 BP cuff location BP cuff location: Left upper arm BP cuff size BP cuff size: regular adult Comments for BP values First BP (right) First BP (left) Head and neck: NAD op clear, no xiomara, no carotid bruits, nl thyroid CVS: rrr nls1s2 w/o mrg Lungs: cta bilat Abd: soft, nt, nd, bs+, no HSM; no abd bruits MS: no active synovitis, no muscle tenderness Skin: no skin lesions, no cyanosis no peripheral edema Vascular: preserved pulses Neuro: non focal LABS: Creatinine (mg/dL) Date Value 03/21/2024 1.32 02/15/2024 1.35 01/25/2024 1.25 12/15/2023 1.41 11/13/2023 1.43 07/19/2021 1.08 06/08/2021 1.21 04/02/2021 1.25 02/04/2021 1.16 01/05/2021 1.28 BUN (mg/dL) Date Value 03/21/2024 17 02/15/2024 23 01/25/2024 19 12/15/2023 21 11/13/2023 22 07/19/2021 16 06/08/2021 18 04/02/2021 19 02/04/2021 19 01/05/2021 20 Potassium (mmol/L) Date Value 03/21/2024 4.3 02/15/2024 4.9 01/25/2024 4.7 12/15/2023 4.4 11/13/2023 4.7 07/19/2021 4.1 06/08/2021 4.2 04/02/2021 4.1 02/04/2021 4.2 01/05/2021 4.1 Sodium (mmol/L) Date Value 03/21/2024 137 02/15/2024 135 01/25/2024 136 12/15/2023 138 11/13/2023 135 07/19/2021 137 06/08/2021 138 04/02/2021 136 02/04/2021 135 01/05/2021 139 Magnesium (mg/dL) Date Value 03/21/2024 1.6 02/15/2024 1.6 01/25/2024 1.5 07/19/2021 1.5 06/08/2021 1.5 04/02/2021 1.5 WBC (k/uL) Date Value 03/21/2024 7.59 02/15/2024 7.43 01/25/2024 7.27 07/19/2021 7.02 06/08/2021 8.16 04/02/2021 7.02 Hemoglobin (g/dL) Date Value 03/21/2024 13.0 02/15/2024 12.6 01/25/2024 13.0 07/19/2021 13.8 06/08/2021 14.2 04/02/2021 13.5 Hematocrit (%) Date Value 03/21/2024 40.6 02/15/2024 39.7 01/25/2024 40.5 07/19/2021 42.9 06/08/2021 44.5 04/02/2021 40.4 Platelet Count (k/uL) Date Value 03/21/2024 265 02/15/2024 250 01/25/2024 250 07/19/2021 229 06/08/2021 245 04/02/2021 203 Calcium (mg/dL) Date Value 07/19/2021 8.8 06/08/2021 8.7 04/02/2021 8.8 Calcium, Total (mg/dL) Date Value 03/21/2024 8.7 02/15/2024 9.1 01/25/2024 9.2 PTH, Intact (pg/mL) Date Value 02/15/2024 107 01/25/2024 76 07/12/2023 121 03/07/2019 27 09/04/2018 54 03/23/2018 16 Tacrolimus/FK506 (ng/mL) Date Value 03/21/2024 6.9 02/15/2024 12.2 01/25/2024 17.7 12/15/2023 8.8 11/13/2023 7.4 07/19/2021 9.1 06/08/2021 8.6 04/02/2021 10.4 02/04/2021 10.3 01/05/2021 18.2 Protein/Creat Ratio Date Value 01/25/2024 0.88 mg/mg 12/15/2023 0.58 mg/mg 11/13/2023 0.56 mg/mg 11/02/2020 0.8 04/03/2019 0.4 01/17/2019 0.9 Cholesterol, Total (mg/dL) Date Value 02/15/2024 122 10/06/2020 119 HDL Cholesterol (mg/dL) Date Value 02/15/2024 30 10/06/2020 29 LDL Cholesterol (mg/dL) Date Value 02/15/2024 64 10/06/2020 54 Triglyceride (mg/dL) Date Value 02/15/2024 138 10/06/2020 179 No results found for: AMYLASE , LIPASE , GLUCOSE Hemoglobin A1C (%) Date Value 03/21/2024 7.5 07/19/2021 7.2 Hemoglobin A1C (POCT) (%) Date Value 02/17/2023 7.7 Color (no units) Date Value 04/03/2023 Yellow 11/02/2020 Light Yellow Clarity (no units) Date Value 04/03/2023 Clear 11/02/2020 Clear Glucose, Urine Date Value 04/03/2023 2+ 11/02/2020 Negative mg/dL Bilirubin, Urine (no units) Date Value 04/03/2023 Negative 11/02/2020 Negative Ketones, Urine (no units) Date Value 04/03/2023 Negative 11/02/2020 Negative Specific [place], Ur (no units) Date Value 04/03/2023 1.019 11/02/2020 1.019 Hemoglobin/Blood,Ur Date Value 04/03/2023 Trace 11/02/2020 Negative pH, Urine (no units) Date Value 04/03/2023 6.0 11/02/2020 5.5 Protein, Urine (no units) Date Value 04/03/2023 3+ 11/02/2020 1+ Urobilinogen Date Value 04/03/2023 Negative 11/02/2020 Negative E.U./dL Nitrites (no units) Date Value 04/03/2023 Negative 11/02/2020 Negative Leukest (no units) Date Value 11/02/2020 Negative Leuk Esterase (no units) Date Value 04/03/2023 Negative Impression and Plan: 68 year old male seen for LD kidney transplant (2012) aftercare. Doing well other than insomnia that he will discuss with his PCP. Kidney function is stable. On tacro, MMF and low dose pred. Good tacro level, keep the same. HTN is controlled. Low grade albuminuria but already on ARB. May need better DM control, working with his PCP. Low vit D. Needs to start replacement. On Bactrim. On mag. RTV with me in 6 months. Z48.22 Encounter for aftercare following kidney transplant (primary encounter diagnosis) Z51.81 Therapeutic drug monitoring I10 Essential hypertension Z79.621 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 Z79.52 termination clerk current use of systemic steroids Z79.2 Prophylactic antibiotic E87.20 Metabolic acidosis N25.81 Secondary renal hyperparathyroidism (HCC) E83.42 Hypomagnesemia Royce Almonte MD documented in this encounter [facility] 03-21-2024 Telephone encounter Note I put in a referral will consult to general surgery you guys can find the best place for him [facility] 03-01-2024 Telephone encounter Note Prescription Refill Information The patient has been identified by name and date of : Yes Caregiver verified no other encounters exist for this prescription request: Yes Caregiver confirmed with patient/requestor that no other refills are due, in the near future, with this provider at this time: Yes The last office visit in the department: 11/22/23 Does the patient have a future office visit with this provider/department: Yes Requested Prescriptions Pending Prescriptions Disp Refills suvorexant (BELSOMRA) 10 mg tab 90 tablet 1 Sig: Take 1 tablet by mouth daily at bedtime for 180 days. Indu Lauren LPN March 01, 2024 12:44 PM [facility] 03-01-2024 Miscellaneous Notes Prescription Refill Information The patient has been identified by name and date of : Yes Caregiver verified no other encounters exist for this prescription request: Yes Caregiver confirmed with patient/requestor that no other refills are due, in the near future, with this provider at this time: Yes The last office visit in the department: 11/22/23 Does the patient have a future office visit with this provider/department: Yes Requested Prescriptions Pending Prescriptions Disp Refills suvorexant (BELSOMRA) 10 mg tab 90 tablet 1 Sig: Take 1 tablet by mouth daily at bedtime for 180 days. Indu Lauren LPN March 01, 2024 12:44 PM documented in this encounter [facility] 02-21-2024 Telephone encounter Note Pt returned Heats missed call and would like a call back to discuss. Noemy Crum Returned call, see separate tele. Toshia [facility] 02-21-2024 Miscellaneous Notes Pt returned Heathers missed call and would like a call back to discuss. Noemy Crum Returned call, see separate tele. Toshia documented in this encounter [facility] 02-20-2024 Telephone encounter Note Called patient to review elevated tacro level, drawn in afternoon unsure if trough. Also wanting to start vitamin D. Patient did not answer, left VM to return call. Toshia Alvarado PA-C [facility] Work Phone: 02-20-2024 Miscellaneous Notes Called patient to review elevated tacro level, drawn in afternoon unsure if trough. Also wanting to start vitamin D. Patient did not answer, left VM to return call. Toshia Alvarado PA-C documented in this encounter [facility] 11-23-2023 Telephone encounter Note Patient notified. MAEVE Hicks [facility] 11-23-2023 Miscellaneous Notes Patient notified. MAEVE Hicks Patient's request for medication is as follows Requested Prescriptions Signed Prescriptions Disp Refills Clobetasol Propionate 0.05 % gel 15 g 0 Sig: Apply to affected area two times a day for 7 days. Authorizing Provider: ARSLAN COELHO Order entered - please notify patient. Arslan Coelho MD Patient returning pcp call and given message found in ov notes from pcp. Patient states he doesn't think he wants to try the chemical cautery. States he would try the topical clobetasol, and see how that works. If it doesn't help, willing to see ENT. Please send Rx to [facility]. Asking staff to phone him to let him know when Rx is sent. documented in this encounter [facility] 11-23-2023 Telephone encounter Note Patient's request for medication is as follows Requested Prescriptions Signed Prescriptions Disp Refills Clobetasol Propionate 0.05 % gel 15 g 0 Sig: Apply to affected area two times a day for 7 days. Authorizing Provider: ARSLAN COELHO Order entered - please notify patient. Arslan Coelho MD [facility] 11-23-2023 Telephone encounter Note Patient returning pcp call and given message found in ov notes from pcp. Patient states he doesn't think he wants to try the chemical cautery. States he would try the topical clobetasol, and see how that works. If it doesn't help, willing to see ENT. Please send Rx to [facility]. Asking staff to phone him to let him know when Rx is sent. [facility] 11-22-2023 Note [facility] 11-22-2023 History of Present illness Narrative This note was created using [employer]. Subjective Patient presents with: F/U 3 Month Fadi Davila is a 68 year old male. His hypertension was better. Dizziness and dysequilibrium resolved with this current medication regimen. Insomnia was stable on medication. Depressive symptoms primarily related to insomnia. MITALI was controlled. Osteoporosis was not treated and BMD has not been updated. He needed refills. He developed an oral sore that burned 2 weeks ago. He went to his dentist who recommended a concoction of over the counter rinses that provided little relief. He was asking for a prescription for Debactral mentioned in [employer]. Review of Systems Constitutional: Negative for fatigue and fever. HENT: Positive for mouth sores. Negative for sore throat. Respiratory: Negative for cough and shortness of breath. Cardiovascular: Negative for chest pain. Gastrointestinal: Negative. Neurological: Negative for dizziness and light-headedness. Psychiatric/Behavioral: Positive for sleep disturbance. ACTIVE PROBLEM LIST Osteoporosis Mixed Hyperlipidemia Polycystic Kidney Disease, Autosomal Dominant Essential Hypertension Kidney Transplant Status, Living Unrelated Donor Stress and Adjustment Reaction Ckd (Chronic Kidney Disease) Stage 3, Gfr 30-59 Ml/Min ([facility]) Gastroesophageal Reflux Disease Without Esophagitis MITALI on BiPAP Memory Disturbance Diabetic Peripheral Neuropathy Associated With Type 2 Diabetes Mellitus (Hcc) Obesity (Bmi 30.0-34.9) Moderate Mitral Regurgitation Numbness of Legs Spinal Stenosis of Lumbar Region Insomnia Social History Tobacco Use Smoking status: Never Smokeless tobacco: Never Vaping Use Vaping Use: Never used Substance Use Topics Alcohol use: Yes Comment: rarely Drug use: No Current Outpatient Medications Medication Sig lansoprazole (PREVACID) 30 mg capsule Take 1 capsule by mouth once daily. Insulin Newport, Disposable, (BD ULTRA-FINE PAYTON PEN NEEDLE) 32 gauge x USE 1 NEEDLE FOR EACH DOSE FOUR TIMES DAILY buPROPion SR (WELLBUTRIN SR) 100 mg 12 hr tablet Take one(1) tablet daily in the morning. insulin glargine (LANTUS SOLOSTAR U-100 INSULIN) 100 unit/mL (3 mL) Inject 70 Units subcutaneously every evening. suvorexant (BELSOMRA) 10 mg tab Take 1 tablet by mouth daily at bedtime for 180 days. tacrolimus IR (PROGRAF) 0.5 mg capsule TAKE 2 CAPSULES BY MOUTH ONCE DAILY mycophenolate mofetil (CELLCEPT) 250 mg capsule TAKE 3 CAPSULES BY MOUTH TWICE DAILY amLODIPine (NORVASC) 10 mg tablet Take 1 tablet by mouth once daily. valsartan (DIOVAN) 40 mg tablet Take 1 tablet by mouth once daily. terazosin (HYTRIN) 2 mg capsule Take 1 capsule by mouth daily at bedtime. blood sugar diagnostic (ONETOUCH ULTRA TEST) test strip Test 4 times a day. E11.42. Insulin: Yes. carvedilol (COREG) 25 mg tablet Take 1 tablet by mouth twice daily. fluticasone (FLONASE) 50 mcg/actuation nasal spray Use 2 Sprays in each nostril once daily. RINSE MOUTH AFTER EACH DOSE sulfamethoxazole-trimethoprim (BACTRIM) 400-80 mg per tablet Take 1 tablet by mouth once daily. insulin lispro (HUMALOG KWIKPEN INSULIN) 100 unit/mL Inject 25 Units subcutaneously three times daily before meals. predniSONE (DELTASONE) 2.5 mg tablet Take 1 tablet by mouth once daily. Lancets lancets Test blood sugar(s) 2 daily. Dx: 250.02. Insulin: No CPAP Pt requesting new DME. Needs supplies. Lifetime supplies. Bipap 16/12 cmH2O. If pt appropriate for new device, then would request the new device be an auto bilevel PAP set at IPAP max 18 cmH2O, EPAP min 8 cmH2O with pressure support of 4 cmH2O. Ipratropium Haynes (ATROVENT) 0.03 % nasal spray Use 2 Sprays in the nose every 12 hours. BIPAP No current facility-administered medications for this visit. Objective BP 120/68 (BP Site: Left Arm, BP Position: Sitting, BP Cuff Size: Large Adult) Pulse 72 Temp 36.9 C (98.5 F) (Temporal) Resp 16 Wt 93 kg (205 lb) BMI 28.59 kg/m Physical Exam Constitutional: Appearance: He is not ill-appearing. HENT: Mouth/Throat: Comments: 1 cm round ulcer of the oral mucosa behind the right upper lip, erythematous border, whitish base. Cardiovascular: Rate and Rhythm: Normal rate and regular rhythm. Pulmonary: Breath sounds: Normal breath sounds. Musculoskeletal: Right lower leg: No edema. Left lower leg: No edema. Lymphadenopathy: Cervical: No cervical adenopathy. Neurological: Gait: Gait normal. Assessment and Plan 1. Oral ulceration - ICD9: 528.9, ICD10: K12.1 (primary diagnosis) - I advised him I will look into the medication he was interested in. Turns out this is used for supervised chemical cautery. I called and left a message to discuss this further. I will offer topical clobetasol. I will recommend ENT if not better. 2. 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) - ICD9: 250.60, 357.2, ICD10: E11.42 - Improving control - Continue current medications - BLOOD SUGAR DIAGNOSTIC STRIPS - ALBUMIN/CREATININE RATIO, URINE 3. Stress and adjustment reaction - ICD9: 309.89, ICD10: F43.29 - Stable. Most symptoms were related to insomnia. 4. Essential hypertension - ICD9: 401.9, ICD10: I10 - Controlled - Continue medications. - CARVEDILOL 25 MG TABLET 5. Kidney transplant status, living unrelated donor - ICD9: V42.0, ICD10: Z94.0 - Medications refilled in co management with nephrology/transplant medicine. - I reviewed flagged interaction of Bactrim with Idris. He's never had issues with hyperkalemia and goes for regular routine labs. - PREDNISONE 2.5 MG TABLET - SULFAMETHOXAZOLE 400 MG-TRIMETHOPRIM 80 MG TABLET 6. Osteoporosis, unspecified osteoporosis type, unspecified pathological fracture presence - ICD9: 733.00, ICD10: M81.0 - BMD needed updating. I also left a message to get his consent to update this and review treatment options with results. Arslan Coelho MD documented in this encounter [facility] 11-07-2023 Telephone encounter Note Images from the original note were not included. [facility] 11-07-2023 Miscellaneous Notes Images from the original note were not included. documented in this encounter [facility] 11-07-2023 Telephone encounter Note Faxed documentation, last OV to [facility] [phone] check patients BiPap machine. Alda Navarro LPN [facility] 11-07-2023 Miscellaneous Notes Faxed documentation, last OV to [facility] [phone] check patients BiPap machine. Alda Navarro LPN documented in this encounter [facility] 11-06-2023 History of Present illness Narrative Epic was not available for this visit. Please see scanned note. Alyssa Pink APRN.CNP documented in this encounter [facility] 11-06-2023 Note HNO ID: [id number] Author: ALYSSA PINK APRN.CNP Service: ? Author Type: Nurse Practitioner Type: Progress Notes Filed: 11/06/2023 16:54 Note Text: Epic was not available for this visit. Please see scanned note. Alyssa Pink APRN.GRAIN CLEANER AND TRANSFER OPERATOR [facility] 10-30-2023 Telephone encounter Note Patient has been identified by name and date of : Yes Patient phones for refill(s): Requested Prescriptions Pending Prescriptions Disp Refills lansoprazole (PREVACID) 30 mg capsule 90 capsule 3 Sig: Take 1 capsule by mouth once daily. Date of last office visit in primary care: 08/24/2023 Date of next office visit in primary care: 11/22/2023 Please advise. Thank you. MAEVE Hicks. [facility] 10-30-2023 Miscellaneous Notes Patient has been identified by name and date of : Yes Patient phones for refill(s): Requested Prescriptions Pending Prescriptions Disp Refills lansoprazole (PREVACID) 30 mg capsule 90 capsule 3 Sig: Take 1 capsule by mouth once daily. Date of last office visit in primary care: 08/24/2023 Date of next office visit in primary care: 11/22/2023 Please advise. Thank you. MAEVE Hicks. documented in this encounter [facility] 10-26-2023 Miscellaneous Notes Addended by: ARIEL KING on: 10/26/2023 10:58 AM Modules accepted: Orders Consult for Fidel Perez has been put in place Spoke to patient this morning, He will not go to [place] stating he always did them here @ [facility] in the past. He is requesting for us to send the orders @ referral to Dr. Chou @ [facility] Verna Corrales documented in this encounter [facility] 10-25-2023 Miscellaneous Notes Patient has been identified by name and date of : Yes Patient phones for refill(s): Requested Prescriptions Pending Prescriptions Disp Refills Insulin Newport, Disposable, (BD ULTRA-FINE PAYTON PEN NEEDLE) 32 gauge x 5/32 200 Each 3 Sig: USE 1 NEEDLE FOR EACH DOSE FOUR TIMES DAILY Date of last office visit in primary care: 08/24/2023 Date of next office visit in primary care: 10/25/2023 Please advise. Thank you. Ellen Farias LPN. documented in this encounter [facility] 10-25-2023 Miscellaneous Notes Patient has been identified by name and date of : Yes Patient phones for refill(s): Requested Prescriptions Pending Prescriptions Disp Refills buPROPion SR (WELLBUTRIN SR) 100 mg 12 hr tablet 90 tablet 3 Sig: Take one(1) tablet daily in the morning. insulin glargine (LANTUS SOLOSTAR U-100 INSULIN) 100 unit/mL (3 mL) 25 Each 3 Sig: Inject 70 Units subcutaneously every evening. Date of last office visit in primary care: 08/24/2023 Date of next office visit in primary care: 11/22/2023 Please advise. Thank you. Ellen Farias LPN. documented in this encounter [facility] 10-18-2023 Miscellaneous Notes Faxed as requested. Consult to Dr. Chou ordered, please fax Kaur Wilder APRN.GRAIN CLEANER AND TRANSFER OPERATOR Patient had appointment with Dr King on 10/09/23 for EGD/Colonoscopy and does not wish to travel to [place] and requesting order be faxed to Dr Fidel Chou. documented in this encounter [facility] 10-16-2023 Note HNO ID: [id number] Author: ?, ?, ? Service: ? Author Type: ? Type: Progress Notes Filed: 11/16/2023 03:03 Note Text: Spoke with patient as he seen Dr King on 10/09/23 and does not wish to travel to [place]. He may consider Dr Fidel Chou at [facility]. [facility] 10-16-2023 History of Present illness Narrative Spoke with patient as he seen Dr King on 10/09/23 and does not wish to travel to [place]. He may consider Dr Fidel Chou at [facility]. COLONOSCOPY PATIENT OUTREACH Action/ Colonoscopy Recall Patient identified by Name and : Yes. OUTREACH OUTCOME ACTION: Consult- Telephone Call- Pt is overdue for screening colonoscopy. Pt needs consult due to medical history and/or medications. Please call patient and schedule appointment with General Surgery Provider. Last colonoscopy 04/16/18 repeat 5 years. Cristina Cespedes, RN documented in this encounter [facility] 10-16-2023 Note [facility] 10-09-2023 Instructions Ariel King MD - 10/09/2023 3:01 PM EDT Images from the original note were not included. Bowel Preparation Instructions for: Golytely, Nulytely, Trilyte or Colyte (polyethylene glycol 3350 and electrolytes) IF YOU DO NOT FOLLOW THESE DIRECTIONS, YOUR COLONOSCOPY WILL BE CANCELLED. [place] Instructions: Your bowel must be empty so that your doctor can clearly view your colon. Follow all of the instructions in this handout EXACTLY as they are written. Do NOT eat any solid food the ENTIRE day before your colonoscopy. Drink only clear liquids. Buy your bowel preparation at least 5 days before your colonoscopy. TRANSPORTATION on the Day of Your Exam A responsible person MUST be present with you at Check In prior to your colonoscopy and REMAIN in the endoscopy area until you are discharged. You are NOT ALLOWED to drive, take a taxi or bus, or leave the Endoscopy Center ALONE. If you do not have a responsible transport truck driver (family member or friend) with you to take you home, your exam cannot be done with sedation and will be cancelled. Please bring a list of all of your current medications, including any Over-the Counter medications with you. Medications If you take insulin, diabetic medications or blood thinners such as Coumadin (warfarin), Plavix (clopidogrel), Ticlid (ticlopidine hydrochloride), Agrylin (anagrelide), Xarelto (Rivaroxaban), Pradaxa (Dabigatran), Eliquis (Apixaban), and Effient (Prasugrel). You MUST call the doctors who orders those medicines for instructions on altering the dosage before your colonoscopy. All other medications should be taken the day of the exam with a sip of water including ASPIRIN. Five (5) Days Before Your Colonoscopy Do NOT take medicines that stop diarrhea - such as Imodium, Kaopectate, or Pepto Bismol. Do NOT take fiber supplements - such as Metamucil, Citrucel, or Perdiem. Do NOT take products that contain iron - such as multi-vitamins (the label lists what is in the products). Do NOT take Vitamin E. Buy the prescription bowel preparation solution at your local pharmacy or drugstore pharmacy. 1 06/2019 Bowel Preparation Instructions for: Golytely, Nulytely, Trilyte or Colyte (polyethylene glycol 3350 and electrolytes) Three (3) Days Before Your Colonoscopy Do NOT eat high-fiber foods - such as popcorn, beans, seeds (flax, sunflower, quinoa), multigrain bread, nuts, salad/vegetables, or fresh and dried fruit. One (1) Day Before Your Colonoscopy Only drink clear liquids the ENTIRE DAY before your colonoscopy. Do NOT eat any solid foods. Drink at least 8 ounces of clear liquids every hour after waking up. The clear liquids you can drink include: Clear Liquid (NO RED LIQUIDS) DO NOT DRINK Gatorade, Pedialyte or Powerade Clear broth or bouillon Coffee or tea (no milk or non-dairy creamer) Carbonated and non-carbonated soft drinks Antonio-Aid or other fruit flavored drinks Strained fruit juices (no pulp) Jell-O, popsicles, hard candy Water Alcohol Milk or non-dairy creamers Noodles or vegetables in soup Juice with pulp Liquid you cannot see through Do not use tobacco/vaping products The bowel preparation solution will be consumed in two parts. Mix the solution the evening before your colonoscopy and refrigerate before drinking. You may add the flavor pack that came with the bowel preparation. Do NOT add ice, sugar or any other flavorings to the solution. Part 1 At 6:00 PM - Evening before your colonoscopy Drink an 8-oz glass of bowel preparation every 10 minutes for a total of 8 glasses. You may continue to drink clear liquids until midnight. Part 2 On the day of your colonoscopy you may drink clear liquids up to (three) 3 hours before your procedure. 4 1/2 hours before your colonoscopy Drink an 8-oz glass of bowel preparation every 10 minutes for a total of 8 glasses. Fifteen (15) minutes later, drink an 8-oz glass of clear liquids every 15 minutes for a total of 2 glasses. You may continue to drink clear liquids up to (three) 3 hours before your exam. 2 06/2019 documented in this encounter [facility] 10-09-2023 Note [facility] 10-09-2023 History of Present illness Narrative HISTORY AND PHYSICAL Fadi Davila 1955 REFERRING PHYSICIAN: Arslan Coelho MD CHIEF COMPLAINT: Consult (colonoscopy) HPI: The patient is a 68 year old male referred for endoscopy. Fadi notes no history of colon complaints. The patient notes the following upper complaints: Fadi denies abdominal pain.. Fadi notes heartburn. Fadi denies dysphagia. Fadi denies a history of ulcers/ peptic ulcer disease. Fadi has undergone prior endoscopy. Last scope was in 04/16/2018. He was noted to have polyps at that time. The patient is being seen by me today at the request of Dr. Arslan Coelho MD for my opinion and advice regarding Polyp of colon, unspecified part of colon, unspecified type Gastroesophageal reflux disease, unspecified whether esophagitis present (primary encounter diagnosis). PAST MEDICAL HISTORY Diagnosis Date Bursitis of both shoulders 10/28/2005 Dr. Alex CKD (chronic kidney disease) stage 3, GFR 30-59 ml/min ([facility]) 02/01/2016 Colles' fracture 02/19/2013 CPAP (continuous positive airway pressure) dependence 11/2011 MITALI on CPAP Diabetic peripheral neuropathy associated with type 2 diabetes mellitus ([facility]) 10/13/2016 Dyslipidemia Esophagitis, unspecified ESRD (end stage renal disease) ([facility]) Gastroesophageal reflux disease without esophagitis 03/26/2016 Gout 02/17/2010 HTN (hypertension) 08/17/2011 Hyperparathyroidism, secondary renal ([facility]) 11/27/2013 Insomnia 07/06/2011 Internal hemorrhoids without mention of complication Kidney transplant status, living unrelated donor 12/29/2013 transplanted 2012. Lumbar transverse process fracture ([facility]) 09/12/2009 Maisonneuve fracture of fibula, left, closed, initial encounter 05/10/2021 Mitral valve regurgitation MITALI on CPAP 11/08/2011 MITALI on CPAP Osteoporosis 10/28/2005 Peripheral enthesopathies and allied syndromes 10/28/2005 Left shoulder bursitis Polycystic kidney disease, autosomal dominant 08/17/2011 Squamous cell carcinoma of skin of right upper arm 02/15/2018 Dr. Mika Hernandez, dermatology. Steal syndrome of dialysis vascular access ([facility]) 01/21/2019 Stress and adjustment reaction 06/08/2014 [place]-neck deformity of finger 07/29/2014 Uncontrolled type 2 diabetes mellitus with insulin therapy 07/23/2014 PAST SURGICAL HISTORY Procedure Laterality Date ARTERIOVENOUS ANASTOMOSIS OPEN DIRECT 06/13/2012 Right upper extremity fistula, first of 2 stages, basilic vein and brachial artery COLONOSCOPY FLX DX W/COLLJ SPEC WHEN PFRMD 05/14/07 COLONOSCOPY FLX DX W/COLLJ SPEC WHEN PFRMD 04/16/2018 repeat 5 years EGD TRANSORAL BIOPSY SINGLE/MULTIPLE 05/14/07 ESOPHAGOGASTRODUODENOSCOPY TRANSORAL DIAGNOSTIC 04/16/2018 EGD KIDNEY SURGERY HX KIDNEY TRANSPLANT HX 04/18/2013 Bilateral Nephrectomy and living donor KTx Current Outpatient Medications Medication Sig suvorexant (BELSOMRA) 10 mg tab Take 1 tablet by mouth daily at bedtime for 180 days. tacrolimus IR (PROGRAF) 0.5 mg capsule TAKE 2 CAPSULES BY MOUTH ONCE DAILY mycophenolate mofetil (CELLCEPT) 250 mg capsule TAKE 3 CAPSULES BY MOUTH TWICE DAILY amLODIPine (NORVASC) 10 mg tablet Take 1 tablet by mouth once daily. valsartan (DIOVAN) 40 mg tablet Take 1 tablet by mouth once daily. terazosin (HYTRIN) 2 mg capsule Take 1 capsule by mouth daily at bedtime. blood sugar diagnostic (OleryTOUCH ULTRA TEST) test strip Test 4 times a day. E11.42. Insulin: Yes. carvedilol (COREG) 25 mg tablet Take 1 tablet by mouth twice daily. fluticasone (FLONASE) 50 mcg/actuation nasal spray Use 2 Sprays in each nostril once daily. RINSE MOUTH AFTER EACH DOSE buPROPion SR (WELLBUTRIN SR) 100 mg 12 hr tablet Take one(1) tablet daily in the morning. sulfamethoxazole-trimethoprim (BACTRIM) 400-80 mg per tablet Take 1 tablet by mouth once daily. lansoprazole (PREVACID) 30 mg capsule Take 1 capsule by mouth once daily. insulin lispro (HUMALOG KWIKPEN INSULIN) 100 unit/mL Inject 25 Units subcutaneously three times daily before meals. insulin glargine (LANTUS SOLOSTAR U-100 INSULIN) 100 unit/mL (3 mL) Inject 70 Units subcutaneously every evening. predniSONE (DELTASONE) 2.5 mg tablet Take 1 tablet by mouth once daily. Insulin Newport, Disposable, (BD ULTRA-FINE PAYTON PEN NEEDLE) 32 gauge x 5/32 USE 1 NEEDLE FOR EACH DOSE FOUR TIMES DAILY Lancets lancets Test blood sugar(s) 2 daily. Dx: 250.02. Insulin: No CPAP Pt requesting new DME. Needs supplies. Lifetime supplies. Bipap 16/12 cmH2O. If pt appropriate for new device, then would request the new device be an auto bilevel PAP set at IPAP max 18 cmH2O, EPAP min 8 cmH2O with pressure support of 4 cmH2O. Ipratropium Haynes (ATROVENT) 0.03 % nasal spray Use 2 Sprays in the nose every 12 hours. BIPAP peg 3350-Electrolytes (GOLYTELY) 236-22.74-6.74 -5.86 gram suspension Take 4,000 mL by mouth one time only for 1 dose. Refer to printed prep instructions from your provider. No current facility-administered medications for this visit. ALLERGIES: Penicillins, Tape [Adhesive Tape-Silicones], Losartan Potassium, Callie Inhibitors, Celexa [Citalopram Hydrobromide], Cholecalciferol (Vitamin D3), Clonidine, Ferrous Sulfate, Imdur [Isosorbide Mononitrate], Latex, and Trazodone PERSONAL HISTORY: Social History Tobacco Use Smoking status: Never Smokeless tobacco: Never Vaping Use Vaping Use: Never used Substance Use Topics Alcohol use: Yes Comment: rarely Drug use: No FAMILY HISTORY: FAMILY HISTORY Problem Relation Age of Onset Breast Cancer Mother Osteoporosis Mother Aneurysm Mother PKD Heart Mother mitral valve regurg Stroke Mother at age 79 Breast Cancer Sister Diabetes Father other (bone cancer) Father REVIEW OF SYMPTOMS: The review of systems data was entered by the nurse and reviewed by ct Nursing Notes: Jolie Ruiz RN 10/09/2023 2:45 PM Addendum Pt refused to fill out ROS. Pt states he filled all history and allergies out online. PHYSICAL EXAMINATION: General: The patient is 68 year old male, well nourished, well hydrated in no acute distress. The patient is oriented to time, place, and person. VITALS: Blood pressure 136/84, pulse 81, temperature 36.6 C (97.8 F), height 180.3 cm (5' 11 ), weight 95.9 kg (211 lb 6.4 oz), SpO2 97%. Body mass index is 29.48 kg/m . HEENT: Normal cephalic, ataumatic, pupils are equally round, sclera are anicteric, mucous membranes are moist, oropharynx is clear. Neck has no masses, asymmetry or lymphadenopathy. Thyroid is unremarkable. Respiratory: Clear to auscultation and percussion. Normal respiratory excursion and pattern. Cardiac: Examination is regular rate and rhythm. Abdominal exam: Soft, nontender, with no palpable masses. No hepatosplenomegaly. No palpable hernias. Rectal exam: exam deferred Extremities: no clubbing, cyanosis or edema. No adenopathy. Other: LABORATORY VALUES: As Noted RADIOLOGIC STUDIES: As Noted Assessment IMPRESSION: Polyp of colon, unspecified part of colon, unspecified type Gastroesophageal reflux disease, unspecified whether esophagitis present (primary encounter diagnosis) PLAN: I plan to perform lower endoscopy. We discussed the risks and benefits of the planned endoscopy. I have informed the patient that complications can occur including failure to complete the endoscopy and perforation. The patient had the opportunity to ask questions concerning the planned endoscopy. My staff has also explained the procedure to the patient in understandable terms and has given the patient printed material concerning the procedure. The patient freely consents to surgery. I plan to use golytely bowel preparation for endoscopy I plan for monitored anesthetic care. Diagnoses: (K21.9) Gastroesophageal reflux disease, unspecified whether esophagitis present (primary encounter diagnosis) (K63.5) Polyp of colon, unspecified part of colon, unspecified type My findings have been communicated to Dr. Arslan Coelho MD via shared medical record. This note will be forwarded to Dr. Arslan Coelho MD. Return to Clinic: The patient is instructed to follow-up with me 1 week post operatively. Ariel King III, MD documented in this encounter [facility] 10-09-2023 Nurse Note Pt refused to fill out ROS. Pt states he filled all history and allergies out online. documented in this encounter [facility] 08-24-2023 Note [facility] 08-24-2023 History of Present illness Narrative This note was created using NoteWriter. Subjective Fadi Davila is a 68 year old male. His dysequilibrium resolved so he did not pursue further authorization of MR studies recommended by neurology. His hypertension was fair and he felt better with a slightly higher blood pressure. He had kidney biopsy to assess for transplant rejection, and he had questions about the biopsy result. His diabetes was not well controlled. MITALI was well controlled with BiPAP use. However, he continued with insomnia. He stopped Belsomra due to concerns of dysequilibrium. He has been taking Ambien but now felt Belsomra was more effective for his insomnia. His mood disorder was controlled on bupropion. Review of Systems Constitutional: Negative for fatigue, fever and unexpected weight change. HENT: Negative. Respiratory: Negative for cough and shortness of breath. Cardiovascular: Negative for chest pain, palpitations and leg swelling. Gastrointestinal: Negative for abdominal pain, constipation and diarrhea. Genitourinary: Negative for difficulty urinating and dysuria. Musculoskeletal: Negative. Neurological: Positive for numbness. Psychiatric/Behavioral: Positive for sleep disturbance. Negative for dysphoric mood. ACTIVE PROBLEM LIST Osteoporosis Mixed Hyperlipidemia Polycystic Kidney Disease, Autosomal Dominant Essential Hypertension Kidney Transplant Status, Living Unrelated Donor Stress and Adjustment Reaction Ckd (Chronic Kidney Disease) Stage 3, Gfr 30-59 Ml/Min (Hcc) Gastroesophageal Reflux Disease Without Esophagitis MITALI on BiPAP Memory Disturbance Diabetic Peripheral Neuropathy Associated With Type 2 Diabetes Mellitus (Hcc) Obesity (Bmi 30.0-34.9) Moderate Mitral Regurgitation Numbness of Legs Spinal Stenosis of Lumbar Region Insomnia Social History Tobacco Use Smoking status: Never Smokeless tobacco: Never Substance Use Topics Alcohol use: Yes Comment: rarely Drug use: No Current Outpatient Medications Medication Sig tacrolimus IR (PROGRAF) 0.5 mg capsule TAKE 2 CAPSULES BY MOUTH ONCE DAILY mycophenolate mofetil (CELLCEPT) 250 mg capsule TAKE 3 CAPSULES BY MOUTH TWICE DAILY amLODIPine (NORVASC) 10 mg tablet Take 1 tablet by mouth once daily. zolpidem (AMBIEN) 10 mg Take 1 tablet by mouth at bedtime as needed (insomnia) for up to 90 days. valsartan (DIOVAN) 40 mg tablet Take 1 tablet by mouth once daily. terazosin (HYTRIN) 2 mg capsule Take 1 capsule by mouth daily at bedtime. blood sugar diagnostic (ONETOUCH ULTRA TEST) test strip Test 4 times a day. E11.42. Insulin: Yes. carvedilol (COREG) 25 mg tablet Take 1 tablet by mouth twice daily. fluticasone (FLONASE) 50 mcg/actuation nasal spray Use 2 Sprays in each nostril once daily. RINSE MOUTH AFTER EACH DOSE buPROPion SR (WELLBUTRIN SR) 100 mg 12 hr tablet Take one(1) tablet daily in the morning. sulfamethoxazole-trimethoprim (BACTRIM) 400-80 mg per tablet Take 1 tablet by mouth once daily. lansoprazole (PREVACID) 30 mg capsule Take 1 capsule by mouth once daily. insulin lispro (HUMALOG KWIKPEN INSULIN) 100 unit/mL Inject 25 Units subcutaneously three times daily before meals. insulin glargine (LANTUS SOLOSTAR U-100 INSULIN) 100 unit/mL (3 mL) Inject 70 Units subcutaneously every evening. predniSONE (DELTASONE) 2.5 mg tablet Take 1 tablet by mouth once daily. Insulin [place], Disposable, (BD ULTRA-FINE PAYTON PEN NEEDLE) 32 gauge x 5/32 USE 1 NEEDLE FOR EACH DOSE FOUR TIMES DAILY Lancets lancets Test blood sugar(s) 2 daily. Dx: 250.02. Insulin: No CPAP Pt requesting new DME. Needs supplies. Lifetime supplies. Bipap 16/12 cmH2O. If pt appropriate for new device, then would request the new device be an auto bilevel PAP set at IPAP max 18 cmH2O, EPAP min 8 cmH2O with pressure support of 4 cmH2O. Ipratropium Haynes (ATROVENT) 0.03 % nasal spray Use 2 Sprays in the nose every 12 hours. BIPAP No current facility-administered medications for this visit. Objective BP 142/80 (BP Site: Left Arm, BP Position: Sitting, BP Cuff Size: Large Adult) Pulse 72 Temp 36.8 C (98.2 F) (Temporal) Ht 180.3 cm (5' 11 ) Wt 95.3 kg (210 lb) BMI 29.29 kg/m Physical Exam Constitutional: Appearance: He is not ill-appearing. HENT: Head: Normocephalic. Eyes: Extraocular Movements: Extraocular movements intact. Conjunctiva/sclera: Conjunctivae normal. Cardiovascular: Rate and Rhythm: Normal rate and regular rhythm. Heart sounds: No murmur heard. No gallop. Pulmonary: Effort: No respiratory distress. Breath sounds: No wheezing or rales. Abdominal: Palpations: Abdomen is soft. Tenderness: There is no abdominal tenderness. Musculoskeletal: Right lower leg: No edema. Left lower leg: No edema. Lymphadenopathy: Cervical: No cervical adenopathy. Neurological: Mental Status: He is alert. Gait: Gait normal. Feet:Shoes and socks removed, No ulcers, calluses, normal distal pulses, sensitive to 10 gm monofilament, and nails hypertrophic. High arched feet right more than left. Clawed toes. Assessment and Plan 1. Medicare annual wellness visit, subsequent - ICD9: V70.0, ICD10: Z00.00 (primary diagnosis) See wellness note. 2. Essential hypertension - ICD9: 401.9, ICD10: I10 Fair. - Continue current medications - Encouraged sodium restriction, DASH or Mediterranean diet 3. Stress and adjustment reaction - ICD9: 309.89, ICD10: F43.29 - Continue BUPROPION. - BELSOMRA 10 MG TABLET 4. Insomnia, unspecified type - ICD9: 780.52, ICD10: G47.00 - Discontinue ZOLPIDEM. - BELSOMRA 10 MG TABLET. He was needing this every night, not PRN. Discussed medication dosage, usage, goals of therapy, and side effects. 5. Polyp of colon, unspecified part of colon, unspecified type - ICD9: 211.3, ICD10: K63.5 Not for open access, not for stool based testing. - CONSULT TO GENERAL SURGERY 6. Stage 3a chronic kidney disease (HCC) - ICD9: 585.3, ICD10: N18.31 - eGFR: 52 Stable - Results discussed in general. He will schedule with transplant nephrology to discuss implications of glomerulopathy on biopsy. 7. Kidney transplant status, living unrelated donor - ICD9: V42.0, ICD10: Z94.0 - Chronic steroid. - Osteoporosis treatment has not been revisited. He was hesitant to start alendronate few years ago. Review and update BMD next. Arslan Coelho MD Fadi Davila is a 68 year old male here for a Medicare wellness visit. Medicare Health Risk Assessment General Health Good Exercise: Minutes/Day 0 min Exercise: Days/Week 0 days Alcohol: Daily Use Monthly or less Alcohol: Drinks/Day 1 or 2 Alcohol: 6 or more drinks Never Feel off balance Yes Concerns: Teeth/Dentures No Concerns: Sexual function No Troubled by feelings None of the above Frequency: Eating healthy diet Several days ADLs requiring help None of the above Safety precautions in home/vehicle Yes Smoke, vape, chews tobacco No Difficulty hearing Yes Difficulty seeing No Current Providers Specialists: I have reviewed specialist-related care of the patient in the medical record. Current care team: Patient Care Team: Arslan Coelho MD as PCP - General (Internal Medicine) Preeti Cruz PA-C (Transplant Center) Bill Mckay Jr., MD, sleep medicine. Aleks Floyd OD, optometry. Vinicio Sofia MD, cardiology. Medical/Family history review Reviewed and updated problem list, medical/surgical/family/social history, medications, and allergies. Opioid use review Opioid Medications (last 90 days) Some values may be hidden. Unless noted otherwise, only the newest values recorded on each date are displayed. Opioid Medications No data to display. Depression screening Depression Screening PHQ-2 Score PHQ-9 Score FORTINO-2 Total Score 08/24/2023 0 - - Depression screening tool completed and reviewed. Based on score and interview, patient is not at risk for depression. Screening tool discussed with patient, and I recommended no further intervention at this time. Cognitive screening Mini Cog Score: 4 Cognitive screening reviewed and no further action needed (score 3-5) Functional Observation Was the patient's Timed Up & Go test unsteady or ? 12 seconds? No Advance Care Planning Surrogate decision maker and/or advance care plan documented Measurements BP 142/80 Pulse 72 Temp (Src) 98.2 (Temporal) Ht 5' 11 (1.80m) Wt 210 lb (95.3kg) BMI 29.30 kg/(m^2). Additional screenings: Vision Screening Right eye - Without correction: With correction: 20/50 Left eye - Without correction: With correction: 20/30 Both eyes - Without correction: With correction: 20/25 Assessment/Plan Medicare annual wellness visit, subsequent (Z00.00) - Counseled on healthy diet and regular exercise - Fall avoidance information provided - Personalized prevention plan provided - Discussed need for and benefit of weight loss. BMI 29.29 kg/(m^2) - Vaccines: RSV vaccine. Shingrix vaccine. Get from pharmacy. - Update Colorectal cancer screening. - Next visit update Bone Mineral Density. documented in this encounter [facility] 08-24-2023 Note [facility] 08-23-2023 Miscellaneous Notes Patient phones requesting refills as follows: Requested Prescriptions Pending Prescriptions Disp Refills tacrolimus IR (PROGRAF) 0.5 mg capsule [Pharmacy Med Name: Tacrolimus 0.5 MG Oral Capsule] 180 capsule 3 Sig: TAKE 2 CAPSULES BY MOUTH ONCE DAILY Please review and advise. Liya Chavez documented in this encounter [facility] 07-31-2023 Note [facility] 05-24-2023 Note [facility] 05-24-2023 History of Present illness Narrative CC: Patient presents with: F/U 3 Month HPI Fadi Davila is a 67 year old male who presents today for above. Patient's main concern today is elevated blood pressures. At last office visit in February there was some confusion as to which medications and what dosages he was taking. Medication reconciliation completed at that visit for the following meds: Norvasc 5 mg daily, Valsartan 40 mg daily, Coreg 25 mg BID and Terazosin 2 mg daily. He then presented to [facility] ER on 04/09 for elevated blood pressures however BP in the ER was normal and no medication changes were made. After this he established care with [facility] on 04/12. No medication changes were made however he was instructed to discuss increasing dose of valsartan with sde. Today patient reports his BP continues to be elevated with averages in the 160's/80's. He did not bring home meds with him today but did bring a list that he made this morning of all of his meds with dosages he has in his medicine cabinet. He states Amlodipine was increased to 10 mg daily by his sde in March. He is taking all other medications as discussed at last office visit 3 months ago. He has been trying to get in touch with sde concerning his BP however keeps missing their phone calls. For this reason he prefers to utilize My Chart for messages but unable to find them on the drop down menu. Review of Systems See HPI PAST MEDICAL HISTORY Diagnosis Date Bursitis of both shoulders 10/28/2005 Dr. Alex CKD (chronic kidney disease) stage 3, GFR 30-59 ml/min ([facility]) 02/01/2016 Colles' fracture 02/19/2013 CPAP (continuous positive airway pressure) dependence 11/2011 MITALI on CPAP Dyslipidemia Esophagitis, unspecified ESRD (end stage renal disease) ([facility]) Fracture Gastroesophageal reflux disease without esophagitis 03/26/2016 Gout 02/17/2010 HTN (hypertension) 08/17/2011 Hyperparathyroidism, secondary renal ([facility]) 11/27/2013 Insomnia 07/06/2011 Internal hemorrhoids without mention of complication Kidney transplant status, living unrelated donor 12/29/2013 transplanted 2012. Mitral valve regurgitation MITALI on CPAP 11/08/2011 MITALI on CPAP Osteoporosis 10/28/2005 Peripheral enthesopathies and allied syndromes 10/28/2005 Left shoulder bursitis Polycystic kidney disease, autosomal dominant 08/17/2011 Squamous cell carcinoma of skin of right upper arm 02/15/2018 Dr. Mika Hernandez, dermatology. Steal syndrome of dialysis vascular access ([facility]) 01/21/2019 Stress and adjustment reaction 06/08/2014 [place]-neck deformity of finger 07/29/2014 Uncontrolled type 2 diabetes mellitus with insulin therapy 07/23/2014 PAST SURGICAL HISTORY Procedure Laterality Date ARTERIOVENOUS ANASTOMOSIS OPEN DIRECT 06/13/2012 Right upper extremity fistula, first of 2 stages, basilic vein and brachial artery COLONOSCOPY FLX DX W/COLLJ SPEC WHEN PFRMD 05/14/07 COLONOSCOPY FLX DX W/COLLJ SPEC WHEN PFRMD 04/16/2018 repeat 5 years EGD TRANSORAL BIOPSY SINGLE/MULTIPLE 05/14/07 ESOPHAGOGASTRODUODENOSCOPY TRANSORAL DIAGNOSTIC 04/16/2018 EGD KIDNEY SURGERY HX KIDNEY TRANSPLANT HX 04/18/2013 Bilateral Nephrectomy and living donor KTx ALLERGIES Penicillins, Tape [Adhesive Tape-Silicones], Losartan Potassium, Callie Inhibitors, Celexa [Citalopram Hydrobromide], Cholecalciferol (Vitamin D3), Clonidine, Ferrous Sulfate, Imdur [Isosorbide Mononitrate], Latex, and Trazodone MEDICATIONS Cholecalciferol, Vitamin D3, 50 mcg (2,000 unit) cap Take 1 capsule by mouth every other day. zolpidem (AMBIEN) 10 mg Take 1 tablet by mouth at bedtime as needed (insomnia) for up to 90 days. valsartan (DIOVAN) 40 mg tablet Take 1 tablet by mouth once daily. amLODIPine (NORVASC) 5 mg tablet Take 1 tablet by mouth once daily. (Patient taking differently: Take 10 mg by mouth once daily. [facility] terazosin (HYTRIN) 2 mg capsule Take 1 capsule by mouth daily at bedtime. blood sugar diagnostic (OleryTOUCH ULTRA TEST) test strip Test 4 times a day. E11.42. Insulin: Yes. carvedilol (COREG) 25 mg tablet Take 1 tablet by mouth twice daily. fluticasone (FLONASE) 50 mcg/actuation nasal spray Use 2 Sprays in each nostril once daily. RINSE MOUTH AFTER EACH DOSE buPROPion SR (WELLBUTRIN SR) 100 mg 12 hr tablet Take one(1) tablet daily in the morning. hydrOXYzine pamoate (VISTARIL) 25 mg capsule Take 1-2 capsules by mouth at bedtime as needed (for sleep/allergy). sulfamethoxazole-trimethoprim (BACTRIM) 400-80 mg per tablet Take 1 tablet by mouth once daily. lansoprazole (PREVACID) 30 mg capsule Take 1 capsule by mouth once daily. insulin lispro (HUMALOG KWIKPEN INSULIN) 100 unit/mL Inject 25 Units subcutaneously three times daily before meals. insulin glargine (LANTUS SOLOSTAR U-100 INSULIN) 100 unit/mL (3 mL) Inject 70 Units subcutaneously every evening. predniSONE (DELTASONE) 2.5 mg tablet Take 1 tablet by mouth once daily. tacrolimus IR (PROGRAF) 0.5 mg capsule TAKE 2 CAPSULES BY MOUTH ONCE DAILY mycophenolate mofetil (CELLCEPT) 250 mg capsule TAKE 3 CAPSULES BY MOUTH TWICE DAILY Insulin Newport, Disposable, (BD ULTRA-FINE PAYTON PEN NEEDLE) 32 gauge x 5/32 USE 1 NEEDLE FOR EACH DOSE FOUR TIMES DAILY Lancets lancets Test blood sugar(s) 2 daily. Dx: 250.02. Insulin: No CPAP Pt requesting new DME. Needs supplies. Lifetime supplies. Bipap 16/12 cmH2O. If pt appropriate for new device, then would request the new device be an auto bilevel PAP set at IPAP max 18 cmH2O, EPAP min 8 cmH2O with pressure support of 4 cmH2O. Ipratropium Haynes (ATROVENT) 0.03 % nasal spray Use 2 Sprays in the nose every 12 hours. BIPAP FAMILY HISTORY Problem Relation Age of Onset Breast Cancer Mother Osteoporosis Mother Aneurysm Mother PKD Heart Mother mitral valve regurg Stroke Mother at age 79 Breast Cancer Sister Diabetes Father other (bone cancer) Father Social History Tobacco Use Smoking status: Never Smokeless tobacco: Never Substance Use Topics Alcohol use: Yes Comment: rarely Drug use: No BP 130/77 Pulse 69 Resp 16 Wt 98 kg (216 lb) SpO2 98% BMI 29.29 kg/m Physical Exam Vitals reviewed. Constitutional: Appearance: Normal appearance. Cardiovascular: Rate and Rhythm: Normal rate and regular rhythm. Heart sounds: Normal heart sounds. No murmur heard. Pulmonary: Effort: Pulmonary effort is normal. Breath sounds: Normal breath sounds. No wheezing, rhonchi or rales. Skin: General: Skin is warm and dry. Neurological: Mental Status: He is alert. Health maintenance reviewed with patient: Hepatitis A Vaccine(1 of 2 - Risk 2-dose series) Never done Shingrix Vaccine(1 of 2) Never done RSV Vaccine(1 - 1-dose 60+ series) Never done BP Controlled (<130/80) due on 04/16/2019 Influenza Vaccine(1) due on 03/10/2023 Colorectal Cancer Screening due on 04/16/2023 Covid-19 Vaccine( season) due on 05/24/2024 Diabetic Foot Exam due on 08/19/2023 HbA1C due on 08/20/2023 Urine Albumin:Creatinine Ratio due on 10/18/2023 Dilated Retinal Exam due on 12/09/2023 Annual PCP Team Chronic Disease Visit due on 02/18/2024 LDL Cholesterol due on 03/20/2024 Prostate Cancer Screening Discussion due on 04/03/2024 Serum Creatinine due on 04/27/2024 Hemoglobin/Hematocrit due on 04/27/2024 DTaP,Tdap,Td Vaccine(3 - Td or Tdap) due on 02/16/2028 Advance Directive Discussion Completed Depression Assessment Completed Hepatitis C Screening Completed Pneumococcal Vaccine: 65+ Completed HPV Vaccine Aged Out DATA REVIEWED: Most recent labs ASSESSMENT/PLAN: 1. Essential hypertension - ICD9: 401.9, ICD10: I10 (primary diagnosis) BP normal today in the office. He has brought machine from home previously for validation. Unclear why home readings are elevated. The following medications were discussed in detail today and updates made: - Norvasc: patient reports at office visit with sde in March the dose was increased to 10 mg daily. Reviewed nephrology office note from 04/03 and it does not appear that dose was increased. In face it is stated the BP is well controlled on current medications. Patient insisting dose was increased to 10 mg daily and that is what he is taking. - Diovan: patient states he is taking, has it written on his list of meds that are in his medicine cabinet. Prescription sent in January to mail order however it does not appear this has ever been filled by [facility]. Advised patient of this and new prescription was sent. - continue with all other anti-hypertensive's as prescribed - Recommend home blood pressure monitoring, to bring results to next visit - I will message nephrology with above information 2. 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) - ICD9: 250.60, 357.2, ICD10: E11.42 - HGB A1C due at next follow-up 3. Encounter for immunization - ICD9: V03.89, ICD10: Z23 - INFLUENZA VACCINE, PRSV FREE, AGE 65+ YR, HIGH DOSE, QUADRIVALENT (FLUZONE HIGH-DOSE) Prescription instructions reviewed with patient as applicable. Potential red flag symptoms discussed with the patient. Reviewed appropriate action plan to take if red flag symptoms occur. Patient agreeable to treatment plan. Kaur Russell APRN.CNP documented in this encounter [facility] 05-05-2023 Miscellaneous Notes Called and left vm for patient to call back regarding previous message with high BP. Preeti Cruz PA-C documented in this encounter [facility] 02-19-2023 Evaluation note Diagnosis Stage 3a chronic kidney disease (HCC)- Primary Essential hypertension Unspecified essential hypertension 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) Type II or unspecified type diabetes mellitus with neurological manifestations, not stated as uncontrolled Dizziness Dizziness and giddiness documented in this encounter [facility]08-11-2023 Instructions* Patient Instructions* Arslan Coelho MD - 02/17/2023 4:32 PM EDT DO NOT TAKE AMLODIPINE 10 MG. THE CURRENT DOSE IS 5 MG DAILY. VALSARTAN 40 MG DAILY WAS PRESCRIBED BY TRANSPLANT FOR HIGH BLOOD PRESSURE, BUT NOT YET DELIVERED TO YOU. [facility] History of Present illness Narrative* Arslan Coelho MD - 02/17/2023 4:20 PM EDT This note was created using Shaker. Subjective Fadi Davila is a 67 year old male. I increased terazosin to 5 mg for better blood pressure control. He had worsening symptoms of paroxysmal dysequilibrium, so we reverted back to terazosin 2 mg daily. Meanwhile, his transplant nephrology provider was more concerned with increased proteinuria. Valsartan was prescribed, and amlodipine reduced to 5 mg daily. He had not yet received valsartan, as this was waiting some sort of approval. Moreover, he seemed to think his dose of amlodipine had been 5 mg daily all along, even when I pointed out the refill history to him. He was questioning why he received a refill of amlodipine 10 mg from my previous prescription in addition to the new 5 mg reduced dose. His blood pressure was good today, and we clarifiedhe was not taking 15 mg of amlodipine daily. He was advised to continue amlodipine 5 mg daily and wait for approval of valsartan. Aside from these medication changes, he stopped Belsomra on his own. He saw neurology, and had a Zio which was none contributory. MRI and MRA of the brain was ordered, but he cancelled due to claustrophobia. He was scheduled for open MRI. Diabetes was stable. Review of Systems Constitutional: Negative for fatigue and fever. Respiratory: Negative for shortness of breath. Cardiovascular: Negative for chest pain, palpitations and leg swelling. Neurological: Negative for syncope and headaches. ACTIVE PROBLEM LIST Osteoporosis Mixed Hyperlipidemia Polycystic Kidney Disease, Autosomal Dominant Essential Hypertension Kidney Transplant Status, Living Unrelated Donor Stress and Adjustment Reaction Ckd (Chronic Kidney Disease) Stage 3, Gfr 30-59 Ml/Min ([facility]) Gastroesophageal Reflux Disease Without Esophagitis Mitali On Cpap Memory Disturbance Diabetic Peripheral Neuropathy Associated With Type 2 Diabetes Mellitus (Hcc) Obesity (Bmi 30.0-34.9) Moderate Mitral Regurgitation Hypomagnesemia Erectile Dysfunction Weakness of Both Legs Numbness of Legs Spinal Stenosis of Lumbar Region Insomnia Current Outpatient Medications Medication Sig valsartan (DIOVAN) 40 mg tablet Take 1 tablet by mouth once daily. amLODIPine (NORVASC) 5 mg tablet Take 1 tablet by mouth once daily. terazosin (HYTRIN) 2 mg capsule Take 1 capsule by mouth daily at bedtime. blood sugar diagnostic (PaxataUCH ULTRA TEST) test strip Test 4 times a day. E11.42. Insulin: Yes. carvedilol (COREG) 25 mg tablet Take 1 tablet by mouth twice daily. fluticasone (FLONASE) 50 mcg/actuation nasal spray Use 2 Sprays in each nostril once daily. RINSE MOUTH AFTER EACH DOSE buPROPion SR (WELLBUTRIN SR) 100 mg 12 hr tablet Take one(1) tablet daily in the morning. hydrOXYzine pamoate (VISTARIL) 25 mg capsule Take 1-2 capsules by mouth at bedtime as needed (for sleep/allergy). sulfamethoxazole-trimethoprim (BACTRIM) 400-80 mg per tablet Take 1 tablet by mouth once daily. lansoprazole (PREVACID) 30 mg capsule Take 1 capsule by mouth once daily. insulin lispro (HUMALOG KWIKPEN INSULIN) 100 unit/mL Inject 25 Units subcutaneously three times daily before meals. insulin glargine (LANTUS SOLOSTAR U-100 INSULIN) 100 unit/mL (3 mL) Inject 70 Units subcutaneously every evening. predniSONE (DELTASONE) 2.5 mg tablet Take 1 tablet by mouth once daily. tacrolimus IR (PROGRAF) 0.5 mg capsule TAKE 2 CAPSULES BY MOUTH ONCE DAILY mycophenolate mofetil (CELLCEPT) 250 mg capsule TAKE 3 CAPSULES BY MOUTH TWICE DAILY Insulin Newport, Disposable, (BD ULTRA-FINE PAYTON PEN NEEDLE) 32 gauge x 5/32 USE 1 NEEDLE FOR EACHDOSE FOUR TIMES DAILY Lancets lancets Test blood sugar(s) 2 daily. Dx: 250.02. Insulin: No CPAP Pt requesting new DME. Needs supplies. Lifetime supplies. Bipap 16/12 cmH2O. If pt appropriatefor new device, then would request the new device be an auto bilevel PAP set at IPAP max 18 cmH2O, EPAP min 8 cmH2O with pressure support of 4 cmH2O. Ipratropium Haynes (ATROVENT) 0.03 % nasal spray Use 2 Sprays in the nose every 12 hours. BIPAP No current facility-administered medications for this visit. Objective BP (P) 122/76 (BP Site: Left Arm, BP Position: Sitting, BP Cuff Size: Large Adult) Pulse (P) 72 Wt (P) 98.4 kg (217 lb) BMI (P) 29.43 kg/m Physical Exam Constitutional: Appearance: He is not ill-appearing or diaphoretic. Cardiovascular: Heart sounds: Normal heart sounds. Pulmonary: Breath sounds: Normal breath sounds. Neurological: Mental Status: He is alert. Gait: Gait normal. Hemoglobin A1C (%) Date Value 07/19/2021 7.2 Hemoglobin A1C (POCT) (%) Date Value 02/17/2023 7.7 Assessment and Plan 1. Stage 3a chronic kidney disease (HCC) - ICD9: 585.3, ICD10: N18.31 (primary diagnosis) - eGFR: Stable - Counseled on avoiding NSAIDs, adequate hydration 2. Essential hypertension - ICD9: 401.9, ICD10: I10 - Controlled - See HPI. See printed instructions or information. 3. 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) - ICD9: 250.60, 357.2, ICD10: E11.42 - Controlled - HEMOGLOBIN A1C (POC) 4. Dizziness - ICD9: 780.4, ICD10: R42 MRI pending. Arslan Coelho MD [facility] Miscellaneous Notes* Telephone Encounter - Meg Aguirre LPN - 02/13/2023 3:49 PM EDT Pt notified of below with MindJoltt message. Meg Aguirre LPN * Telephone Encounter - Bill Mckay Jr., MD - 02/13/2023 1:27 PM EDT Still feel should proceed with MRIs given his complaints. As for insomnia, given number of conditions that are being evaluated, would like him to be seen by a sleep specialist for further recs on meds and other therapies. Bill Mckay MD [facility] Miscellaneous Notes* Telephone Encounter - Preeti Cruz PA-C - 02/02/2023 4:42 PM EDT Spoke to patient regarding increased proteinuria. Proteinuria has seem to be increasing for the past year or so. Most recent UPC is 1.76. His blood pressure has been fairly well controlled with some bouts of mild hypertension. Typically around 140s over 80s sometimes gets into the 150s systolics. Biggest concern is his diabetes which fasting glucose seems to be somewhat uncontrolled, most recent fasting glucose 125 but has had levels up to 250. Of note patient's transplant is almost 10 years out which could be contributing. We will plan for typical work-up of DSA, AlloSure, potential ultrasound when he comes to clinic although his creatinine is stable so I do not think that this is any sign of rejection. We will start patient on valsartan 40 mg daily and decrease his amlodipine to 5 mg from 10 mg daily. Unable to use losartan due to GI upset or lisinopril due to CALLIE cough. Hopefully valsartan does not cause GI upset? We will also plan for UPC every 2 months when he gets his labs for monitoring. Patient has an appointment with us in [facility] on April 03 which we will evaluate then as well. Preeti Cruz PA-C [facility] Miscellaneous Notes* Addendum Note - Preeti Hardin MA - 01/19/2023 1:37 PM EDTAddended by: PREETI HARDIN on: 01/19/2023 01:37 PM Modules accepted: Orders * Telephone Encounter - Bill Mckay Jr., MD - 01/19/2023 8:53 AM EDT Please contact radiology to see what options are available through the [facility] system including [place]. Thank you, Bill Mckay MD documented [facility] History of Present illness Narrative* Toshia Holt LPN - 01/19/2023 1:00 PM EDT EVENT MONITOR DISPOSABLE PATCH INSTRUCTIONS [id number] Skin prepped and cleansed with alcohol Patch secured to prepped area Monitor Activated Serial #: [id number] Patient Instructed: Prescribed order timeframe Bathing guidelines Usage of event button and diary documentation Return of monitor at the end of prescribed order Call with problems [phone] or [phone]. [phone] Patient expresses a good understanding of instructions Toshia Holt LPN [facility] History of Present illness Narrative* Nancy Moura RT(R) - 01/18/2023 12:30 PM EDT RADIOLOGY SERVICE PROGRESS NOTE DATE OF SERVICE: January 18, 2023 TIME OF SERVICE: 12:30 pm EVENT: EXAM/PROCEDURE NOT COMPLETED - Patient became claustrophobic, reaction was: Moderate. ADDITIONAL EVENT DETAILS: N/A SIGNATURE: RT Vanessa(R) PATIENT NAME: Fadi Davila DATE: January 18, 2023 TIME: 12:39 PM PAGER/CONTACT #: documented in this [facility] History of Present illness Narrative* Bill Mckay Jr., MD - 01/16/2023 4:37 PM EDT ESTABLISHED PATIENT VISIT CHIEF COMPLAINT: New complaint of a descending, spiraling feeling . HISTORY OF PRESENT ILLNESS: Fadi Davila is a 67 year old male, BMI 29.81 kg/m2 with a PMH significant for and per last office visit note of 10/22/21: 1. Spinal stenosis of lumbar region, unspecified whether neurogenic claudication present - ICD9: 724.02, ICD10: M48.061 (primary diagnosis) 2. Weakness of both legs - ICD9: 729.89, ICD10: R29.898 3. Numbness of legs - ICD9: 782.0, ICD10: R20.0 Images reviewed with pt. Some degree of disc bulge at L4-L5. Possible that this is contributing to symptoms as appears only time patient has symptoms is when seated for prolonged duration, and then symptoms are transient and relieved with activity. No coloration or temp changes of legs. Pulses goodand sensation intact to not suggest vascular etiology or neuropathy at this time. Will refer to PT. Advised pt to avoid long duration of sitting without getting up and walking around. If symptoms worsen he will contact us for further evaluation. Also will advised Dr. Coelho of pt's borderline low B12. Encouraged glucose control. 4. History of stroke - ICD9: V12.54, ICD10: Z86.73 Chronic L parietal stroke on MRI brain - etiology unknown nor is it clear when occurred by history and imaging, but appears to have been in distant past. Recommend ASA 81mg daily but pt states told he is not to take by transplant team. Recommend statin, but pt with known side effects (myopathic symptoms). MRA brain unremarkable in recent years. Scheduled for ECHO already with last in 2019 showingno cardiac source of stroke. Multiple ECG and cardiac monitors in past not showing afib. Will orderCarotid ultrasounds given known renal disease, to evaluate for large vessel disease as possible cause of this finding. 5. MITALI (obstructive sleep apnea) - ICD9: 327.23, ICD10: G47.33 Patient would like to transfer care to us. Requesting old studies. Pt would like to change DMEs andRx sent to [facility] (pt pref). Requesting PAP data download. Depending on download findings may need to adjust bilevel pressure setting or consider an updated titration study. Patient reports he is now having whirling sensations a descending spiral that just comes on. States he has had them off and on for the past year. States daily episodes are occurring since last week. Prior to last week were happening every week and when had them big and bad and feels like going tothe ground. States saw Dr. Coelho who referred to Dr. Jane who felt there was nothing to cause these events. States also saw ophthalmology who told him nothing obvious . When asked when startedhe states symptoms in the past year. States sometimes has optical flashing lights with the events. States everything is spinning around him. States he gives example of getting in front of a fan during one time and improved symptoms. Feels diaphoretic during events. States sugars during episodes in 130s or 140s. No CP or palpitations. He is endorsing insomnia and issues with MITALI. Patient states never slept at night. Does better withPAP. Telling me lies in bed until 4-5 AM but then sleeping until 11PM. No prior shift work. States typically goes to bed about 1130PM -- he cannot clearly tell me if he feels sleepy. States mind is racing. When asked when episodes occur states usually on phone but can even have when talking to people. States every time has a spinning sensation. No headaches. Denies diplopia but states when does have episodes with lights feels like looking through a prism. No ear pain but has a constant ringing in his ears and the left ear feels like water in it. States ENT told him he has some hearing loss but does not know which ear. Neck movement does not set off movements. States leg weakness has not returned and no falls. States more signs of neuropathy in both feet (toes). Does feel like going to pass out during episodes. Patient throughout does not appears to initially provide full history and need repeated questioningto get full details. BP elevated during episodes (160/90-180/90). Then states has had ocular episodes for 20 years in which he might see flashing lights. No loc. No regular recurrence. REVIEW OF SYSTEMS GENERAL:No weight loss, malaise or fevers. HEENT:Negative for frequent or significant headaches, No changes in hearing or vision, no nose bleeds or other nasal problems NECK:Negative for lumps, goiter, pain and significant neck swelling RESPIRATORY: Negative for cough, wheezing or shortness of breath. CARDIOVASCULAR: Negative for chest pain, leg swelling or palpitations. GASTROINTESTINAL: Negative for abdominal discomfort, blood in stools or black stools or change in bowel habits GENITOURINARY: No history of dysuria, frequency or incontinence MUSCULOSKELETAL: Negative for joint pain or swelling, back pain or muscle pain. NEUROLOGIC: See HPI. SKIN:Negative for lesions, rash, and itching. HEMATOLOGIC/LYMPHATIC/IMMUNOLOGIC:Negative for prolonged bleeding, bruising easily or swollen nodes. ENDOCRINE: Negative for cold or heat intolerance, polyuria, polydipsia and goiter. The remainder of the ROS was reviewed and is negative. LAB/IMAGING: Those performed since patient's last visit have been reviewed. WBC (k/uL) Date Value 10/17/2022 6.93 RBC (m/uL) Date Value 10/17/2022 4.96 Hemoglobin (g/dL) Date Value 10/17/2022 13.9 Hematocrit (%) Date Value 10/17/2022 42.9 MCV (fL) Date Value 10/17/2022 86.5 MCH (pg) Date Value 10/17/2022 28.0 MCHC (g/dL) Date Value 10/17/2022 32.4 RDW-CV (%) Date Value 10/17/2022 12.9 Platelet Count (k/uL) Date Value 10/17/2022 236 MPV (fL) Date Value 10/17/2022 10.7 Glucose (mg/dL) Date Value 10/17/2022 148 (H) BUN (mg/dL) Date Value 10/17/2022 20 Creatinine (mg/dL) Date Value 10/17/2022 1.37 (H) Sodium (mmol/L) Date Value 10/17/2022 142 Potassium (mmol/L) Date Value 10/17/2022 4.3 Chloride (mmol/L) Date Value 10/17/2022 110 (H) CO2 (mmol/L) Date Value 10/17/2022 20 (L) Protein, Total (g/dL) Date Value 10/17/2022 6.5 Albumin (g/dL) Date Value 10/17/2022 3.7 (L) Calcium, Total (mg/dL) Date Value 10/17/2022 8.7 Alkaline Phosphatase (U/L) Date Value 10/17/2022 138 (H) Bilirubin, Total (mg/dL) Date Value 10/17/2022 0.3 AST (U/L) Date Value 10/17/2022 14 ALT (U/L) Date Value 10/17/2022 19 Rheumatoid Factor (IU/mL) Date Value 05/30/2011 8 Hep C Antibody IA (no units) Date Value 04/17/2013 Negative MEDICATIONS: terazosin (HYTRIN) 2 mg capsule Take 1 capsule by mouth daily at bedtime. blood sugar diagnostic (Schol[employer] ULTRA TEST) test strip Test 4 times a day. E11.42. Insulin: Yes. suvorexant (BELSOMRA) 10 mg tab Take 1 tablet by mouth at bedtime as needed for up to 90 days. carvedilol (COREG) 25 mg tablet Take 1 tablet by mouth twice daily. fluticasone (FLONASE) 50 mcg/actuation nasal spray Use 2 Sprays in each nostril once daily. RINSE MOUTH AFTER EACH DOSE amLODIPine (NORVASC) 10 mg tablet Take 1 tablet by mouth once daily. buPROPion SR (WELLBUTRIN SR) 100 mg 12 hr tablet Take one(1) tablet daily in the morning. hydrOXYzine pamoate (VISTARIL) 25 mg capsule Take 1-2 capsules by mouth at bedtime as needed (for sleep/allergy). sulfamethoxazole-trimethoprim (BACTRIM) 400-80 mg per tablet Take 1 tablet by mouth once daily. lansoprazole (PREVACID) 30 mg capsule Take 1 capsule by mouth once daily. insulin lispro (HUMALOG KWIKPEN INSULIN) 100 unit/mL Inject 25 Units subcutaneously three times daily before meals. insulin glargine (LANTUS SOLOSTAR U-100 INSULIN) 100 unit/mL (3 mL) Inject 70 Units subcutaneously every evening. predniSONE (DELTASONE) 2.5 mg tablet Take 1 tablet by mouth once daily. tacrolimus IR (PROGRAF) 0.5 mg capsule TAKE 2 CAPSULES BY MOUTH ONCE DAILY mycophenolate mofetil (CELLCEPT) 250 mg capsule TAKE 3 CAPSULES BY MOUTH TWICE DAILY Insulin Newport, Disposable, (BD ULTRA-FINE PAYTON PEN NEEDLE) 32 gauge x /32 USE 1 NEEDLE FOR EACHDOSE FOUR TIMES DAILY Lancets lancets Test blood sugar(s) 2 daily. Dx: 250.02. Insulin: No CPAP Pt requesting new DME. Needs supplies. Lifetime supplies. Bipap 16/12 cmH2O. If pt appropriatefor new device, then would request the new device be an auto bilevel PAP set at IPAP max 18 cmH2O, EPAP min 8 cmH2O with pressure support of 4 cmH2O. Ipratropium Haynes (ATROVENT) 0.03 % nasal spray Use 2 Sprays in the nose every 12 hours. BIPAP HISTORIES PAST MEDICAL HISTORY Diagnosis Date Bursitis of both shoulders 10/28/2005 Dr. Alex CKD (chronic kidney disease) stage 3, GFR 30-59 ml/min ([facility]) 02/01/2016 Colles' fracture 02/19/2013 CPAP (continuous positive airway pressure) dependence 11/2011 MITALI on CPAP Dyslipidemia Esophagitis, unspecified ESRD (end stage renal disease) ([facility]) Fracture Gastroesophageal reflux disease without esophagitis 03/26/2016 Gout 02/17/2010 HTN (hypertension) 08/17/2011 Hyperparathyroidism, secondary renal ([facility]) 11/27/2013 Insomnia 07/06/2011 Internal hemorrhoids without mention of complication Kidney transplant status, living unrelated donor 12/29/2013 transplanted 2012. Mitral valve regurgitation MITALI on CPAP 11/08/2011 MITALI on CPAP Osteoporosis 10/28/2005 Peripheral enthesopathies and allied syndromes 10/28/2005 Left shoulder bursitis Polycystic kidney disease, autosomal dominant 08/17/2011 Squamous cell carcinoma of skin of right upper arm 02/15/2018 Dr. Mika Hernandez, dermatology. Steal syndrome of dialysis vascular access ([facility]) 01/21/2019 Stress and adjustment reaction 06/08/2014 [place]-neck deformity of finger 07/29/2014 Uncontrolled type 2 diabetes mellitus with insulin therapy 07/23/2014 FAMILY HISTORY Problem Relation Age of Onset Breast Cancer Mother Osteoporosis Mother Aneurysm Mother PKD Heart Mother mitral valve regurg Stroke Mother at age 79 Breast Cancer Sister Diabetes Father other (bone cancer) Father SOCIAL HISTORY Social History Tobacco Use Smoking status: Never Smokeless tobacco: Never Substance Use Topics Alcohol use: Yes Comment: rarely Drug use: No PHYSICAL EXAMINATION BP 153/88 Pulse 81 Temp 36.6 C (97.9 F) Resp 18 Wt 99.7 kg (219 lb 12.8 oz) SpO2 98% BMI 29.81 kg/m GENERAL EXAM: General appearance: NAD, pleasant. HEENT: NC/AT, nasal congestion absent, no oral lesions, membranes moist. Ivan exam attempted but cannot see past cerumen. NECK: ROM nml. Lungs: CTA bilaterally. CV: RRR nl S1, S2 Extr: Extremity pulses palpable and normal. Skin: Cool to touch. No rash. NEUROLOGICAL EXAM: General: Awake, alert, oriented x3 (person,place,time), speech fluent, no dysarthria; comprehension, naming, repetition intact. Fund of knowledge grossly normal. CN: PERRL, fundi with no evidence of papilledema, EOMI with horizontal nystagmus on L>R lateral gaze, VFF to confrontation, facial sensation and strength are normal and symmetric, hearing is intact to finger rub bilaterally, palate and tongue movements are intact and symmetric. SCM and trapeziusstrength normal. Motor: Normal tone, bulk and strength (5/5) bilaterally (throughout extremities x4). Reflexes: 1/4 and symmetric, plantar stimulation is flexor. Coordination: FNF, TU, HTS intact. No tremors. Sensation: Light touch, pin, vibration, temperature intact throughout. No evidence of neglect. Gait: Stable with normal stride and arm swing. Assessment and Plan: ASSESSMENT/PLAN: 1. Vertigo - ICD9: 780.4, ICD10: R42 (primary diagnosis) 2. 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 History of stroke - ICD9: V12.54, ICD10: Z86.73 4. Tinnitus, bilateral - ICD9: 388.30, ICD10: H93.13 5. Bilateral hearing loss, unspecified hearing loss type - ICD9: 389.9, ICD10: H91.93 6. Visual changes - ICD9: 368.9, ICD10: H53.9 7. Hypertension, unspecified type - ICD9: 401.9, ICD10: I10 8. Syncope, near - ICD9: 780.2, ICD10: R55 Patient with complaints as above, of which etiology is uncertain. Pt is a somewhat limited historian and often does not provide full details of symptoms or prior medical history unless asked of such repeatedly through the interview. As noted above when symptoms present can have either a spinning sensation suggestive of vertigo vs a sense of passing out or near syncope. BPs have been elevated during events, but no recording of blood sugar. Exam only significant for migraines. At this time, ddx for episodes would include the following: -Given history of stroke, consider possible VBI with TIAs vs possible new stroke resulting in vertigo. -Cardiac etiology such as arrhythmia given diaphoresis and near syncope. -Peripheral/Vestibular etiology such as Meniere's given tinnitus, hearing loss and feeling of fullness in left ear. -Vestibular migraine - this would be a dx of exclusion. To further evaluate, will get MRI brain with MRA head and neck to evaluate for new stroke/TIA as well as VBI. Will also send for vestibular battery testing to better determine if peripheral etiology.Will order event monitor to evaluate for arrhythmia. Further workup and treatment to be determined based on the results of this testing. As for other complaints regarding sleep and lower exts for which he did not complete prior recs, due to limitation of time, these will be reviewed during a future appointment. Advised pt to go directly to the ER if significant symptoms recur for immediate testing including labs. Also advised pt to follow up with transplant to determine if transplant med levels therapeutic and not a cause of symptoms. Bill Mckay MD I spent a total of 65+ minutes on the date of the service which included preparing to see the patient, [id number] patient care, completing clinical documentation, obtaining and/or reviewing separately obtained history, performing a medically appropriate examination, counseling and educating the pa tient/family/caregiver, ordering medications, tests, or procedures, independently interpreting results (not separately reported), and communicating results to the patient/family/caregiver. documented [facility] this [facility] Miscellaneous Notes* Telephone Encounter - Erika Lin RN - 01/13/2023 12:08 PM EDT Patient returns call and verifies that appointment on Monday at 5 pm will be fine. Erika Lin RN * Telephone Encounter - Meg Aguirre LPN - 01/13/2023 10:08 AM EDT TC to pt with no answer. Left VM to return call. Pt needs to be seen in 60 minute slot. Confirm with pt if Monday at 5:00 pm will be okay with pt for appointment. Meg Aguirre LPN documented in this encounter[facility]06-[facility] History of Present illness Narrative* Malcolm Ríos Ma - 12/14/2022 4:30 PM EDT Is patient ok to stay on 4 mg daily? Asking for a call back on Cor[facility] - [phone]. BP Deshaun Serial, Digital BP Readings, Taken 2 Minutes Apart, Average Readings: 132/75 Pulse: 72 138/76 72 129/76 73 126/75 71 134/75 73 131/74 74 Reason for blood pressure check - Last BP elevated, Medication adjustment, and office hypertension Patient is: Taking medication as prescribed NO - patient is to be taking 5 mg terazosin. Pt states that he has been taking two 2 mg tablets daily. Took medication today Yes If no, date medication last taken Experiencing side effects No Recommendations Continue taking medications as prescribed, Follow recommended diet instructions, Continue recommended activity, and Avoid excessive salt Follow-up Yes Pt has been identified by name and birthdate: Yes Allergies reviewed: Yes Latex allergy: no. Medication - prescribed and OTC reviewed and updated: Yes Do you need any prescription refills prior to your next visit: No Health Maintenance: Reviewed and up to date documented in this encounter[facility]23 Miscellaneous Notes* Telephone Encounter - Elizabeth Markham LPN - 12/12/2022 1:11 PM EDT Last office visit: 11/17/22 Next appointment scheduled: 12/14/22 Last labs: 11/17/22 Patient phones requesting refills as follows: Requested Prescriptions Pending Prescriptions Disp Refills blood sugar diagnostic (ONETOUCH ULTRA TEST) test strip 200 Strip 5 Sig: Test 4 times a day. E11.42. Insulin: Yes. Elizabeth Markham LPN documented in this encounter[facility]05[facility] History of Present illness Narrative* Arslan Coelho MD - 11/17/2022 4:33 PM EDT This note was created using Keepconriter. Subjective Fadi Davila is a 67 year old male. His diabetes mellitus and hypertension were not at goal. His insomnia was controlled now with the combination of suvorexant and hydroxyzine. He had no adverse effects from the sedative medications. He saw Dr. Jane and had cerumen extracted. Tinnitus was noted with no specific treatment. MRI of the brain for episodic dizziness was discussed, but this was left optional at this point due to chronicity of symptoms. Review of Systems Constitutional: Negative for fever and unexpected weight change. HENT: Positive for tinnitus. Respiratory: Negative for chest tightness and shortness of breath. Cardiovascular: Negative for chest pain, palpitations and leg swelling. Neurological: Negative for dizziness and headaches. ACTIVE PROBLEM LIST Osteoporosis Mixed Hyperlipidemia Polycystic Kidney Disease, Autosomal Dominant Essential Hypertension Kidney Transplant Status, Living Unrelated Donor Stress and Adjustment Reaction Ckd (Chronic Kidney Disease) Stage 3, Gfr 30-59 Ml/Min ([facility]) Gastroesophageal Reflux Disease Without Esophagitis Mtiali On Cpap Memory Disturbance Diabetic Peripheral Neuropathy Associated With Type 2 Diabetes Mellitus (Hcc) Obesity (Bmi 30.0-34.9) Moderate Mitral Regurgitation Hypomagnesemia Erectile Dysfunction Weakness of Both Legs Numbness of Legs Spinal Stenosis of Lumbar Region Insomnia Current Outpatient Medications Medication Sig predniSONE (DELTASONE) 2.5 mg tablet Take 1 tablet by mouth once daily. tacrolimus IR (PROGRAF) 0.5 mg capsule TAKE 2 CAPSULES BY MOUTH ONCE DAILY suvorexant (BELSOMRA) 10 mg tab Take 1 tablet by mouth at bedtime as needed for up to 90 days. mycophenolate mofetil (CELLCEPT) 250 mg capsule TAKE 3 CAPSULES BY MOUTH TWICE DAILY Insulin Newport, Disposable, (BD ULTRA-FINE PAYTON PEN NEEDLE) 32 gauge x 5/32 USE 1 NEEDLE FOR EACHDOSE FOUR TIMES DAILY blood sugar diagnostic (ONETOUCH ULTRA TEST) test strip Test 4 times a day. E11.42. Insulin: Yes. Lancets lancets Test blood sugar(s) 2 daily. Dx: 250.02. Insulin: No CPAP Pt requesting new DME. Needs supplies. Lifetime supplies. Bipap 16/12 cmH2O. If pt appropriatefor new device, then would request the new device be an auto bilevel PAP set at IPAP max 18 cmH2O, EPAP min 8 cmH2O with pressure support of 4 cmH2O. carvedilol (COREG) 25 mg tablet Take 1 tablet by mouth twice daily. fluticasone (FLONASE) 50 mcg/actuation nasal spray Use 2 Sprays in each nostril once daily. RINSE MOUTH AFTER EACH DOSE terazosin (HYTRIN) 2 mg capsule Take 1 capsule by mouth daily at bedtime. amLODIPine (NORVASC) 10 mg tablet Take 1 tablet by mouth once daily. buPROPion SR (WELLBUTRIN SR) 100 mg 12 hr tablet Take one(1) tablet daily in the morning. hydrOXYzine pamoate (VISTARIL) 25 mg capsule Take 1-2 capsules by mouth at bedtime as needed (for sleep/allergy). sulfamethoxazole-trimethoprim (BACTRIM,SEPTRA) 400-80 mg per tablet Take 1 tablet by mouth once daily. lansoprazole (PREVACID) 30 mg capsule Take 1 capsule by mouth once daily. insulin lispro (HUMALOG KWIKPEN INSULIN) 100 unit/mL Inject 25 Units subcutaneously three times daily before meals. insulin glargine (LANTUS SOLOSTAR U-100 INSULIN) 100 unit/mL (3 mL) Inject 70 Units subcutaneously every evening. Ipratropium Haynes (ATROVENT) 0.03 % nasal spray Use 2 Sprays in the nose every 12 hours. BIPAP No current facility-administered medications for this visit. Objective BP 150/87 (BP Site: Left Arm, BP Position: Sitting, BP Cuff Size: Large Adult) Pulse 73 Resp 16 Wt 101.6 kg (224 lb) BMI 30.38 kg/m Physical Exam Constitutional: General: He is not in acute distress. Cardiovascular: Rate and Rhythm: Normal rate and regular rhythm. Heart sounds: No murmur heard. No gallop. Pulmonary: Effort: No respiratory distress. Breath sounds: No wheezing or rales. Musculoskeletal: Right lower leg: No edema. Left lower leg: No edema. Neurological: General: No focal deficit present. Mental Status: He is alert. Gait: Gait normal. Component Latest Ref Rng & Units 11/17/2022 Hemoglobin A1C (POCT) 4.2 - 5.6 % 8.1 (A) Assessment and Plan 1. Stress and adjustment reaction - ICD9: 309.89, ICD10: F43.29 Shared medical decision making was done regarding potential interaction and adverse effects. We agreed to continue current medications. - BELSOMRA 10 MG TABLET - BUPROPION HCL SR 100 MG TABLET,12 HR SUSTAINED-RELEASE - HYDROXYZINE PAMOATE 25 MG CAPSULE 2. Insomnia, unspecified type - ICD9: 780.52, ICD10: G47.00 See above. - BELSOMRA 10 MG TABLET 3. Essential hypertension - ICD9: 401.9, ICD10: I10 - poor control, most medications are at highest usual dose. Shared medical decision making was done. - CARVEDILOL 25 MG TABLET - AMLODIPINE 10 MG TABLET - TERAZOSIN 5 MG CAPSULE. He still had this at home, and will resume this dose of terazosin. He will call if he has worsening dizziness as noted in the past - Recheck in 4 weeks. 4. Kidney transplant status, living unrelated donor - ICD9: V42.0, ICD10: Z94.0 - SULFAMETHOXAZOLE 400 MG-TRIMETHOPRIM 80 MG TABLET 5. Gastroesophageal reflux disease without esophagitis - ICD9: 530.81, ICD10: K21.9 Controlled. - LANSOPRAZOLE 30 MG CAPSULE,DELAYED RELEASE 6. 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) - ICD9: 250.60, 357.2, ICD10: E11.42 - Improving control - Continue current medications - INSULIN LISPRO (U-100) 100 UNIT/ML SUBCUTANEOUS PEN - INSULIN GLARGINE (U-100) 100 UNIT/ML (3 ML) SUBCUTANEOUS PEN - HEMOGLOBIN A1C (POC) 7. Stage 3a chronic kidney disease (HCC) - ICD9: 585.3, ICD10: N18.31 - eGFR: Stable Arslan Coelho MD documented in this encounter[facility]05-[facility]23 Miscellaneous Notes* Telephone Encounter - Elizabeth Markham LPN - 11/07/2022 11:37 AM EDT Last office visit: 08/19/22 Next appointment scheduled: 11/17/22 Last labs: 10/17/22 Patient phones requesting refills as follows: Requested Prescriptions Pending Prescriptions Disp Refills predniSONE (DELTASONE) 2.5 mg tablet 90 tablet 3 Sig: Take 1 tablet by mouth once daily. Please review and advise. Elizabeth Markham LPN documented [facility] this [facility]04-24[facility]23 Miscellaneous Notes* Telephone Encounter - Renan Mak - 10/31/2022 11:33 AM EDT Patient's request for medication is as follows: Requested Prescriptions Pending Prescriptions Disp Refills tacrolimus IR (PROGRAF) 0.5 mg capsule [Pharmacy Med Name: Tacrolimus 0.5 MG Oral Capsule] 180 capsule 3 Sig: TAKE 2 CAPSULES BY MOUTH ONCE DAILY Please approve the above prescription(s) to electronically send to pharmacy. Renan Mak documented in this encounterAk[facility]03-10-2023 Miscellaneous Notes* Telephone Encounter - PHILLIP Hicks - 09/16/2022 3:15 PM EST PAP supplies form signed and faxed to [facility]. Pt updated through of need to make follow up appointment. PHILLIP Hicks documented in this [facility]03-[facility]23 Miscellaneous Notes* Telephone Encounter - Arslan Coelho MD - 09/16/2022 1:46 PM EST Patient's request for medication is as follows Requested Prescriptions Signed Prescriptions Disp Refills suvorexant (BELSOMRA) 10 mg tab 30 tablet 2 Sig: Take 1 tablet by mouth at bedtime as needed for up to 90 days. Authorizing Provider: ARSLAN COELHO Order entered - please phone pharmacy and notify patient. Arslan Coelho MD * Telephone Encounter - Verónica Belcher LPN - 09/16/2022 11:08 AM EST Pt's response. Hi, If the RX I have requested is being denied please prescribe whichever of the two suggested alternates Dr Coelho feels to be preferable. Thanks, Fadi Davila * Telephone Encounter - Verónica Belcher LPN - 09/16/2022 8:45 AM EST Pt notified via my chart. * Telephone Encounter - Verónica Belcher LPN - 09/16/2022 8:39 AM EST Electronic PA completed for daridorexant. This was denied. To: Arslan Coelho From: [facility] Phone: Fax: [phone] Reference #: [id number] RE: Prior Authorization Request __ Patient Name: Fadi Davila Patient : [id number] Status of Request: Deny Medication Name: Quviviq Tab 25mg [facility]: [id number] Decision Notes: Quviviq is denied because it is not on your plan's Drug List (formulary). Medication authorization requires the following: (1) You need to try one (1) of these covered drugs: (a) Belsomra. (b) Ramelteon. (2) OR your doctor needs to give us specific medical reasons why one (1) of the covered drug(s) is not appropriate for you. Reviewed by: [email or web address], [facility] documented in this encounterAk[facility]03-07-2023 Miscellaneous Notes* Telephone Encounter - Ellen Farias LPN - 09/13/2022 12:02 PM EST Patient has been identified by name and date of : Yes Patient phones for refill(s): Requested Prescriptions Pending Prescriptions Disp Refills daridorexant (QUVIVIQ) 25 mg tablet 14 tablet 0 Sig: Take 1 tablet by mouth at bedtime as needed for up to 14 days. Date of last office visit in primary care: 08/19/2022 3 month follow-up: 11/17/2022 Last 2 Encounter Wt Readings: Date: Wt: 08/19/2022 101.6 kg (224 lb) 04/04/2022 104.3 kg (230 lb) Previous labs/tests for medication: Not applicable Please advise. Thank you. Ellen Farias LPN documented in this encounterAk[facility]03-03-2023 Miscellaneous Notes* Telephone Encounter - Renan Mak - 09/09/2022 11:57 AM EST Patient's request for medication is as follows: Requested Prescriptions Pending Prescriptions Disp Refills mycophenolate mofetil (CELLCEPT) 250 mg capsule [Pharmacy Med Name: MYCOPHENOLATE 250MG CAP MOF] 540 capsule 3 Sig: TAKE 3 CAPSULES BY MOUTH TWICE DAILY Please approve the above prescription(s) to electronically send to pharmacy. Renan Mak documented in this encounterCleveland [id number] History of Present illness Narrative* Arslan Coelho MD - 08/19/2022 11:30 PM EST This note was created using Keepconriter. Subjective Fadi Davila is a 67 year old male. His hypertension was not at goal. He was adjusting insulins depending on blood glucose as he was more concerned about hypoglycemia. He was prescribed hydroxyzine for insomnia, but this seemed less effective over time. His depression was controlled, but he had significant stress from business. A friend had good results from Quviviq. Review of Systems Constitutional: Negative. HENT: Positive for hearing loss and tinnitus. Respiratory: Negative. Cardiovascular: Negative. Gastrointestinal: Negative. Genitourinary: Negative. Musculoskeletal: Negative. Psychiatric/Behavioral: Negative. ACTIVE PROBLEM LIST Osteoporosis Mixed Hyperlipidemia Polycystic Kidney Disease, Autosomal Dominant Essential Hypertension Kidney Transplant Status, Living Unrelated Donor Stress and Adjustment Reaction Ckd (Chronic Kidney Disease) Stage 3, Gfr 30-59 Ml/Min ([facility]) Gastroesophageal Reflux Disease Without Esophagitis Mitali On Cpap Memory Disturbance Diabetic Peripheral Neuropathy Associated With Type 2 Diabetes Mellitus (Hcc) Obesity (Bmi 30.0-34.9) Moderate Mitral Regurgitation Hypomagnesemia Erectile Dysfunction Weakness of Both Legs Numbness of Legs Spinal Stenosis of Lumbar Region Current Outpatient Medications Medication Sig daridorexant (QUVIVIQ) 25 mg tablet Take 1 tablet by mouth at bedtime as needed for up to 14 days. Insulin [place], Disposable, (BD ULTRA-FINE PAYTON PEN NEEDLE) 32 gauge x 5/32 USE 1 NEEDLE FOR EACHDOSE FOUR TIMES DAILY blood sugar diagnostic (ONETOUCH ULTRA TEST) test strip Test 4 times a day. E11.42. Insulin: Yes. Lancets lancets Test blood sugar(s) 2 daily. Dx: 250.02. Insulin: No tacrolimus IR (PROGRAF) 0.5 mg capsule Take 2 capsules by mouth once daily. CPAP Pt requesting new DME. Needs supplies. Lifetime supplies. Bipap 16/12 cmH2O. If pt appropriatefor new device, then would request the new device be an auto bilevel PAP set at IPAP max 18 cmH2O, EPAP min 8 cmH2O with pressure support of 4 cmH2O. mycophenolate mofetil (CELLCEPT) 250 mg capsule TAKE 3 CAPSULES TWICE DAILY carvedilol (COREG) 25 mg tablet Take 1 tablet by mouth twice daily. fluticasone (FLONASE) 50 mcg/actuation nasal spray Use 2 Sprays in each nostril once daily. RINSE MOUTH AFTER EACH DOSE terazosin (HYTRIN) 2 mg capsule Take 1 capsule by mouth daily at bedtime. amLODIPine (NORVASC) 10 mg tablet Take 1 tablet by mouth once daily. buPROPion SR (WELLBUTRIN SR) 100 mg 12 hr tablet Take one(1) tablet daily in the morning. predniSONE (DELTASONE) 2.5 mg tablet Take 1 tablet by mouth once daily. hydrOXYzine pamoate (VISTARIL) 25 mg capsule Take 1-2 capsules by mouth at bedtime as needed (for sleep/allergy). sulfamethoxazole-trimethoprim (BACTRIM,SEPTRA) 400-80 mg per tablet Take 1 tablet by mouth once daily. lansoprazole (PREVACID) 30 mg capsule Take 1 capsule by mouth once daily. insulin lispro (HUMALOG KWIKPEN INSULIN) 100 unit/mL Inject 25 Units subcutaneously three times daily before meals. insulin glargine (LANTUS SOLOSTAR U-100 INSULIN) 100 unit/mL (3 mL) Inject 70 Units subcutaneously every evening. Ipratropium [place] (ATROVENT) 0.03 % nasal spray Use 2 Sprays in the nose every 12 hours. BIPAP No current facility-administered medications for this visit. Objective BP 144/86 Pulse 70 Resp 16 Ht 182.9 cm (6') Wt 101.6 kg (224 lb) BMI 30.38 kg/m Physical Exam Constitutional: Appearance: He is not ill-appearing. HENT: Right Ear: There is impacted cerumen. Left Ear: There is impacted cerumen. Neck: Vascular: No carotid bruit. Cardiovascular: Rate and Rhythm: Normal rate and regular rhythm. Heart sounds: No murmur heard. No gallop. Pulmonary: Effort: Pulmonary effort is normal. Breath sounds: Normal breath sounds. Abdominal: Palpations: Abdomen is soft. Tenderness: There is no abdominal tenderness. Musculoskeletal: Right lower leg: No edema. Left lower leg: No edema. Lymphadenopathy: Cervical: No cervical adenopathy. Neurological: General: No focal deficit present. Mental Status: He is alert. Gait: Gait normal. Psychiatric: Mood and Affect: Mood normal. Feet:Shoes and socks removed, No deformities, ulcers, calluses, normal distal pulses, sensitive to 10 gm monofilament, and not sensitive to monofilament left big toe. Component Latest Ref Rng & Units 08/19/2022 Hemoglobin A1C (POCT) 4.2 - 5.6 % 8.9 (A) Assessment and Plan 1. Medicare annual wellness visit, subsequent - ICD9: V70.0, ICD10: Z00.00 (primary diagnosis) See wellness note. 2. Stress and adjustment reaction - ICD9: 309.89, ICD10: F43.29 - QUVIVIQ 25 MG TABLET Shared Medical Decision Making was done: Medication: Quviviq. Benefits: Medication may help insomnia in the short term and in the [employer]. Risks: Possible side effects were discussed including excessive somnolence. Possible interactions: hydroxyzine. Warnings: n/a. Options: other sedatives. Cost:high. Prior approval may be needed. Duration: trial for now. 3. Essential hypertension - ICD9: 401.9, ICD10: I10 - fair control - Continue current medication(s) - Goal of BP <130/80 4. Mixed hyperlipidemia - ICD9: 272.2, ICD10: E78.2 - to be determined upon return of lab results - Continue current medication. - LIPID PANEL BASIC 5. MITALI on CPAP - ICD9: 327.23, V46.8, ICD10: G47.33, Z99.89 Using and benefiting from CPAP use. 6. Polycystic kidney disease, autosomal dominant - ICD9: 753.13, ICD10: Q61.2 Hypertension needs to improve. 7. 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) - ICD9: 250.60, 357.2, ICD10: E11.42 worsening control - Continue current medications - Consider referral for insulin pump. - HEMOGLOBIN A1C (POC) - ALBUMIN/CREAT RATIO RND UR 8. Insomnia, unspecified type - ICD9: 780.52, ICD10: G47.00 See above. - QUVIVIQ 25 MG TABLET 9. Impacted cerumen of both ears - ICD9: 380.4, ICD10: H61.23 Lavage attempted without success. Patient tolerated this well. - AMBULATORY EAR LAVAGE/IRRIGATION - CONSULT TO ENT 10. Tinnitus of both ears - ICD9: 388.30, ICD10: H93.13 - CONSULT TO ENT Arslan Coelho MD * Arslan Coelho MD - 08/19/2022 3:52 PM EST Fadi Davila is a 67 year old male here for a Medicare Subsequent Annual Wellness Visit Health Risk Assessment In general, health is: Very good Concerns with balance:Several days Concerns with teeth or dentures:Not at all Concerns with sexual function:Not at all [place] anxious, stressed, angry, irritable, lonely, isolated, or had thoughts of hurting themself: Not at all Has little interest or pleasure in doing things: Not at all Bothered by feeling down, depressed, or hopeless: Not at all Needs help with grocery shopping, cooking, housework, bathing, grooming, dressing, eating, sitting or standing, walking, using the toilet, handling finances, taking medications, using the telephone, or driving: No Following safety precautions in the home environment and vehicle: removed throw rugs from floors, installed grab bars in the bathroom, handrails in stairwells, having adequate lighting, wearing seatbelt at all times?: Yes Smokes cigarettes, vapes, or chew tobacco: No Eats healthy foods including fruits, vegetables, whole grains, and fiber-rich foods: Nearly every day Number of days per week engages in exercise: 0 days Average alcohol consumption: 2-3 times a week Current Providers Specialists: I have reviewed specialist-related care of the patient in the medical record. Current care team: Patient Care Team: Arslan Coelho MD as PCP - General (Internal Medicine) Outside specialists seen: Dr. Lilibeth Mckay, neurology, sleep medicine. [facility] nephrology and transplant clinic. Aleks Floyd, optometry. Medical/Family history review Reviewed and updated problem list, medical/surgical/family/social history, medications, and allergies. Opioid use review Patient is not currently using opioids. Depression screening Depression Screening PHQ-2 Score PHQ-9 Score FORTINO-2 Total Score 08/15/2022 0 4 - Depression screening tool completed and reviewed. Based on score and interview, patient is not at risk for depression. Screening tool discussed with patient, and I recommended no further interventionat this time. Cognitive screening Mini Cog Score: 1. He felt testing was not accurate due to hearing loss. Cognitive screening reviewed and no further action needed (score 3-5) Functional Observation Was the patient's timed Up & Go test unsteady or ? 12 seconds? No Advance Care Planning End of Life planning discussed, including patient's advanced directive wishes: Yes Measurements BP 144/86 Pulse 70 Resp 16 Ht 6' 0 (1.83m) Wt 224 lb (101.6kg) BMI 30.37 kg/(m^2). Visual acuity (required for Welcome to Medicare): follows with optometry/ophthalmology Hearing Evaluation: loss of hearing. Assessment/Plan - Counseled on healthy diet and regular exercise - Discussed need for and benefit of weight loss. BMI 30.38 kg/(m^2) - Fall avoidance - Depression screening [facility] Miscellaneous Notes* Telephone Encounter - Preeti Cruz PA-C - 07/12/2022 2:48 PM EST Spoke to patient about positive COVID tests. He tested positive for COVID on 06/28 and was treated with molnupiravir. He stated his symptoms have resolved for the most part but is still testing positive and wants to know if he can go back to work. Since he is out of the 10-day quarantine window, hecan go back to work. Recommended he wears a mask around other people while he is still having symptoms, but unlikely to spread the virus now. All questions answered. Preeti Cruz PA-C [facility] Miscellaneous Notes* Telephone Encounter - Kori Rocha - 07/12/2022 2:11 PM EST Patient tested positive for covid on June 28 and is feeling much better. He is due to go backto work but is still testing positive for covid. He wants know if its safe for him to return back to work. Call back number [phone] documented [facility] Miscellaneous Notes* Telephone Encounter - Kell Leavitt RN - 07/06/2022 2:17 PM EST Returned call to Fadi Davila Left message directing to resume [employer]. Asked for a call back with any other questions Kell Leavitt RN * Telephone Encounter - Neris Frederick - 07/06/2022 1:44 PM EST Patient has called stating he has completed his covid treatment and is wanting to know if he shouldgo back on his mycophenolate he can be reached at [phone] documented [facility] Instructions* Patient Instructions* Preeti Cruz PA-C - 06/30/2022 2:28 PM EST Fact Sheet for Patients And Caregivers Emergency Use Authorization (EUA) Of Molnupiravir For Coronavirus Disease 2019 (COVID-19) What is the most important information I should know about molnupiravir? Molnupiravir may cause serious side effects, including: Molnupiravir may cause harm to your unborn baby. It is not known if molnupiravir will harm your baby if you take molnupiravir during . Molnupiravir is not recommended for use in . Molnupiravir has not been studied in . Molnupiravir was studied in animals only. When molnupiravir was given to animals, molnupiravir caused harm to their unborn babies. You and your healthcare provider may decide that you should take molnupiravir during if there are no other COVID-19 treatment options authorized by the FDA that are accessible or clinicallyappropriate for you. If you and your healthcare provider decide that you should take molnupiravir during , you and your healthcare provider should discuss the known and potential benefits and the potential risksof taking molnupiravir during . For individuals who are able to become : You should use a reliable method of control (contraception) consistently and correctly duringtreatment with molnupiravir and for 4 days after the last dose of molnupiravir. Talk to your healthcare provider about reliable control methods. Before starting treatment with molnupiravir your healthcare provider may do a test to seeif you are before starting treatment with molnupiravir. Tell your healthcare provider right away if you become or think you may be duringtreatment with molnupiravir. Surveillance Program: There is a surveillance program for individuals who take molnupiravir during . The purpose of this program is to collect information about the health of you and your baby. Talk to your healthcare provider about how to take part in this program. If you take molnupiravir during and you agree to participate in the surveillance program and allow your healthcare provider to share your information with [employer],then your healthcare provider will report your use of molnupiravir during to [employer]. by calling or Pregnancyreporting.Countercepts. For individuals who are sexually active with partners who are able to become : It is not known if molnupiravir can affect sperm. While the risk is regarded as low, animal studies to fully assess the potential for molnupiravir to affect the babies of males treated with molnupiravir have not been completed. A reliable method of control (contraception) should be used consistently and correctly during treatment with molnupiravir and for at least 3 months after thelast dose. The risk to sperm beyond 3 months is not known. Studies to understand the risk to sperm beyond 3 months are ongoing. Talk to your healthcare provider about reliable control methods. Talk to your healthcare provider if you have questions or concerns about how molnupiravir may affectsperm. You are being given this fact sheet because your healthcare provider believes it is necessary to provide you with molnupiravir for the treatment of adults with udip-sh-kfsqpylj coronavirus disease 2019 (COVID-19) with positive results of direct SARS-CoV-2 viral testing, and who are at high risk forprogressing to severe COVID-19 including hospitalization or , and for whom other COVID-19 treatment options authorized by the FDA are not accessible or clinically appropriate. The [place]. Food and Drug Administration (FDA) has issued an Emergency Use Authorization (EUA) to makemolnupiravir available during the COVID-19 pandemic (for more details about an EUA please see What is an Emergency Use Authorization? at the end of this document). Molnupiravir is not an FDA-approved medicine in the [place]. Read this Fact Sheet for information about molnupiravir. Talk to your healthcare provider about your options if you have any questions. It is your choice to take molnupiravir. What is COVID-19? COVID-19 is caused by a virus called a coronavirus. You can get COVID-19 through close contact withanother person who has the virus. COVID-19 illnesses have ranged from very yjic-au-wsfaiz, including illness resulting in . While information so far suggests that most COVID-19 illness is mild, serious illness can happen and maycause some of your other medical conditions to become worse. Older people and people of all ages with severe, long lasting (chronic) medical conditions like heart disease, lung disease and diabetes, for example seem to be at higher risk of being hospitalized for COVID-19. What is molnupiravir? Molnupiravir is an investigational medicine used to treat yveb-mw-qyhdtnvr COVID-19 in adults: with positive results of direct SARS-CoV-2 viral testing, and who are at high risk for progressing to severe COVID-19 including hospitalization or , and for whom other COVID-19 treatment optionsauthorized by the FDA are not accessible or clinically appropriate. The FDA has authorized the emergency use of molnupiravir for the treatment of mild-tomoderate COVID-19 in adults under an EUA. For more information on EUA, see the What is an Emergency Use Authorization (EUA)? section at the end of this Fact Sheet. Molnupiravir is not authorized: for use in people less than 18 years of age. for prevention of COVID-19. for people needing hospitalization for COVID-19. for use for longer than 5 consecutive days. What should I tell my healthcare provider before I take molnupiravir? Tell your healthcare provider if you: Have any allergies Are or plan to breastfeed Have any serious illnesses Are taking any medicines (prescription, vwce-pkq-zylqotl, vitamins, or herbal products). How do I take molnupiravir? Take molnupiravir exactly as your healthcare provider tells you to take it. Take 4 capsules of molnupiravir every 12 hours (for example, at 8 am and at 8 pm) Take molnupiravir for 5 days. It is important that you complete the full 5 days of treatment with molnupiravir. Do not stop taking molnupiravir before you complete the full 5 days of treatment, even if you feel better. Take molnupiravir with or without food. You should stay in isolation for as long as your healthcare provider tells you to. Talk to your healthcare provider if you are not sure about how to properly isolate while you have COVID-19. Swallow molnupiravir capsules whole. Do not open, break, or crush the capsules. If you cannot swallow capsules whole, tell your healthcare provider. What to do if you miss a dose: If it has been less than 10 hours since the missed dose, take it as soon as you remember If it has been more than 10 hours since the missed dose, skip the missed dose and take your dose atthe next scheduled time. Do not double the dose of molnupiravir to make up for a missed dose. What are the important possible side effects of molnupiravir? Possible side effects of molnupiravir are: See, What is the most important information I should know about molnupiravir? diarrhea nausea dizziness These are not all the possible side effects of molnupiravir. Not many people have taken molnupiravir. Serious and unexpected side effects may happen. This medicine is still being studied,so it is possible that all of the risks are not known at this time. What other treatment choices are there? Like molnupiravir, FDA may allow for the emergency use of other medicines to treat people with COVID-19. Go to https://www.fda.gov/dzqzhnjwj-hpkwcghbirbc-sdq-response/zha-naqhcdidlerkwft-shu- policy-framework/sjsakoqft-rjw-sttxvvzagkuos for more information. It is your choice to be treated or not to be treated with molnupiravir. Should you decide not to take it, it will not change your standard medical care. What if I am ? is not recommended during treatment with molnupiravir and for 4 days after the last dose of molnupiravir. If you are or plan to breastfeed, talk to your healthcare provider about your options and specific situation before taking molnupiravir. How do I report side effects with molnupiravir? Contact your healthcare provider if you have any side effects that bother you or do not go away. Report side effects to FDA MedWatch at www.fda.gov/medwatch or call 9-143-FXY-4911 ( ). How should I store molnupiravir? Store molnupiravir capsules at room temperature between 68 F to 77 F (20 C to 25 C). Keep molnupiravir and all medicines out of the reach of children and pets. How can I learn more about COVID-19? Ask your healthcare provider. Visit www.cdc.gov/COVID19 Contact your local or state public health department. Call [employer] at (toll free in the [place] Visit wwwBubok What Is an Emergency Use Authorization (EUA)? The [place] FDA has made molnupiravir available under an emergency access mechanism called an Emergency Use Authorization (EUA) The EUA is supported by a [place] of Health and Human Service (HHS) declaration that circumstances exist to justify emergency use of drugs and biological products during the COVID-19 pandemic. Molnupiravir for the treatment of sgqq-bm-vkzvlfvu COVID-19 in adults with positive results of direct SARS-CoV-2 viral testing, who are at high risk for progression to severe COVID-19, including hospitalization or , and for whom alternative COVID-19 treatment options authorized by FDA are not accessible or clinically appropriate, has not undergone the same type of review as an FDA- approved product. In issuing an EUA under the COVID-19 public health emergency, the FDA has determined, among other things, that based on the total amount of scientific evidence available including data from adequate and well-controlled clinical trials, if available, it is reasonable to believe that the product may be effective for diagnosing, treating, or preventing COVID-19, or a serious or life-threatening disease or condition caused by COVID19; that the known and potential benefits of the product, when used to diagnose, treat, or prevent such disease or condition, outweigh the known and potential risks of such product; and that there are no adequate, approved, and available alternatives. All of these criteria must be met to allow for the product to be used in the treatment of patients during the COVID-19 pandemic. The EUA for molnupiravir is in effect for the duration of the COVID-19declaration justifying emergency use of molnupiravir, unless terminated or revoked (after which molnupiravir may no longer be used under the EUA). For patent information: www.Countercepts/research/patent Copyright 2020 [employer] [place], [facility] and its affiliates. All rights reserved. [id number] Issued: 07/01/2021 documented [facility] Miscellaneous Notes* Telephone Encounter - Preeti Cruz PA-C - 06/30/2022 2:23 PM EST Spoke to patient about positive COVID test. Stated that he started to feel like he was coming down with a cold on Monday. Complaints of chills, congestion, cough, CAR, and fatigue. Denies dyspnea, CP,N/V/D, loss of appetite. I recommended that he obtain a pulse ox from the pharmacy and to measure his oxygenation. If his fever becomes uncontrolled, he becomes dyspnic, or is not able to hold food, medications, or fluids down he should be seen in the emergency room. I will send molnupirvair for symptomatic control. Patient is advised to hold his cellcept while on the anti-viral therapy and to restart MMF after course completion. Ok to take vitamin C supplement and tylenol for pain. All questions answered. Molnupiravir Eligibility and Patient Discussion [facility] Formulary Restriction Criteria: Adult outpatients 18 years and older with ALL of the following: [x] Patient has positive SARS-COV-2 viral test (PCR or antigen test) during current illness [x] Patient has symptoms for 5 days or less [x] Not requiring hospitalization at any time for management of COVID-19 [x] Not requiring supplemental oxygen or a change in baseline supplemental oxygen [x] Not utilized for pre-exposure or post-exposure prophylaxis for prevention of COVID-19 [x] Patient is not or lactating [x] Meeting at least one of the criteria for high risk of progression to severe COVID-19: [] Age over 65 years [] Cancer [] Chronic kidney disease [] Chronic liver disease [] Chronic lung diseases, including cystic fibrosis [] Dementia or other neurological conditions [] Diabetes (type 1 or type 2) [] Disabilities, including Down syndrome and neurodevelopmental disorders [] Heart conditions [] HIV infection [x] Immunocompromised state [] Mental health conditions [] Medical related technological dependence (tracheostomy, gastrostomy, or positive pressure ventilation (not related to COVID) [] Overweight and obesity (BMI greater or equal to 25 for adults) [] Physical inactivity [] Sickle cell disease or thalassemia [] Smoking, current or former [x] Solid organ or blood stem cell transplant [] Stroke or cerebrovascular disease [] Substance use disorders [] Tuberculosis [] People from racial and ethnic minority groups Criteria above are met: Yes Date of Positive Test:06/30/22 Date of Symptom Onset: 06/27/22 Patient received COVID vaccine: Yes / status reviewed: Females: [] Patient is not currently and there is no possibility the patient could be (select one of the following): [] test does not need to be confirmed in patients who have undergone permanent sterilization, are currently using an intrauterine system or contraceptive implant, or in whom is not possible. [] Patients not meeting conditions above: assess whether the patient is based on the firstday of the last menstrual period in individuals who have regular menstrual cycles, is using reliable method of contraception correctly and consistently or have had a negative test [] A test is recommended if the individual has irregular menstrual cycles, is unsure of the first day of the last menstrual period or is not using effective contraception correctly and consistently [] Patient is not currently . is not recommended during treatment and for four days after final dose of molnupiravir. [] Females have been advised to use a reliable method of contraception correctly and consistently for the duration of treatment and for four days after the last dose of molnupiravir Males: [x] Sexually active male with partner(s) of childbearing potential has been advised to use a reliable method of contraception correctly and consistently for intercourse for the duration of treatment and for three months after the last dose of molnupiravir I have discussed the use of the investigational therapeutic, molnupiravir, for the treatment of mild to moderate COVID-19 and its use under Emergency Use Authorization with the patient. The patient was informed that molnupiravir is not an FDA approved drug and that it is authorized for use under this Emergency Use Authorization. The patient was also informed of the significant knownbenefits and potential risks of molnupiravir, and the extent to which such potential risks and benefits are unknown. The patient was informed that there is mandatory reporting of all medication errors and serious adverse events potentially related to molnupiravir treatment within 7 calendar days from the onset of the event and that events up to 28 days after completion of therapy need to be reported. The discussion included alternatives to receiving molnupiravir, including clinical trials, and potential the risks and benefits of those alternatives. The patient was provided electronically withthe Fact Sheet for Patients, Parents and Caregivers . The patient was also instructed that in addition to the treatment with molnupiravir, he/she should continue to self-isolate and use infection control measures (e.g., wear mask, isolate, social distance, avoid sharing personal items, clean and disinfect high touch surfaces, and frequent handwashing) according to CDC guidelines. The patient stated understanding and gave verbal consent to proceeding with molnupiravir treatment. Preeti Cruz PA-C June 30, 2022 2:29 PM documented in this encounterAkron [facility]12-22-2022 Miscellaneous Notes* Telephone Encounter - Erika Lin RN - 06/30/2022 10:33 AM EST Patient calls with sinus congestion, cough, sob with exertion, chest congestion, fever but not sureof reading, overall not feeling well for 3 days. Nurse triage completed. Protocol recommends see provider within 4 hours. No available appointments. Patient agreeable to EC and going to head that wayfor evaluation. Reason for Disposition [1] Fever > 100.0 F (37.8 C) AND [2] diabetes mellitus or weak immune system (e.g., HIV positive, cancer chemo, splenectomy, organ transplant, chronic steroids) Answer Assessment - Initial Assessment Questions 1. LOCATION: Bilateral sinus pain/pressure and congestion 2. ONSET: 3 days ago 3. SEVERITY:- MODERATE (4-7): interferes with normal activities (e.g., work or school) or awakens from sleep 4. RECURRENT SYMPTOM: Yes 5. NASAL CONGESTION: Yes but able to breathe out of nose 6. NASAL DISCHARGE: yes not certain of color 7. FEVER: Feels feverish but not able to take temperature 8. OTHER SYMPTOMS: Cough. SOB with exertion. Chest congestion. Body aches. No sore throat or earache. Protocols used: Sinus Pain or [id number] documented in this encounterAkron [facility]08-23-2022 Miscellaneous Notes* Telephone Encounter - Malcolm Ríos Ma - 03/01/2022 9:27 AM EDT Patient's request for medication is as follows: Requested Prescriptions Pending Prescriptions Disp Refills Insulin Newport, Disposable, (BD ULTRA-FINE PAYTON PEN NEEDLE) 32 gauge x 5/32 200 Each 3 Sig: USE 1 NEEDLE FOR EACH DOSE FOUR TIMES DAILY Please approve the above prescription(s) to electronically send to pharmacy. Malcolm Ríos Ma documented in this encounterAkron Children'[facility]07-02-2022 History of Present illness Narrative* Arslan Coelho MD - 01/08/2022 11:05 AM EDT This note was created using NoteWriter. Subjective Patient presents with: Discussion Fadi was here per my chart messages. He had an intense dull pain of the left chest and armpit afterhis Covid booster last fall that lasted 10 minutes, and improved after lying down. He had a similarepisode in July. Since November, he's had more episodes. There was no relation to activity, rest, food intake, or stress. No other symptoms were noted. He's had 3 episodes this December. Pain does not lastfor more than 10 minutes. He recovered from his fall, leg weakness, leg fracture and was ambulating freely. Review of Systems Constitutional: Negative for diaphoresis, fatigue and unexpected weight change. Respiratory: Negative for cough, shortness of breath and wheezing. Cardiovascular: Negative for palpitations and leg swelling. Gastrointestinal: Negative for nausea and vomiting. Neurological: Negative for dizziness, syncope, light-headedness and headaches. ACTIVE PROBLEM LIST Osteoporosis Mixed Hyperlipidemia Polycystic Kidney Disease, Autosomal Dominant Essential Hypertension Kidney Transplant Status, Living Unrelated Donor Stress and Adjustment Reaction Ckd (Chronic Kidney Disease) Stage 3, Gfr 30-59 Ml/Min ([facility]) Gastroesophageal Reflux Disease Without Esophagitis Mitali On Cpap Memory Disturbance Diabetic Peripheral Neuropathy Associated With Type 2 Diabetes Mellitus ([facility]) Obesity (Bmi 30.0-34.9) Moderate Mitral Regurgitation Hypomagnesemia Erectile Dysfunction Weakness of Both Legs Numbness of Legs Spinal Stenosis of Lumbar Region Current Outpatient Medications Medication Sig blood sugar diagnostic (OleryTOUCH ULTRA TEST) test strip Test 4 times a day. E11.42. Insulin: Yes. Lancets lancets Test blood sugar(s) 2 daily. Dx: 250.02. Insulin: No tacrolimus IR (PROGRAF) 0.5 mg capsule Take 2 capsules by mouth once daily. CPAP Pt requesting new DME. Needs supplies. Lifetime supplies. Bipap 16/12 cmH2O. If pt appropriatefor new device, then would request the new device be an auto bilevel PAP set at IPAP max 18 cmH2O, EPAP min 8 cmH2O with pressure support of 4 cmH2O. mycophenolate mofetil (CELLCEPT) 250 mg capsule TAKE 3 CAPSULES TWICE DAILY carvedilol (COREG) 25 mg tablet Take 1 tablet by mouth twice daily. fluticasone (FLONASE) 50 mcg/actuation nasal spray Use 2 Sprays in each nostril once daily. RINSE MOUTH AFTER EACH DOSE terazosin (HYTRIN) 2 mg capsule Take 1 capsule by mouth daily at bedtime. amLODIPine (NORVASC) 10 mg tablet Take 1 tablet by mouth once daily. buPROPion SR (WELLBUTRIN SR) 100 mg 12 hr tablet Take one(1) tablet daily in the morning. predniSONE (DELTASONE) 2.5 mg tablet Take 1 tablet by mouth once daily. hydrOXYzine pamoate (VISTARIL) 25 mg capsule Take 1-2 capsules by mouth at bedtime as needed (for sleep/allergy). sulfamethoxazole-trimethoprim (BACTRIM,SEPTRA) 400-80 mg per tablet Take 1 tablet by mouth once daily. lansoprazole (PREVACID) 30 mg capsule Take 1 capsule by mouth once daily. insulin lispro (HUMALOG KWIKPEN INSULIN) 100 unit/mL Inject 25 Units subcutaneously three times daily before meals. insulin glargine (LANTUS SOLOSTAR U-100 INSULIN) 100 unit/mL (3 mL) Inject 70 Units subcutaneously every evening. flash glucose scanning reader (Phone WarriorSTYLE NICOLE 2 READER) Test 8 times per day. On insulins. Dx: E11.42. flash glucose sensor (FREESTYLE NICOLE 14 DAY SENSOR) kit Check 8 times per day. On insulins. E11.42. calcitriol (ROCALTROL) 0.5 mcg capsule Take 1 capsule by mouth once daily. mupirocin (BACTROBAN) 2% oint 0.5 g twice daily as needed (for 5 days.). For 5 days Ipratropium Haynes (ATROVENT) 0.03 % nasal spray Use 2 Sprays in the nose every 12 hours. BIPAP Current Facility-Administered Medications Medication Dose Route Frequency perflutren lipid microspheres 1.3 mL in NaCl (PF) 0.9% 10 mL injection (DEFINITY) INTRAVENOUS DIRECTED PRN sodium chloride 0.9 % (flush) 10 mL (BD POSIFLUSH) 10 mL INTRAVENOUS DIRECTED PRN Objective BP 124/78 (BP Site: Left Arm, BP Position: Sitting, BP Cuff Size: Large Adult) Pulse 72 Temp 36.3 C (97.3 F) (Temporal Artery) Resp 18 Wt 102.1 kg (225 lb) BMI 30.52 kg/m Physical Exam Constitutional: General: He is not in acute distress. Appearance: He is not ill-appearing. Cardiovascular: Rate and Rhythm: Normal rate and regular rhythm. Pulses: Normal pulses. Heart sounds: S1 normal and S2 normal. No murmur heard. No gallop. Pulmonary: Effort: Pulmonary effort is normal. Breath sounds: Normal breath sounds. Chest: Chest wall: No tenderness. Musculoskeletal: Right lower leg: No edema. Left lower leg: No edema. Neurological: Mental Status: He is alert. EKG RESULTS: normal sinus rhythm and RBBB Assessment and Plan 1. Chest pain, unspecified type - ICD9: 786.50, ICD10: R07.9 (primary diagnosis) Chest pain of unclear etiology, patient with significant risk factor(s). ER for any progression of symptoms. - ECG COMPLETE - XR CHEST 2V FRONTAL/LAT - NM CARDIAC PERF STRESS/EXERCISE 2. 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) - ICD9: 250.60, 357.2, ICD10: E11.42 He was till not using the NICOLE. - Scholastica ULTRA TEST STRIPS 3. Essential hypertension - ICD9: 401.9, ICD10: I10 - good control 4. Kidney transplant status, living unrelated donor - ICD9: V42.0, ICD10: Z94.0 He will have his elevated medication level rechecked. Arslan Coelho MD documented in this encounterAkron [facility]06-30-2022 Miscellaneous Notes* Telephone Encounter - Ellen Farias LPN - 01/06/2022 2:44 PM EDT Patient scheduled. Ellen Farias LPN * Telephone Encounter - Arslan Coelho MD - 01/05/2022 6:02 PM EDT Schedule appointment in one week with me or Kaur for chest pain. documented in this encounterAkron Children'[facility] Hospital06-06-2022 Miscellaneous Notes* Telephone Encounter - Malcolm Ríos Ma - 12/13/2021 9:39 AM EDT Pt notified via PlayDatat. * Telephone Encounter - Kaur Russell APRN.CNP - 12/13/2021 8:50 AM EDT Overdue for follow-up Kaur Russell APRN.CNP * Telephone Encounter - Ekaterina Grajeda Ma - 12/11/2021 10:51 AM EDT Patient has been identified by name and date of : Yes Patient phones for refill(s): Pending Prescriptions Disp Refills LANCETS 100 Each 0 Sig: Test blood sugar(s) 2 daily. Dx: 250.02. Insulin: No TOM: No Date of last office visit in primary care: 07/14/21 Last 2 Encounter Wt Readings: Date: Wt: 12/01/2021 104.6 kg (230 lb 8 oz) 10/22/2021 100.7 kg (222 lb) Previous labs/tests for medication: Diabetes: Hemoglobin A1C (%) Date Value 07/19/2021 7.2 01/05/2021 8.0 Please advise. Thank you. Ekaterina Grajeda Ma documented in this encounterAkron Children[facility] Hospital06-01-2022 Miscellaneous Notes* Telephone Encounter - Ellen Farias LPN - 12/08/2021 12:56 PM EDT Patient has been identified by name and date of : Yes Patient phones for refill(s): Pending Prescriptions Disp Refills LANCETS 100 Each 0 Sig: Test blood sugar(s) 2 daily. Dx: 250.02. Insulin: No TOM: No Date of last office visit in primary care: 07/14/2021 No future appt scheduled. Last 2 Encounter Wt Readings: Date: Wt: 12/01/2021 104.6 kg (230 lb 8 oz) 10/22/2021 100.7 kg (222 lb) Previous labs/tests for medication: Diabetes: Hemoglobin A1C (%) Date Value 07/19/2021 7.2 01/05/2021 8.0 Please advise. Thank you. Ellen Farias LPN documented in this encounterAkron Children[facility] Hospital06-01-2022 Miscellaneous Notes* Telephone Encounter - Nelia Way - 12/08/2021 11:52 AM EDT Patient phones requesting refills as follows: Pending Prescriptions Disp Refills TACROLIMUS 0.5 MG CAPSULE, IMMEDIATE-RELEASE Sig: Take 2 capsules by mouth once daily. TOM: No Please review and advise. Nelia Way documented in this encounterAkron [facility]05-25-2022 History of Present illness Narrative* Jhonny Borges MD - 12/01/2021 11:28 AM EDT [facility] Date: December 01, 2021 - 11:28 AM Fadi Davila is seen in consultation requested by Dr. Bill Mckay Jr. for an opinion regardinglower extremity weakness. My final recommendations will be communicated back to the requesting physician by way of shared medical record or via US mail. Chief Complaint: bilateral leg weakness SUBJECTIVE: Fadi Davila, is a 66 year old male with a history of renal transplant, who presents with lower extremity weakness with numbness. The pain started 7 months ago, with no known injury or trauma. The pain onset was sudden. He has had 2 episodes of acute case of bilateral LE numbness and weakness. Thepatient states that the current LE numbness/tingling and weakness is intermittent. The pain is described as numbness. The pain intensity is rated 0. The pain is exacerbated by no change in pain symptoms with position or activity and relieved by no known factors. Symptoms interfere with physical activity, walking, standing, and work. Litigation: No. Worker's Compensation: No. Prior pain treatment has included physical therapy but was told to d/c by his neurologist. ALLERGIES Allergen Reactions Penicillins Anaphylaxis Tape [Adhesive Tape* Other: See Comments Made skin red Losartan Potassium GI Upset Callie Inhibitors Cough Celexa [Citalopram * Intolerance decrease libido Cholecalciferol (Vi* GI Upset heartburn Clonidine Other: See Comments dry mouth Ferrous Sulfate GI Upset severe nausea Imdur [Isosorbide M* Other: See Comments Headache Latex Other: See Comments rash, red. Trazodone Intolerance nightmare Current Medications: Pain medications reviewed and reconciled in the medication list: Yes. Current Outpatient Medications Medication Sig CPAP Pt requesting new DME. Needs supplies. Lifetime supplies. Bipap 16/12 cmH2O. If pt appropriatefor new device, then would request the new device be an auto bilevel PAP set at IPAP max 18 cmH2O, EPAP min 8 cmH2O with pressure support of 4 cmH2O. mycophenolate mofetil (CELLCEPT) 250 mg capsule TAKE 3 CAPSULES TWICE DAILY Lancets lancets Test blood sugar(s) 2 daily. Dx: 250.02. Insulin: No carvedilol (COREG) 25 mg tablet Take 1 tablet by mouth twice daily. fluticasone (FLONASE) 50 mcg/actuation nasal spray Use 2 Sprays in each nostril once daily. RINSE MOUTH AFTER EACH DOSE terazosin (HYTRIN) 2 mg capsule Take 1 capsule by mouth daily at bedtime. amLODIPine (NORVASC) 10 mg tablet Take 1 tablet by mouth once daily. buPROPion SR (WELLBUTRIN SR) 100 mg 12 hr tablet Take one(1) tablet daily in the morning. predniSONE (DELTASONE) 2.5 mg tablet Take 1 tablet by mouth once daily. hydrOXYzine pamoate (VISTARIL) 25 mg capsule Take 1-2 capsules by mouth at bedtime as needed (for sleep/allergy). sulfamethoxazole-trimethoprim (BACTRIM,SEPTRA) 400-80 mg per tablet Take 1 tablet by mouth once daily. lansoprazole (PREVACID) 30 mg capsule Take 1 capsule by mouth once daily. insulin lispro (HUMALOG KWIKPEN INSULIN) 100 unit/mL Inject 25 Units subcutaneously three times daily before meals. insulin glargine (LANTUS SOLOSTAR U-100 INSULIN) 100 unit/mL (3 mL) Inject 70 Units subcutaneously every evening. blood sugar diagnostic (ONETOUCH ULTRA TEST) test strip TEST TWICE DAILY. E11.65. On insulin. flash glucose scanning reader (FREESTYLE NICOLE 2 READER) Test 8 times per day. On insulins. Dx: E11.42. flash glucose sensor (FREESTYLE NICOLE 14 DAY SENSOR) kit Check 8 times per day. On insulins. E11.42. tacrolimus IR (PROGRAF) 0.5 mg capsule Take 2 capsules by mouth once daily. calcitriol (ROCALTROL) 0.5 mcg capsule Take 1 capsule by mouth once daily. mupirocin (BACTROBAN) 2% oint 0.5 g twice daily as needed (for 5 days.). For 5 days Ipratropium Haynes (ATROVENT) 0.03 % nasal spray Use 2 Sprays in the nose every 12 hours. BIPAP Current Facility-Administered Medications Medication Dose Route Frequency perflutren lipid microspheres 1.3 mL in NaCl (PF) 0.9% 10 mL injection (DEFINITY) INTRAVENOUS DIRECTED PRN sodium chloride 0.9 % (flush) 10 mL (BD POSIFLUSH) 10 mL INTRAVENOUS DIRECTED PRN PAST MEDICAL HISTORY Diagnosis Date Bursitis of both shoulders 10/28/2005 Dr. Alex CKD (chronic kidney disease) stage 3, GFR 30-59 ml/min ([facility]) 02/01/2016 Colles' fracture 02/19/2013 CPAP (continuous positive airway pressure) dependence 11/2011 MITALI on CPAP Dyslipidemia Esophagitis, unspecified ESRD (end stage renal disease) ([facility]) Fracture Gastroesophageal reflux disease without esophagitis 03/26/2016 Gout 02/17/2010 HTN (hypertension) 08/17/2011 Hyperparathyroidism, secondary renal ([facility]) 11/27/2013 Insomnia 07/06/2011 Internal hemorrhoids without mention of complication Kidney transplant status, living unrelated donor 12/29/2013 transplanted 2012. Mitral valve regurgitation MITALI on CPAP 11/08/2011 MITALI on CPAP Osteoporosis 10/28/2005 Peripheral enthesopathies and allied syndromes 10/28/2005 Left shoulder bursitis Polycystic kidney disease, autosomal dominant 08/17/2011 Squamous cell carcinoma of skin of right upper arm 02/15/2018 Dr. Mika Hernandez, dermatology. Steal syndrome of dialysis vascular access ([facility]) 01/21/2019 Stress and adjustment reaction 06/08/2014 [place]-neck deformity of finger 07/29/2014 Uncontrolled type 2 diabetes mellitus with insulin therapy 07/23/2014 PAST SURGICAL HISTORY Procedure Laterality Date ARTERIOVENOUS ANASTOMOSIS OPEN DIRECT 06/13/2012 Right upper extremity fistula, first of 2 stages, basilic vein and brachial artery COLONOSCOPY FLX DX W/COLLJ SPEC WHEN PFRMD 05/14/07 COLONOSCOPY FLX DX W/COLLJ SPEC WHEN PFRMD 04/16/2018 repeat 5 years EGD TRANSORAL BIOPSY SINGLE/MULTIPLE 05/14/07 ESOPHAGOGASTRODUODENOSCOPY TRANSORAL DIAGNOSTIC 04/16/2018 EGD KIDNEY SURGERY HX KIDNEY TRANSPLANT HX 04/18/2013 Bilateral Nephrectomy and living donor KTx FAMILY HISTORY Problem Relation Age of Onset Breast Cancer Mother Osteoporosis Mother Aneurysm Mother PKD Heart Mother mitral valve regurg Stroke Mother at age 79 Breast Cancer Sister Diabetes Father other (bone cancer) Father Social History: Alcohol Use: Yes (rarely) Tobacco Use: Never Drug Use: No 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) Years Of Education Completed: Not specified Marital Status: with 3 children REVIEW OF SYSTEMS: Constitutional: (-) Fever (-) Night Sweats (-) Weight Gain (-) Weight Loss (-) Fatigue Cardiovascular: (-) Chest Pain (-) Palpitations (-) Lightheadedness (+) Swelling of Ankles (-) Hx Heart Surgery Respiratory: (-) Shortness of Breath (-) Cough (-) Wheezing (+) Snoring Gastrointestinal: (-) Incontinence (-) Abdominal Pain (-) Diarrhea (-) Constipation (-) Nausea/Vomiting (-) Heart Burn Endocrine: (-) Thyroid Disorder (+) Diabetes Hematologic: (-) Prolonged Bleeding (-) Easy Bruising Genitourinary: (-) Incontinence (-) Frequency (-) Urinary Urgency Skin: (-) Rashes (-) Itching (-) Other Lesions Neurologic: (-) Headache (-) Double Vision (-) Confusion (-) Paralysis (+) Vertigo (-) Syncope Psychiatric: (+) Depression (+) Anxiety (-) Delusions (-) Hallucinations (-) Suicidal Thoughts OARRS Report reviewed: Yes Narcotic Agreement reviewed and signed?: N/A Baseline Urine Toxicology obtained: N/A Urine Panel: No results found for: UQCANN, UQBNZL, UNS0KYQ, UQAMPH, UQMAMP, UQBUPRE, UQNORBUP, UQMTHD, UQEDDP, UQTRAM, UQDTRM, UQFNTL, UQNFTL, UQCODE, UQMORP, UQDCDN, UQHCOD, UQOXYC, UQHMOR, UQOXYM, UQCREA, UQPH,UQSPGR, UQOXID, UQSPQ The pain panel was N/A OBJECTIVE: Performed in conjunction with observation. The patient was alert and oriented x3. The patient was in no acute distress. Lungs: Clear, negative for dyspnea or distress. CVR: Negative for SOB or peripheral edema. Neck: Supple. The range of motion was intact. Negative focal tenderness Back: Range of motion of the trunk was intact. SLR: Negative Facet Loading: Positive with axial loading and extension. SI joint: Negative PSIS tenderness. Extremities: no reported edema or erythema. Motor: Negative focal deficits Sensory: Intact to light touch and sharp throughout the lower extremities Gait: Within normal limits Medical record and diagnostic tests reviewed for today's visit: The [facility] EMR was reviewed during thevisit IMAGING STUDIES: No new imaging studies were reviewed during this office visit. ASSESSMENT: (R29.898) Weakness of both legs (R20.0) Numbness of legs (M48.061) Spinal stenosis of lumbar region, unspecified whether neurogenic claudication present Discussion: A discussion was entertained regarding multicomponent back pain source. Discussed conservative options and focus on improvement of function and the concerns of ongoing chronic pain. Discussed the rationale behind interventional approach and how it can facilitate improvement of pain but also diagnostic information that procedures provide. termination clerk use of any opioid pain medication is discouraged in chronic benign pain. PLAN: 1. MR lumbar spine was reviewed with the patient. Negative for acute findings. Recommended conservative course with mainly physical therapy and consistent home exercise program. 2. No interventional procedures indicated 3. No new medication was prescribed. 4. Counseled patient regarding the importance of activity modification and exercise. 5. Follow up: As needed basis The above plan and management options were discussed with patient. The patient is in agreement withthe above and verbalized understanding. I have discussed and confirmed the above treatment plan with the patient and I have reviewed the nurses notes and I am aware of the family/social history. I have confirmed ROS findings. Jhonny Borges MD December 01, 2021 cc: Bill Mckay [address] [facility] [address] [place] [id number] Results of consultation to be transmitted via electronic medical record for those providers who practice within [facility] or with access to [employer] via MD Connect, or via letter. documented in this encounterAkron [facility]05-11-2022 Miscellaneous Notes* Telephone Encounter - Kori Rocha - 11/17/2021 12:58 PM EDT Patient phones requesting refills as follows: Pending Prescriptions Disp Refills MYCOPHENOLATE MOFETIL 250 MG CAPSULE 540 capsule 3 Sig: TAKE 3 CAPSULES TWICE DAILY TOM: No Please review and advise. Nichelle Velasquez, documented in this encounterAkron Children'S Hospital05-02-2022 Miscellaneous Notes* Telephone Encounter - Cyndi Rene LPN - 11/08/2021 3:40 PM EDT Received sleep study results and copy of PAP order from Dr Aparicio office and forwarded to Dr Mckay to review. Cyndi Rene LPN * Telephone Encounter - Cyndi Rene LPN - 11/05/2021 3:11 PM EDT Spoke with nurse at Dr Duval's office and is to fax most recent pap orders. [facility] faxed request for any sleep studies to Dr Duval's office. Cyndi Rene LPN * Telephone Encounter - Bill Mckay Jr., MD - 11/05/2021 1:50 PM EDT Pt is just transferring care and is not needing a new device. I do not know pressure because I havenot seen device or have a download and why I requested a download upon transfer. Please contact 's office as they may know pressure settings or have access to download. Thank you, Bill Mckay MD * Telephone Encounter - Cyndi Rene LPN - 11/05/2021 10:00 AM EDT Reed needing A new order for PAP. The office visit note states BILEVEL and the printed order CPAP. Also needing to have pressure ordered for PAP. Cyndi Massiel Anju OLIVO documented in this encounterAkron Children'S Hospital05-02-2022 Miscellaneous Notes* Telephone Encounter - Bill Mckay Jr., MD - 11/08/2021 3:34 PM EDT Recommend stop PT. Recommend pt be seen by spine and I can make appt. Recommend with persistence of symptoms, EMG/NCV be completed. If pt agrees orders will be placed. Also reviewed pt's prior PAP titrations and on none of the tested pressure settings was his AHI normalized. Would recommend that the patient have a new sleep study to determine appropriate setting unless PAP data download available for review. Bill Mckay MD documented in this encounterAkron Children'[facility] Hospital04-29-2022 Miscellaneous Notes* Telephone Encounter - Kaur Russell APRN.CNP - 11/05/2021 7:52 AM EDT If transplant is refilling Prograf they should probably refill Cellcept as well. Recommend sending the request for this to transplant. Kaur Russell APRN.CNP * Telephone Encounter - Kellie Ascencio LPN - 11/04/2021 1:20 PM EDT Patient has been identified by name and date of : Yes Patient phones for refill(s): Pending Prescriptions Disp Refills TERAZOSIN 2 MG CAPSULE 90 capsule 3 Sig: Take 1 capsule by mouth daily at bedtime. TOM: No AMLODIPINE 10 MG TABLET 90 tablet 3 Sig: Take 1 tablet by mouth once daily. TOM: No BUPROPION HCL SR 100 MG TABLET,12 HR SUSTAINED-RELEASE 90 tablet 3 Sig: Take one(1) tablet daily in the morning. TOM: No PREDNISONE 2.5 MG TABLET 90 tablet 3 Sig: Take 1 tablet by mouth once daily. TOM: No HYDROXYZINE PAMOATE 25 MG CAPSULE 180 capsule 3 Sig: Take 1-2 capsules by mouth at bedtime as needed (for sleep/allergy). TOM: No SULFAMETHOXAZOLE 400 MG-TRIMETHOPRIM 80 MG TABLET 90 tablet 3 Sig: Take 1 tablet by mouth once daily. TOM: No MYCOPHENOLATE MOFETIL 250 MG CAPSULE 540 capsule 3 Sig: TAKE 3 CAPSULES TWICE DAILY TOM: No LANSOPRAZOLE 30 MG CAPSULE,DELAYED RELEASE 90 capsule 3 Sig: Take 1 capsule by mouth once daily. TOM: No INSULIN LISPRO (U-100) 100 UNIT/ML SUBCUTANEOUS PEN 25 Pen 3 Sig: Inject 25 Units subcutaneously three times daily before meals. TOM: No LANTUS SOLOSTAR U-100 INSULIN 100 UNIT/ML (3 ML) SUBCUTANEOUS PEN 25 Pen 3 Sig: Inject 70 Units subcutaneously every evening. TOM: No ONETOUCH ULTRA TEST STRIPS 200 Strip 5 Sig: TEST TWICE DAILY. E11.65. On insulin. TOM: No Date of last office visit in primary care: 07/14/21 Please advise. Thank you. Kellie Ascencio LPN documented in this encounter[facility] Miscellaneous Notes* Telephone Encounter - Cyndi Ramirez APRN.CNP - 11/04/2021 4:35 PM EDT Sending to Dr.Velasquez donald patient documented in this encounterAk[facility] Miscellaneous Notes* Telephone Encounter - Kellie Ascencio LPN - 11/04/2021 1:24 PM EDT Patient has been identified by name and date of : Yes Patient phones for refill(s): Pending Prescriptions Disp Refills CARVEDILOL 25 MG TABLET 180 tablet 3 Sig: Take 1 tablet by mouth twice daily. TOM: No Date of last office visit in primary care: 07/14/21 Please advise. Thank you. Kellie Ascencio LPN documented in this encounterAk[facility]04-28-[facility]22 Miscellaneous Notes* Telephone Encounter - Kellie Ascencio LPN - 11/04/2021 1:23 PM EDT Patient has been identified by name and date of : Yes Patient phones for refill(s): Pending Prescriptions Disp Refills FLUTICASONE PROPIONATE 50 MCG/ACTUATION NASAL SPRAY,SUSPENSION Sig: Use 2 Sprays in each nostril once daily. RINSE MOUTH AFTER EACH DOSE TOM: No Date of last office visit in primary care: 07/14/21 Please advise. Thank you. Kellie Ascencio LPN documented in this encounterAk[facility]04-[facility]22 History of Past illness Narrative* Problem Noted Date Diagnosed Date Resolved Date Weakness of both legs 10/28/20212023 Erectile dysfunction 03/14/2019 024 Steal syndrome of dialysis vascular access 01/21/2019 03/14/2019 Squamous cell carcinoma of s kin of right upper arm 02/15/2018 03/14/2019 Overview: Dr. Mika Hernandez, dermatology. Hypomagnesemia 01/12/2017 08/26/2023 Non-rheumatic mitral regurgitation 06/04/2016 09/17/2017 Pavillion-neck deformity of finger 07/29/2014 10/13/2016 Mallet finger of left hand 07/29/2014 0 09/17/2017 Uncontrolled type 2 diabetes mellitus with insulin therapy 07/23/2014 03/14/2019 ESRD (end stage renal disease) 06/13/2013 02/01/2016 Colles' fracture 02/19/2013 10/13/2016 Distal radial fracture 02/12/201310/13 Iron deficiency anemia 07/30/201201/31 Anemia in CKD (chronic kidney disease) 07/30/2012 02/01/2016 Preop cardiovascular exam 08/17/2011 Chronic kidney disease, stage IV (severe) 02/18/2011 02/01/2016 Esophagitis, unspecified 05/14/200712/2016 Special screening for malign ant neoplasms, colon 05/14/2007 10/13/2016 Internal hemorrhoids without mention of complication 05/14/2007 09/17/2017 POLYCYSTIC KIDNEY NOS 10/28/20052014 Essential hypertension 09/15/200510/13 documented as of this encounter (statuses as of 08/26/2023) [facility] of Past illness Narrative* Problem Noted Date Diagnosed Date Resolved Date Weakness of both legs 10/28/20212023 Erectile dysfunction 03/14/2019 024 Steal syndrome of dialysis vascular access 01/21/2019 03/14/2019 Squamous cell carcinoma of s kin of right upper arm 02/15/2018 03/14/2019 Overview: Dr. Mika Hernandez, dermatology. Hypomagnesemia 01/12/2017 08/26/2023 Non-rheumatic mitral regurgitation 06/04/2016 09/17/2017 Pavillion-neck deformity of finger 07/29/2014 10/13/2016 Mallet finger of left hand 07/29/2014 0 09/17/2017 Uncontrolled type 2 diabetes mellitus with insulin therapy 07/23/2014 03/14/2019 ESRD (end stage renal disease) 06/13/2013 02/01/2016 Colles' fracture 02/19/2013 10/13/2016 Distal radial fracture 02/12/201310/13 Iron deficiency anemia 07/30/201201/31 Anemia in CKD (chronic kidney disease) 07/30/2012 02/01/2016 Preop cardiovascular exam 08/17/2011 Chronic kidney disease, stage IV (severe) 02/18/2011 02/01/2016 Esophagitis, unspecified 05/14/200712/2016 Special screening for malign ant neoplasms, colon 05/14/2007 10/13/2016 Internal hemorrhoids without mention of complication 05/14/2007 09/17/2017 POLYCYSTIC KIDNEY NOS 10/28/20052014 Essential hypertension 09/15/200510/13 documented as of this encounter (statuses as of 10/10/2023) [facility] of Past illness Narrative* Problem Noted Date Diagnosed Date Resolved Date Weakness of both legs 10/28/20212023 Erectile dysfunction 03/14/2019 024 Steal syndrome of dialysis vascular access 01/21/2019 03/14/2019 Squamous cell carcinoma of s kin of right upper arm 02/15/2018 03/14/2019 Overview: Dr. Mika Hernandez, dermatology. Hypomagnesemia 01/12/2017 08/26/2023 Non-rheumatic mitral regurgitation 06/04/2016 09/17/2017 Pavillion-neck deformity of finger 07/29/2014 10/13/2016 Mallet finger of left hand 07/29/2014 0 09/17/2017 Uncontrolled type 2 diabetes mellitus with insulin therapy 07/23/2014 03/14/2019 ESRD (end stage renal disease) 06/13/2013 02/01/2016 Colles' fracture 02/19/2013 10/13/2016 Distal radial fracture 02/12/201310/13 Iron deficiency anemia 07/30/201201/31 Anemia in CKD (chronic kidney disease) 07/30/2012 02/01/2016 Preop cardiovascular exam 08/17/2011 Chronic kidney disease, stage IV (severe) 02/18/2011 02/01/2016 Esophagitis, unspecified 05/14/200712/2016 Special screening for malign ant neoplasms, colon 05/14/2007 10/13/2016 Internal hemorrhoids without mention of complication 05/14/2007 09/17/2017 POLYCYSTIC KIDNEY NOS 10/28/20052014 Essential hypertension 09/15/200510/13 documented as of this encounter (statuses as of 10/19/2023) [facility] of Past illness Narrative* Problem Noted Date Diagnosed Date Resolved Date Weakness of both legs 10/28/20212023 Erectile dysfunction 03/14/2019 024 Steal syndrome of dialysis vascular access 01/21/2019 03/14/2019 Squamous cell carcinoma of s kin of right upper arm 02/15/2018 03/14/2019 Overview: Dr. Mika Hernandez, dermatology. Hypomagnesemia 01/12/2017 08/26/2023 Non-rheumatic mitral regurgitation 06/04/2016 09/17/2017 Pavillion-neck deformity of finger 07/29/2014 10/13/2016 Mallet finger of left hand 07/29/2014 0 09/17/2017 Uncontrolled type 2 diabetes mellitus with insulin therapy 07/23/2014 03/14/2019 ESRD (end stage renal disease) 06/13/2013 02/01/2016 Colles' fracture 02/19/2013 10/13/2016 Distal radial fracture 02/12/201310/13 Iron deficiency anemia 07/30/201201/31 Anemia in CKD (chronic kidney disease) 07/30/2012 02/01/2016 Preop cardiovascular exam 08/17/2011 Chronic kidney disease, stage IV (severe) 02/18/2011 02/01/2016 Esophagitis, unspecified 05/14/200712/2016 Special screening for malign ant neoplasms, colon 05/14/2007 10/13/2016 Internal hemorrhoids without mention of complication 05/14/2007 09/17/2017 POLYCYSTIC KIDNEY NOS 10/28/20052014 Essential hypertension 09/15/200510/13 documented as of this encounter (statuses as of 10/26/2023) [facility] of Past illness Narrative* Problem Noted Date Diagnosed Date Resolved Date Weakness of both legs 10/28/20212023 Erectile dysfunction 03/14/2019 024 Steal syndrome of dialysis vascular access 01/21/2019 03/14/2019 Squamous cell carcinoma of s kin of right upper arm 02/15/2018 03/14/2019 Overview: Dr. Mika Hernandez, dermatology. Hypomagnesemia 01/12/2017 08/26/2023 Non-rheumatic mitral regurgitation 06/04/2016 09/17/2017 Pavillion-neck deformity of finger 07/29/2014 10/13/2016 Mallet finger of left hand 07/29/2014 0 09/17/2017 Uncontrolled type 2 diabetes mellitus with insulin therapy 07/23/2014 03/14/2019 ESRD (end stage renal disease) 06/13/2013 02/01/2016 Colles' fracture 02/19/2013 10/13/2016 Distal radial fracture 02/12/201310/13 Iron deficiency anemia 07/30/201201/31 Anemia in CKD (chronic kidney disease) 07/30/2012 02/01/2016 Preop cardiovascular exam 08/17/2011 Chronic kidney disease, stage IV (severe) 02/18/2011 02/01/2016 Esophagitis, unspecified 05/14/200712/2016 Special screening for malign ant neoplasms, colon 05/14/2007 10/13/2016 Internal hemorrhoids without mention of complication 05/14/2007 09/17/2017 POLYCYSTIC KIDNEY NOS 10/28/20052014 Essential hypertension 09/15/200510/13 documented as of this encounter (statuses as of 10/26/2023) [facility] of Past illness Narrative* Problem Noted Date Diagnosed Date Resolved Date Weakness of both legs 10/28/20212023 Erectile dysfunction 03/14/2019 024 Steal syndrome of dialysis vascular access 01/21/2019 03/14/2019 Squamous cell carcinoma of s kin of right upper arm 02/15/2018 03/14/2019 Overview: Dr. Mika Hernandez, dermatology. Hypomagnesemia 01/12/2017 08/26/2023 Non-rheumatic mitral regurgitation 06/04/2016 09/17/2017 Pavillion-neck deformity of finger 07/29/2014 10/13/2016 Mallet finger of left hand 07/29/2014 0 09/17/2017 Uncontrolled type 2 diabetes mellitus with insulin therapy 07/23/2014 03/14/2019 ESRD (end stage renal disease) 06/13/2013 02/01/2016 Colles' fracture 02/19/2013 10/13/2016 Distal radial fracture 02/12/201310/13 Iron deficiency anemia 07/30/201201/31 Anemia in CKD (chronic kidney disease) 07/30/2012 02/01/2016 Preop cardiovascular exam 08/17/2011 Chronic kidney disease, stage IV (severe) 02/18/2011 02/01/2016 Esophagitis, unspecified 05/14/200712/2016 Special screening for malign ant neoplasms, colon 05/14/2007 10/13/2016 Internal hemorrhoids without mention of complication 05/14/2007 09/17/2017 POLYCYSTIC KIDNEY NOS 10/28/20052014 Essential hypertension 09/15/200510/13 documented as of this encounter (statuses as of 10/26/2023) [facility] Miscellaneous Notes* Telephone Encounter - Shruthi Carias - 10/22/2021 2:45 PM EDT Per two way radio technician, a new order for carotid ultrasound needs created for the [place]. Department, please. Please schedule patient once new order is placed. documented in this encounter[facility]04[facility] History of Present illness Narrative* Bill Mckay Jr., MD - 10/22/2021 1:03 PM EDT ESTABLISHED PATIENT VISIT CHIEF COMPLAINT: Follow up HISTORY OF PRESENT ILLNESS: Fadi Davila is a 66 year old male, with a PMH significant for and perlast office visit note of 08/27/21: 1. Weakness of both legs - ICD9: 729.89, ICD10: R29.898 (primary diagnosis) 2. Numbness of legs - ICD9: 782.0, ICD10: R20.0 3. Recurrent falls - ICD9: V15.88, ICD10: R29.6 Patient presents with reports of episodic weakness and numbness. However, exam would suggest chronic weakness with deficits on strength testing in both the R and L lower extremity. Etiology uncertain, but based on history of events, suspect lumbar etiology. Note that recent loss of sensation in lower extremities appears to be of positional nature as well. No vascular deficits on exam. No s/s to suggest neuropathy. Also in ddx would be possible myopathy secondary to immunosuppressants, thyroid... but less likely. In addition to MRI L spine to evaluate for lumbar disease, will also check TSH, B12, and CK levels. Pt would like to hold on PT for now as already active. 4. MITALI (obstructive sleep apnea) - ICD9: 327.23, ICD10: G47.33 Chronic history, Pt would like to transfer care to . Need outside records including PSGs and PAP data downloads. No active issues. Will reevaluate during future visits. MRI brain and L spine was completed on 10/05/21. Per rad report: Brain: Suspect small remote left parietal infarct with minimal encephalomalacia and associated petechial hemorrhage. No acute abnormality. Minimal microvascular ischemic change. Next Lumbar spine: Mild anterolisthesis L5 on S1 with chronic appearing bilateral L5 pars defects. This results in moderate bilateral foraminal narrowing at this level. Minimal degenerative change at L4-5. Standard lumbar counting reference for the lumbosacral junction. B12 was low normal at 250. Thyroid labs unremarkable. CK 40. Pt with no recollection of any focal neuro symptoms to suggest time he had stroke. States told not to take antiplt. States more recently was seated for a prolonged period of time and again and funny sensation in proximal anterior lower ext that resolved after he walked it off. No back pain. No other new symptoms. Still struggling with DM. Now wearing patch to measure the sugars . Checking glucose 4-6 times per day. Pt on bilevel PAP. States wears every night. No download for review. States he must have sleep or his body is a wreck. Feels ready to go in the AM. No mask issues but needs a new one as it has been years since last replaced. Sleeps through the night ok. Not snoring. No AM headaches. Mild dry mouth in AM. No falling asleep during day. No recent download on PAP device. Current device is about 3 years old - by description it is a Resmed. REVIEW OF SYSTEMS GENERAL:No weight loss, malaise or fevers. HEENT:Negative for frequent or significant headaches, No changes in hearing or vision, no nose bleeds or other nasal problems RESPIRATORY: Negative for cough, wheezing or shortness of breath. CARDIOVASCULAR: Negative for chest pain, leg swelling or palpitations. GASTROINTESTINAL: Negative for abdominal discomfort, blood in stools or black stools or change in bowel habits GENITOURINARY: No history of dysuria, frequency or incontinence MUSCULOSKELETAL: Negative for joint pain or swelling, back pain or muscle pain. NEUROLOGIC:Negative for focal numbness or weakness, headaches and dizziness or syncope, vision changes, speech/languag changes - EXCEPT that as per HPI above. LAB/IMAGING: Those performed since patient's last visit have been reviewed. WBC (k/uL) Date Value 09/14/2021 7.47 RBC (m/uL) Date Value 09/14/2021 5.01 Hemoglobin (g/dL) Date Value 09/14/2021 13.8 Hematocrit (%) Date Value 09/14/2021 44.1 MCV (fL) Date Value 09/14/2021 88.0 MCH (pg) Date Value 09/14/2021 27.5 MCHC (g/dL) Date Value 09/14/2021 31.3 RDW-CV (%) Date Value 09/14/2021 12.2 Platelet Count (k/uL) Date Value 09/14/2021 248 MPV (fL) Date Value 09/14/2021 10.7 Glucose (mg/dL) Date Value 09/14/2021 246 (H) BUN (mg/dL) Date Value 09/14/2021 19 Creatinine (mg/dL) Date Value 09/14/2021 1.28 (H) Sodium (mmol/L) Date Value 09/14/2021 140 Potassium (mmol/L) Date Value 09/14/2021 4.4 Chloride (mmol/L) Date Value 09/14/2021 107 (H) CO2 (mmol/L) Date Value 09/14/2021 22 Protein, Total (g/dL) Date Value 09/14/2021 6.5 Albumin (g/dL) Date Value 09/14/2021 3.9 Calcium, Total (mg/dL) Date Value 09/14/2021 9.2 Alkaline Phosphatase (U/L) Date Value 09/14/2021 156 (H) Bilirubin, Total (mg/dL) Date Value 09/14/2021 0.3 AST (U/L) Date Value 09/14/2021 13 (L) ALT (U/L) Date Value 09/14/2021 24 Rheumatoid Factor (IU/mL) Date Value 05/30/2011 8 Hep C Antibody IA (no units) Date Value 04/17/2013 Negative MEDICATIONS: flash glucose scanning reader (Phone WarriorSTYLE NICOLE 2 READER) Test 8 times per day. On insulins. Dx: E11.42. flash glucose sensor (FREESTYLE NICOLE 14 DAY SENSOR) kit Check 8 times per day. On insulins. E11.42. blood sugar diagnostic (ONETOUCH ULTRA TEST) test strip TEST TWICE DAILY. E11.65. On insulin. carvedilol (COREG) 25 mg tablet Take 1 tablet by mouth twice daily. tacrolimus IR (PROGRAF) 0.5 mg capsule Take 2 capsules by mouth once daily. terazosin (HYTRIN) 2 mg capsule Take 1 capsule by mouth daily at bedtime. amLODIPine (NORVASC) 10 mg tablet Take 1 tablet by mouth once daily. calcitriol (ROCALTROL) 0.5 mcg capsule Take 1 capsule by mouth once daily. buPROPion SR (WELLBUTRIN SR) 100 mg 12 hr tablet Take one(1) tablet daily in the morning. predniSONE (DELTASONE) 2.5 mg tablet Take 1 tablet by mouth once daily. hydrOXYzine pamoate (VISTARIL) 25 mg capsule Take 1-2 capsules by mouth at bedtime as needed (for sleep/allergy). sulfamethoxazole-trimethoprim (BACTRIM,SEPTRA) 400-80 mg per tablet Take 1 tablet by mouth once daily. mycophenolate mofetil (CELLCEPT) 250 mg capsule TAKE 3 CAPSULES TWICE DAILY lansoprazole (PREVACID) 30 mg capsule Take 1 capsule by mouth once daily. insulin lispro (HUMALOG KWIKPEN INSULIN) 100 unit/mL Inject 25 Units subcutaneously three times daily before meals. insulin glargine (LANTUS SOLOSTAR U-100 INSULIN) 100 unit/mL (3 mL) Inject 70 Units subcutaneously every evening. mupirocin (BACTROBAN) 2% oint 0.5 g twice daily as needed (for 5 days.). For 5 days Ipratropium Haynes (ATROVENT) 0.03 % nasal spray Use 2 Sprays in the nose every 12 hours. BIPAP fluticasone (FLONASE) 50 mcg/actuation nasal spray Use 2 Sprays in each nostril once daily. RINSE MOUTH AFTER EACH DOSE Lancets (ONE TOUCH DELICA) lancets Test blood sugar(s) 2 daily. Dx: 250.02. Insulin: No HISTORIES PAST MEDICAL HISTORY Diagnosis Date Bursitis of both shoulders 10/28/2005 Dr. Alex CKD (chronic kidney disease) stage 3, GFR 30-59 ml/min ([facility]) 02/01/2016 Colles' fracture 02/19/2013 CPAP (continuous positive airway pressure) dependence 11/2011 MITALI on CPAP Dyslipidemia Esophagitis, unspecified ESRD (end stage renal disease) ([facility]) Fracture Gastroesophageal reflux disease without esophagitis 03/26/2016 Gout 02/17/2010 HTN (hypertension) 08/17/2011 Hyperparathyroidism, secondary renal ([facility]) 11/27/2013 Insomnia 07/06/2011 Internal hemorrhoids without mention of complication Kidney transplant status, living unrelated donor 12/29/2013 transplanted 2012. Mitral valve regurgitation MITALI on CPAP 11/08/2011 MITALI on CPAP Osteoporosis 10/28/2005 Peripheral enthesopathies and allied syndromes 10/28/2005 Left shoulder bursitis Polycystic kidney disease, autosomal dominant 08/17/2011 Squamous cell carcinoma of skin of right upper arm 02/15/2018 Dr. Mika Hernandez, dermatology. Steal syndrome of dialysis vascular access ([facility]) 01/21/2019 Stress and adjustment reaction 06/08/2014 Pavillion-neck deformity of finger 07/29/2014 Uncontrolled type 2 diabetes mellitus with insulin therapy 07/23/2014 FAMILY HISTORY Problem Relation Age of Onset Breast Cancer Mother Osteoporosis Mother Aneurysm Mother PKD Heart Mother mitral valve regurg Stroke Mother at age 79 Breast Cancer Sister Diabetes Father other (bone cancer) Father SOCIAL HISTORY Social History Tobacco Use Smoking status: Never Smoker Smokeless tobacco: Never Used Substance Use Topics Alcohol use: Yes Comment: rarely Drug use: No PHYSICAL EXAMINATION Blood pressure 112/68, pulse 80, temperature 36.9 C (98.4 F), resp. rate 18, weight 100.7 kg (222 lb), SpO2 98 %. GENERAL EXAM: General appearance: NAD, pleasant. HEENT: NC/AT, nasal congestion absent, no oral lesions, membranes moist. Lungs: CTA bilaterally. CV: RRR nl S1, S2. No carotid bruits. Extr: No cyanosis, clubbing or edema. Extremity pulses palpable and normal. Skin: Cool to touch. NEUROLOGICAL EXAM: General: Awake, alert, oriented x3 (person,place,time), speech fluent, no dysarthria; comprehension, naming, repetition intact. Fund of knowledge grossly normal. CN: PERRL, EOMI and without nystagmus, VFF to confrontation, facial sensation and strength are normal and symmetric, hearing is intact, palate and tongue movements are intact and symmetric. SCM and trapezius strength normal. Motor: Normal tone, bulk and strength (5/5) bilaterally (throughout extremities x4). Reflexes: 1/4 and symmetric, plantar stimulation is flexor. Coordination: FNF, TU, HTS intact. No tremors. Sensation: Light touch, vibration, temperature intact throughout. No evidence of neglect. Gait: Stable with normal stride and arm swing. Assessment and Plan: ASSESSMENT/PLAN: 1. Spinal stenosis of lumbar region, unspecified whether neurogenic claudication present - ICD9: 724.02, ICD10: M48.061 (primary diagnosis) 2. Weakness of both legs - ICD9: 729.89, ICD10: R29.898 3. Numbness of legs - ICD9: 782.0, ICD10: R20.0 Images reviewed with pt. Some degree of disc bulge at L4-L5. Possible that this is contributing to symptoms as appears only time patient has symptoms is when seated for prolonged duration, and then symptoms are transient and relieved with activity. No coloration or temp changes of legs. Pulses goodand sensation intact to not suggest vascular etiology or neuropathy at this time. Will refer to PT.Advised pt to avoid long duration of sitting without getting up and walking around. If symptoms worsen he will contact us for further evaluation. Also will advised Dr. Coelho of pt's borderline low B12. Encouraged glucose control. 4. History of stroke - ICD9: V12.54, ICD10: Z86.73 Chronic L parietal stroke on MRI brain - etiology unknown nor is it clear when occurred by history and imaging, but appears to have been in distant past. Recommend ASA 81mg daily but pt states told he is not to take by transplant team. Recommend statin, but pt with known side effects (myopathic symptoms). MRA brain unremarkable in recent years. Scheduled for ECHO already with last in 2019 showingno cardiac source of stroke. Multiple ECG and cardiac monitors in past not showing afib. Will orderCarotid ultrasounds given known renal disease, to evaluate for large vessel disease as possible cause of this finding. 5. MITALI (obstructive sleep apnea) - ICD9: 327.23, ICD10: G47.33 Patient would like to transfer care to us. Requesting old studies. Pt would like to change DMEs andRx sent to [facility] (pt pref). Requesting PAP data download. Depending on download findings may need to adjust bilevel pressure setting or consider an updated titration study. Bill Mckay MD Follow up 3 months. I spent a total of 46 minutes on the date of the service which included preparing to see the patient, [id number] patient care, completing clinical documentation, obtaining and/or reviewing separately obtained history, performing a medically appropriate examination, counseling and educating the pat ient/family/caregiver, ordering medications, tests, or procedures, independently interpreting results (not separately reported) and communicating results to the patient/family/caregiver. This includes reviewing MRI brain and L spine images with pt. documented in this encounterAk[facility] NoteHNO ID: [id number] Author: RT David(Taylor) Service: Radiology Author Type: Technologist Type: Progress Notes Filed: 10/05/2021 10:15 AM Note Text: Radiology Service Progress Note PATIENT NAME: Fadi Davila DATE OF SERVICE: October 05, 2021 TIME: 10:15 AM PATIENT IDENTITY VERIFICATION COMPLETED USING TWO (2) IDENTIFIERS: Name and Date of confirmed by patient verbally and Name and Date of confirmed by identification band. FALL SCREENING: Has the patient had 2 falls in the last year or 1 fall with injury or currently using an Ambulatory Assistive Device (Walker, Cane, Wheelchair, Crutches, etc.)? No PATIENT GENDER DATA: Male PATIENT RELEVANT IMPLANT DATA REVIEWED: Yes RADIOLOGY DEPARTMENT: MR; Exam(s) Completed: Head: Routine Brain Spine: Lumbar spine PERIPHERAL IV DATA: Not applicable SIGNED BY: KEATON Abreu October 05, 2021 10:15 AMPome[facility] [id number] History of Present illness Narrative* RT David(R) - 10/05/2021 10:00 AM EDT Radiology Service Progress Note PATIENT NAME: Fadi Davila DATE OF SERVICE: October 05, 2021 TIME: 10:15 AM PATIENT IDENTITY VERIFICATION COMPLETED USING TWO (2) IDENTIFIERS: Name and Date of confirmedby patient verbally and Name and Date of confirmed by identification band. FALL SCREENING: Has the patient had 2 falls in the last year or 1 fall with injury or currently using an Ambulatory Assistive Device (Walker, Cane, Wheelchair, Crutches, etc.)? No PATIENT GENDER DATA: Male PATIENT RELEVANT IMPLANT DATA REVIEWED: Yes RADIOLOGY DEPARTMENT: MR; Exam(s) Completed: Head: Routine Brain Spine: Lumbar spine PERIPHERAL IV DATA: Not applicable SIGNED BY: KEATON Abreu October 05, 2021 10:15 AM documented in this encounterAkron [facility]04-[facility] History of Present illness Narrative* Karina Fields (Rt), Tech - 10/22/2020 2:10 PM EDT Radiology Service Progress Note PATIENT NAME: Fadi Davila DATE OF SERVICE: October 22, 2020 TIME: 2:36 PM PATIENT IDENTITY VERIFICATION COMPLETED USING TWO (2) IDENTIFIERS: Name and Date of confirmedby patient verbally. FALL SCREENING: Has the patient had 2 falls in the last year or 1 fall with injury or currently using an Ambulatory Assistive Device (Walker, Cane, Wheelchair, Crutches, etc.)? No PATIENT GENDER DATA: Male PATIENT RELEVANT IMPLANT DATA REVIEWED: Not Applicable RADIOLOGY DEPARTMENT: General X-ray: Exam(s) Completed: Upper Extremity X- Ray(s): Wrist, right : PERIPHERAL IV DATA: Not applicable SIGNED BY: RT Jermaine October 22, 2020 2:36 PM [facility] of Past illness Narrative* Problem Noted Date Resolved Date Steal syndrome of dialysis vascular access 01/2103/14/2019 Squamous cell carcinoma of skin of right upper a rm 02/15/2018 03/14/2019 Overview: Dr. Mika Hernandez, dermatology. Non-rheumatic mitral regurgitation 06/04/2016 09/17/2017 Pavillion-neck deformity of finger 07/29/2014 Mallet finger of left hand 07/29/201409/17 Uncontrolled type 2 diabetes mellitus with insul in therapy 07/23/2014 03/14/2019 ESRD (end stage renal disease) 06/13/2013 0 02/01/2016 Colles' fracture 02/19/2013 10/13/2016 Distal radial fracture 02/12/2013 7 Iron deficiency anemia 07/30/2012 6 Anemia in CKD (chronic kidney disease) 3 02/01/2016 Preop cardiovascular exam 08/17/20112018 Chronic kidney disease, stage IV (severe) 201002/01/2016 Esophagitis, unspecified 05/14/2007 017 Special screening for malignant neoplasms, colon 05/14/2007 10/13/2016 Internal hemorrhoids without mention of complica tion 05/14/2007 09/17/2017 POLYCYSTIC KIDNEY NOS 10/28/2005 08/28/2014 Essential hypertension 09/15/2005 7 documented as of this encounter (statuses as of 10/06/2021) [facility] of Past illness Narrative* Problem Noted Date Resolved Date Steal syndrome of dialysis vascular access 01/2103/14/2019 Squamous cell carcinoma of skin of right upper a rm 02/15/2018 03/14/2019 Overview: Dr. Mika Hernandez, dermatology. Non-rheumatic mitral regurgitation 06/04/2016 09/17/2017 Pavillion-neck deformity of finger 07/29/2014 Mallet finger of left hand 07/29/201409/17 Uncontrolled type 2 diabetes mellitus with insul in therapy 07/23/2014 03/14/2019 ESRD (end stage renal disease) 06/13/2013 0 02/01/2016 Colles' fracture 02/19/2013 10/13/2016 Distal radial fracture 02/12/2013 7 Iron deficiency anemia 07/30/2012 6 Anemia in CKD (chronic kidney disease) 3 02/01/2016 Preop cardiovascular exam 08/17/20112018 Chronic kidney disease, stage IV (severe) 201002/01/2016 Esophagitis, unspecified 05/14/2007 017 Special screening for malignant neoplasms, colon 05/14/2007 10/13/2016 Internal hemorrhoids without mention of complica tion 05/14/2007 09/17/2017 POLYCYSTIC KIDNEY NOS 10/28/2005 08/28/2014 Essential hypertension 09/15/2005 7 documented as of this encounter (statuses as of 10/06/2021) [facility] of Past illness Narrative* Problem Noted Date Resolved Date Steal syndrome of dialysis vascular access 01/2103/14/2019 Squamous cell carcinoma of skin of right upper a rm 02/15/2018 03/14/2019 Overview: Dr. Mika Hernandez, dermatology. Non-rheumatic mitral regurgitation 06/04/2016 09/17/2017 Pavillion-neck deformity of finger 07/29/2014 Mallet finger of left hand 07/29/201409/17 Uncontrolled type 2 diabetes mellitus with insul in therapy 07/23/2014 03/14/2019 ESRD (end stage renal disease) 06/13/2013 0 02/01/2016 Colles' fracture 02/19/2013 10/13/2016 Distal radial fracture 02/12/2013 7 Iron deficiency anemia 07/30/2012 6 Anemia in CKD (chronic kidney disease) 3 02/01/2016 Preop cardiovascular exam 08/17/20112018 Chronic kidney disease, stage IV (severe) 201002/01/2016 Esophagitis, unspecified 05/14/2007 017 Special screening for malignant neoplasms, colon 05/14/2007 10/13/2016 Internal hemorrhoids without mention of complica tion 05/14/2007 09/17/2017 POLYCYSTIC KIDNEY NOS 10/28/2005 08/28/2014 Essential hypertension 09/15/2005 7 documented as of this encounter (statuses as of 10/22/2021) [facility] Past illness Narrative* Problem Noted Date Resolved Date Steal syndrome of dialysis vascular access 01/2103/14/2019 Squamous cell carcinoma of skin of right upper a rm 02/15/2018 03/14/2019 Overview: Dr. Mika Hernandez, dermatology. Non-rheumatic mitral regurgitation 06/04/2016 09/17/2017 Pavillion-neck deformity of finger 07/29/2014 Mallet finger of left hand 07/29/201409/17 Uncontrolled type 2 diabetes mellitus with insul in therapy 07/23/2014 03/14/2019 ESRD (end stage renal disease) 06/13/2013 0 02/01/2016 Colles' fracture 02/19/2013 10/13/2016 Distal radial fracture 02/12/2013 7 Iron deficiency anemia 07/30/2012 6 Anemia in CKD (chronic kidney disease) 3 02/01/2016 Preop cardiovascular exam 08/17/20112018 Chronic kidney disease, stage IV (severe) 201002/01/2016 Esophagitis, unspecified 05/14/2007 017 Special screening for malignant neoplasms, colon 05/14/2007 10/13/2016 Internal hemorrhoids without mention of complica tion 05/14/2007 09/17/2017 POLYCYSTIC KIDNEY NOS 10/28/2005 08/28/2014 Essential hypertension 09/15/2005 7 documented as of this encounter (statuses as of 10/22/2021) [facility] of [facility] illness Narrative* Problem Noted Date Resolved Date Steal syndrome of dialysis vascular access 01/2103/14/2019 Squamous cell carcinoma of skin of right upper a rm 02/15/2018 03/14/2019 Overview: Dr. Mika Hernandez, dermatology. Non-rheumatic mitral regurgitation 06/04/2016 09/17/2017 Pavillion-neck deformity of finger 07/29/2014 Mallet finger of left hand 07/29/201409/17 Uncontrolled type 2 diabetes mellitus with insul in therapy 07/23/2014 03/14/2019 ESRD (end stage renal disease) 06/13/2013 0 02/01/2016 Colles' fracture 02/19/2013 10/13/2016 Distal radial fracture 02/12/2013 7 Iron deficiency anemia 07/30/2012 6 Anemia in CKD (chronic kidney disease) 3 02/01/2016 Preop cardiovascular exam 08/17/20112018 Chronic kidney disease, stage IV (severe) 201002/01/2016 Esophagitis, unspecified 05/14/2007 017 Special screening for malignant neoplasms, colon 05/14/2007 10/13/2016 Internal hemorrhoids without mention of complica tion 05/14/2007 09/17/2017 POLYCYSTIC KIDNEY NOS 10/28/2005 08/28/2014 Essential hypertension 09/15/2005 7 documented as of this encounter (statuses as of 10/25/2021) [facility] illness Narrative* Problem Noted Date Resolved Date Steal syndrome of dialysis vascular access 01/2103/14/2019 Squamous cell carcinoma of skin of right upper a rm 02/15/2018 03/14/2019 Overview: Dr. Mika Hernandez, dermatology. Non-rheumatic mitral regurgitation 06/04/2016 09/17/2017 Pavillion-neck deformity of finger 07/29/2014 Mallet finger of left hand 07/29/201409/17 Uncontrolled type 2 diabetes mellitus with insul in therapy 07/23/2014 03/14/2019 ESRD (end stage renal disease) 06/13/2013 0 02/01/2016 Colles' fracture 02/19/2013 10/13/2016 Distal radial fracture 02/12/2013 7 Iron deficiency anemia 07/30/2012 6 Anemia in CKD (chronic kidney disease) 3 02/01/2016 Preop cardiovascular exam 08/17/20112018 Chronic kidney disease, stage IV (severe) 201002/01/2016 Esophagitis, unspecified 05/14/2007 017 Special screening for malignant neoplasms, colon 05/14/2007 10/13/2016 Internal hemorrhoids without mention of complica tion 05/14/2007 09/17/2017 POLYCYSTIC KIDNEY NOS 10/28/2005 08/28/2014 Essential hypertension 09/15/2005 7 documented as of this encounter (statuses as of 11/05/2021) [facility] illness Narrative* Problem Noted Date Resolved Date Steal syndrome of dialysis vascular access 01/2103/14/2019 Squamous cell carcinoma of skin of right upper a rm 02/15/2018 03/14/2019 Overview: Dr. Mika Hernandez, dermatology. Non-rheumatic mitral regurgitation 06/04/2016 09/17/2017 Pavillion-neck deformity of finger 07/29/2014 Mallet finger of left hand 07/29/201409/17 Uncontrolled type 2 diabetes mellitus with insul in therapy 07/23/2014 03/14/2019 ESRD (end stage renal disease) 06/13/2013 0 02/01/2016 Colles' fracture 02/19/2013 10/13/2016 Distal radial fracture 02/12/2013 7 Iron deficiency anemia 07/30/2012 6 Anemia in CKD (chronic kidney disease) 3 02/01/2016 Preop cardiovascular exam 08/17/20112018 Chronic kidney disease, stage IV (severe) 201002/01/2016 Esophagitis, unspecified 05/14/2007 017 Special screening for malignant neoplasms, colon 05/14/2007 10/13/2016 Internal hemorrhoids without mention of complica tion 05/14/2007 09/17/2017 POLYCYSTIC KIDNEY NOS 10/28/2005 08/28/2014 Essential hypertension 09/15/2005 7 documented as of this encounter (statuses as of 11/05/2021) [facility] Past illness Narrative* Problem Noted Date Resolved Date Steal syndrome of dialysis vascular access 01/2103/14/2019 Squamous cell carcinoma of skin of right upper a rm 02/15/2018 03/14/2019 Overview: Dr. Mika Hernandez, dermatology. Non-rheumatic mitral regurgitation 06/04/2016 09/17/2017 Pavillion-neck deformity of finger 07/29/2014 Mallet finger of left hand 07/29/201409/17 Uncontrolled type 2 diabetes mellitus with insul in therapy 07/23/2014 03/14/2019 ESRD (end stage renal disease) 06/13/2013 0 02/01/2016 Colles' fracture 02/19/2013 10/13/2016 Distal radial fracture 02/12/2013 7 Iron deficiency anemia 07/30/2012 6 Anemia in CKD (chronic kidney disease) 3 02/01/2016 Preop cardiovascular exam 08/17/20112018 Chronic kidney disease, stage IV (severe) 201002/01/2016 Esophagitis, unspecified 05/14/2007 017 Special screening for malignant neoplasms, colon 05/14/2007 10/13/2016 Internal hemorrhoids without mention of complica tion 05/14/2007 09/17/2017 POLYCYSTIC KIDNEY NOS 10/28/2005 08/28/2014 Essential hypertension 09/15/2005 7 documented as of this encounter (statuses as of 11/05/2021) [facility] illness Narrative* Problem Noted Date Resolved Date Steal syndrome of dialysis vascular access 01/2103/14/2019 Squamous cell carcinoma of skin of right upper a rm 02/15/2018 03/14/2019 Overview: Dr. Mika Hernandez, dermatology. Non-rheumatic mitral regurgitation 06/04/2016 09/17/2017 Pavillion-neck deformity of finger 07/29/2014 Mallet finger of left hand 07/29/201409/17 Uncontrolled type 2 diabetes mellitus with insul in therapy 07/23/2014 03/14/2019 ESRD (end stage renal disease) 06/13/2013 0 02/01/2016 Colles' fracture 02/19/2013 10/13/2016 Distal radial fracture 02/12/2013 7 Iron deficiency anemia 07/30/2012 6 Anemia in CKD (chronic kidney disease) 3 02/01/2016 Preop cardiovascular exam 08/17/20112018 Chronic kidney disease, stage IV (severe) 201002/01/2016 Esophagitis, unspecified 05/14/2007 017 Special screening for malignant neoplasms, colon 05/14/2007 10/13/2016 Internal hemorrhoids without mention of complica tion 05/14/2007 09/17/2017 POLYCYSTIC KIDNEY NOS 10/28/2005 08/28/2014 Essential hypertension 09/15/2005 7 documented as of this encounter (statuses as of 11/08/2021) [facility] illness Narrative* Problem Noted Date Resolved Date Steal syndrome of dialysis vascular access 01/2103/14/2019 Squamous cell carcinoma of skin of right upper a rm 02/15/2018 03/14/2019 Overview: Dr. Mika Hernandez, dermatology. Non-rheumatic mitral regurgitation 06/04/2016 09/17/2017 Pavillion-neck deformity of finger 07/29/2014 Mallet finger of left hand 07/29/201409/17 Uncontrolled type 2 diabetes mellitus with insul in therapy 07/23/2014 03/14/2019 ESRD (end stage renal disease) 06/13/2013 0 02/01/2016 Colles' fracture 02/19/2013 10/13/2016 Distal radial fracture 02/12/2013 7 Iron deficiency anemia 07/30/2012 6 Anemia in CKD (chronic kidney disease) 3 02/01/2016 Preop cardiovascular exam 08/17/20112018 Chronic kidney disease, stage IV (severe) 201002/01/2016 Esophagitis, unspecified 05/14/2007 017 Special screening for malignant neoplasms, colon 05/14/2007 10/13/2016 Internal hemorrhoids without mention of complica tion 05/14/2007 09/17/2017 POLYCYSTIC KIDNEY NOS 10/28/2005 08/28/2014 Essential hypertension 09/15/2005 7 documented as of this encounter (statuses as of 11/08/2021) [facility] illness Narrative* Problem Noted Date Resolved Date Steal syndrome of dialysis vascular access 01/2103/14/2019 Squamous cell carcinoma of skin of right upper a rm 02/15/2018 03/14/2019 Overview: Dr. Mika Hernandez, dermatology. Non-rheumatic mitral regurgitation 06/04/2016 09/17/2017 Pavillion-neck deformity of finger 07/29/2014 Mallet finger of left hand 07/29/201409/17 Uncontrolled type 2 diabetes mellitus with insul in therapy 07/23/2014 03/14/2019 ESRD (end stage renal disease) 06/13/2013 0 02/01/2016 Colles' fracture 02/19/2013 10/13/2016 Distal radial fracture 02/12/2013 7 Iron deficiency anemia 07/30/2012 6 Anemia in CKD (chronic kidney disease) 3 02/01/2016 Preop cardiovascular exam 08/17/20112018 Chronic kidney disease, stage IV (severe) 201002/01/2016 Esophagitis, unspecified 05/14/2007 017 Special screening for malignant neoplasms, colon 05/14/2007 10/13/2016 Internal hemorrhoids without mention of complica tion 05/14/2007 09/17/2017 POLYCYSTIC KIDNEY NOS 10/28/2005 08/28/2014 Essential hypertension 09/15/2005 7 documented as of this encounter (statuses as of 11/08/2021) [facility] Narrative* Problem Noted Date Resolved Date Steal syndrome of dialysis vascular access 01/2103/14/2019 Squamous cell carcinoma of skin of right upper a rm 02/15/2018 03/14/2019 Overview: Dr. Mika Hernandez, dermatology. Non-rheumatic mitral regurgitation 06/04/2016 09/17/2017 Pavillion-neck deformity of finger 07/29/2014 Mallet finger of left hand 07/29/201409/17 Uncontrolled type 2 diabetes mellitus with insul in therapy 07/23/2014 03/14/2019 ESRD (end stage renal disease) 06/13/2013 0 02/01/2016 Colles' fracture 02/19/2013 10/13/2016 Distal radial fracture 02/12/2013 7 Iron deficiency anemia 07/30/2012 6 Anemia in CKD (chronic kidney disease) 3 02/01/2016 Preop cardiovascular exam 08/17/20112018 Chronic kidney disease, stage IV (severe) 201002/01/2016 Esophagitis, unspecified 05/14/2007 017 Special screening for malignant neoplasms, colon 05/14/2007 10/13/2016 Internal hemorrhoids without mention of complica tion 05/14/2007 09/17/2017 POLYCYSTIC KIDNEY NOS 10/28/2005 08/28/2014 Essential hypertension 09/15/2005 7 documented as of this encounter (statuses as of 11/17/2021) [facility] illness Narrative* Problem Noted Date Resolved Date Steal syndrome of dialysis vascular access 01/2103/14/2019 Squamous cell carcinoma of skin of right upper a rm 02/15/2018 03/14/2019 Overview: Dr. Mika Hernandez, dermatology. Non-rheumatic mitral regurgitation 06/04/2016 09/17/2017 Pavillion-neck deformity of finger 07/29/2014 Mallet finger of left hand 07/29/201409/17 Uncontrolled type 2 diabetes mellitus with insul in therapy 07/23/2014 03/14/2019 ESRD (end stage renal disease) 06/13/2013 0 02/01/2016 Colles' fracture 02/19/2013 10/13/2016 Distal radial fracture 02/12/2013 7 Iron deficiency anemia 07/30/2012 6 Anemia in CKD (chronic kidney disease) 3 02/01/2016 Preop cardiovascular exam 08/17/20112018 Chronic kidney disease, stage IV (severe) 201002/01/2016 Esophagitis, unspecified 05/14/2007 017 Special screening for malignant neoplasms, colon 05/14/2007 10/13/2016 Internal hemorrhoids without mention of complica tion 05/14/2007 09/17/2017 POLYCYSTIC KIDNEY NOS 10/28/2005 08/28/2014 Essential hypertension 09/15/2005 7 documented as of this encounter (statuses as of 12/01/2021) [facility] illness Narrative* Problem Noted Date Resolved Date Steal syndrome of dialysis vascular access 01/2103/14/2019 Squamous cell carcinoma of skin of right upper a rm 02/15/2018 03/14/2019 Overview: Dr. Mika Hernandez, dermatology. Non-rheumatic mitral regurgitation 06/04/2016 09/17/2017 Pavillion-neck deformity of finger 07/29/2014 Mallet finger of left hand 07/29/201409/17 Uncontrolled type 2 diabetes mellitus with insul in therapy 07/23/2014 03/14/2019 ESRD (end stage renal disease) 06/13/2013 0 02/01/2016 Colles' fracture 02/19/2013 10/13/2016 Distal radial fracture 02/12/2013 7 Iron deficiency anemia 07/30/2012 6 Anemia in CKD (chronic kidney disease) 3 02/01/2016 Preop cardiovascular exam 08/17/20112018 Chronic kidney disease, stage IV (severe) 201002/01/2016 Esophagitis, unspecified 05/14/2007 017 Special screening for malignant neoplasms, colon 05/14/2007 10/13/2016 Internal hemorrhoids without mention of complica tion 05/14/2007 09/17/2017 POLYCYSTIC KIDNEY NOS 10/28/2005 08/28/2014 Essential hypertension 09/15/2005 7 documented as of this encounter (statuses as of 12/08/2021) [facility] illness Narrative* Problem Noted Date Resolved Date Steal syndrome of dialysis vascular access 01/2103/14/2019 Squamous cell carcinoma of skin of right upper a rm 02/15/2018 03/14/2019 Overview: Dr. Mika Hernandez, dermatology. Non-rheumatic mitral regurgitation 06/04/2016 09/17/2017 Pavillion-neck deformity of finger 07/29/2014 Mallet finger of left hand 07/29/201409/17 Uncontrolled type 2 diabetes mellitus with insul in therapy 07/23/2014 03/14/2019 ESRD (end stage renal disease) 06/13/2013 0 02/01/2016 Colles' fracture 02/19/2013 10/13/2016 Distal radial fracture 02/12/2013 7 Iron deficiency anemia 07/30/2012 6 Anemia in CKD (chronic kidney disease) 3 02/01/2016 Preop cardiovascular exam 08/17/20112018 Chronic kidney disease, stage IV (severe) 201002/01/2016 Esophagitis, unspecified 05/14/2007 017 Special screening for malignant neoplasms, colon 05/14/2007 10/13/2016 Internal hemorrhoids without mention of complica tion 05/14/2007 09/17/2017 POLYCYSTIC KIDNEY NOS 10/28/2005 08/28/2014 Essential hypertension 09/15/2005 7 documented as of this encounter (statuses as of 12/08/2021) [facility] Narrative* Problem Noted Date Resolved Date Steal syndrome of dialysis vascular access 01/2103/14/2019 Squamous cell carcinoma of skin of right upper a rm 02/15/2018 03/14/2019 Overview: Dr. Mika Hernandez, dermatology. Non-rheumatic mitral regurgitation 06/04/2016 09/17/2017 Pavillion-neck deformity of finger 07/29/2014 Mallet finger of left hand 07/29/201409/17 Uncontrolled type 2 diabetes mellitus with insul in therapy 07/23/2014 03/14/2019 ESRD (end stage renal disease) 06/13/2013 0 02/01/2016 Colles' fracture 02/19/2013 10/13/2016 Distal radial fracture 02/12/2013 7 Iron deficiency anemia 07/30/2012 6 Anemia in CKD (chronic kidney disease) 3 02/01/2016 Preop cardiovascular exam 08/17/20112018 Chronic kidney disease, stage IV (severe) 201002/01/2016 Esophagitis, unspecified 05/14/2007 017 Special screening for malignant neoplasms, colon 05/14/2007 10/13/2016 Internal hemorrhoids without mention of complica tion 05/14/2007 09/17/2017 POLYCYSTIC KIDNEY NOS 10/28/2005 08/28/2014 Essential hypertension 09/15/2005 7 documented as of this encounter (statuses as of 12/13/2021) [facility] illness Narrative* Problem Noted Date Resolved Date Steal syndrome of dialysis vascular access 01/2103/14/2019 Squamous cell carcinoma of skin of right upper a rm 02/15/2018 03/14/2019 Overview: Dr. Mika Hernandez, dermatology. Non-rheumatic mitral regurgitation 06/04/2016 09/17/2017 Pavillion-neck deformity of finger 07/29/2014 Mallet finger of left hand 07/29/201409/17 Uncontrolled type 2 diabetes mellitus with insul in therapy 07/23/2014 03/14/2019 ESRD (end stage renal disease) 06/13/2013 0 02/01/2016 Colles' fracture 02/19/2013 10/13/2016 Distal radial fracture 02/12/2013 7 Iron deficiency anemia 07/30/2012 6 Anemia in CKD (chronic kidney disease) 3 02/01/2016 Preop cardiovascular exam 08/17/20112018 Chronic kidney disease, stage IV (severe) 201002/01/2016 Esophagitis, unspecified 05/14/2007 017 Special screening for malignant neoplasms, colon 05/14/2007 10/13/2016 Internal hemorrhoids without mention of complica tion 05/14/2007 09/17/2017 POLYCYSTIC KIDNEY NOS 10/28/2005 08/28/2014 Essential hypertension 09/15/2005 7 documented as of this encounter (statuses as of 12/15/2021) [facility] illness Narrative* Problem Noted Date Resolved Date Steal syndrome of dialysis vascular access 01/2103/14/2019 Squamous cell carcinoma of skin of right upper a rm 02/15/2018 03/14/2019 Overview: Dr. Mika Hernandez, dermatology. Non-rheumatic mitral regurgitation 06/04/2016 09/17/2017 Pavillion-neck deformity of finger 07/29/2014 Mallet finger of left hand 07/29/201409/17 Uncontrolled type 2 diabetes mellitus with insul in therapy 07/23/2014 03/14/2019 ESRD (end stage renal disease) 06/13/2013 0 02/01/2016 Colles' fracture 02/19/2013 10/13/2016 Distal radial fracture 02/12/2013 7 Iron deficiency anemia 07/30/2012 6 Anemia in CKD (chronic kidney disease) 3 02/01/2016 Preop cardiovascular exam 08/17/20112018 Chronic kidney disease, stage IV (severe) 201002/01/2016 Esophagitis, unspecified 05/14/2007 017 Special screening for malignant neoplasms, colon 05/14/2007 10/13/2016 Internal hemorrhoids without mention of complica tion 05/14/2007 09/17/2017 POLYCYSTIC KIDNEY NOS 10/28/2005 08/28/2014 Essential hypertension 09/15/2005 7 documented as of this encounter (statuses as of 01/04/2022) [facility] illness Narrative* Problem Noted Date Resolved Date Steal syndrome of dialysis vascular access 01/2103/14/2019 Squamous cell carcinoma of skin of right upper a rm 02/15/2018 03/14/2019 Overview: Dr. Mika Hernandez, dermatology. Non-rheumatic mitral regurgitation 06/04/2016 09/17/2017 Pavillion-neck deformity of finger 07/29/2014 Mallet finger of left hand 07/29/201409/17 Uncontrolled type 2 diabetes mellitus with insul in therapy 07/23/2014 03/14/2019 ESRD (end stage renal disease) 06/13/2013 0 02/01/2016 Colles' fracture 02/19/2013 10/13/2016 Distal radial fracture 02/12/2013 7 Iron deficiency anemia 07/30/2012 6 Anemia in CKD (chronic kidney disease) 3 02/01/2016 Preop cardiovascular exam 08/17/20112018 Chronic kidney disease, stage IV (severe) 201002/01/2016 Esophagitis, unspecified 05/14/2007 017 Special screening for malignant neoplasms, colon 05/14/2007 10/13/2016 Internal hemorrhoids without mention of complica tion 05/14/2007 09/17/2017 POLYCYSTIC KIDNEY NOS 10/28/2005 08/28/2014 Essential hypertension 09/15/2005 7 documented as of this encounter (statuses as of 01/06/2022) [facility] Past illness Narrative* Problem Noted Date Resolved Date Steal syndrome of dialysis vascular access 01/2103/14/2019 Squamous cell carcinoma of skin of right upper a rm 02/15/2018 03/14/2019 Overview: Dr. Miak Hernandez, dermatology. Non-rheumatic mitral regurgitation 06/04/2016 09/17/2017 Pavillion-neck deformity of finger 07/29/2014 Mallet finger of left hand 07/29/201409/17 Uncontrolled type 2 diabetes mellitus with insul in therapy 07/23/2014 03/14/2019 ESRD (end stage renal disease) 06/13/2013 0 02/01/2016 Colles' fracture 02/19/2013 10/13/2016 Distal radial fracture 02/12/2013 7 Iron deficiency anemia 07/30/2012 6 Anemia in CKD (chronic kidney disease) 3 02/01/2016 Preop cardiovascular exam 08/17/20112018 Chronic kidney disease, stage IV (severe) 201002/01/2016 Esophagitis, unspecified 05/14/2007 017 Special screening for malignant neoplasms, colon 05/14/2007 10/13/2016 Internal hemorrhoids without mention of complica tion 05/14/2007 09/17/2017 POLYCYSTIC KIDNEY NOS 10/28/2005 08/28/2014 Essential hypertension 09/15/2005 7 documented as of this encounter (statuses as of 01/08/2022) [facility] Narrative* Problem Noted Date Resolved Date Steal syndrome of dialysis vascular access 01/2103/14/2019 Squamous cell carcinoma of skin of right upper a rm 02/15/2018 03/14/2019 Overview: Dr. Mika Hernandez, dermatology. Non-rheumatic mitral regurgitation 06/04/2016 09/17/2017 Pavillion-neck deformity of finger 07/29/2014 Mallet finger of left hand 07/29/201409/17 Uncontrolled type 2 diabetes mellitus with insul in therapy 07/23/2014 03/14/2019 ESRD (end stage renal disease) 06/13/2013 0 02/01/2016 Colles' fracture 02/19/2013 10/13/2016 Distal radial fracture 02/12/2013 7 Iron deficiency anemia 07/30/2012 6 Anemia in CKD (chronic kidney disease) 3 02/01/2016 Preop cardiovascular exam 08/17/20112018 Chronic kidney disease, stage IV (severe) 201002/01/2016 Esophagitis, unspecified 05/14/2007 017 Special screening for malignant neoplasms, colon 05/14/2007 10/13/2016 Internal hemorrhoids without mention of complica tion 05/14/2007 09/17/2017 POLYCYSTIC KIDNEY NOS 10/28/2005 08/28/2014 Essential hypertension 09/15/2005 7 documented as of this encounter (statuses as of 01/28/2022) [facility] History of Past illness Narrative* Problem Noted Date Resolved Date Steal syndrome of dialysis vascular access 01/2103/14/2019 Squamous cell carcinoma of skin of right upper a rm 02/15/2018 03/14/2019 Overview: Dr. Mika Hernandez, dermatology. Non-rheumatic mitral regurgitation 06/04/2016 09/17/2017 Pavillion-neck deformity of finger 07/29/2014 Mallet finger of left hand 07/29/201409/17 Uncontrolled type 2 diabetes mellitus with insul in therapy 07/23/2014 03/14/2019 ESRD (end stage renal disease) 06/13/2013 0 02/01/2016 Colles' fracture 02/19/2013 10/13/2016 Distal radial fracture 02/12/2013 7 Iron deficiency anemia 07/30/2012 6 Anemia in CKD (chronic kidney disease) 3 02/01/2016 Preop cardiovascular exam 08/17/20112018 Chronic kidney disease, stage IV (severe) 201002/01/2016 Esophagitis, unspecified 05/14/2007 017 Special screening for malignant neoplasms, colon 05/14/2007 10/13/2016 Internal hemorrhoids without mention of complica tion 05/14/2007 09/17/2017 POLYCYSTIC KIDNEY NOS 10/28/2005 08/28/2014 Essential hypertension 09/15/2005 7 documented as of this encounter (statuses as of 03/01/2022) [facility] History of Past illness Narrative* Problem Noted Date Resolved Date Steal syndrome of dialysis vascular access 01/2103/14/2019 Squamous cell carcinoma of skin of right upper a rm 02/15/2018 03/14/2019 Overview: Dr. Mika Hernandez, dermatology. Non-rheumatic mitral regurgitation 06/04/2016 09/17/2017 Pavillion-neck deformity of finger 07/29/2014 Mallet finger of left hand 07/29/201409/17 Uncontrolled type 2 diabetes mellitus with insul in therapy 07/23/2014 03/14/2019 ESRD (end stage renal disease) 06/13/2013 0 02/01/2016 Colles' fracture 02/19/2013 10/13/2016 Distal radial fracture 02/12/2013 7 Iron deficiency anemia 07/30/2012 6 Anemia in CKD (chronic kidney disease) 3 02/01/2016 Preop cardiovascular exam 08/17/20112018 Chronic kidney disease, stage IV (severe) 201002/01/2016 Esophagitis, unspecified 05/14/2007 017 Special screening for malignant neoplasms, colon 05/14/2007 10/13/2016 Internal hemorrhoids without mention of complica tion 05/14/2007 09/17/2017 POLYCYSTIC KIDNEY NOS 10/28/2005 08/28/2014 Essential hypertension 09/15/2005 7 documented as of this encounter (statuses as of 03/04/2022) [facility] History of Past illness Narrative* Problem Noted Date Resolved Date Steal syndrome of dialysis vascular access 01/2103/14/2019 Squamous cell carcinoma of skin of right upper a rm 02/15/2018 03/14/2019 Overview: Dr. Mika Hernandez, dermatology. Non-rheumatic mitral regurgitation 06/04/2016 09/17/2017 Pavillion-neck deformity of finger 07/29/2014 Mallet finger of left hand 07/29/201409/17 Uncontrolled type 2 diabetes mellitus with insul in therapy 07/23/2014 03/14/2019 ESRD (end stage renal disease) 06/13/2013 0 02/01/2016 Colles' fracture 02/19/2013 10/13/2016 Distal radial fracture 02/12/2013 7 Iron deficiency anemia 07/30/2012 6 Anemia in CKD (chronic kidney disease) 3 02/01/2016 Preop cardiovascular exam 08/17/20112018 Chronic kidney disease, stage IV (severe) 201002/01/2016 Esophagitis, unspecified 05/14/2007 017 Special screening for malignant neoplasms, colon 05/14/2007 10/13/2016 Internal hemorrhoids without mention of complica tion 05/14/2007 09/17/2017 POLYCYSTIC KIDNEY NOS 10/28/2005 08/28/2014 Essential hypertension 09/15/2005 7 documented as of this encounter (statuses as of 07/01/2022) [facility] History of Past illness Narrative* Problem Noted Date Resolved Date Steal syndrome of dialysis vascular access 01/2103/14/2019 Squamous cell carcinoma of skin of right upper a rm 02/15/2018 03/14/2019 Overview: Dr. Mika Hernandez, dermatology. Non-rheumatic mitral regurgitation 06/04/2016 09/17/2017 Pavillion-neck deformity of finger 07/29/2014 Mallet finger of left hand 07/29/201409/17 Uncontrolled type 2 diabetes mellitus with insul in therapy 07/23/2014 03/14/2019 ESRD (end stage renal disease) 06/13/2013 0 02/01/2016 Colles' fracture 02/19/2013 10/13/2016 Distal radial fracture 02/12/2013 7 Iron deficiency anemia 07/30/2012 6 Anemia in CKD (chronic kidney disease) 3 02/01/2016 Preop cardiovascular exam 08/17/20112018 Chronic kidney disease, stage IV (severe) 201002/01/2016 Esophagitis, unspecified 05/14/2007 017 Special screening for malignant neoplasms, colon 05/14/2007 10/13/2016 Internal hemorrhoids without mention of complica tion 05/14/2007 09/17/2017 POLYCYSTIC KIDNEY NOS 10/28/2005 08/28/2014 Essential hypertension 09/15/2005 7 documented as of this encounter (statuses as of 07/01/2022) [facility] History of Past illness Narrative* Problem Noted Date Resolved Date Steal syndrome of dialysis vascular access 01/2103/14/2019 Squamous cell carcinoma of skin of right upper a rm 02/15/2018 03/14/2019 Overview: Dr. Mika Hernandez, dermatology. Non-rheumatic mitral regurgitation 06/04/2016 09/17/2017 Pavillion-neck deformity of finger 07/29/2014 Mallet finger of left hand 07/29/201409/17 Uncontrolled type 2 diabetes mellitus with insul in therapy 07/23/2014 03/14/2019 ESRD (end stage renal disease) 06/13/2013 0 02/01/2016 Colles' fracture 02/19/2013 10/13/2016 Distal radial fracture 02/12/2013 7 Iron deficiency anemia 07/30/2012 6 Anemia in CKD (chronic kidney disease) 3 02/01/2016 Preop cardiovascular exam 08/17/20112018 Chronic kidney disease, stage IV (severe) 201002/01/2016 Esophagitis, unspecified 05/14/2007 017 Special screening for malignant neoplasms, colon 05/14/2007 10/13/2016 Internal hemorrhoids without mention of complica tion 05/14/2007 09/17/2017 POLYCYSTIC KIDNEY NOS 10/28/2005 08/28/2014 Essential hypertension 09/15/2005 7 documented as of this encounter (statuses as of 07/12/2022) [facility] History of Past illness Narrative* Problem Noted Date Resolved Date Steal syndrome of dialysis vascular access 01/2103/14/2019 Squamous cell carcinoma of skin of right upper a rm 02/15/2018 03/14/2019 Overview: Dr. Mika Hernandez, dermatology. Non-rheumatic mitral regurgitation 06/04/2016 09/17/2017 Pavillion-neck deformity of finger 07/29/2014 Mallet finger of left hand 07/29/201409/17 Uncontrolled type 2 diabetes mellitus with insul in therapy 07/23/2014 03/14/2019 ESRD (end stage renal disease) 06/13/2013 0 02/01/2016 Colles' fracture 02/19/2013 10/13/2016 Distal radial fracture 02/12/2013 7 Iron deficiency anemia 07/30/2012 6 Anemia in CKD (chronic kidney disease) 3 02/01/2016 Preop cardiovascular exam 08/17/20112018 Chronic kidney disease, stage IV (severe) 201002/01/2016 Esophagitis, unspecified 05/14/2007 017 Special screening for malignant neoplasms, colon 05/14/2007 10/13/2016 Internal hemorrhoids without mention of complica tion 05/14/2007 09/17/2017 POLYCYSTIC KIDNEY NOS 10/28/2005 08/28/2014 Essential hypertension 09/15/2005 7 documented as of this encounter (statuses as of 07/14/2022) [facility] History of Past illness Narrative* Problem Noted Date Resolved Date Steal syndrome of dialysis vascular access 01/2103/14/2019 Squamous cell carcinoma of skin of right upper a rm 02/15/2018 03/14/2019 Overview: Dr. Mika Hernandez, dermatology. Non-rheumatic mitral regurgitation 06/04/2016 09/17/2017 Pavillion-neck deformity of finger 07/29/2014 Mallet finger of left hand 07/29/201409/17 Uncontrolled type 2 diabetes mellitus with insul in therapy 07/23/2014 03/14/2019 ESRD (end stage renal disease) 06/13/2013 0 02/01/2016 Colles' fracture 02/19/2013 10/13/2016 Distal radial fracture 02/12/2013 7 Iron deficiency anemia 07/30/2012 6 Anemia in CKD (chronic kidney disease) 3 02/01/2016 Preop cardiovascular exam 08/17/20112018 Chronic kidney disease, stage IV (severe) 201002/01/2016 Esophagitis, unspecified 05/14/2007 017 Special screening for malignant neoplasms, colon 05/14/2007 10/13/2016 Internal hemorrhoids without mention of complica tion 05/14/2007 09/17/2017 POLYCYSTIC KIDNEY NOS 10/28/2005 08/28/2014 Essential hypertension 09/15/2005 7 documented as of this encounter (statuses as of 07/25/2022) [facility] History of Past illness Narrative* Problem Noted Date Resolved Date Steal syndrome of dialysis vascular access 01/2103/14/2019 Squamous cell carcinoma of skin of right upper a rm 02/15/2018 03/14/2019 Overview: Dr. Mika Hernandez, dermatology. Non-rheumatic mitral regurgitation 06/04/2016 09/17/2017 Pavillion-neck deformity of finger 07/29/2014 Mallet finger of left hand 07/29/201409/17 Uncontrolled type 2 diabetes mellitus with insul in therapy 07/23/2014 03/14/2019 ESRD (end stage renal disease) 06/13/2013 0 02/01/2016 Colles' fracture 02/19/2013 10/13/2016 Distal radial fracture 02/12/2013 7 Iron deficiency anemia 07/30/2012 6 Anemia in CKD (chronic kidney disease) 3 02/01/2016 Preop cardiovascular exam 08/17/20112018 Chronic kidney disease, stage IV (severe) 201002/01/2016 Esophagitis, unspecified 05/14/2007 017 Special screening for malignant neoplasms, colon 05/14/2007 10/13/2016 Internal hemorrhoids without mention of complica tion 05/14/2007 09/17/2017 POLYCYSTIC KIDNEY NOS 10/28/2005 08/28/2014 Essential hypertension 09/15/2005 7 documented as of this encounter (statuses as of 08/20/2022) [facility] History of Past illness Narrative* Problem Noted Date Resolved Date Steal syndrome of dialysis vascular access 01/2103/14/2019 Squamous cell carcinoma of skin of right upper a rm 02/15/2018 03/14/2019 Overview: Dr. Mika Hernandez, dermatology. Non-rheumatic mitral regurgitation 06/04/2016 09/17/2017 Pavillion-neck deformity of finger 07/29/2014 Mallet finger of left hand 07/29/201409/17 Uncontrolled type 2 diabetes mellitus with insul in therapy 07/23/2014 03/14/2019 ESRD (end stage renal disease) 06/13/2013 0 02/01/2016 Colles' fracture 02/19/2013 10/13/2016 Distal radial fracture 02/12/2013 7 Iron deficiency anemia 07/30/2012 6 Anemia in CKD (chronic kidney disease) 3 02/01/2016 Preop cardiovascular exam 08/17/20112018 Chronic kidney disease, stage IV (severe) 201002/01/2016 Esophagitis, unspecified 05/14/2007 017 Special screening for malignant neoplasms, colon 05/14/2007 10/13/2016 Internal hemorrhoids without mention of complica tion 05/14/2007 09/17/2017 POLYCYSTIC KIDNEY NOS 10/28/2005 08/28/2014 Essential hypertension 09/15/2005 7 documented as of this encounter (statuses as of 09/07/2022) [facility] History of Past illness Narrative* Problem Noted Date Resolved Date Steal syndrome of dialysis vascular access 01/2103/14/2019 Squamous cell carcinoma of skin of right upper a rm 02/15/2018 03/14/2019 Overview: Dr. Mika Hernandez, dermatology. Non-rheumatic mitral regurgitation 06/04/2016 09/17/2017 Pavillion-neck deformity of finger 07/29/2014 Mallet finger of left hand 07/29/201409/17 Uncontrolled type 2 diabetes mellitus with insul in therapy 07/23/2014 03/14/2019 ESRD (end stage renal disease) 06/13/2013 0 02/01/2016 Colles' fracture 02/19/2013 10/13/2016 Distal radial fracture 02/12/2013 7 Iron deficiency anemia 07/30/2012 6 Anemia in CKD (chronic kidney disease) 3 02/01/2016 Preop cardiovascular exam 08/17/20112018 Chronic kidney disease, stage IV (severe) 201002/01/2016 Esophagitis, unspecified 05/14/2007 017 Special screening for malignant neoplasms, colon 05/14/2007 10/13/2016 Internal hemorrhoids without mention of complica tion 05/14/2007 09/17/2017 POLYCYSTIC KIDNEY NOS 10/28/2005 08/28/2014 Essential hypertension 09/15/2005 7 documented as of this encounter (statuses as of 09/09/2022) [facility] History of Past illness Narrative* Problem Noted Date Resolved Date Steal syndrome of dialysis vascular access 01/2103/14/2019 Squamous cell carcinoma of skin of right upper a rm 02/15/2018 03/14/2019 Overview: Dr. Mika Hernandez, dermatology. Non-rheumatic mitral regurgitation 06/04/2016 09/17/2017 Pavillion-neck deformity of finger 07/29/2014 Mallet finger of left hand 07/29/201409/17 Uncontrolled type 2 diabetes mellitus with insul in therapy 07/23/2014 03/14/2019 ESRD (end stage renal disease) 06/13/2013 0 02/01/2016 Colles' fracture 02/19/2013 10/13/2016 Distal radial fracture 02/12/2013 7 Iron deficiency anemia 07/30/2012 6 Anemia in CKD (chronic kidney disease) 3 02/01/2016 Preop cardiovascular exam 08/17/20112018 Chronic kidney disease, stage IV (severe) 201002/01/2016 Esophagitis, unspecified 05/14/2007 017 Special screening for malignant neoplasms, colon 05/14/2007 10/13/2016 Internal hemorrhoids without mention of complica tion 05/14/2007 09/17/2017 POLYCYSTIC KIDNEY NOS 10/28/2005 08/28/2014 Essential hypertension 09/15/2005 7 documented as of this encounter (statuses as of 09/14/2022) [facility] History of Past illness Narrative* Problem Noted Date Resolved Date Steal syndrome of dialysis vascular access 01/2103/14/2019 Squamous cell carcinoma of skin of right upper a rm 02/15/2018 03/14/2019 Overview: Dr. Mika Hernandez, dermatology. Non-rheumatic mitral regurgitation 06/04/2016 09/17/2017 Pavillion-neck deformity of finger 07/29/2014 Mallet finger of left hand 07/29/201409/17 Uncontrolled type 2 diabetes mellitus with insul in therapy 07/23/2014 03/14/2019 ESRD (end stage renal disease) 06/13/2013 0 02/01/2016 Colles' fracture 02/19/2013 10/13/2016 Distal radial fracture 02/12/2013 7 Iron deficiency anemia 07/30/2012 6 Anemia in CKD (chronic kidney disease) 3 02/01/2016 Preop cardiovascular exam 08/17/20112018 Chronic kidney disease, stage IV (severe) 201002/01/2016 Esophagitis, unspecified 05/14/2007 017 Special screening for malignant neoplasms, colon 05/14/2007 10/13/2016 Internal hemorrhoids without mention of complica tion 05/14/2007 09/17/2017 POLYCYSTIC KIDNEY NOS 10/28/2005 08/28/2014 Essential hypertension 09/15/2005 7 documented as of this encounter (statuses as of 09/16/2022) [facility] History of Past illness Narrative* Problem Noted Date Resolved Date Steal syndrome of dialysis vascular access 01/2103/14/2019 Squamous cell carcinoma of skin of right upper a rm 02/15/2018 03/14/2019 Overview: Dr. Mika Hernandez, dermatology. Non-rheumatic mitral regurgitation 06/04/2016 09/17/2017 Pavillion-neck deformity of finger 07/29/2014 Mallet finger of left hand 07/29/201409/17 Uncontrolled type 2 diabetes mellitus with insul in therapy 07/23/2014 03/14/2019 ESRD (end stage renal disease) 06/13/2013 0 02/01/2016 Colles' fracture 02/19/2013 10/13/2016 Distal radial fracture 02/12/2013 7 Iron deficiency anemia 07/30/2012 6 Anemia in CKD (chronic kidney disease) 3 02/01/2016 Preop cardiovascular exam 08/17/20112018 Chronic kidney disease, stage IV (severe) 201002/01/2016 Esophagitis, unspecified 05/14/2007 017 Special screening for malignant neoplasms, colon 05/14/2007 10/13/2016 Internal hemorrhoids without mention of complica tion 05/14/2007 09/17/2017 POLYCYSTIC KIDNEY NOS 10/28/2005 08/28/2014 Essential hypertension 09/15/2005 7 documented as of this encounter (statuses as of 09/16/2022) [facility] History of Past illness Narrative* Problem Noted Date Resolved Date Steal syndrome of dialysis vascular access 01/2103/14/2019 Squamous cell carcinoma of skin of right upper a rm 02/15/2018 03/14/2019 Overview: Dr. Mika Hernandez, dermatology. Non-rheumatic mitral regurgitation 06/04/2016 09/17/2017 Pavillion-neck deformity of finger 07/29/2014 Mallet finger of left hand 07/29/201409/17 Uncontrolled type 2 diabetes mellitus with insul in therapy 07/23/2014 03/14/2019 ESRD (end stage renal disease) 06/13/2013 0 02/01/2016 Colles' fracture 02/19/2013 10/13/2016 Distal radial fracture 02/12/2013 7 Iron deficiency anemia 07/30/2012 6 Anemia in CKD (chronic kidney disease) 3 02/01/2016 Preop cardiovascular exam 08/17/20112018 Chronic kidney disease, stage IV (severe) 201002/01/2016 Esophagitis, unspecified 05/14/2007 017 Special screening for malignant neoplasms, colon 05/14/2007 10/13/2016 Internal hemorrhoids without mention of complica tion 05/14/2007 09/17/2017 POLYCYSTIC KIDNEY NOS 10/28/2005 08/28/2014 Essential hypertension 09/15/2005 7 documented as of this encounter (statuses as of 11/01/2022) [facility] of Past illness Narrative* Problem Noted Date Resolved Date Steal syndrome of dialysis vascular access 01/2103/14/2019 Squamous cell carcinoma of skin of right upper a rm 02/15/2018 03/14/2019 Overview: Dr. Mika Hernandez, dermatology. Non-rheumatic mitral regurgitation 06/04/2016 09/17/2017 Pavillion-neck deformity of finger 07/29/2014 Mallet finger of left hand 07/29/201409/17 Uncontrolled type 2 diabetes mellitus with insul in therapy 07/23/2014 03/14/2019 ESRD (end stage renal disease) 06/13/2013 0 02/01/2016 Colles' fracture 02/19/2013 10/13/2016 Distal radial fracture 02/12/2013 7 Iron deficiency anemia 07/30/2012 6 Anemia in CKD (chronic kidney disease) 3 02/01/2016 Preop cardiovascular exam 08/17/20112018 Chronic kidney disease, stage IV (severe) 201002/01/2016 Esophagitis, unspecified 05/14/2007 017 Special screening for malignant neoplasms, colon 05/14/2007 10/13/2016 Internal hemorrhoids without mention of complica tion 05/14/2007 09/17/2017 POLYCYSTIC KIDNEY NOS 10/28/2005 08/28/2014 Essential hypertension 09/15/2005 7 documented as of this encounter (statuses as of 11/07/2022) [facility] of Past illness Narrative* Problem Noted Date Resolved Date Steal syndrome of dialysis vascular access 01/2103/14/2019 Squamous cell carcinoma of skin of right upper a rm 02/15/2018 03/14/2019 Overview: Dr. Mika Hernandez, dermatology. Non-rheumatic mitral regurgitation 06/04/2016 09/17/2017 Pavillion-neck deformity of finger 07/29/2014 Mallet finger of left hand 07/29/201409/17 Uncontrolled type 2 diabetes mellitus with insul in therapy 07/23/2014 03/14/2019 ESRD (end stage renal disease) 06/13/2013 0 02/01/2016 Colles' fracture 02/19/2013 10/13/2016 Distal radial fracture 02/12/2013 7 Iron deficiency anemia 07/30/2012 6 Anemia in CKD (chronic kidney disease) 3 02/01/2016 Preop cardiovascular exam 08/17/20112018 Chronic kidney disease, stage IV (severe) 201002/01/2016 Esophagitis, unspecified 05/14/2007 017 Special screening for malignant neoplasms, colon 05/14/2007 10/13/2016 Internal hemorrhoids without mention of complica tion 05/14/2007 09/17/2017 POLYCYSTIC KIDNEY NOS 10/28/2005 08/28/2014 Essential hypertension 09/15/2005 7 documented as of this encounter (statuses as of 11/18/2022) [facility] of Past illness Narrative* Problem Noted Date Resolved Date Steal syndrome of dialysis vascular access 01/2103/14/2019 Squamous cell carcinoma of skin of right upper a rm 02/15/2018 03/14/2019 Overview: Dr. Mika Hernandez, dermatology. Non-rheumatic mitral regurgitation 06/04/2016 09/17/2017 Pavillion-neck deformity of finger 07/29/2014 Mallet finger of left hand 07/29/201409/17 Uncontrolled type 2 diabetes mellitus with insul in therapy 07/23/2014 03/14/2019 ESRD (end stage renal disease) 06/13/2013 0 02/01/2016 Colles' fracture 02/19/2013 10/13/2016 Distal radial fracture 02/12/2013 7 Iron deficiency anemia 07/30/2012 6 Anemia in CKD (chronic kidney disease) 3 02/01/2016 Preop cardiovascular exam 08/17/20112018 Chronic kidney disease, stage IV (severe) 201002/01/2016 Esophagitis, unspecified 05/14/2007 017 Special screening for malignant neoplasms, colon 05/14/2007 10/13/2016 Internal hemorrhoids without mention of complica tion 05/14/2007 09/17/2017 POLYCYSTIC KIDNEY NOS 10/28/2005 08/28/2014 Essential hypertension 09/15/2005 7 documented as of this encounter (statuses as of 12/13/2022) [facility] of Past illness Narrative* Problem Noted Date Resolved Date Steal syndrome of dialysis vascular access 01/2103/14/2019 Squamous cell carcinoma of skin of right upper a rm 02/15/2018 03/14/2019 Overview: Dr. Mika Hernandez, dermatology. Non-rheumatic mitral regurgitation 06/04/2016 09/17/2017 Pavillion-neck deformity of finger 07/29/2014 Mallet finger of left hand 07/29/201409/17 Uncontrolled type 2 diabetes mellitus with insul in therapy 07/23/2014 03/14/2019 ESRD (end stage renal disease) 06/13/2013 0 02/01/2016 Colles' fracture 02/19/2013 10/13/2016 Distal radial fracture 02/12/2013 7 Iron deficiency anemia 07/30/2012 6 Anemia in CKD (chronic kidney disease) 3 02/01/2016 Preop cardiovascular exam 08/17/20112018 Chronic kidney disease, stage IV (severe) 201002/01/2016 Esophagitis, unspecified 05/14/2007 017 Special screening for malignant neoplasms, colon 05/14/2007 10/13/2016 Internal hemorrhoids without mention of complica tion 05/14/2007 09/17/2017 POLYCYSTIC KIDNEY NOS 10/28/2005 08/28/2014 Essential hypertension 09/15/2005 7 documented as of this encounter (statuses as of 12/15/2022) [facility] of Past illness Narrative* Problem Noted Date Resolved Date Steal syndrome of dialysis vascular access 01/2103/14/2019 Squamous cell carcinoma of skin of right upper a rm 02/15/2018 03/14/2019 Overview: Dr. Mika Hernandez, dermatology. Non-rheumatic mitral regurgitation 06/04/2016 09/17/2017 Pavillion-neck deformity of finger 07/29/2014 Mallet finger of left hand 07/29/201409/17 Uncontrolled type 2 diabetes mellitus with insul in therapy 07/23/2014 03/14/2019 ESRD (end stage renal disease) 06/13/2013 0 02/01/2016 Colles' fracture 02/19/2013 10/13/2016 Distal radial fracture 02/12/2013 7 Iron deficiency anemia 07/30/2012 6 Anemia in CKD (chronic kidney disease) 3 02/01/2016 Preop cardiovascular exam 08/17/20112018 Chronic kidney disease, stage IV (severe) 201002/01/2016 Esophagitis, unspecified 05/14/2007 017 Special screening for malignant neoplasms, colon 05/14/2007 10/13/2016 Internal hemorrhoids without mention of complica tion 05/14/2007 09/17/2017 POLYCYSTIC KIDNEY NOS 10/28/2005 08/28/2014 Essential hypertension 09/15/2005 7 documented as of this encounter (statuses as of 01/13/2023) [facility] of Past illness Narrative* Problem Noted Date Diagnosed Date Resolved Date Steal syndrome of dialysis vascular access 01/21/2019 03/14/2019 Squamous cell carcinoma of s kin of right upper arm 02/15/2018 03/14/2019 Overview: Dr. Mika Hernandez, dermatology. Non-rheumatic mitral regurgitation 06/04/2016 09/17/2017 Pavillion-neck deformity of finger 07/29/2014 10/13/2016 Mallet finger of left hand 07/29/2014 0 09/17/2017 Uncontrolled type 2 diabetes mellitus with insulin therapy 07/23/2014 03/14/2019 ESRD (end stage renal disease) 06/13/2013 02/01/2016 Colles' fracture 02/19/2013 10/13/2016 Distal radial fracture 02/12/201310/13 Iron deficiency anemia 07/30/201201/31 Anemia in CKD (chronic kidney disease) 07/30/2012 02/01/2016 Preop cardiovascular exam 08/17/2011 Chronic kidney disease, stage IV (severe) 02/18/2011 02/01/2016 Esophagitis, unspecified 05/14/200712/2016 Special screening for malign ant neoplasms, colon 05/14/2007 10/13/2016 Internal hemorrhoids without mention of complication 05/14/2007 09/17/2017 POLYCYSTIC KIDNEY NOS 10/28/20052014 Essential hypertension 09/15/200510/13 documented as of this encounter (statuses as of 01/14/2023) [facility] History of Past illness Narrative* Problem Noted Date Diagnosed Date Resolved Date Steal syndrome of dialysis vascular access 01/21/2019 03/14/2019 Squamous cell carcinoma of s kin of right upper arm 02/15/2018 03/14/2019 Overview: Dr. Mika Hernandez, dermatology. Non-rheumatic mitral regurgitation 06/04/2016 09/17/2017 Pavillion-neck deformity of finger 07/29/2014 10/13/2016 Mallet finger of left hand 07/29/2014 0 09/17/2017 Uncontrolled type 2 diabetes mellitus with insulin therapy 07/23/2014 03/14/2019 ESRD (end stage renal disease) 06/13/2013 02/01/2016 Colles' fracture 02/19/2013 10/13/2016 Distal radial fracture 02/12/201310/13 Iron deficiency anemia 07/30/201201/31 Anemia in CKD (chronic kidney disease) 07/30/2012 02/01/2016 Preop cardiovascular exam 08/17/2011 Chronic kidney disease, stage IV (severe) 02/18/2011 02/01/2016 Esophagitis, unspecified 05/14/200712/2016 Special screening for malign ant neoplasms, colon 05/14/2007 10/13/2016 Internal hemorrhoids without mention of complication 05/14/2007 09/17/2017 POLYCYSTIC KIDNEY NOS 10/28/20052014 Essential hypertension 09/15/200510/13 documented as of this encounter (statuses as of 01/17/2023) [facility] History of Past illness Narrative* Problem Noted Date Diagnosed Date Resolved Date Steal syndrome of dialysis vascular access 01/21/2019 03/14/2019 Squamous cell carcinoma of s kin of right upper arm 02/15/2018 03/14/2019 Overview: Dr. Mika Hernandez, dermatology. Non-rheumatic mitral regurgitation 06/04/2016 09/17/2017 Pavillion-neck deformity of finger 07/29/2014 10/13/2016 Mallet finger of left hand 07/29/2014 0 09/17/2017 Uncontrolled type 2 diabetes mellitus with insulin therapy 07/23/2014 03/14/2019 ESRD (end stage renal disease) 06/13/2013 02/01/2016 Colles' fracture 02/19/2013 10/13/2016 Distal radial fracture 02/12/201310/13 Iron deficiency anemia 07/30/201201/31 Anemia in CKD (chronic kidney disease) 07/30/2012 02/01/2016 Preop cardiovascular exam 08/17/2011 Chronic kidney disease, stage IV (severe) 02/18/2011 02/01/2016 Esophagitis, unspecified 05/14/200712/2016 Special screening for malign ant neoplasms, colon 05/14/2007 10/13/2016 Internal hemorrhoids without mention of complication 05/14/2007 09/17/2017 POLYCYSTIC KIDNEY NOS 10/28/20052014 Essential hypertension 09/15/200510/13 documented as of this encounter (statuses as of 01/19/2023) [facility] History of Past illness Narrative* Problem Noted Date Diagnosed Date Resolved Date Steal syndrome of dialysis vascular access 01/21/2019 03/14/2019 Squamous cell carcinoma of s kin of right upper arm 02/15/2018 03/14/2019 Overview: Dr. Mika Hernandez, dermatology. Non-rheumatic mitral regurgitation 06/04/2016 09/17/2017 Pavillion-neck deformity of finger 07/29/2014 10/13/2016 Mallet finger of left hand 07/29/2014 0 09/17/2017 Uncontrolled type 2 diabetes mellitus with insulin therapy 07/23/2014 03/14/2019 ESRD (end stage renal disease) 06/13/2013 02/01/2016 Colles' fracture 02/19/2013 10/13/2016 Distal radial fracture 02/12/201310/13 Iron deficiency anemia 07/30/201201/31 Anemia in CKD (chronic kidney disease) 07/30/2012 02/01/2016 Preop cardiovascular exam 08/17/2011 Chronic kidney disease, stage IV (severe) 02/18/2011 02/01/2016 Esophagitis, unspecified 05/14/200712/2016 Special screening for malign ant neoplasms, colon 05/14/2007 10/13/2016 Internal hemorrhoids without mention of complication 05/14/2007 09/17/2017 POLYCYSTIC KIDNEY NOS 10/28/20052014 Essential hypertension 09/15/200510/13 documented as of this encounter (statuses as of 01/19/2023) [facility] History of Past illness Narrative* Problem Noted Date Diagnosed Date Resolved Date Steal syndrome of dialysis vascular access 01/21/2019 03/14/2019 Squamous cell carcinoma of s kin of right upper arm 02/15/2018 03/14/2019 Overview: Dr. Mika Hernandez, dermatology. Non-rheumatic mitral regurgitation 06/04/2016 09/17/2017 Pavillion-neck deformity of finger 07/29/2014 10/13/2016 Mallet finger of left hand 07/29/2014 0 09/17/2017 Uncontrolled type 2 diabetes mellitus with insulin therapy 07/23/2014 03/14/2019 ESRD (end stage renal disease) 06/13/2013 02/01/2016 Colles' fracture 02/19/2013 10/13/2016 Distal radial fracture 02/12/201310/13 Iron deficiency anemia 07/30/201201/31 Anemia in CKD (chronic kidney disease) 07/30/2012 02/01/2016 Preop cardiovascular exam 08/17/2011 Chronic kidney disease, stage IV (severe) 02/18/2011 02/01/2016 Esophagitis, unspecified 05/14/200712/2016 Special screening for malign ant neoplasms, colon 05/14/2007 10/13/2016 Internal hemorrhoids without mention of complication 05/14/2007 09/17/2017 POLYCYSTIC KIDNEY NOS 10/28/20052014 Essential hypertension 09/15/200510/13 documented as of this encounter (statuses as of 02/02/2023) [facility] History of Past illness Narrative* Problem Noted Date Diagnosed Date Resolved Date Steal syndrome of dialysis vascular access 01/21/2019 03/14/2019 Squamous cell carcinoma of s kin of right upper arm 02/15/2018 03/14/2019 Overview: Dr. Mika Hernandez, dermatology. Non-rheumatic mitral regurgitation 06/04/2016 09/17/2017 Pavillion-neck deformity of finger 07/29/2014 10/13/2016 Mallet finger of left hand 07/29/2014 0 09/17/2017 Uncontrolled type 2 diabetes mellitus with insulin therapy 07/23/2014 03/14/2019 ESRD (end stage renal disease) 06/13/2013 02/01/2016 Colles' fracture 02/19/2013 10/13/2016 Distal radial fracture 02/12/201310/13 Iron deficiency anemia 07/30/201201/31 Anemia in CKD (chronic kidney disease) 07/30/2012 02/01/2016 Preop cardiovascular exam 08/17/2011 Chronic kidney disease, stage IV (severe) 02/18/2011 02/01/2016 Esophagitis, unspecified 05/14/200712/2016 Special screening for malign ant neoplasms, colon 05/14/2007 10/13/2016 Internal hemorrhoids without mention of complication 05/14/2007 09/17/2017 POLYCYSTIC KIDNEY NOS 10/28/20052014 Essential hypertension 09/15/200510/13 documented as of this encounter (statuses as of 02/03/2023) [facility] History of Past illness Narrative* Problem Noted Date Diagnosed Date Resolved Date Steal syndrome of dialysis vascular access 01/21/2019 03/14/2019 Squamous cell carcinoma of s kin of right upper arm 02/15/2018 03/14/2019 Overview: Dr. Mika Hernandez, dermatology. Non-rheumatic mitral regurgitation 06/04/2016 09/17/2017 Pavillion-neck deformity of finger 07/29/2014 10/13/2016 Mallet finger of left hand 07/29/2014 0 09/17/2017 Uncontrolled type 2 diabetes mellitus with insulin therapy 07/23/2014 03/14/2019 ESRD (end stage renal disease) 06/13/2013 02/01/2016 Colles' fracture 02/19/2013 10/13/2016 Distal radial fracture 02/12/201310/13 Iron deficiency anemia 07/30/201201/31 Anemia in CKD (chronic kidney disease) 07/30/2012 02/01/2016 Preop cardiovascular exam 08/17/2011 Chronic kidney disease, stage IV (severe) 02/18/2011 02/01/2016 Esophagitis, unspecified 05/14/200712/2016 Special screening for malign ant neoplasms, colon 05/14/2007 10/13/2016 Internal hemorrhoids without mention of complication 05/14/2007 09/17/2017 POLYCYSTIC KIDNEY NOS 10/28/20052014 Essential hypertension 09/15/200510/13 documented as of this encounter (statuses as of 02/13/2023) [facility] History of Past illness Narrative* Problem Noted Date Diagnosed Date Resolved Date Steal syndrome of dialysis vascular access 01/21/2019 03/14/2019 Squamous cell carcinoma of s kin of right upper arm 02/15/2018 03/14/2019 Overview: Dr. Mika Hernandez, dermatology. Non-rheumatic mitral regurgitation 06/04/2016 09/17/2017 Pavillion-neck deformity of finger 07/29/2014 10/13/2016 Mallet finger of left hand 07/29/2014 0 09/17/2017 Uncontrolled type 2 diabetes mellitus with insulin therapy 07/23/2014 03/14/2019 ESRD (end stage renal disease) 06/13/2013 02/01/2016 Colles' fracture 02/19/2013 10/13/2016 Distal radial fracture 02/12/201310/13 Iron deficiency anemia 07/30/201201/31 Anemia in CKD (chronic kidney disease) 07/30/2012 02/01/2016 Preop cardiovascular exam 08/17/2011 Chronic kidney disease, stage IV (severe) 02/18/2011 02/01/2016 Esophagitis, unspecified 05/14/200712/2016 Special screening for malign ant neoplasms, colon 05/14/2007 10/13/2016 Internal hemorrhoids without mention of complication 05/14/2007 09/17/2017 POLYCYSTIC KIDNEY NOS 10/28/20052014 Essential hypertension 09/15/200510/13 documented as of this encounter (statuses as of 02/19/2023) [facility] History of Past illness Narrative* Problem Noted Date Diagnosed Date Resolved Date Steal syndrome of dialysis vascular access 01/21/2019 03/14/2019 Squamous cell carcinoma of s kin of right upper arm 02/15/2018 03/14/2019 Overview: Dr. Mika Hernandez, dermatology. Non-rheumatic mitral regurgitation 06/04/2016 09/17/2017 Pavillion-neck deformity of finger 07/29/2014 10/13/2016 Mallet finger of left hand 07/29/2014 0 09/17/2017 Uncontrolled type 2 diabetes mellitus with insulin therapy 07/23/2014 03/14/2019 ESRD (end stage renal disease) 06/13/2013 02/01/2016 Colles' fracture 02/19/2013 10/13/2016 Distal radial fracture 02/12/201310/13 Iron deficiency anemia 07/30/201201/31 Anemia in CKD (chronic kidney disease) 07/30/2012 02/01/2016 Preop cardiovascular exam 08/17/2011 Chronic kidney disease, stage IV (severe) 02/18/2011 02/01/2016 Esophagitis, unspecified 05/14/200712/2016 Special screening for malign ant neoplasms, colon 05/14/2007 10/13/2016 Internal hemorrhoids without mention of complication 05/14/2007 09/17/2017 POLYCYSTIC KIDNEY NOS 10/28/20052014 Essential hypertension 09/15/200510/13 documented as of this encounter (statuses as of 05/05/2023) [facility] History of Past illness Narrative* Problem Noted Date Diagnosed Date Resolved Date Steal syndrome of dialysis vascular access 01/21/2019 03/14/2019 Squamous cell carcinoma of s kin of right upper arm 02/15/2018 03/14/2019 Overview: Dr. Mika Hernandez, dermatology. Non-rheumatic mitral regurgitation 06/04/2016 09/17/2017 Pavillion-neck deformity of finger 07/29/2014 10/13/2016 Mallet finger of left hand 07/29/2014 0 09/17/2017 Uncontrolled type 2 diabetes mellitus with insulin therapy 07/23/2014 03/14/2019 ESRD (end stage renal disease) 06/13/2013 02/01/2016 Colles' fracture 02/19/2013 10/13/2016 Distal radial fracture 02/12/201310/13 Iron deficiency anemia 07/30/201201/31 Anemia in CKD (chronic kidney disease) 07/30/2012 02/01/2016 Preop cardiovascular exam 08/17/2011 Chronic kidney disease, stage IV (severe) 02/18/2011 02/01/2016 Esophagitis, unspecified 05/14/200712/2016 Special screening for malign ant neoplasms, colon 05/14/2007 10/13/2016 Internal hemorrhoids without mention of complication 05/14/2007 09/17/2017 POLYCYSTIC KIDNEY NOS 10/28/20052014 Essential hypertension 09/15/200510/13 documented as of this encounter (statuses as of 05/14/2023) [facility] History of Past illness Narrative* Problem Noted Date Diagnosed Date Resolved Date Steal syndrome of dialysis vascular access 01/21/2019 03/14/2019 Squamous cell carcinoma of s kin of right upper arm 02/15/2018 03/14/2019 Overview: Dr. Mika Hernandez, dermatology. Non-rheumatic mitral regurgitation 06/04/2016 09/17/2017 Pavillion-neck deformity of finger 07/29/2014 10/13/2016 Mallet finger of left hand 07/29/2014 0 09/17/2017 Uncontrolled type 2 diabetes mellitus with insulin therapy 07/23/2014 03/14/2019 ESRD (end stage renal disease) 06/13/2013 02/01/2016 Colles' fracture 02/19/2013 10/13/2016 Distal radial fracture 02/12/201310/13 Iron deficiency anemia 07/30/201201/31 Anemia in CKD (chronic kidney disease) 07/30/2012 02/01/2016 Preop cardiovascular exam 08/17/2011 Chronic kidney disease, stage IV (severe) 02/18/2011 02/01/2016 Esophagitis, unspecified 05/14/200712/2016 Special screening for malign ant neoplasms, colon 05/14/2007 10/13/2016 Internal hemorrhoids without mention of complication 05/14/2007 09/17/2017 POLYCYSTIC KIDNEY NOS 10/28/20052014 Essential hypertension 09/15/200510/13 documented as of this encounter (statuses as of 05/26/2023) [facility] History of Past illness Narrative* Problem Noted Date Diagnosed Date Resolved Date Steal syndrome of dialysis vascular access 01/21/2019 03/14/2019 Squamous cell carcinoma of s kin of right upper arm 02/15/2018 03/14/2019 Overview: Dr. Mika Hernandez, dermatology. Non-rheumatic mitral regurgitation 06/04/2016 09/17/2017 Pavillion-neck deformity of finger 07/29/2014 10/13/2016 Mallet finger of left hand 07/29/2014 0 09/17/2017 Uncontrolled type 2 diabetes mellitus with insulin therapy 07/23/2014 03/14/2019 ESRD (end stage renal disease) 06/13/2013 02/01/2016 Colles' fracture 02/19/2013 10/13/2016 Distal radial fracture 02/12/201310/13 Iron deficiency anemia 07/30/201201/31 Anemia in CKD (chronic kidney disease) 07/30/2012 02/01/2016 Preop cardiovascular exam 08/17/2011 Chronic kidney disease, stage IV (severe) 02/18/2011 02/01/2016 Esophagitis, unspecified 05/14/200712/2016 Special screening for malign ant neoplasms, colon 05/14/2007 10/13/2016 Internal hemorrhoids without mention of complication 05/14/2007 09/17/2017 POLYCYSTIC KIDNEY NOS 10/28/20052014 Essential hypertension 09/15/200510/13 documented as of this encounter (statuses as of 05/27/2023) [facility] History of Past illness Narrative* Problem Noted Date Diagnosed Date Resolved Date Steal syndrome of dialysis vascular access 01/21/2019 03/14/2019 Squamous cell carcinoma of s kin of right upper arm 02/15/2018 03/14/2019 Overview: Dr. Mika Hernandez, dermatology. Non-rheumatic mitral regurgitation 06/04/2016 09/17/2017 Pavillion-neck deformity of finger 07/29/2014 10/13/2016 Mallet finger of left hand 07/29/2014 0 09/17/2017 Uncontrolled type 2 diabetes mellitus with insulin therapy 07/23/2014 03/14/2019 ESRD (end stage renal disease) 06/13/2013 02/01/2016 Colles' fracture 02/19/2013 10/13/2016 Distal radial fracture 02/12/201310/13 Iron deficiency anemia 07/30/201201/31 Anemia in CKD (chronic kidney disease) 07/30/2012 02/01/2016 Preop cardiovascular exam 08/17/2011 Chronic kidney disease, stage IV (severe) 02/18/2011 02/01/2016 Esophagitis, unspecified 05/14/200712/2016 Special screening for malign ant neoplasms, colon 05/14/2007 10/13/2016 Internal hemorrhoids without mention of complication 05/14/2007 09/17/2017 POLYCYSTIC KIDNEY NOS 10/28/20052014 Essential hypertension 09/15/200510/13 documented as of this encounter (statuses as of 05/30/2023) [facility] History of Past illness Narrative* Problem Noted Date Diagnosed Date Resolved Date Steal syndrome of dialysis vascular access 01/21/2019 03/14/2019 Squamous cell carcinoma of s kin of right upper arm 02/15/2018 03/14/2019 Overview: Dr. Mika Hernandez, dermatology. Non-rheumatic mitral regurgitation 06/04/2016 09/17/2017 Pavillion-neck deformity of finger 07/29/2014 10/13/2016 Mallet finger of left hand 07/29/2014 0 09/17/2017 Uncontrolled type 2 diabetes mellitus with insulin therapy 07/23/2014 03/14/2019 ESRD (end stage renal disease) 06/13/2013 02/01/2016 Colles' fracture 02/19/2013 10/13/2016 Distal radial fracture 02/12/201310/13 Iron deficiency anemia 07/30/201201/31 Anemia in CKD (chronic kidney disease) 07/30/2012 02/01/2016 Preop cardiovascular exam 08/17/2011 Chronic kidney disease, stage IV (severe) 02/18/2011 02/01/2016 Esophagitis, unspecified 05/14/200712/2016 Special screening for malign ant neoplasms, colon 05/14/2007 10/13/2016 Internal hemorrhoids without mention of complication 05/14/2007 09/17/2017 POLYCYSTIC KIDNEY NOS 10/28/20052014 Essential hypertension 09/15/200510/13 documented as of this encounter (statuses as of 06/13/2023) [facility] History of Past illness Narrative* Problem Noted Date Diagnosed Date Resolved Date Steal syndrome of dialysis vascular access 01/21/2019 03/14/2019 Squamous cell carcinoma of s kin of right upper arm 02/15/2018 03/14/2019 Overview: Dr. Mika Hrenandez, dermatology. Non-rheumatic mitral regurgitation 06/04/2016 09/17/2017 Pavillion-neck deformity of finger 07/29/2014 10/13/2016 Mallet finger of left hand 07/29/2014 0 09/17/2017 Uncontrolled type 2 diabetes mellitus with insulin therapy 07/23/2014 03/14/2019 ESRD (end stage renal disease) 06/13/2013 02/01/2016 Colles' fracture 02/19/2013 10/13/2016 Distal radial fracture 02/12/201310/13 Iron deficiency anemia 07/30/201201/31 Anemia in CKD (chronic kidney disease) 07/30/2012 02/01/2016 Preop cardiovascular exam 08/17/2011 Chronic kidney disease, stage IV (severe) 02/18/2011 02/01/2016 Esophagitis, unspecified 05/14/200712/2016 Special screening for malign ant neoplasms, colon 05/14/2007 10/13/2016 Internal hemorrhoids without mention of complication 05/14/2007 09/17/2017 POLYCYSTIC KIDNEY NOS 10/28/20052014 Essential hypertension 09/15/200510/13 documented as of this encounter (statuses as of 06/13/2023) [facility] History of Past illness Narrative* Problem Noted Date Diagnosed Date Resolved Date Steal syndrome of dialysis vascular access 01/21/2019 03/14/2019 Squamous cell carcinoma of s kin of right upper arm 02/15/2018 03/14/2019 Overview: Dr. Mika Hernandez, dermatology. Non-rheumatic mitral regurgitation 06/04/2016 09/17/2017 Pavillion-neck deformity of finger 07/29/2014 10/13/2016 Mallet finger of left hand 07/29/2014 0 09/17/2017 Uncontrolled type 2 diabetes mellitus with insulin therapy 07/23/2014 03/14/2019 ESRD (end stage renal disease) 06/13/2013 02/01/2016 Colles' fracture 02/19/2013 10/13/2016 Distal radial fracture 02/12/201310/13 Iron deficiency anemia 07/30/201201/31 Anemia in CKD (chronic kidney disease) 07/30/2012 02/01/2016 Preop cardiovascular exam 08/17/2011 Chronic kidney disease, stage IV (severe) 02/18/2011 02/01/2016 Esophagitis, unspecified 05/14/200712/2016 Special screening for malign ant neoplasms, colon 05/14/2007 10/13/2016 Internal hemorrhoids without mention of complication 05/14/2007 09/17/2017 POLYCYSTIC KIDNEY NOS 10/28/20052014 Essential hypertension 09/15/200510/13 documented as of this encounter (statuses as of 08/11/2023) [facility] History of Past illness Narrative* Problem Noted Date Diagnosed Date Resolved Date Steal syndrome of dialysis vascular access 01/21/2019 03/14/2019 Squamous cell carcinoma of s kin of right upper arm 02/15/2018 03/14/2019 Overview: Dr. Mika Hernandez, dermatology. Non-rheumatic mitral regurgitation 06/04/2016 09/17/2017 Pavillion-neck deformity of finger 07/29/2014 10/13/2016 Mallet finger of left hand 07/29/2014 0 09/17/2017 Uncontrolled type 2 diabetes mellitus with insulin therapy 07/23/2014 03/14/2019 ESRD (end stage renal disease) 06/13/2013 02/01/2016 Colles' fracture 02/19/2013 10/13/2016 Distal radial fracture 02/12/201310/13 Iron deficiency anemia 07/30/201201/31 Anemia in CKD (chronic kidney disease) 07/30/2012 02/01/2016 Preop cardiovascular exam 08/17/2011 Chronic kidney disease, stage IV (severe) 02/18/2011 02/01/2016 Esophagitis, unspecified 05/14/200712/2016 Special screening for malign ant neoplasms, colon 05/14/2007 10/13/2016 Internal hemorrhoids without mention of complication 05/14/2007 09/17/2017 POLYCYSTIC KIDNEY NOS 10/28/20052014 Essential hypertension 09/15/200510/13 documented as of this encounter (statuses as of 08/23/2023) [facility] Weakness of both legs Other musculoskeletal symptoms referable to limbs Recurrent falls Personal history of fall History of renal transplant Kidney replaced by transplant [facility] Diagnosis Spinal stenosis of lumbar region without neurogenic claudication Spinal stenosis, lumbar region, without neurogenic claudication [facility] Diagnosis Spinal stenosis of lumbar region, unspecified whether neurogenic claudication present- Primary Weakness of both legs Other musculoskeletal symptoms referable to limbs Numbness of legs Disturbance of skin sensation History of stroke Transient ischemic attack (TIA), and cerebral infarction without residual deficits MITALI (obstructive sleep apnea) Obstructive sleep apnea (adult) (pediatric) [facility] Diagnosis History of stroke- Primary Transient ischemic attack (TIA), and cerebral infarction without residual deficits [facility] Essential hypertension Unspecified essential hypertension [facility] Diagnosis Essential hypertension Unspecified essential hypertension Stress and adjustment reaction Other specified adjustment reaction Kidney transplant status, living unrelated donor Kidney replaced by transplant Gastroesophageal reflux disease without esophagitis Esophageal reflux 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) Type II or unspecified type diabetes mellitus with neurological manifestations, not stated as uncontrolled Uncontrolled type 2 diabetes mellitus with insulin therapy Type II or unspecified type diabetes mellitus without mention of complication, uncontrolled [facility] Kidney transplant status, living unrelated donor Kidney replaced by transplant [facility] Diagnosis Weakness of both legs Other musculoskeletal symptoms referable to limbs Numbness of legs Disturbance of skin sensation Spinal stenosis of lumbar region, unspecified whether neurogenic claudication present [facility] Diagnosis Immunosuppressive management encounter following kidney transplant Encounter for long-term (current) use of other medications Kidney transplant status, living unrelated donor Kidney replaced by transplant [facility] Diagnosis Immunosuppressive management encounter following kidney transplant Encounter for long-term (current) use of other medications Kidney transplant status, living unrelated donor Kidney replaced by transplant [facility] Kidney replaced by transplant- Primary [facility] Diagnosis Chest pain, unspecified type- Primary 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) Type II or unspecified type diabetes mellitus with neurological manifestations, not stated as uncontrolled Essential hypertension Unspecified essential hypertension Kidney transplant status, living unrelated donor Kidney replaced by transplant [facility] Diagnosis 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) Type II or unspecified type diabetes mellitus with neurological manifestations, not stated as uncontrolled [facility] Diagnosis COVID- Primary [facility] Diagnosis Medicare annual wellness visit, subsequent- Primary Routine general medical examination at a health care facility Stress and adjustment reaction Other specified adjustment reaction Essential hypertension Unspecified essential hypertension Mixed hyperlipidemia MITALI on CPAP Obstructive sleep apnea (adult) (pediatric) Polycystic kidney disease, autosomal dominant Polycystic kidney, autosomal dominant 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) Type II or unspecified type diabetes mellitus with neurological manifestations, not stated as uncontrolled Insomnia, unspecified type Impacted cerumen of both ears Impacted cerumen Tinnitus of both ears Unspecified tinnitus [facility] Diagnosis Kidney transplant status, living unrelated donor Kidney replaced by transplant [facility] Diagnosis Stress and adjustment reaction Other specified adjustment reaction Insomnia, unspecified type [facility] Diagnosis Stress and adjustment reaction Other specified adjustment reaction Insomnia, unspecified type [facility] Diagnosis Immunosuppressive management encounter following kidney transplant Encounter for long-term (current) use of other medications Kidney transplant status, living unrelated donor Kidney replaced by transplant [facility] Diagnosis Kidney transplant status, living unrelated donor Kidney replaced by transplant [facility] Diagnosis Stress and adjustment reaction Other specified adjustment reaction Insomnia, unspecified type Essential hypertension Unspecified essential hypertension Kidney transplant status, living unrelated donor Kidney replaced by transplant Gastroesophageal reflux disease without esophagitis Esophageal reflux 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) Type II or unspecified type diabetes mellitus with neurological manifestations, not stated as uncontrolled Stage 3a chronic kidney disease (HCC) [facility] Diagnosis 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) Type II or unspecified type diabetes mellitus with neurological manifestations, not stated as uncontrolled [facility] Diagnosis Essential hypertension- Primary Unspecified essential hypertension [facility] Diagnosis Essential hypertension Unspecified essential hypertension [facility] Diagnosis Vertigo- Primary Dizziness and giddiness Vertebrobasilar artery syndrome History of stroke Transient ischemic attack (TIA), and cerebral infarction without residual deficits Tinnitus, bilateral Unspecified tinnitus Bilateral hearing loss, unspecified hearing loss type Visual changes Unspecified visual disturbance Hypertension, unspecified type Syncope, near Syncope and collapse [facility] Diagnosis Vertigo- Primary Dizziness and giddiness History of stroke Transient ischemic attack (TIA), and cerebral infarction without residual deficits Tinnitus, bilateral Unspecified tinnitus Hypertension, unspecified type Syncope, near Syncope and collapse documented [facility] Diagnosis Kidney replaced by transplant- Primary [facility] Diagnosis Vertebrobasilar artery syndrome [facility] Diagnosis Essential hypertension- Primary Unspecified essential hypertension 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) Type II or unspecified type diabetes mellitus with neurological manifestations, not stated as uncontrolled Encounter for immunization Need for other specified prophylactic vaccination against single bacterial disease [facility] Diagnosis Kidney replaced by transplant- Primary [facility] Diagnosis Kidney replaced by transplant- Primary Vitamin D deficiency Unspecified vitamin D deficiency [facility] Diagnosis Kidney transplant status, living unrelated donor Kidney replaced by transplant [facility] Diagnosis Immunosuppressive management encounter following kidney transplant Encounter for long-term (current) use of other medications Kidney transplant status, living unrelated donor Kidney replaced by transplant [facility] Diagnosis Medicare annual wellness visit, subsequent- Primary Routine general medical examination at a health care facility Essential hypertension Unspecified essential hypertension Stress and adjustment reaction Other specified adjustment reaction Insomnia, unspecified type Polyp of colon, unspecified part of colon, unspecified type Stage 3a chronic kidney disease (HCC) Kidney transplant status, living unrelated donor Kidney replaced by transplant [facility] Diagnosis Gastroesophageal reflux disease, unspecified whether esophagitis present- Primary Polyp of colon, unspecified part of colon, unspecified type documented [facility] Diagnosis Screen for colon cancer- Primary Special screening for malignant neoplasms, colon documented [facility] Diagnosis Stress and adjustment reaction Other specified adjustment reaction 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) Type II or unspecified type diabetes mellitus with neurological manifestations, not stated as uncontrolled [facility] Diagnosis Polyp of colon, unspecified part of colon, unspecified type- Primary Gastroesophageal reflux disease, unspecified whether esophagitis present [facility] Diagnosis Gastroesophageal reflux disease without esophagitis Esophageal reflux documented in this encounter [facility]* Diagnosis MITALI (obstructive sleep apnea)- Primary Obstructive sleep apnea (adult) (pediatric) documented [facility] Diagnosis Essential hypertension Unspecified essential hypertension [facility] Diagnosis Oral ulceration- Primary Other and unspecified diseases of the oral soft tissues 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) Type II or unspecified type diabetes mellitus with neurological manifestations, not stated as uncontrolled Stress and adjustment reaction Other specified adjustment reaction Essential hypertension Unspecified essential hypertension Kidney transplant status, living unrelated donor Kidney replaced by transplant Osteoporosis, unspecified osteoporosis type, unspecified pathological fracture presence [facility] Diagnosis Oral ulceration- Primary Other and unspecified diseases of the oral soft tissues [facility] Diagnosis Kidney replaced by transplant- Primary Vitamin D deficiency Unspecified vitamin D deficiency [facility] Diagnosis Stress and adjustment reaction Other specified adjustment reaction Insomnia, unspecified type [facility] Diagnosis 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)- Primary Type II or unspecified type diabetes mellitus with neurological manifestations, not stated as uncontrolled [facility] Diagnosis Encounter for aftercare following kidney transplant- Primary Aftercare following organ transplant Therapeutic drug monitoring Encounter for therapeutic drug monitoring Essential hypertension Unspecified essential hypertension skilled nursing (current) use of calcineurin inhibitor skilled nursing current use of systemic steroids Encounter for long-term (current) use of steroids Prophylactic antibiotic Encounter for long-term (current) use of antibiotics Metabolic acidosis Acidosis Secondary renal hyperparathyroidism (HCC) Secondary hyperparathyroidism (of renal origin) Hypomagnesemia Disorders of magnesium metabolism Immunosuppressive management encounter following kidney transplant Encounter for long-term (current) use of other medications Kidney transplant status, living unrelated donor Kidney replaced by transplant [facility] Diagnosis Screening for genitourinary condition Screening for other and unspecified genitourinary condition documented [facility] Diagnosis Chest pain, unspecified type [facility] Diagnosis Stress and adjustment reaction Other specified adjustment reaction Insomnia, unspecified type [facility] Diagnosis Wrist pain, acute, right documented in this encounter [facility]* Diagnosis Need for influenza vaccination- Primary Need for prophylactic vaccination and inoculation against influenza 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) Type II or unspecified type diabetes mellitus with neurological manifestations, not stated as uncontrolled Essential hypertension Unspecified essential hypertension Kidney transplant status, living unrelated donor Kidney replaced by transplant Screening for depression Encounter for screening examination for other mental health and behavioral disorders Stress and adjustment reaction Other specified adjustment reaction Erectile dysfunction, unspecified erectile dysfunction type Prostate cancer screening Special screening for malignant neoplasm of prostate Osteoarthritis of fingers of both hands documented in this encounter [facility] [place] for referral (narrative)* Diagnostic Procedure Only (Routine) - Authorized Specialty Diagnoses / Procedures Referred By Contac t Referred To Contact [facility] Diagnoses History of stroke Procedures US CAROTID BILAT Bill Mckay Jr., MD [address] [place] [address] Us Imaging Referral ID Status Reason Start Date Expiration Date Visits Requested Visits Authorized [id number] Authorized Auto-Generat ed Referral 10/22/2021 11/21/2022 1 1 * Physical Therapy (Routine) - Authorized Specialty Diagnoses / Procedures Referred By Contac t Referred To Contact [facility] Diagnoses Weakness of both legs Numbness of legs Spinal stenosis of lumbar region, unspecified whether neurogenic claudication present Procedures CONSULT TO PHYSICAL THERAPY PHYSICAL THERAPY EVALUATION HIGH COMPLEX 45 MINS Bill Mckay Jr., MD [address] [place] [address] [facility] [place] [address] [place] [address] Referral ID Status Reason Start Date Expiration Date Visits Requested Visits Authorized [id number] Authorized PCP Requested Referral Auto-Generate d Referral 10/22/2021 10/22/2022 99 99 [facility] [place] for referral (narrative)* Outpatient Procedure (Routine) - Pending Review Specialty Diagnoses / Procedures Referred By Contac t Referred To Contact [facility] Diagnoses History of stroke Procedures US CAROTID ARTERIES [facility] DUPLEX SCAN EXTRACRANIAL ART COMPL BI STUDY Bill Mckay Jr., MD [address] [address] [facility] [place] [phone] Referral ID Status Reason Start Date Expiration Date Visits Requested Visits Authorized [id number] Pending Review Auto-Generat ed Referral 10/25/2021 10/25/2022 1 1 [facility] [place] for referral (narrative)* Diagnostic Procedure Only (Routine) - Pending Review Specialty Diagnoses / Procedures Referred By Contac t Referred To Contact [facility] Diagnoses Chest pain, unspecified type Procedures NM CARDIAC PERF STRESS/EXERCISE MYOCARDIAL SPECT MULTIPLE STUDIES Arslan Coelho MD [address] [place] [id number] [facility] [address] [place] [address] Referral ID Status Reason Start Date Expiration Date Visits Requested Visits Authorized [id number] Pending Review Auto-Generat ed Referral 01/08/2022 02/07/2023 1 1 * Outpatient Procedure (Routine) - Pending Review Specialty Diagnoses / Procedures Referred By Contac t Referred To Contact [facility] [place] Diagnoses Chest pain, unspecified type Procedures ECG COMPLETE ECG ROUTINE ECG W/LEAST 12 LDS W/I&R Arslan Coelho MD [address] [place] [id number] [facility] [place] [address] [place] [address] Referral ID Status Reason Start Date Expiration Date Visits Requested Visits Authorized [id number] Pending Review Auto-Generat ed Referral 01/08/2022 01/08/2023 1 1 [facility] Outpatient Procedure (Routine) - Pending Review Specialty Diagnoses / Procedures Referred By Felicia t Referred To Contact [facility] Diagnoses Polyp of colon, unspecified part of colon, unspecified type Procedures COLONOSCOPY DIAGNOSTIC COLONOSCOPY FLX DX W/COLLJ SPEC WHEN PFRMD Ariel King MD [address] [place] [address] [address] Referral ID Status Reason Start Date Expiration Date Visits Requested Visits Authorized [id number] Pending Review Auto-Generat ed Referral 10/09/2023 10/08/2024 1 1 * Outpatient Procedure (Routine) - Pending Review Specialty Diagnoses / Procedures Referred By Felicia moreno Referred To Contact [facility] Diagnoses Gastroesophageal reflux disease, unspecified whether esophagitis present Procedures EGD DIAGNOSTIC ESOPHAGOGASTRODUODENOSC OPY TRANSORAL DIAGNOSTIC Ariel King MD [address] [place] [address] [address] Referral ID Status Reason Start Date Expiration Date Visits Requested Visits Authorized [id number] Pending Review Auto-Generat ed Referral 10/09/2023 10/08/2024 1 1 [facility] Reason for Referral Specialty Diagnoses / Procedures Referred By Felicia moreno Referred To Contact [facility] Diagnoses Weakness of both legs Recurrent falls History of renal transplant Procedures MRI BRAIN WO IVCON MRI BRAIN BRAIN STEM W/O CONTRAST MATERIAL Bill Mckay Jr., MD [address] [facility] [address] [place] [address] Mr Imaging Referral ID Status Reason Start Date Expiration Date V isits Requested Visits Authorized [id number] Closed Auto-Generate d Referral 09/03/2021 10/03/2022 1 1 Specialty Diagnoses / Procedures Referred By Contac t Referred To Contact [facility] IM[facility] Diagnoses Spinal stenosis of lumbar region without neurogenic claudication Procedures MRI LUMBAR SPINE WO IVCON MRI SPINAL CANAL LUMBAR W/O CONTRAST MATERIAL Bill Mckay Jr., MD [address] [facility] [address] [place] [address] Mr Imaging Referral ID Status Reason Start Date Expiration Date V isits Requested Visits Authorized [id number] Closed Auto-Generate d Referral 08/27/2021 09/26/2022 1 1 Specialty Diagnoses / Procedures Referred By Contac t Referred To Contact Ent - Otolaryngology Diagnoses Impacted cerumen of both ears Tinnitus of both ears Procedures CONSULT TO ENT Arslan Coelho MD [address] [place] [address] Referral ID Status Reason Start Date Expiration Date Visits Requested Visits Authorized [id number] Ref Not Required PCP Requested Referral 08/19/2022 08/19/2023 1 1 Specialty Diagnoses / Procedures Referred By Contac t Referred To Contact MR IMAGING Diagnoses Vertebrobasilar artery syndrome Procedures MRA CAROTID WO IVCON MRA, NECK; W/O CONTRAST Bill Mckay Jr., MD [address] [facility] [address] [place] [address] Mr Imaging Referral ID Status Reason Start Date Expiration Date Visits Requested Visits Authorized [id number] Pending Review Auto-Generat ed Referral 01/16/2023 02/15/2024 1 1 Specialty Diagnoses / Procedures Referred By Contac t Referred To Contact MR IMAGING Diagnoses Vertebrobasilar artery syndrome Procedures MRA BRAIN WO IVCON MRA, HEAD W/O CONTRAST Bill Mkcay Jr., MD [address] [facility] [address] [place] [address] Mr Imaging Referral ID Status Reason Start Date Expiration Date Visits Requested Visits Authorized [id number] Pending Review Auto-Generat ed Referral 01/16/2023 02/15/2024 1 1 Specialty Diagnoses / Procedures Referred By Contac t Referred To Contact MR IMAGING Diagnoses Vertebrobasilar artery syndrome Procedures MRI BRAIN WO IVCON MRI BRAIN BRAIN STEM W/O CONTRAST MATERIAL Bill Mckay Jr., MD [address] [address] Mr Imaging Referral ID Status Reason Start Date Expiration Date Visits Requested Visits Authorized [id number] Pending Review Auto-Generat ed Referral 01/16/2023 02/15/2024 1 1 Specialty Diagnoses / Procedures Referred By Contac t Referred To Contact General Surgery Diagnoses Polyp of colon, unspecified part of colon, unspecified type Procedures CONSULT TO GENERAL SURGERY OFFICE/OUTPATIENT [facility]3] 60 MINUTES Arslan Coelho MD [address] [place] [address] Referral ID Status Reason Start Date Expiration Date Visits Requested Visits Authorized [id number] Authorized PCP Requested Referral 08/24/2023 08/23/2024 1 1 Specialty Diagnoses / Procedures Referred By Contac t Referred To Contact General Surgery Diagnoses Screen for colon cancer Procedures CONSULT TO GENERAL SURGERY Fidel Chou [address] [place] [address] Referral ID Status Reason Start Date Expiration Date Visits Requested Visits Authorized [id number] Ref Not Required PCP Requested Referral 10/18/2023 10/17/2024 1 1 Specialty Diagnoses / Procedures Referred By Contac t Referred To Contact General Surgery Diagnoses Polyp of colon, unspecified part of colon, unspecified type Gastroesophageal reflux disease, unspecified whether esophagitis present Procedures CONSULT TO GENERAL SURGERY Ariel King MD [address] [place] [address] Fidel Chou MD [address] [place] [address] Referral ID Status Reason Start Date Expiration Date Visits Requested Visits Authorized [id number] Ref Not Required PCP Requested Referral 10/26/2023 10/25/2024 1 1 Specialty Diagnoses / Procedures Referred By Contac t Referred To Contact General Surgery Diagnoses Polyp of colon, unspecified part of colon, unspecified type Gastroesophageal reflux disease, unspecified whether esophagitis present Procedures CONSULT TO GENERAL SURGERY OFFICE/OUTPATIENT [facility] 60 MINUTES Ariel King MD [address] [place] [address] Referral ID Status Reason Start Date Expiration Date Visits Requested Visits Authorized [id number] Authorized PCP Requested Referral 03/21/2024 03/21/2025 1 1 Advance Directives No Advanced Directives Records FoundDocuments on File Type Date Recorded 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 Advance Directive(s) 01/18/2019 8:41 PM Advance Directive(s) 04/16/2018 7:01 AM Advance Directive(s) 04/17/2013 2:36 PM Advance Directive(s) 04/17/2013 2:37 PM Documents on File Type Date Recorded 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 Advance Directive(s) 01/18/2019 8:41 PM Advance Directive(s) 04/16/2018 7:01 AM Advance Directive(s) 04/17/2013 2:36 PM Advance Directive(s) 04/17/2013 2:37 PM Documents on File Type Date Recorded 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 Advance Directive(s) 04/17/2013 2:36 PM Advance Directive(s) 04/17/2013 2:37 PM Documents on File Type Date Recorded 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 Advance Directive(s) 04/17/2013 2:36 PM Advance Directive(s) 04/17/2013 2:37 PM Documents on File Type Date Recorded 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 Advance Directive(s) 04/17/2013 2:37 PM Advance Directive(s) 04/17/2013 2:36 PM Documents on File Type Date Recorded 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 Advance Directive(s) 04/17/2013 2:37 PM Advance Directive(s) 04/17/2013 2:36 PM Summary Purpose Family History No Family History Records FoundNo Family History Records Found Additional Source Comments Source Comments (unrecognize d section and content) In the event this informatio n is protected by the Federal Confidentiality of Alcohol and Drug Abuse Patient Records regulations: The Federal rules restrict any use of the information to criminally investigate or prosecute any alcohol or drug abuse patient.[facility] the event this information is protected by the Federal Confidentiality of Alcohol and Drug Abuse Patient Records regulations: The Federal rules restrict any use of the information to criminally investigate or prosecute any alcohol or drug abuse patient.[facility] the event this information is protected by the Federal Confidentiality of Alcohol and Drug Abuse Patient Records regulations: The Federal rules restrict any use of the information to criminally investigate or prosecute any alcohol or drug abuse patient.[facility] the event this information is protected by the Federal Confidentiality of Alcohol and Drug Abuse Patient Records regulations: The Federal rules restrict any use of the information to criminally investigate or prosecute any alcohol or drug abuse patient.[facility] the event this information is protected by the Federal Confidentiality of Alcohol and Drug Abuse Patient Records regulations: The Federal rules restrict any use of the information to criminally investigate or prosecute any alcohol or drug abuse patient.[facility] the event this information is protected by the Federal Confidentiality of Alcohol and Drug Abuse Patient Records regulations: The Federal rules restrict any use of the information to criminally investigate or prosecute any alcohol or drug abuse patient.[facility] the event this information is protected by the Federal Confidentiality of Alcohol and Drug Abuse Patient Records regulations: The Federal rules restrict any use of the information to criminally investigate or prosecute any alcohol or drug abuse patient.[facility] the event this information is protected by the Federal Confidentiality of Alcohol and Drug Abuse Patient Records regulations: The Federal rules restrict any use of the information to criminally investigate or prosecute any alcohol or drug abuse patient.[facility] the event this information is protected by the Federal Confidentiality of Alcohol and Drug Abuse Patient Records regulations: The Federal rules restrict any use of the information to criminally investigate or prosecute any alcohol or drug abuse patient.[facility] the event this information is protected by the Federal Confidentiality of Alcohol and Drug Abuse Patient Records regulations: The Federal rules restrict any use of the information to criminally investigate or prosecute any alcohol or drug abuse patient.[facility] the event this information is protected by the Federal Confidentiality of Alcohol and Drug Abuse Patient Records regulations: The Federal rules restrict any use of the information to criminally investigate or prosecute any alcohol or drug abuse patient.[facility] the event this information is protected by the Federal Confidentiality of Alcohol and Drug Abuse Patient Records regulations: The Federal rules restrict any use of the information to criminally investigate or prosecute any alcohol or drug abuse patient.[facility] HospitalIn the event this information is protected by the Federal Confidentiality of Alcohol and Drug Abuse Patient Records regulations: The Federal rules restrict any use of the information to criminally investigate or prosecute any alcohol or drug abuse patient.[facility] HospitalIn the event this information is protected by the Federal Confidentiality of Alcohol and Drug Abuse Patient Records regulations: The Federal rules restrict any use of the information to criminally investigate or prosecute any alcohol or drug abuse patient.[facility] HospitalIn the event this information is protected by the Federal Confidentiality of Alcohol and Drug Abuse Patient Records regulations: The Federal rules restrict any use of the information to criminally investigate or prosecute any alcohol or drug abuse patient.[facility] HospitalIn the event this information is protected by the Federal Confidentiality of Alcohol and Drug Abuse Patient Records regulations: The Federal rules restrict any use of the information to criminally investigate or prosecute any alcohol or drug abuse patient.[facility] HospitalIn the event this information is protected by the Federal Confidentiality of Alcohol and Drug Abuse Patient Records regulations: The Federal rules restrict any use of the information to criminally investigate or prosecute any alcohol or drug abuse patient.[facility] HospitalIn the event this information is protected by the Federal Confidentiality of Alcohol and Drug Abuse Patient Records regulations: The Federal rules restrict any use of the information to criminally investigate or prosecute any alcohol or drug abuse patient.[facility] HospitalIn the event this information is protected by the Federal Confidentiality of Alcohol and Drug Abuse Patient Records regulations: The Federal rules restrict any use of the information to criminally investigate or prosecute any alcohol or drug abuse patient.[facility] HospitalIn the event this information is protected by the Federal Confidentiality of Alcohol and Drug Abuse Patient Records regulations: The Federal rules restrict any use of the information to criminally investigate or prosecute any alcohol or drug abuse patient.[facility] HospitalIn the event this information is protected by the Federal Confidentiality of Alcohol and Drug Abuse Patient Records regulations: The Federal rules restrict any use of the information to criminally investigate or prosecute any alcohol or drug abuse patient.[facility] HospitalIn the event this information is protected by the Federal Confidentiality of Alcohol and Drug Abuse Patient Records regulations: The Federal rules restrict any use of the information to criminally investigate or prosecute any alcohol or drug abuse patient.[facility] HospitalIn the event this information is protected by the Federal Confidentiality of Alcohol and Drug Abuse Patient Records regulations: The Federal rules restrict any use of the information to criminally investigate or prosecute any alcohol or drug abuse patient.[facility] HospitalIn the event this information is protected by the Federal Confidentiality of Alcohol and Drug Abuse Patient Records regulations: The Federal rules restrict any use of the information to criminally investigate or prosecute any alcohol or drug abuse patient.[facility] HospitalIn the event this information is protected by the Federal Confidentiality of Alcohol and Drug Abuse Patient Records regulations: The Federal rules restrict any use of the information to criminally investigate or prosecute any alcohol or drug abuse patient.[facility] HospitalIn the event this information is protected by the Federal Confidentiality of Alcohol and Drug Abuse Patient Records regulations: The Federal rules restrict any use of the information to criminally investigate or prosecute any alcohol or drug abuse patient.[facility] HospitalIn the event this information is protected by the Federal Confidentiality of Alcohol and Drug Abuse Patient Records regulations: The Federal rules restrict any use of the information to criminally investigate or prosecute any alcohol or drug abuse patient.[facility] HospitalIn the event this information is protected by the Federal Confidentiality of Alcohol and Drug Abuse Patient Records regulations: The Federal rules restrict any use of the information to criminally investigate or prosecute any alcohol or drug abuse patient.[facility] HospitalIn the event this information is protected by the Federal Confidentiality of Alcohol and Drug Abuse Patient Records regulations: The Federal rules restrict any use of the information to criminally investigate or prosecute any alcohol or drug abuse patient.[facility] HospitalIn the event this information is protected by the Federal Confidentiality of Alcohol and Drug Abuse Patient Records regulations: The Federal rules restrict any use of the information to criminally investigate or prosecute any alcohol or drug abuse patient.[facility] HospitalIn the event this information is protected by the Federal Confidentiality of Alcohol and Drug Abuse Patient Records regulations: The Federal rules restrict any use of the information to criminally investigate or prosecute any alcohol or drug abuse patient.[facility] HospitalIn the event this information is protected by the Federal Confidentiality of Alcohol and Drug Abuse Patient Records regulations: The Federal rules restrict any use of the information to criminally investigate or prosecute any alcohol or drug abuse patient.[facility] the event this information is protected by the Federal Confidentiality of Alcohol and Drug Abuse Patient Records regulations: The Federal rules restrict any use of the information to criminally investigate or prosecute any alcohol or drug abuse patient.[facility] HospitalIn the event this information is protected by the Federal Confidentiality of Alcohol and Drug Abuse Patient Records regulations: The Federal rules restrict any use of the information to criminally investigate or prosecute any alcohol or drug abuse patient.[facility] HospitalIn the event this information is protected by the Federal Confidentiality of Alcohol and Drug Abuse Patient Records regulations: The Federal rules restrict any use of the information to criminally investigate or prosecute any alcohol or drug abuse patient.[facility] HospitalIn the event this information is protected by the Federal Confidentiality of Alcohol and Drug Abuse Patient Records regulations: The Federal rules restrict any use of the information to criminally investigate or prosecute any alcohol or drug abuse patient.[facility] HospitalIn the event this information is protected by the Federal Confidentiality of Alcohol and Drug Abuse Patient Records regulations: The Federal rules restrict any use of the information to criminally investigate or prosecute any alcohol or drug abuse patient.[facility] HospitalIn the event this information is protected by the Federal Confidentiality of Alcohol and Drug Abuse Patient Records regulations: The Federal rules restrict any use of the information to criminally investigate or prosecute any alcohol or drug abuse patient.[facility] HospitalIn the event this information is protected by the Federal Confidentiality of Alcohol and Drug Abuse Patient Records regulations: The Federal rules restrict any use of the information to criminally investigate or prosecute any alcohol or drug abuse patient.[facility] HospitalIn the event this information is protected by the Federal Confidentiality of Alcohol and Drug Abuse Patient Records regulations: The Federal rules restrict any use of the information to criminally investigate or prosecute any alcohol or drug abuse patient.[facility] HospitalIn the event this information is protected by the Federal Confidentiality of Alcohol and Drug Abuse Patient Records regulations: The Federal rules restrict any use of the information to criminally investigate or prosecute any alcohol or drug abuse patient.[facility] HospitalIn the event this information is protected by the Federal Confidentiality of Alcohol and Drug Abuse Patient Records regulations: The Federal rules restrict any use of the information to criminally investigate or prosecute any alcohol or drug abuse patient.[facility] HospitalIn the event this information is protected by the Federal Confidentiality of Alcohol and Drug Abuse Patient Records regulations: The Federal rules restrict any use of the information to criminally investigate or prosecute any alcohol or drug abuse patient.[facility] HospitalIn the event this information is protected by the Federal Confidentiality of Alcohol and Drug Abuse Patient Records regulations: The Federal rules restrict any use of the information to criminally investigate or prosecute any alcohol or drug abuse patient.[facility] HospitalIn the event this information is protected by the Federal Confidentiality of Alcohol and Drug Abuse Patient Records regulations: The Federal rules restrict any use of the information to criminally investigate or prosecute any alcohol or drug abuse patient.[facility] HospitalIn the event this information is protected by the Federal Confidentiality of Alcohol and Drug Abuse Patient Records regulations: The Federal rules restrict any use of the information to criminally investigate or prosecute any alcohol or drug abuse patient.[facility] HospitalIn the event this information is protected by the Federal Confidentiality of Alcohol and Drug Abuse Patient Records regulations: The Federal rules restrict any use of the information to criminally investigate or prosecute any alcohol or drug abuse patient.[facility] HospitalIn the event this information is protected by the Federal Confidentiality of Alcohol and Drug Abuse Patient Records regulations: The Federal rules restrict any use of the information to criminally investigate or prosecute any alcohol or drug abuse patient.[facility] HospitalIn the event this information is protected by the Federal Confidentiality of Alcohol and Drug Abuse Patient Records regulations: The Federal rules restrict any use of the information to criminally investigate or prosecute any alcohol or drug abuse patient.[facility] HospitalIn the event this information is protected by the Federal Confidentiality of Alcohol and Drug Abuse Patient Records regulations: The Federal rules restrict any use of the information to criminally investigate or prosecute any alcohol or drug abuse patient.[facility] HospitalIn the event this information is protected by the Federal Confidentiality of Alcohol and Drug Abuse Patient Records regulations: The Federal rules restrict any use of the information to criminally investigate or prosecute any alcohol or drug abuse patient.[facility] HospitalIn the event this information is protected by the Federal Confidentiality of Alcohol and Drug Abuse Patient Records regulations: The Federal rules restrict any use of the information to criminally investigate or prosecute any alcohol or drug abuse patient.[facility] HospitalIn the event this information is protected by the Federal Confidentiality of Alcohol and Drug Abuse Patient Records regulations: The Federal rules restrict any use of the information to criminally investigate or prosecute any alcohol or drug abuse patient.[facility] HospitalIn the event this information is protected by the Federal Confidentiality of Alcohol and Drug Abuse Patient Records regulations: The Federal rules restrict any use of the information to criminally investigate or prosecute any alcohol or drug abuse patient.[facility] HospitalIn the event this information is protected by the Federal Confidentiality of Alcohol and Drug Abuse Patient Records regulations: The Federal rules restrict any use of the information to criminally investigate or prosecute any alcohol or drug abuse patient.[facility] HospitalIn the event this information is protected by the Federal Confidentiality of Alcohol and Drug Abuse Patient Records regulations: The Federal rules restrict any use of the information to criminally investigate or prosecute any alcohol or drug abuse patient.[facility] HospitalIn the event this information is protected by the Federal Confidentiality of Alcohol and Drug Abuse Patient Records regulations: The Federal rules restrict any use of the information to criminally investigate or prosecute any alcohol or drug abuse patient.[facility] HospitalIn the event this information is protected by the Federal Confidentiality of Alcohol and Drug Abuse Patient Records regulations: The Federal rules restrict any use of the information to criminally investigate or prosecute any alcohol or drug abuse patient.[facility] HospitalIn the event this information is protected by the Federal Confidentiality of Alcohol and Drug Abuse Patient Records regulations: The Federal rules restrict any use of the information to criminally investigate or prosecute any alcohol or drug abuse patient.[facility] HospitalIn the event this information is protected by the Federal Confidentiality of Alcohol and Drug Abuse Patient Records regulations: The Federal rules restrict any use of the information to criminally investigate or prosecute any alcohol or drug abuse patient.[facility] HospitalIn the event this information is protected by the Federal Confidentiality of Alcohol and Drug Abuse Patient Records regulations: The Federal rules restrict any use of the information to criminally investigate or prosecute any alcohol or drug abuse patient.[facility] HospitalIn the event this information is protected by the Federal Confidentiality of Alcohol and Drug Abuse Patient Records regulations: The Federal rules restrict any use of the information to criminally investigate or prosecute any alcohol or drug abuse patient.[facility] HospitalIn the event this information is protected by the Federal Confidentiality of Alcohol and Drug Abuse Patient Records regulations: The Federal rules restrict any use of the information to criminally investigate or prosecute any alcohol or drug abuse patient.[facility] HospitalIn the event this information is protected by the Federal Confidentiality of Alcohol and Drug Abuse Patient Records regulations: The Federal rules restrict any use of the information to criminally investigate or prosecute any alcohol or drug abuse patient.[facility] HospitalIn the event this information is protected by the Federal Confidentiality of Alcohol and Drug Abuse Patient Records regulations: The Federal rules restrict any use of the information to criminally investigate or prosecute any alcohol or drug abuse patient.[facility] HospitalIn the event this information is protected by the Federal Confidentiality of Alcohol and Drug Abuse Patient Records regulations: The Federal rules restrict any use of the information to criminally investigate or prosecute any alcohol or drug abuse patient.[facility] HospitalIn the event this information is protected by the Federal Confidentiality of Alcohol and Drug Abuse Patient Records regulations: The Federal rules restrict any use of the information to criminally investigate or prosecute any alcohol or drug abuse patient.[facility] HospitalIn the event this information is protected by the Federal Confidentiality of Alcohol and Drug Abuse Patient Records regulations: The Federal rules restrict any use of the information to criminally investigate or prosecute any alcohol or drug abuse patient.[facility] HospitalIn the event this information is protected by the Federal Confidentiality of Alcohol and Drug Abuse Patient Records regulations: The Federal rules restrict any use of the information to criminally investigate or prosecute any alcohol or drug abuse patient.[facility] HospitalIn the event this information is protected by the Federal Confidentiality of Alcohol and Drug Abuse Patient Records regulations: The Federal rules restrict any use of the information to criminally investigate or prosecute any alcohol or drug abuse patient.[facility] HospitalIn the event this information is protected by the Federal Confidentiality of Alcohol and Drug Abuse Patient Records regulations: The Federal rules restrict any use of the information to criminally investigate or prosecute any alcohol or drug abuse patient.[facility] HospitalIn the event this information is protected by the Federal Confidentiality of Alcohol and Drug Abuse Patient Records regulations: The Federal rules restrict any use of the information to criminally investigate or prosecute any alcohol or drug abuse patient.[facility] HospitalIn the event this information is protected by the Federal Confidentiality of Alcohol and Drug Abuse Patient Records regulations: The Federal rules restrict any use of the information to criminally investigate or prosecute any alcohol or drug abuse patient.[facility] HospitalIn the event this information is protected by the Federal Confidentiality of Alcohol and Drug Abuse Patient Records regulations: The Federal rules restrict any use of the information to criminally investigate or prosecute any alcohol or drug abuse patient.[facility] HospitalIn the event this information is protected by the Federal Confidentiality of Alcohol and Drug Abuse Patient Records regulations: The Federal rules restrict any use of the information to criminally investigate or prosecute any alcohol or drug abuse patient.[facility] HospitalIn the event this information is protected by the Federal Confidentiality of Alcohol and Drug Abuse Patient Records regulations: The Federal rules restrict any use of the information to criminally investigate or prosecute any alcohol or drug abuse patient.[facility] HospitalIn the event this information is protected by the Federal Confidentiality of Alcohol and Drug Abuse Patient Records regulations: The Federal rules restrict any use of the information to criminally investigate or prosecute any alcohol or drug abuse patient.[facility] HospitalIn the event this information is protected by the Federal Confidentiality of Alcohol and Drug Abuse Patient Records regulations: The Federal rules restrict any use of the information to criminally investigate or prosecute any alcohol or drug abuse patient.[facility] HospitalIn the event this information is protected by the Federal Confidentiality of Alcohol and Drug Abuse Patient Records regulations: The Federal rules restrict any use of the information to criminally investigate or prosecute any alcohol or drug abuse patient.[facility] HospitalIn the event this information is protected by the Federal Confidentiality of Alcohol and Drug Abuse Patient Records regulations: The Federal rules restrict any use of the information to criminally investigate or prosecute any alcohol or drug abuse patient.[facility] HospitalIn the event this information is protected by the Federal Confidentiality of Alcohol and Drug Abuse Patient Records regulations: The Federal rules restrict any use of the information to criminally investigate or prosecute any alcohol or drug abuse patient.[facility] HospitalIn the event this information is protected by the Federal Confidentiality of Alcohol and Drug Abuse Patient Records regulations: The Federal rules restrict any use of the information to criminally investigate or prosecute any alcohol or drug abuse patient.[facility] the event this information is protected by the Federal Confidentiality of Alcohol and Drug Abuse Patient Records regulations: The Federal rules restrict any use of the information to criminally investigate or prosecute any alcohol or drug abuse patient.[facility] HospitalIn the event this information is protected by the Federal Confidentiality of Alcohol and Drug Abuse Patient Records regulations: The Federal rules restrict any use of the information to criminally investigate or prosecute any alcohol or drug abuse patient.[facility] HospitalIn the event this information is protected by the Federal Confidentiality of Alcohol and Drug Abuse Patient Records regulations: The Federal rules restrict any use of the information to criminally investigate or prosecute any alcohol or drug abuse patient.[facility] HospitalIn the event this information is protected by the Federal Confidentiality of Alcohol and Drug Abuse Patient Records regulations: The Federal rules restrict any use of the information to criminally investigate or prosecute any alcohol or drug abuse patient.[facility] Reason for Visit (unrecogniz ed section and content) Specialty Diagnoses / Procedures Referred By Contac t Referred To Contact MR IMAGING Diagnoses Weakness of both legs Recurrent falls History of renal transplant Procedures MRI BRAIN WO IVCON MRI BRAIN BRAIN STEM W/O CONTRAST MATERIAL Bill Mckay Jr., MD [address] [place] [address] Mr Imaging Referral ID Status Reason Start Date Expiration Date V isits Requested Visits Authorized [id number] Closed Auto-Generate d Referral 09/03/2021 10/03/2022 1 1 Specialty Diagnoses / Procedures Referred By Contac t Referred To Contact MR IMAGING Diagnoses Spinal stenosis of lumbar region without neurogenic claudication Procedures MRI LUMBAR SPINE WO IVCON MRI SPINAL CANAL LUMBAR W/O CONTRAST MATERIAL Bill Mckay Jr., MD [address] [address] Mr Imaging Referral ID Status Reason Start Date Expiration Date V isits Requested Visits Authorized [id number] Closed Auto-Generate d Referral 08/27/2021 09/26/2022 1 1 Reason Comments New NI Medical Follow up review res ults Specialty Diagnoses / Procedures Referred By Contac t Referred To Contact Neurology Diagnoses Fall, sequela Weakness of lower extremity, unspecified laterality Numbness of legs Procedures CONSULT TO NEUROLOGY NEW PATIENT VISIT LEVEL 5 Arslan Coelho MD [address] [place] [address] Referral ID Status Reason Start Date Expiration Date V isits Requested Visits Authorized [id number] Closed PCP Requested Referral 07/14/2021 07/14/2022 1 1 Reason Comments Orders Reason Onset Date Comments Refill Request 11/04/2021 Reason Comments PAP order Reason Comments Rx Refills Specialty Diagnoses / Procedures Referred By Contac t Referred To Contact [facility] [place] [facility] SPINE Diagnoses Weakness of both legs Numbness of legs Spinal stenosis of lumbar region, unspecified whether neurogenic claudication present Procedures [facility]/OUTPATIENT [facility]3] 60-74 MINUTES Bill Mckay Jr., MD [address] [facility] [address] [place] [address] [facility] [id number] [place] [address] Referral ID Status Reason Start Date Expiration Date V isits Requested Visits Authorized [id number] Closed PCP Requested Referral 11/09/2021 11/09/2022 1 1 Reason Onset Date Comments Refill Request 12/08/2021 Reason Onset Date Comments Refill Request 12/10/2021 Reason Comments Discussion Reason Comments Cough Chest Congestion Reason Comments Covid Positive Reason Comments Medication Question Reason Comments Results Reason Comments Medicare Wellness Exam Reason Comments Follow Up Reason Comments Refill Request Reason Onset Date Comments Refill Request 09/13/2022 Reason Comments Insurance Authorization Reason Onset Date Comments Refill Request 11/05/2022 Reason Comments F/U 3 Month Reason Onset Date Comments Refill Request 12/10/2022 Reason Comments Blood Pressure Check Reason Comments Appointment Reason Comments Follow Up Reason Comments zio monitor Reason Comments Abnormal Lab Reason Comments Follow Up 3 month follow up Specialty Diagnoses / Procedures Referred By Contac t Referred To Contact MR IMAGING Diagnoses Vertebrobasilar artery syndrome Procedures MRA BRAIN WO IVCON MRA, HEAD W/O CONTRAST Bill Mckay Jr., MD [address] [facility] [address] [place] [address] [place] [address] Referral ID Status Reason Start Date Expiration Date Visits Requested Visits Authorized [id number] Authorized Auto-Generat ed Referral 01/16/2023 02/15/2024 1 1 Reason Comments Medicare Wellness Exam F/U 3 Month Reason Comments Consult colonoscopy Specialty Diagnoses / Procedures Referred By Contac t Referred To Contact General Surgery Diagnoses Polyp of colon, unspecified part of colon, unspecified type Procedures CONSULT TO GENERAL SURGERY OFFICE/OUTPATIENT [facility] ([facility])[3] 60 MINUTES Arslan Coelho MD [address] [place] [address] Referral ID Status Reason Start Date Expiration Date V isits Requested Visits Authorized [id number] Closed PCP Requested Referral 08/24/2023 08/23/2024 1 1 Reason Comments Orders Reason Onset Date Comments Refill Request 10/25/2023 Reason Onset Date Comments Refill Request 10/29/2023 Reason Comments Follow Up New Patient MITALI Pt reported BIPA P 2017, new from [facility] around 1999, c/o machine possibly not functioning properly. Reason Comments PAP Therapy Follow Up 10/03/23 - 11/01/23 Reason Onset Date Comments colorectal cancer screening 10/16/2023 Reason Onset Date Comments Refill Request 11/21/2023 Reason Comments Returning provider call Reason Comments Return Call Request Reason Onset Date Comments Refill Request 03/01/2024 Reason Comments Fax Last OV Reason Onset Date Comments Refill Request 04/05/2024 Reason Onset Date Comments 5 month follow-up Immunizations 04/24/2024 Flu vaccination Care Teams (unrecognized sec tion and content) Warp Clamper Relationship Specialty Start Date End Date Arslan Coelho MD [address] [place], [place] [id number] PCP - General Internal Medicine 10/13/16 Warp Clamper Relationship Specialty Start Date End Date Arslan Coelho MD [address] [place], [place] [id number] PCP - General Internal Medicine 10/13/16 Warp Clamper Relationship Specialty Start Date End Date Arslan Coelho MD [address] [place], [place] [id number] PCP - General Internal Medicine 10/13/16 Warp Clamper Relationship Specialty Start Date End Date Arslan Coelho MD [address] [place], [place] [address] PCP - General Internal Medicine 10/13/16 Warp Clamper Relationship Specialty Start Date End Date Arslan Coelho MD [address] [facility] [place] [address] PCP - General Internal Medicine 10/13/16 Warp Clamper Relationship Specialty Start Date End Date Arslan Coelho MD [address] [facility] [place] [address] PCP - General Internal Medicine 10/13/16 Warp Clamper Relationship Specialty Start Date End Date Arslan Coelho MD [address] [facility] [place] [address] PCP - General Internal Medicine 10/13/16 Warp Clamper Relationship Specialty Start Date End Date Arslan Coelho MD [address] [facility] [place] [address] PCP - General Internal Medicine 10/13/16 Warp Clamper Relationship Specialty Start Date End Date Arslan Coelho MD [address] [facility] [place] [address] PCP - General Internal Medicine 10/13/16 Warp Clamper Relationship Specialty Start Date End Date Arslan Coelho MD [address] [facility] [place] [address] PCP - General Internal Medicine 10/13/16 Warp Clamper Relationship Specialty Start Date End Date Arslan Coelho MD [address] [facility] [place] [address] PCP - General Internal Medicine 10/13/16 Warp Clamper Relationship Specialty Start Date End Date Arslan Coelho MD [address] [facility] [place] [address] PCP - General Internal Medicine 10/13/16 Warp Clamper Relationship Specialty Start Date End Date Arslan Coelho MD [address] [facility] [place] [address] PCP - General Internal Medicine 10/13/16 Warp Clamper Relationship Specialty Start Date End Date Arslan Coelho MD [address] [facility] [place] [address] PCP - General Internal Medicine 10/13/16 Warp Clamper Relationship Specialty Start Date End Date Arslan Coelho MD [address] [facility] [place] [address] PCP - General Internal Medicine 10/13/16 Warp Clamper Relationship Specialty Start Date End Date Arslan Coelho MD [address] [facility] [place] [address] PCP - General Internal Medicine 10/13/16 Warp Clamper Relationship Specialty Start Date End Date Arslan Coelho MD [address] [facility] [place] [address] PCP - General Internal Medicine 10/13/16 Warp Clamper Relationship Specialty Start Date End Date Arslan Coelho MD [address] [facility] [place] [address] PCP - General Internal Medicine 10/13/16 Warp Clamper Relationship Specialty Start Date End Date Arslan Coelho MD [address] [facility] [place] [address] PCP - General Internal Medicine 10/13/16 Warp Clamper Relationship Specialty Start Date End Date Arslan Coelho MD [address] [facility] [place] [address] PCP - General Internal Medicine 10/13/16 Warp Clamper Relationship Specialty Start Date End Date Arslan Coelho MD [address] [facility] [place] [address] PCP - General Internal Medicine 10/13/16 Warp Clamper Relationship Specialty Start Date End Date Arslan Coelho MD [address] [facility] [place] [address] PCP - General Internal Medicine 10/13/16 Warp Clamper Relationship Specialty Start Date End Date Arslan Coelho MD [address] [facility] [place] [address] PCP - General Internal Medicine 10/13/16 Warp Clamper Relationship Specialty Start Date End Date Arslan Coelho MD [address] [facility] [place] [address] PCP - General Internal Medicine 10/13/16 Warp Clamper Relationship Specialty Start Date End Date Arslan Coleho MD [address] [facility] [place] [address] PCP - General Internal Medicine 10/13/16 Warp Clamper Relationship Specialty Start Date End Date Arslan Coelho MD [address] [facility] [place] [address] PCP - General Internal Medicine 10/13/16 Warp Clamper Relationship Specialty Start Date End Date Arslan Coelho MD [address] [facility] [place] [address] PCP - General Internal Medicine 10/13/16 Warp Clamper Relationship Specialty Start Date End Date Arslan Coelho MD [address] [facility] [place] [address] PCP - General Internal Medicine 10/13/16 Warp Clamper Relationship Specialty Start Date End Date Arslan Coelho MD [address] [facility] [place] [address] PCP - General Internal Medicine 10/13/16 Warp Clamper Relationship Specialty Start Date End Date Arslan Coelho MD [address] [facility] [place] [address] PCP - General Internal Medicine 10/13/16 Warp Clamper Relationship Specialty Start Date End Date Arslan Coelho MD [address] [facility] [place] [address] PCP - General Internal Medicine 10/13/16 Warp Clamper Relationship Specialty Start Date End Date Arslan Coelho MD [address] [facility] [place] [address] PCP - General Internal Medicine 10/13/16 Warp Clamper Relationship Specialty Start Date End Date Arslan Coelho MD [address] [facility], [place] [id number] PCP - General Internal Medicine 10/13/16 Preeti Cruz PA-C [address] [place], [place] [id number] Transplant Center 05/29/23 Warp Clamper Relationship Specialty Start Date End Date Arslan Coelho MD [address] [facility], [place] [address] PCP - General Internal Medicine 10/13/16 Preeti Cruz PA-C [address] [place] [address] Transplant Center 05/29/23 Warp Clamper Relationship Specialty Start Date End Date Arslan Coelho MD [address] [facility] [place] [address] PCP - General Internal Medicine 10/13/16 Preeti Cruz PA-C [address] [place] [address] Transplant Center 05/29/23 Warp Clamper Relationship Specialty Start Date End Date Arslan Coelho MD [address] [place], [place] [address] PCP - General Internal Medicine 10/13/16 Preeti Cruz PA-C [address] [place] [address] Transplant Center 05/29/23 Warp Clamper Relationship Specialty Start Date End Date Arslan Coelho MD [address] [place], [place] [address]871 PCP - General Internal Medicine 10/13/16 Preeti Cruz PA-C [address] [place], [place] [id number] Transplant Center 05/29/23 Warp Clamper Relationship Specialty Start Date End Date Arslan Coelho MD [address] [place], [place] [id number] PCP - General Internal Medicine 10/13/16 Preeti Cruz PA-C [address] [place] [address] Transplant Center 05/29/23 Warp Clamper Relationship Specialty Start Date End Date Arslan Coelho MD [address] [place] [address] PCP - General Internal Medicine 10/13/16 Preeti Cruz PA-C [address] [place] [address] Transplant Center 05/29/23 Warp Clamper Relationship Specialty Start Date End Date Arslan Coelho MD [address] [place], [place] [address] PCP - General Internal Medicine 10/13/16 Preeti Cruz PA-C [address] [place] [address] Transplant Center 05/29/23 Warp Clamper Relationship Specialty Start Date End Date Arslan Coelho MD [address] [place], [place] 267301 PCP - General Internal Medicine 10/13/16 Preeti Cruz PA-C [address] [place] [address] Transplant Center 05/29/23 Warp Clamper Relationship Specialty Start Date End Date Arslna Coelho MD [address] [place], [place] [address]901 PCP - General Internal Medicine 10/13/16 Preeti Cruz PA-C [address] [place] [address] Transplant Center 05/29/23 Warp Clamper Relationship Specialty Start Date End Date Arslan Coelho MD [address] [place] [address] PCP - General Internal Medicine 10/13/16 Preeti Cruz PA-C [address] [place] [address] Transplant Center 05/29/23 Warp Clamper Relationship Specialty Start Date End Date Arslan Coelho MD [address] [place], [place] [address]41 PCP - General Internal Medicine 10/13/16 Preeti Cruz PA-C [address] [place] [address] Transplant Center 05/29/23 Warp Clamper Relationship Specialty Start Date End Date Arslan Coelho MD [address] [place], [place] [address]24[address] PCP - General Internal Medicine 10/13/16 Preeti Cruz PA-C [address] [place] [address] Transplant Center 05/29/23 Warp Clamper Relationship Specialty Start Date End Date Arslan Coelho MD [address] [place], [place] [id number] PCP - General Internal Medicine 10/13/16 Preeti Cruz PA-C [address] [place] [address] Transplant Center 05/29/23 Warp Clamper Relationship Specialty Start Date End Date Arslan Coelho MD [address] [place] [address] PCP - General Internal Medicine 10/13/16 Preeti Cruz PA-C [address] [place] [address] Transplant Center 05/29/23 Warp Clamper Relationship Specialty Start Date End Date Arslan Coelho MD [address] [place] [address] PCP - General Internal Medicine 10/13/16 Preeti Cruz PA-C [address] [place] [address] Transplant Center 05/29/23 Warp Clamper Relationship Specialty Start Date End Date Arslan Coelho MD [address] [place], [place] 2[address] PCP - General Internal Medicine 10/13/16 Preeti Cruz PA-C [address] [place] [address] Transplant Center 05/29/23 Warp Clamper Relationship Specialty Start Date End Date Arslan Coelho MD [address] [place], [place] [address] PCP - General Internal Medicine 10/13/16 Preeti Cruz PA-C [address] [place] [address] Transplant Center 05/29/23 Warp Clamper Relationship Specialty Start Date End Date Arslan Coelho MD [address] [place] [address] PCP - General Internal Medicine 10/13/16 Preeti Cruz PA-C [address] [place] [address] Transplant Center 05/29/23 Warp Clamper Relationship Specialty Start Date End Date Arslan Coelho MD [address] [place], [place] [address] PCP - General Internal Medicine 10/13/16 Warp Clamper Relationship Specialty Start Date End Date Arslan Coelho MD [address] [place], [place] [address] PCP - General Internal Medicine 10/13/16 Warp Clamper Relationship Specialty Start Date End Date Arslan Coelho MD [address] [place], [place] [phone] PCP - General Internal Medicine 10/13/16 Preeti Cruz PA-C [address] [place] [address] Transplant Center 05/29/23 (unrecognized sect ion and content) No Status Records FoundNo Status Records Found INFORMATION SOURCE (unrecogn ized section and content) DATE CREATED AUTHOR 10/07/2021 [facility] DATE CREATED AUTHOR AUTHOR'S ORGANIZ ATION 04/27/2024 [facility] FOR RECORDS PERTAINING TO PATIENTS WHO ARE OR HAVE BEEN ENROLLED IN A CHEMICAL DEPENDENCY/SUBSTANCEABUSE PROGRAM, SOME INFORMATION MAY BE OMITTED. This clinical summary was aggregated from multiple sources. Caution should be exercised in using it in the provision of clinical care. This summary normalizes information from multiple sources, and as a consequence, information in this document may materially change the coding, format and clinical context of patient data. In addition, data may be omitted in some cases. CLINICAL DECISIONS SHOULD BE BASED ON THE PRIMARY CLINICAL RECORDS. [employer] [facility]. provides no warranty or guarantee of the accuracy or completeness of information in this document.
--- NOTE | 2024-04-30 06:50 | PCM.PRE.AN2 ---
ASA Classification* ASA Classification ASA Classification: 2 Assessment & Plan Anesthesia* Anesthesia Assessment Anesthesia Assessment: Discussed sedation and/or anesthesia options, risks, benefits, and alternatives with patient/parents/legal guardian/POA. Questions invited. The patient/parents/legal guardian/POA seems to understand and agrees to proceed with anesthesia plan. Reviewed the physical assessment, medical history, allergy history and patient home medications list prior to surgery/procedure/anesthetic and documented any changes. Performed airway and anesthesia risk assessments. Anesthesia Type Anesthesia Type: MAC (see written pre anestesia record for full assessment) Anesthesia Focused Assessment* Airway Assessment Mouth opens: >3 cm Mallampati Score: II Focused Labs Anesthesia Preop lab: CBC WBC 5.9 K/mm3 (4.4-11.0) 04/09/23 15:16 RBC 4.97 M/mm3 (4.6-6.2) 04/09/23 15:16 Hgb 13.8 g/dL (13.0-16.5) 04/09/23 15:16 Hct 42.7 % (40-54) 04/09/23 15:16 Plt Count 240 K/mm3 (150-450) 04/09/23 15:16 CHEMISTRY Potassium 4.3 mmol/L (3.5-5.1) 04/09/23 15:16 Sodium 139 mmol/L (136-145) 04/09/23 15:16 BUN 18 mg/dL (7-18) 04/09/23 15:16 Creatinine 1.41 mg/dL (0.70-1.30) H 04/09/23 15:16 Glucose 168 mg/dL (74-106) H 04/09/23 15:16 POC Glucose 214 mg/dL (70-110) H 01/22/19 19:43 COAG Pre-Assessment Diagnosis/Proposed Procedure Planned Operative Procedure(s): EGD/CSCOPE Anesthesia History 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 When Was Last Pacemaker Check QUESTION #4 FULL TEXT: You/Your Family Experience fever (hyperthermia) with Anesthesia Last Oral Intake Last Oral intake: Last Oral Intake NPO since Meds taken in AM with sips of water? Meds patient instructed to take am of surgery PONV PONV - talking books library clerk: PONV - talking books library clerk Female No 04/26/24 12:06 HX of Motion Sickness No 04/26/24 12:06 HX of N/V After Surgery No 04/26/24 12:06 Non-Smoker Yes 04/26/24 12:06 Duration of Surgery greater No 04/26/24 12:06 than 60 minutes Number of Risk Factors 1 04/26/24 12:06 PONV Score Low Risk 04/26/24 12:06 Height & Weight Height & Weight: Anesthesia: Height & Weight Height 6 ft 04/02/24 15:18 Respiratory Assessment Respiratory Assessment - talking books library clerk: Respiratory Tract Infection Hx - talking books library clerk Hx Respiratory Tract Infection No 04/26/24 12:06 STOP Sleep Apnea STOP Sleep Apnea - talking books library clerk: STOP Sleep Apnea - talking books library clerk Hx Hypertension Yes: CONTROLLED WITH MED 04/26/24 12:06 Hx Sleep Apnea Yes 04/26/24 12:06 CPAP No 04/26/24 12:06 BIPAP Yes 04/26/24 12:06 Do you snore loudly (louder than talking or can be heard Do you often feel tired/ fatigued/ sleepy during daytime? Has anyone observed you stop breathing during sleep? STOP Results Positive 04/26/24 12:06 QUESTION #5 FULL TEXT : Do you snore loudly (louder than talking or can be heard through closed doors)? 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 Specify any problems Hx of Preganancy in last 3 N/A 04/26/24 12:06 Months Nurse Filling Out Transfusion DSCHRIBER 04/26/24 12:06 & Questions: Date: 04/26/24 04/26/24 12:06 Time: 12:09 04/26/24 12:06 Patient unable to answer at this time (ie. confused, unrespo /Reproduction History /Reproductive History - talking books library clerk: /Reproductive Hx- talking books library clerk Hx Now No 04/26/24 12:06 Gestational Age (in weeks): EDC: Hx Hx Para Hx Section SAB No 04/26/24 12:06 PFS Medical History Cancer Depression History of steroid therapy Insulin dependent diabetes mellitus Arthritis Polycystic kidney disease Injury of back Migraine headache Injury of head and neck Syncope Dietary restriction Gastric reflux BiPAP (biphasic positive airway pressure) dependence Non-smoker History of stress test History of Holter monitoring History of echocardiogram Cardiology follow-up encounter Stroke Spinal stenosis of lumbar region Insomnia Erectile dysfunction Hypomagnesemia Moderate mitral valve regurgitation Obesity Diabetic peripheral neuropathy Memory disturbance MITALI on CPAP GERD without esophagitis Stress and adjustment reaction Polycystic kidney disease Mixed hyperlipidemia Osteoporosis Hypertension Home Medications ?Medication ?Instructions ?Recorded ?Last Taken ?Type bupropion HCl 100 mg tablet,12 hr 100 mg PO DAILY 09/16/16 Unknown History sustained-release mycophenolate mofetil 250 mg 750 mg PO BID 09/16/16 Unknown History capsule tacrolimus 1 mg capsule,extended 0.5 mg PO DAILY 09/16/16 Unknown History release 24 hr (Astagraf XL) amlodipine 10 mg tablet 10 mg PO DAILY 04/30/21 04/30/24 History fluticasone furoate 50 1 inh inhalation QHS PRN PRN 04/30/21 Unknown History mcg/actuation blister powder for congestion inhalation ipratropium bromide 21 mcg (0.03 2 spray intranasal BID 04/30/21 Unknown History %) nasal spray prednisone 2.5 mg tablet 2.5 mg PO DAILY 04/30/21 Unknown History sulfamethoxazole 400 1 tab PO DAILY 04/30/21 Unknown History mg-trimethoprim 80 mg tablet (Bactrim) carvedilol 25 mg tablet (Coreg) 25 mg PO BID 04/04/23 04/30/24 History hydroxyzine pamoate 25 mg capsule 25 mg PO QHS PRN Sleep 04/04/23 Unknown History cholecalciferol (vitamin D3) 50 2,000 unit PO DAILY 04/12/23 Unknown History mcg (2,000 unit) capsule insulin lispro 100 unit/mL 25 unit subcut TID PRN SLIDING 04/12/23 Unknown History subcutaneous pen (Humalog KwikPen SCALE (U-100) Insulin) lansoprazole 30 mg capsule,delayed 30 mg PO DAILY 04/12/23 Unknown History release (Prevacid) valsartan 40 mg tablet 40 mg PO QHS 04/12/23 Unknown History sodium sul 1.479 gram-potas ch See Rx Instructions PO PER PKG DIR 04/03/24 Unknown Rx 0.188 gram-magnes sul 0.225 gram #1 pkg tablet (Sutab) insulin glargine 100 unit/mL (3 20 - 70 unit subcut QHS 04/26/24 Unknown History mL) subcutaneous pen (Lantus Solostar U-100 Insulin) suvorexant 10 mg tablet (Belsomra) 10 mg PO QHS 04/26/24 Unknown History Allergy/AdvReac Type Severity Reaction Status Date / Time CALLIE Inhibitors Allergy Other Verified 04/30/24 06:45 adhesive tape Allergy Rash Verified 04/30/24 06:45 Penicillins Allergy Unknown Verified 04/30/24 06:45 cholecalciferol (vitamin D3) AdvReac Other Verified 04/30/24 06:45 citalopram (From Celexa) AdvReac Other Verified 04/30/24 06:45 clonidine AdvReac Other Verified 04/30/24 06:45 ferrous sulfate AdvReac Other Verified 04/30/24 06:45 isosorbide (From Imdur) AdvReac Other Verified 04/30/24 06:45 Latex, Natural Rubber AdvReac Other Verified 04/30/24 06:45 losartan AdvReac Upset Verified 04/30/24 06:45 Stomach trazodone AdvReac Other Verified 04/30/24 06:45 Family History Mother Breast cancer Osteoporosis Aneurysm Father Diabetes Cancer bone Sister Breast cancer Surgical History Hx of oral surgery Hx of colonoscopy History of esophagogastroduodenoscopy (EGD) History of kidney transplant Social History Smoking Status: Never smoker alcohol intake: never Review of Systems (Anesthesia) ROS Narrative System reviewed and no additional complaints, except as documented.
[2024-04-30 07:13] LABS: Bedside Glucose 124 mg/dL (74-106)
--- NOTE | 2024-04-30 07:18 | HP.PCM_ITS ---
HPI - General General Date of Admission: 04/30/24 Date of Service: 04/30/24 Chief Complaint: EGD/colonoscopy HPI Narrative ESTER FLORES, is a 68 M who presents for elective EGD and colonoscopy. His last colonoscopy was in 2018. Does have a history of polyps. Is also in need of an EGD. He has been on proton pump inhibitors for many years. [facility] Medical History Cancer Depression History of steroid therapy Insulin dependent diabetes mellitus Arthritis Polycystic kidney disease Injury of back Migraine headache Injury of head and neck Syncope Dietary restriction Gastric reflux BiPAP (biphasic positive airway pressure) dependence Non-smoker History of stress test History of Holter monitoring History of echocardiogram Cardiology follow-up encounter Stroke Spinal stenosis of lumbar region Insomnia Erectile dysfunction Hypomagnesemia Moderate mitral valve regurgitation Obesity Diabetic peripheral neuropathy Memory disturbance MITALI on CPAP GERD without esophagitis Stress and adjustment reaction Polycystic kidney disease Mixed hyperlipidemia Osteoporosis Hypertension Home Medications ?Medication ?Instructions ?Recorded ?Last Taken ?Type bupropion HCl 100 mg tablet,12 hr 100 mg PO DAILY 09/16/16 Unknown History sustained-release mycophenolate mofetil 250 mg 750 mg PO BID 09/16/16 Unknown History capsule tacrolimus 1 mg capsule,extended 0.5 mg PO DAILY 09/16/16 Unknown History release 24 hr (Astagraf XL) amlodipine 10 mg tablet 10 mg PO DAILY 04/30/21 04/30/24 History fluticasone furoate 50 1 inh inhalation QHS PRN PRN 04/30/21 Unknown History mcg/actuation blister powder for congestion inhalation ipratropium bromide 21 mcg (0.03 2 spray intranasal BID 04/30/21 Unknown History %) nasal spray prednisone 2.5 mg tablet 2.5 mg PO DAILY 04/30/21 Unknown History sulfamethoxazole 400 1 tab PO DAILY 04/30/21 Unknown History mg-trimethoprim 80 mg tablet (Bactrim) carvedilol 25 mg tablet (Coreg) 25 mg PO BID 04/04/23 04/30/24 History hydroxyzine pamoate 25 mg capsule 25 mg PO QHS PRN Sleep 04/04/23 Unknown History cholecalciferol (vitamin D3) 50 2,000 unit PO DAILY 04/12/23 Unknown History mcg (2,000 unit) capsule insulin lispro 100 unit/mL 25 unit subcut TID PRN SLIDING 04/12/23 Unknown Histo ry subcutaneous pen (Humalog KwikPen SCALE (U-100) Insulin) lansoprazole 30 mg capsule,delayed 30 mg PO DAILY 04/12/23 Unknown History release (Prevacid) valsartan 40 mg tablet 40 mg PO QHS 04/12/23 Unknown History sodium sul 1.479 gram-potas ch See Rx Instructions PO PER PKG DIR 04/03/24 Unknown Rx 0.188 gram-magnes sul 0.225 gram #1 pkg tablet (Sutab) insulin glargine 100 unit/mL (3 20 - 70 unit subcut QHS 04/26/24 Unknown History mL) subcutaneous pen (Lantus Solostar U-100 Insulin) suvorexant 10 mg tablet (Belsomra) 10 mg PO QHS 04/26/24 Unknown History Allergy/AdvReac Type Severity Reaction Status Date / Time CALLIE Inhibitors Allergy Other Verified 04/30/24 06:45 adhesive tape Allergy Rash Verified 04/30/24 06:45 Penicillins Allergy Unknown Verified 04/30/24 06:45 cholecalciferol (vitamin D3) AdvReac Other Verified 04/30/24 06:45 citalopram (From Celexa) AdvReac Other Verified 04/30/24 06:45 clonidine AdvReac Other Verified 04/30/24 06:45 ferrous sulfate AdvReac Other Verified 04/30/24 06:45 isosorbide (From Imdur) AdvReac Other Verified 04/30/24 06:45 Latex, Natural Rubber AdvReac Other Verified 04/30/24 06:45 losartan AdvReac Upset Verified 04/30/24 06:45 Stomach trazodone AdvReac Other Verified 04/30/24 06:45 Family History Mother Breast cancer Osteoporosis Aneurysm Father Diabetes Cancer bone Sister Breast cancer Surgical History Hx of oral surgery Hx of colonoscopy History of esophagogastroduodenoscopy (EGD) History of kidney transplant Social History Smoking Status: Never smoker alcohol intake: never ROS Constitutional Constitutional: Reports systems reviewed and no addt'l complaints, except as documented Eyes Eyes: Reports systems reviewed and no addt'l complaints, except as documented ENT HEENT: Reports systems reviewed and no addt'l complaints, except as documented Cardiovascular Cardiovascular: Reports systems reviewed and no addt'l complaints, except as documented Respiratory/Chest Respiratory/Chest: Reports systems reviewed and no addt'l complaints, except as documented Gastrointestinal Gastrointestinal: Reports systems reviewed and no addt'l complaints, except as documented Vital Signs Vital Signs Vital Signs: 04/30/24 06:45 04/30/24 06:45 Temperature 97.8 F Temperature Source Temporal Pulse Rate 71 Respiratory Rate 16 Respiratory Pattern Normal Blood Pressure 132/83 H Blood Pressure Mean 99 Blood Pressure Source Monitor Blood Pressure Position Semi-Fowlers Blood Pressure Location Right Arm Pulse Ox 100 Oxygen Delivery Method Room Air Weight Weight: 205 lb 0.478 oz Body Mass Index (BMI) 27.8 Physical Exam Const alert, oriented x3 and no apparent distress HEENT normocephalic Head and Scalp: normocephalic Eyes PERRL Neck full ROM General: normal visual inspection Chest Chest: symmetrical chest wall rise Resp normal respiratory effort GI normal to inspection, nondistended, normoactive bowel sounds Results Lab / Micro Data Labs: Laboratory Results - last 24 hr 04/30/24 06:48: POC Glucose 124 H Assessment & Plan Assessment/Plan (1) Screening for malignant neoplasm of colon: PLAN: Plan The patient is a 68-year-old male in need of a screening colonoscopy and EGD. We discussed the details of the planned procedure including risks benefits and alternatives. He wishes to proceed. This will be scheduled in a timely manner. Charges/Coding Visit Charges Inpatient E&M: 60645 Init Hosp L1
--- NOTE | 2024-04-30 07:30 | IMM_PTH ---
PATHOLOGY RESULTS PATIENT: ESTER FLORES LOC: EN U#:[id number] AGE/SX: 68/M ROOM: RE04/30/[address]: Dr. Braeden Armstrong MD : 1955 BED: DIS: 04/30/2024 SPEC #: [id number] RECD: 04/30/24 13:23 STATUS: JULIA REQ #: [id number] BOBO: 04/30/24 07:[address]: Braeden Armstrong DEPT: IMMUNOHISTOCHEMISTRY RECD BY: Good Padron ENTERED: 04/30/24 13:23 SP TYPE: IMMUNO OTHR DR: Dr. Arslan Coelho MD Tissues: Gastric mucous membrane Procedures: H Pylori (initial) PHYSICIAN & INSTITUTION [place] [id number] SPECIMEN INFORMATION: Tissue Source: A- Antrum biopsy Clinical Info: Screening for malignant neoplasm of colon, GERD Specimen Number: [id number] CPT code: 26354 METHODOLOGY: Deparaffinized sections of prefer/formalin-fixed tissue or PAP/DQ stained slides are incubated with monoclonal/polyclonal antibodies/oligonucleotide probes. Localization is made via biotin free immunoperoxidase method. Appropriate controls are performed and reacted as expected. Results on target cell population are indicated in the following table: RESULTS: ANTIBODY / CLONE RESULT Block A H Pylori (polyclonal) negative These tests were developed and their performance characteristics determined by [facility]. They may not have been cleared or approved by the U.S. Food and Drug Administration. The FDA has determined that such clearance or approval is not necessary. The above immunohistochemical/dualISH markers are ordered and reviewed by the Pathologist. INTERPRETATION: A. Antrum, biopsy: Negative for Helicobacter pylori organisms. AM 05/01/2024
--- NOTE | 2024-04-30 08:28 | PCM.POST.ANE ---
Anesthesia: Postop Eval I Current Vital Signs Temperature: 97 F Pulse Rate: 74 Blood Pressure: 93/70 Respiratory Rate: 16 Pulse Ox: 94 Oxygen Delivery Method: Room Air Assessment Airway patent: Yes Spontaneous unlabored respirations: Yes Mental status: Awake and Calm nausea: No Vomiting: No Anesthesia Complication: No Fluid Hydration Crystalloid volume administer (ml): 60 Total IV fluid infused: 60 Progress Note Anesthesia document: Postop Eval 1 completed: Yes
--- NOTE | 2024-04-30 08:29 | OP.EGD_ITS ---
Patient Name: Fadi Davila Procedure Date: 04/30/2024 7:27 AM Date of : 1955 Age: 68 Procedure: Upper GI endoscopy Indications: Esophageal reflux Providers: Braeden Armstrong MD Medicines: Monitored Anesthesia Care Patient Profile: Refer to note in patient chart for documentation of history and physical. Patient has symptoms. Complications: No immediate complications. Estimated blood loss: None. Procedure: Pre-Anesthesia Assessment: - Prior to the procedure, a History and Physical was performed, and patient medications and allergies were reviewed. The patient's tolerance of previous anesthesia was also reviewed. The risks and benefits of the procedure and the sedation options and risks were discussed with the patient. All questions were answered, and informed consent was obtained. Prior Anticoagulants: The patient has taken no anticoagulant or antiplatelet agents. ASA Grade Assessment: III - A patient with severe systemic disease. After reviewing the risks and benefits, the patient was deemed in satisfactory condition to undergo the procedure. After obtaining informed consent, the endoscope was passed under direct vision. Throughout the procedure, the patient's blood pressure, pulse, and oxygen saturations were monitored continuously. The Endoscope was introduced through the mouth, and advanced to the duodenal bulb. The upper GI endoscopy was accomplished without difficulty. The patient tolerated the procedure well. Moderate Sedation: See the other procedure note for documentation of moderate sedation with intraservice time. Scope In: 7:38:38 AM Scope Out: 7:45:42 AM Total Procedure Duration Time 0 hours 7 minutes 4 seconds Findings: The duodenal bulb was normal. Localized mild inflammation characterized by erythema was found in the stomach. Biopsies were taken with a cold forceps for Helicobacter pylori testing. Verification of patient identification for the specimen was done by the nurse using the patient's name, date and medical record number. Estimated blood loss was minimal. No gross lesions were noted in the entire esophagus. Mucosa was biopsied with a cold forceps for histology randomly at the gastroesophageal junction. Verification of patient identification for the specimen was done by the nurse using the patient's name, date and medical record number. The exam was otherwise without abnormality. Impression: - Normal duodenal bulb. - Chronic gastritis. Biopsied. - No gross lesions in the entire esophagus. Biopsied. - The examination was otherwise normal. Recommendation: - Discharge patient to home (ambulatory). - High fiber diet. - Continue present medications. - Await pathology results. - Repeat upper endoscopy in 5 years. - Return to my office PRN. Procedure Code(s): --- Professional --- 74003, Esophagogastroduodenoscopy, flexible, transoral; with biopsy, single or multiple Diagnosis Code(s): --- Professional --- K21.9, Gastro-esophageal reflux disease without esophagitis K29.50, Unspecified chronic gastritis without bleeding CPT copyright 2021 [employer]. All rights reserved. The codes documented in this report are preliminary and upon medical coder review may be revised to meet current compliance requirements. Braeden Armstrong MD 04/30/2024 8:28:05 AM This report has been signed electronically. Number of Addenda: 0 Note Initiated On: 04/30/2024 7:27 AM
--- NOTE | 2024-04-30 08:29 | OP.CCLET_ITS ---
04/30/2024 Arslan Coelho [address] [place] [address] Re : Upper GI endoscopy procedure for Fadi Davila Dear Dr. Coelho This procedure was performed on Tuesday, April 30, 2024. My impressions and recommendations are as follows: Impressions : - Normal duodenal bulb. - Chronic gastritis. Biopsied. - No gross lesions in the entire esophagus. Biopsied. - The examination was otherwise normal. Recommendations : - Discharge patient to home (ambulatory). - High fiber diet. - Continue present medications. - Await pathology results. - Repeat upper endoscopy in 5 years. - Return to my office PRN. My findings are described in the full procedure note, which is enclosed. If I can be of further assistance, please feel free to contact me at . Sincerely, Braeden Armstrong MD 04/30/2024 8:28:05 AM This report has been signed electronically.
--- NOTE | 2024-04-30 08:32 | OP.CCLET_ITS ---
04/30/2024 Arslan Coelho [address] [place] [address] Re : Colonoscopy procedure for Fadi Davila Dear Dr. Coelho This procedure was performed on Tuesday, April 30, 2024. My impressions and recommendations are as follows: Impressions : - Preparation of the colon was unsatisfactory. - Two 3 to 5 mm polyps in the ascending colon, removed with a cold biopsy forceps. Resected and retrieved. - The examination was otherwise normal on direct and retroflexion views. Recommendations : - Discharge patient to home (ambulatory). - High fiber diet indefinitely. - Repeat colonoscopy in 5 years for surveillance. - Continue present medications. My findings are described in the full procedure note, which is enclosed. If I can be of further assistance, please feel free to contact me at . Sincerely, Braeden Armstrong MD 04/30/2024 8:31:49 AM This report has been signed electronically.
--- NOTE | 2024-04-30 08:32 | OP.COLON_ITS ---
Patient Name: Fadi Davila Procedure Date: 04/30/2024 7:46 AM Date of : 1955 Age: 68 Procedure: Colonoscopy Indications: High risk colon cancer surveillance: Personal history of colonic polyps Providers: Braeden Armstrong MD Medicines: Propofol per Anesthesia Patient Profile: Refer to note in patient chart for documentation of history and physical. Patient has symptoms. Refer to note in patient chart for documentation of history and physical. Last Colonoscopy: 5 years ago. Complications: No immediate complications. Estimated blood loss: Minimal. Procedure: Pre-Anesthesia Assessment: - Prior to the procedure, a History and Physical was performed, and patient medications and allergies were reviewed. The patient's tolerance of previous anesthesia was also reviewed. The risks and benefits of the procedure and the sedation options and risks were discussed with the patient. All questions were answered, and informed consent was obtained. Prior Anticoagulants: The patient has taken no anticoagulant or antiplatelet agents. ASA Grade Assessment: III - A patient with severe systemic disease. After reviewing the risks and benefits, the patient was deemed in satisfactory condition to undergo the procedure. After I obtained informed consent, the scope was passed under direct vision. Throughout the procedure, the patient's blood pressure, pulse, and oxygen saturations were monitored continuously. The adult colonoscope was introduced through the anus and advanced to the cecum, identified by appendiceal orifice and ileocecal valve. The colonoscopy was performed without difficulty. The patient tolerated the procedure well. The quality of the bowel preparation was unsatisfactory. The ileocecal valve, appendiceal orifice, and rectum were photographed. The entire colon was examined. Moderate Sedation: See the other procedure note for documentation of moderate sedation with intraservice time. Scope In: 7:48:03 AM Scope Withdrawal Time 0 hours 17 minutes 21 seconds Scope Out: 8:20:40 AM Total Procedure Duration Time 0 hours 32 minutes 37 seconds Findings: The perianal and digital rectal examinations were normal. Two semi-sessile polyps were found in the ascending colon. The polyps were 3 to 5 mm in size. These polyps were removed with a cold biopsy forceps. Resection and retrieval were complete. Verification of patient identification for the specimen was done by the nurse using the patient's name, date and medical record number. The exam was otherwise without abnormality on direct and retroflexion views. Impression: - Preparation of the colon was unsatisfactory. - Two 3 to 5 mm polyps in the ascending colon, removed with a cold biopsy forceps. Resected and retrieved. - The examination was otherwise normal on direct and retroflexion views. Recommendation: - Discharge patient to home (ambulatory). - High fiber diet indefinitely. - Repeat colonoscopy in 5 years for surveillance. - Continue present medications. Procedure Code(s): --- Professional --- 71726, Colonoscopy, flexible; with biopsy, single or multiple Diagnosis Code(s): --- Professional --- D12.2, Benign neoplasm of ascending colon Z86.010, Personal history of colonic polyps CPT copyright 2021 [employer]. All rights reserved. The codes documented in this report are preliminary and upon flower picker review may be revised to meet current compliance requirements. Braeden Armstrong MD 04/30/2024 8:31:49 AM This report has been signed electronically. Number of Addenda: 0 Note Initiated On: 04/30/2024 7:46 AM
[2024-04-30 09:05] LABS: Bedside Glucose 122 mg/dL (74-106)
--- NOTE | 2024-04-30 11:43 | PCM.POSTANE2 ---
Anesthesia Postop Eval I Sum Postop Eval Completion status Anesthesia document: Postop Eval 1 completed: Yes Anesthesia Postop Eval I Summary Anesthesia Postop Eval I Summary: Anesthesia Postop Eval I: Assessment Summary Airway patent Yes 04/30/24 08:29 [email or web address] Spontaneous unlabored Yes 04/30/24 08:29 [email or web address] respirations Mental status Awake,Calm 04/30/24 08:29 [email or web address] nausea No 04/30/24 08:29 [email or web address] Vomiting No 04/30/24 08:29 [email or web address] Anesthesia Postop Eval I: Fluid Summary Crystalloid volume administer 60 04/30/24 08:29 [email or web address] (ml) Colloids volume administered ( ml) Blood Product volume administered (ml) Total IV fluid infused 60 04/30/24 08:29 [email or web address] Anesthesia Postop Eval I: Summary Notes Anesthesia Complication No 04/30/24 08:29 [email or web address] Anesthesia Complication Comment: Post-operative progress note Anesthesia: Postop Eval II Evaluation Mental status: Awake and Calm Pain Level: 0 nausea: No Vomiting: No Complications Anesthesia Complication: No
== END 2024-04-30 09:12 | disposition home or self-care (01) ==
LOC: EN 06:28 → AC 06:29
PROVIDERS: PCP Internal Medicine; Referring Provider Surgery; Visit Provider Surgery
PROC: 0DJD8ZZ Inspection of Lower Intestinal Tract, Via Natural or Artificial Opening Endoscopic (ICD-10-PCS; CPT 45378; principal; 2024-04-30 07:25)
DX: Z12.11 Encounter for screening for malignant neoplasm of colon (principal); E11.42 Type 2 diabetes mellitus with diabetic polyneuropathy; Z79.4 Long term (current) use of insulin; K21.00 Gastro-esophageal reflux disease with esophagitis, without bleeding; E78.2 Mixed hyperlipidemia; I10 Essential (primary) hypertension; K29.50 Unspecified chronic gastritis without bleeding; D12.2 Benign neoplasm of ascending colon; Z86.0100 Personal history of colon polyps, unspecified; Z79.899 Other long term (current) drug therapy
CPT/HCPCS: 45380; 43239; 82962; 88305; 88312; 88342; J2405